=== PATIENT | female | born 1960 | race Caucasian/White ===

== ENCOUNTER → 2017-06-16 | Outpatient (CLI) | payer BC ==
--- NOTE | 2017-06-16 10:55 | CT ---
EXAMINATION TYPE: CT ChestAbdPelvis wo con DATE OF EXAM: 06/16/2017 COMPARISON: Previous dated 02/21/2016 CT chest abdomen pelvis HISTORY: Follow up to chronic lymphocytic leukemia. C91.10. Pt c/o Rt leg pain CT DLP: 639.6 mGycm. Automated Exposure Control for Dose Reduction was Utilized. TECHNIQUE: CT scan of the thorax, abdomen and pelvis is performed without IV contrast. Patient received oral con trast. FINDINGS: Lack of each venous contrast could compromise sensitivity LUNGS: The lungs are similar in appearance, areas of probable scarring noted in the right upper lobe, the same as changes are present. Axial image 23 shows a subcentimeter pulmonary nodule measuring lyric roximately 4 mm not definitively seen on prior, there are additional scattered nodular densities gosia lar to prior exam. There is no pleural effusion or pneumothorax seen. The tracheobronchial tree is p atent. MEDIASTINUM: There is extensive adenopathy present which is developed in the interval involving the a xilla, mediastinum, and hilar regions, largest subcarinal soft tissue mass is present, there may be s ome mass effect on the left atrium. Subpectoral nodes are also present bilaterally. There are coronar y artery calcifications noted. LIVER/GB: No significant interval change is appreciated, low dense focus within the right lobe of the liver is poorly characterize but shows a similar dimension to prior exam. PANCREAS: No significant abnormality is seen. SPLEEN: There is been interval enlargement of the spleen now measuring 14 cm in anterior to posterior dimension. ADRENALS: Left adrenal mass is stable. KIDNEYS: No significant abnormality is seen. BOWEL: No significant abnormality is seen. GENITAL ORGANS: No gross abnormality seen. LYMPH NODES: There is upper abdominal adenopathy which is developed in the interval, retroperitoneal adenopathy is also new and extensive. There is some mesenteric adenopathy not seen on prior exam. Zara ac and inguinal nodes of also increased in size in the interval, largest iliac node on the left shows a transverse dimension of 13 mm. Supraclavicular adenopathy also present, noted on the left measures approximately 16 mm in short axis, shotty nodes are present bilaterally. OSSEOUS STRUCTURES: No significant abnormality is seen. OTHER: Subcentimeter nonobstructive calculi are present within the left kidney as on prior exam. IMPRESSION: Interval development of extensive adenopathy within the chest abdomen and pelvis. Interva l subcentimeter lung nodule.
== END | disposition home or self-care (01) ==
LOC: RADCTMAIN 08:05
PROVIDERS: ATTEND Internal Medicine Hematology & Oncology
DX: R91.1 Solitary pulmonary nodule (principal); R59.0 Localized enlarged lymph nodes; C91.10 Chronic lymphocytic leukemia of B-cell type not having achieved remission; Z91.041 Radiographic dye allergy status
CPT/HCPCS: 71250; 74176

== ENCOUNTER → 2017-07-01 | Outpatient (CLI) | payer BC ==
--- NOTE | 2017-07-02 12:12 | MM ---
Reason for exam: screening (asymptomatic). Last mammogram was performed 1 year and 10 months ago. History: Patient history of other cancer. Excisional biopsy of the right breast. Took estrogen for 2 months. Physical Findings: A clinical breast exam by your physician is recommended on an annual basis and results should be correlated with mammographic findings. MG Screening Mammo w CAD Bilateral CC and MLO view(s) were taken. Prior study comparison: August 23, 2015, right breast MG work up mamm w CAD RT. August 16, 2015, bilateral MG screening mammo w CAD. The breast tissue is heterogeneously dense. This may lower the sensitivity of mammography. There is a 6mm low density mass in the left central upper breast at posterior depth. Right lateral asymmetry at middle depth. Inferior middle depth right architectural distortion. New extensive axillary adenopathy. Diagnostic mammogram work up and correlation with CBC/serum lab workup is recommended. ASSESSMENT: Incomplete: need additional imaging evaluation, BI-RAD 0 RECOMMENDATION: Special view mammogram and ultrasound of both breasts. (pain) [facility] will attempt to contact patient to return for supplemental views and ultrasound.
== END | disposition home or self-care (01) ==
LOC: RADMAMWWP 08:26
PROVIDERS: ATTEND Family Medicine
DX: Z12.31 Encounter for screening mammogram for malignant neoplasm of breast (principal)
CPT/HCPCS: 77067

== ENCOUNTER 2017-07-02 09:06 | Day surgery (SDC) | payer BC ==
[2017-07-02 09:29] VITALS: TEMP 97.6
[2017-07-02 10:19] VITALS: BP 117/64; PULSE 88; RESP 14
--- NOTE | 2017-07-02 12:11 | US ---
EXAMINATION TYPE: US biopsy lymph node DATE OF EXAM: 07/02/2017 HISTORY: Axillary mass. FINDINGS: Maximal barrier technique was utilized. The skin overlying a suitable path to the patient' s right axilla was localized with ultrasound and the overlying skin prepped and draped. Ultrasound w as utilized with sterile technique. Lidocaine was used for local anesthesia. A skin nallely was made w ith a scalpel. An 18-gauge needle was advanced under direct ultrasound guidance and core specimen ob tained of the mass. Specimen submitted in formalin to Pathology. 2 additional passes were performed and submitted to the diagnostic technologist. Following the procedure, hemostasis achieved and the pat ient is discharged in stable condition without complication. IMPRESSION:STATUS POST ULTRASOUND GUIDED CORE BIOPSY OF right axillary MASS, PATHOLOGY IS PENDING. T HIS PROCEDURE IS PERFORMED BY THE UNDERSIGNED.
== END 2017-07-02 10:25 | disposition home or self-care (01) ==
LOC: RADPROMAIN 09:06
PROVIDERS: ATTEND Internal Medicine Hematology & Oncology
DX: C91.10 Chronic lymphocytic leukemia of B-cell type not having achieved remission (principal)
CPT/HCPCS: 38505; 76942; 88305

== ENCOUNTER → 2017-07-11 | Outpatient (CLI) | payer BC ==
--- NOTE | 2017-07-11 13:21 | MM ---
Reason for exam: additional evaluation requested from abnormal screening. Last mammogram was performed less than 1 month ago. History: Patient history of other cancer. Excisional biopsy of the right breast. Physical Findings: Nurse did not find any significant physical abnormalities on exam. MG Work Up Mamm w CAD BILAT Bilateral spot compression CC, spot compression MLO, and LM view(s) were taken. Prior study comparison: July 01, 2017, bilateral MG screening mammo w CAD. August 23, 2015, right breast MG work up mamm w CAD RT. The breast tissue is heterogeneously dense. This may lower the sensitivity of mammography. Persistent nodularity in the left breast. Ultrasound is recommended bilaterally. Enlarged bilateral adenopathy. These results were verbally communicated with the patient and result sheet given to the patient on 07/11/17. ASSESSMENT: Incomplete: need additional imaging evaluation, BI-RAD 0 RECOMMENDATION: Ultrasound of both breasts.
--- NOTE | 2017-07-11 13:48 | USB ---
Reason for exam: additional evaluation requested from abnormal screening. History: Patient history of other cancer. Excisional biopsy of the right breast. US Breast Workup RD Right breast ultrasound includes all four quadrants, the retroareolar region and axilla. Finding demonstrates a 0.3 x 0.4 x 0.2cm oval lesion too small to characterize at 3 o'clock, a 0.8 x 0.5 x 0.6cm oval, hyperechoic lipoma at 6 o'clock, a 1.1 x 0.7 x 0.5cm oval, hyperechoic lesion at 8 o'clock, a 0.4 x 0.6 x 0.4cm oval, mixed cluster at 9 o'clock, a 0.4 x 0.4 x 0.4cm round, cystic, vascular lesion at 9 o'clock, a 0.7 x 0.5 x 0.2cm oval, cystic lesion at 10 o'clock, a 0.4 x 0.4 x 0.3cm oval, cystic lesion at 10 o'clock and duct ectasia at the posterior nipple. Left breast ultrasound includes all four quadrants, the retroareolar region and axilla. Finding demonstrates a 0.4 x 0.7 x 0.3cm oval, hyperechoic lesion at 12 o'clock, a 0.2 x 0.4 x 0.2cm oval lesion too small to characterize at 1 o'clock, a 0.5 x 0.4 x 0.4cm oval, hypoechoic lesion at 2 o'clock, a 1.0 x 0.4 x 0.3cm oval, irregular, hypoechoic lesion at 6 o'clock, a 0.4 x 0.5 x 0.2cm oval, hypoechoic lesion at 8 o'clock and a 0.7 x 0.7 x 0.4cm oval, solid lesion at 3 o'clock. These results were verbally communicated with the patient and result sheet given to the patient on 07/11/17. ASSESSMENT: Suspicious, BI-RAD 4 RECOMMENDATION: Ultrasound core biopsy of the left breast. (3 o'clock) Called with mammographic findings and has scheduled an appointment for the patient for 07/14/[address] Fitzgerald. PRELIMINARY REPORT CALLED AND FAXED TO DR. FITZGERALD ON 07/11/17.
== END | disposition home or self-care (01) ==
LOC: RADMAMWWP 08:24
PROVIDERS: ATTEND Family Medicine
DX: R92.8 Other abnormal and inconclusive findings on diagnostic imaging of breast (principal)
CPT/HCPCS: 77066

== ENCOUNTER → 2017-10-03 | Outpatient (CLI) | payer BC ==
--- NOTE | 2017-10-03 15:00 | US ---
EXAMINATION TYPE: US extremity nonvasc mass RT DATE OF EXAM: 10/03/2017 COMPARISON: CLINICAL HISTORY: R06.02 SOB R60.0 BLE R22.42 Swelling R thigh mass. Palpable lumps on anterior right thigh Area of three anterior palpable lumps on upper thigh scanned. All appear nonvascular and superficial . 1- 1.3 x 0.8 x 0.6 cm 2- 1.8 x 2.1 x 1.3 cm 3- 1.0 x 1.0 x 0.5 cm IMPRESSION: 1. Hyperechoic areas corresponding to the palpable abnormalities may be lipomas. 2. MRI with contrast could be performed which may better evaluate lipoma from liposarcoma.
--- NOTE | 2017-10-03 17:14 | ECHOF ---
Referral Reason:R06.02 SOB R60.0 BLE R22.42 Swelling R thigh mass MEASUREMENTS -------- HEIGHT: 157.5 cm WEIGHT: 70.8 kg BP: 139/77 RVIDd: 2.7 cm (< 3.3) IVSd: 0.9 cm (0.6 - 1.1) LVIDd: 5.7 cm (3.9 - 5.3) LVPWd: 1.1 cm (0.6 - 1.1) IVSs: 1.0 cm LVIDs: 5.1 cm LVPWs: 1.4 cm LA Diam: 3.7 cm (2.7 - 3.8) LAESV Index (A-L): 29.34 ml/m Ao Diam: 2.7 cm (2.0 - 3.7) AV Cusp: 1.8 cm (1.5 - 2.6) MV EXCURSION: 14.967 mm (> 18.000) MV EF SLOPE: 106 mm/s (70 - 150) EPSS: 2.2 cm MV E Get: 0.76 m/s MV DecT: 56 ms MV A Get: 1.33 m/s MV E/A Ratio: 0.57 AV maxP.78 mmHg AV maxP.78 mmHg AV meanP.19 mmHg FINDINGS -------- Sinus rhythm. This was a technically adequate study. The left ventricle is mildly dilated. There is borderline concentric left ventricular hypertrophy. Overall left ventricular systolic function is severely impaired with, an EF between 20 - 25 %. Ba sony inferior LV wall motion is hypokinetic. Basal inferoseptal LV wall motion is dyskinetic. The right ventricle is normal in size. LA is midly dilated 29-33ml/m2. The right atrium is normal in size. The atrial septal defect shunts from left to right. There is mild aortic valve sclerosis. Mild mitral annular calcification present. Mild mitral regurgitation is present. The tricuspid valve appears structurally normal. Trace/mild (physiologic) pulmonic regurgitation. The aortic root size is normal. Normal inferior vena cava with normal inspiratory collapse consistent with estimated right atrial pre ssure of 5 mmHg. There is no pericardial effusion. CONCLUSIONS -------- 1. Sinus rhythm. 2. This was a technically adequate study. 3. The left ventricle is mildly dilated. 4. There is borderline concentric left ventricular hypertrophy. 5. Overall left ventricular systolic function is severely impaired with, an EF between 20 - 25 %. 6. Basal inferior LV wall motion is hypokinetic. 7. Basal inferoseptal LV wall motion is dyskinetic. 8. The right ventricle is normal in size. 9. LA is midly dilated 29-33ml/m2. 10. The right atrium is normal in size. 11. The atrial septal defect shunts from left to right. 12. There is mild aortic valve sclerosis. 13. Mild mitral annular calcification present. 14. Mild mitral regurgitation is present. 15. The tricuspid valve appears structurally normal. 16. Trace/mild (physiologic) pulmonic regurgitation. 17. The aortic root size is normal. 18. Normal inferior vena cava with normal inspiratory collapse consistent with estimated right atrial pressure of 5 mmHg. 19. There is no pericardial effusion. EXECUTIVE DIRECTOR CONTRACT SHOP: Lala Horner RDCS
== END | disposition home or self-care (01) ==
LOC: RADECHMAIN 13:21
PROVIDERS: ATTEND Internal Medicine Hematology & Oncology
DX: I50.9 Heart failure, unspecified (principal); I34.0 Nonrheumatic mitral (valve) insufficiency; I35.8 Other nonrheumatic aortic valve disorders; M79.651 Pain in right thigh; Z91.048 Other nonmedicinal substance allergy status; Z88.1 Allergy status to other antibiotic agents
CPT/HCPCS: 93306

== ENCOUNTER → 2017-11-14 | Outpatient (CLI) | payer BC ==
[2017-11-14 12:33] LABS: HCT 48.2 % (34.0-46.0); HGB 15.6 gm/dL (11.4-16.0); MCH 31.4 pg (25.0-35.0); MCHC 32.4 g/dL (31.0-37.0); MCV 96.9 fL (80.0-100.0); Mean Platelet Volume 11.3; Platelet Count 145 k/uL (150-450); RBC 4.98 m/uL (3.80-5.40)
[2017-11-14 12:42] LABS: WBC 68.7 k/uL (3.8-10.6)
== END | disposition home or self-care (01) ==
LOC: LABPAT 11:50
PROVIDERS: ATTEND Internal Medicine Interventional Cardiology
DX: Z01.812 Encounter for preprocedural laboratory examination (principal)
CPT/HCPCS: 36415; 85027

== ENCOUNTER 2017-11-19 08:05 | Day surgery (SDC) | payer BC ==
[2017-11-14 11:09] VITALS: BMI 28.5
[~2017-11-19 08:05] MED LIST: ALPRAZolam 0.25 MG TAB PO PRN; ASPIRIN 325 MG TAB PO ONE; NITROGLYCERIN SL TABS 0.4 MG TAB SUBLINGUAL PRN; SODIUM CHLORIDE 0.9% 1,000 ML in EMPTY BAG 1 BAG IV ONE
[2017-11-19 08:22] VITALS: TEMP 97.9
[2017-11-19] MEDS ORDERED: LIDOCAINE 1% INJ 10MG/ML (20 ML MDV) ONE ×2 (09:11→09:24)
[2017-11-19] MEDS ORDERED: MIDAZOLAM 2 MG/2 ML VIAL ONE (09:38)
[2017-11-19] MEDS ORDERED: diphenhydrAMINE 50 MG/ML 1 ML VIAL ONE (09:38)
[2017-11-19] MEDS ORDERED: LIDOCAINE 2% INJ 20 MG/ML SQ ONE (09:46)
[2017-11-19] MEDS: MIDAZOLAM 2 MG/2 ML VIAL IV ONE ×2 (09:47→10:07)
[2017-11-19] MEDS ORDERED: diphenhydrAMINE 50 MG/ML 1 ML VIAL IVP ONE (09:47)
[2017-11-19] MEDS ORDERED: FUROSEMIDE 10 MG/ML 4 ML VIAL ONE (10:17)
[2017-11-19] MEDS ORDERED: NITROGLYCERIN SL TABS 0.4 MG TAB SUBLINGUAL ONE ×2 (10:17→10:19)
[2017-11-19] MEDS ORDERED: IOPAMIDOL-370 100ML BTL INJ ONE (10:19)
[2017-11-19] MEDS ORDERED: FUROSEMIDE 10 MG/ML 4 ML VIAL IV ONE (10:19)
[2017-11-19] MEDS ORDERED: IOPAMIDOL-370 50ML BTL INJ ONE (10:20)
[2017-11-19] MEDS ORDERED: RX INFO: IV CONTRAST WAS GIVEN 1 EACH MISC MISCELLANE PRN (10:35)
[2017-11-19] MEDS ORDERED: SODIUM CHLORIDE 0.9% 1,000 ML IV SCH (10:45)
--- NOTE | 2017-11-19 11:19 | CC ---
CARDIAC CATHETERIZATION REPORT DATE OF SERVICE: 11/19/2017 PROCEDURE: Left heart catheterization, coronary angiography and left ventriculography. PERFORMED BY: Dr. Neelam Garcia. CLINICAL INFORMATION: Mrs. Radhames Belle is a 57-year-old lady with a history of smoking, hypertension, hyperlipidemia, family history of CAD who saw me because of a decreased ejection fraction of 25%. Echo in September revealed ejection fraction of 25% with inferior wall hypokinesia and inferoseptal dyskinesia. She also has chronic lymphocytic leukemia and is being [facility]. Because of a abnormal echocardiogram and symptoms of exertional shortness of breath, she was advised coronary angiography after appropriate medical therapy. The risks, benefits, options and rationale were explained to the patient in detail. PROCEDURE NOTE: I initially had planned for a right and left heart catheterization, but there was some difficulty getting right venous access in the femoral vein and therefore I switched over to a left heart cath only. A 6-Palauan introducer was placed in the right femoral artery under strict aseptic precautions and local anesthesia. Using standard Cherelle catheters, I performed coronary angiography and a pigtail catheter was used to check LV pressures and LV gram was performed in 30-degree KRAUSE projection. The sheath was taken out and an Angio-Seal device used to secure hemostasis. She was sent to the room in a stable condition. Results were discussed with the patient and family. CARDIAC CATHETERIZATION FINDINGS: The left ventricular end-diastolic pressure was 24 mmHg and there was no gradient across the aortic valve. LEFT VENTRICULOGRAM: This was performed in 30-degree KRAUSE projection and revealed ejection fraction of about 35% to 40% with inferobasal akinesia and also there were some trabeculae seen in the anterior wall area suggestive of some diverticula from the ventricle. There is minimal mitral regurgitation noted. CORONARY ANGIOGRAPHY FINDINGS: RIGHT CORONARY ARTERY: Nondominant vessel has minor diffuse irregularities. No significant disease. Limited amount of myocardium being supplied by it. LEFT MAIN CORONARY ARTERY: Short patent vessel, free of significant disease that bifurcates into LAD and circumflex. LEFT ANTERIOR DESCENDING CORONARY ARTERY: Good caliber vessel extends along the anterior wall. Proximally, there is a 40% lesion. The caliber then improves it runs all the way to the apex giving off septal and diagonal branches. No significant disease in the entire LAD system but there is a 40% proximal smooth stenosis noted. LEFT POSTERIOR CIRCUMFLEX CORONARY ARTERY: Technically a dominant vessel that gives off a single obtuse marginal then the vessel is totally occluded without any antegrade flow. The obtuse marginal that is opacified, is free of significant disease. There are some [id number] collaterals and the circumflex vessel is totally occluded after the origin of this relatively small distribution obtuse marginal branch. The dominant circumflex is therefore occluded in the midportion. FINAL IMPRESSION: This patient has a left dominant system, total occlusion of the dominant circumflex after a small obtuse marginal with [id number] collaterals. Right coronary artery is small, nondominant, and disease free. Left anterior descending artery has a 40% proximal lesion. Filling pressures are elevated. Ejection fraction is about 35 % to 40% with inferobasal akinesia. RECOMMENDATION: For now I am recommending aggressive medical therapy with risk factor modification. Patient will be discharged later on today and I will see her in the office on the . She has been advised to work with smoking cessation and she is working very hard to achieve this. Moderate conscious sedation time was 41 minutes. Patient was administered Benadryl and Versed and oxygen saturation, hemodynamics and EKG were monitored closely. She was pretreated with steroids and Benadryl and H2 blockers in view of her IODINE allergy and there were no issues during the procedure. MMODL / IJN: [id number] / BRUCE
[2017-11-19 11:54] VITALS: RESP 16
[2017-11-19 12:23] VITALS: BP 127/60; PULSE 68
--- NOTE | 2017-11-19 13:59 | ECHOF ---
Referral Reason:LV function MEASUREMENTS -------- HEIGHT: 157.5 cm WEIGHT: 70.8 kg BP: 122/66 RVIDd: 2.3 cm (< 3.3) IVSd: 1.0 cm (0.6 - 1.1) LVIDd: 6.0 cm (3.9 - 5.3) LVPWd: 1.3 cm (0.6 - 1.1) IVSs: 1.3 cm LVIDs: 5.3 cm LVPWs: 1.5 cm LA Diam: 3.4 cm (2.7 - 3.8) LAESV Index (A-L): 22.14 ml/m Ao Diam: 3.1 cm (2.0 - 3.7) AV Cusp: 1.7 cm (1.5 - 2.6) MV EXCURSION: 17.701 mm (> 18.000) MV EF SLOPE: 47 mm/s (70 - 150) EPSS: 3.0 cm MV E Get: 0.71 m/s MV DecT: 291 ms MV A Get: 1.13 m/s MV E/A Ratio: 0.63 RAP: 5.00 mmHg RVSP: 19.65 mmHg FINDINGS -------- Sinus rhythm. This was a technically difficult study with suboptimal parasternal views. The left ventricle is mildly dilated. There is mild concentric left ventricular hypertrophy. Over all left ventricular systolic function is severely impaired with, an EF between 25 - 30 %. Basal in ferior LV wall motion is akinetic. Basal inferoseptal LV wall motion is akinetic. Mid inferior LV wall motion is hypokinetic. Mid inferoseptal LV wall motion is hypokinetic. Anterseptal Hypo kinesis [place] Hypokinesis. The right ventricle is normal in size. Normal LA size by volume 22+/-6 ml/m2. The right atrium is normal in size. 5 ml of Lumason was utilized for enhancement of images. There is mild aortic valve sclerosis. Mild mitral annular calcification present. There is trace mitral regurgitation. Mild tricuspid regurgitation present. Right ventricular systolic pressure is normal at < 35 mmHg. The pulmonic valve was not well visualized. The aortic root size is normal. Normal inferior vena cava with normal inspiratory collapse consistent with estimated right atrial pre ssure of 5 mmHg. There is no pericardial effusion. CONCLUSIONS -------- 1. Sinus rhythm. 2. This was a technically difficult study with suboptimal parasternal views. 3. The left ventricle is mildly dilated. 4. There is mild concentric left ventricular hypertrophy. 5. Basal inferior LV wall motion is akinetic. 6. Basal inferoseptal LV wall motion is akinetic. 7. Mid inferior LV wall motion is hypokinetic. 8. Mid inferoseptal LV wall motion is hypokinetic. 9. Anterseptal Hypokinesis 10. [place] Hypokinesis. 11. The right ventricle is normal in size. 12. Normal LA size by volume 22+/-6 ml/m2. 13. The right atrium is normal in size. 14. 5 ml of Lumason was utilized for enhancement of images. 15. There is mild aortic valve sclerosis. 16. Mild mitral annular calcification present. 17. There is trace mitral regurgitation. 18. Mild tricuspid regurgitation present. 19. Right ventricular systolic pressure is normal at < 35 mmHg. 20. The pulmonic valve was not well visualized. 21. The aortic root size is normal. 22. Normal inferior vena cava with normal inspiratory collapse consistent with estimated right atrial pressure of 5 mmHg. 23. There is no pericardial effusion. PENSIONHOLDER INFORMATION CLERK: Lala Horner RDCS
== END 2017-11-19 17:45 | disposition home or self-care (01) ==
LOC: CATHCVL 08:05
PROVIDERS: ATTEND Internal Medicine Interventional Cardiology
DX: I25.110 Atherosclerotic heart disease of native coronary artery with unstable angina pectoris (principal); I25.82 Chronic total occlusion of coronary artery; I10 Essential (primary) hypertension; I08.3 Combined rheumatic disorders of mitral, aortic and tricuspid valves; I51.7 Cardiomegaly; F17.210 Nicotine dependence, cigarettes, uncomplicated; Z82.49 Family history of ischemic heart disease and other diseases of the circulatory system; C91.10 Chronic lymphocytic leukemia of B-cell type not having achieved remission; Z79.899 Other long term (current) drug therapy; Z88.1 Allergy status to other antibiotic agents; Z91.048 Other nonmedicinal substance allergy status
CPT/HCPCS: 93306; 93458; C1760; C1894 ×2; C1769 ×2; J2001; J2250; J1200; J1940; Q9950; Q9967 ×2

== ENCOUNTER → 2018-01-05 | Outpatient (CLI) | payer BC ==
--- NOTE | 2018-01-05 14:27 | CT ---
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 Delayed images through the kidneys were obtained. Coronal/s agittal reconstructions performed. CT DLP: 831.2 mGycm Automated exposure control for dose reduction was used. FINDINGS: Chest: Heart normal size without pericardial effusion. Numerous nonenlarged and borderline enlarged mediastinal lymph nodes remain though with dramatic impr ovement as compared to 06/16/2017. The largest lymph node now measures 1.2 cm in the precarinal region and 1.7 cm in the subcarinal region versus 2.5 cm and 4.3 cm, previously. Numerous small axillary lym ph nodes are also noted. Moderate centrilobular emphysema. Focal irregular 9 mm groundglass peripheral right upper lobe is unchanged from 2016. Minimal groundgl ass nodularity left upper lobe, for example, axial image 20 is unchanged. 8 mm peripheral left midlun g nodule is unchanged. No enlarging pulmonary nodules are seen. Mild dependent atelectasis. ABDOMEN: Hepatic hypodensity in the right liver lobe shows some filling on delayed kidney images and measures 2.2 cm, not significantly changed, suggestive of a hemangioma. Subcentimeter cyst along the falciform ligament redemonstrated. No new focal liver lesion or biliary ductal dilatation. Portal venous syste m is patent. Portacaval lymph node borderline in size at 1.5 cm, markedly improved from 3.3 cm, previously. Left-sided retroperitoneal lymph nodes measure up to 9 mm versus 2.0 cm, previously. Chronic left adrenal mass is stable at 4.5 cm. Probable adrenal adenoma. Moderate atherosclerotic calcification throughout the abdominal aorta and iliac arteries. Scattered prominent and borderline enlarged mesenteric lymph nodes have also shown dramatic improveme nt, now measuring up to 7 mm, axial image 96 versus 1.4 cm and larger, previously No dilated small bowel, free fluid, or free air. Normal appendix. Oral contrast has progressed to the hepatic flexure. No pericolonic inflammatory change. Pelvis: Bladder not distended. Pelvic phleboliths. Uterus surgically absent. What appears to be the bilateral ovaries are visualized. No abnormal fluid collection in the pelvis. Dramatic improvement in the prev ious iliac chain lymphadenopathy now with lymph nodes measuring up to only 7 mm versus 1.7 cm, previo usly. Bones: Mild degenerative changes at the hips. Mild degenerative changes lower lumbar spine. No osseous destr uctive process. IMPRESSION: 1. DRAMATIC IMPROVEMENT IN DIFFUSE LYMPHADENOPATHY IN THE CHEST, ABDOMEN, AND PELVIS. SOME RESIDUAL B ORDERLINE OR MILDLY ENLARGED LYMPH NODES REMAIN (SUBCARINAL MEASURING UP TO 2.5 CM VERSUS 4.3 CM, PRE VIOUSLY; PORTACAVAL MEASURING 1.5 CM VERSUS 3.3 CM, PREVIOUSLY; AND LEFT EXTERNAL ILIAC CHAIN MEASURI NG UP TO 7 MM VERSUS 1.7 CM, PREVIOUSLY). 2. SOME VAGUE PULMONARY NODULARITY MEASURING UP TO 9 MM REMAINS GROSSLY STABLE BACK TO 2016. 3. COPD WITH MODERATE EMPHYSEMA.
== END ==
LOC: RADCTMAIN 11:43
PROVIDERS: ATTEND Internal Medicine Hematology & Oncology
DX: C91.10 Chronic lymphocytic leukemia of B-cell type not having achieved remission (principal); J43.9 Emphysema, unspecified; Z91.041 Radiographic dye allergy status
CPT/HCPCS: 82565; 84520; 71260; 74177; 36415; Q9967

== ENCOUNTER 2018-03-27 02:07 | Observation (INO) | payer BC ==
[2018-03-27] MEDS ORDERED: NITROGLYCERIN SL TABS 0.4 MG TAB SUBLINGUAL STA (02:32)
[2018-03-27] MEDS ORDERED: ASPIRIN 81 MG PO STA (02:32)
[2018-03-27] MEDS ORDERED: MORPHINE SULFATE 4 MG/ML SYRINGE IV STA ×2 (02:32→04:38)
[2018-03-27 02:52] LABS: HCT 44.2 % (34.0-46.0); HGB 14.4 gm/dL (11.4-16.0); MCHC 32.5 g/dL (31.0-37.0); MCV 95.3 fL (80.0-100.0); Platelet Count 138 k/uL (150-450); RBC 4.64 m/uL (3.80-5.40); RDW 13.7 % (11.5-15.5); WBC 22.3 k/uL (3.8-10.6)
--- NOTE | 2018-03-27 02:52 | ED ---
Chest Pain HPI - General Chief Complaint: Chest Pain Stated Complaint: Arm pain, Dental pain Time Seen by Provider: 03/27/18 02:19 Source: patient Mode of arrival: wheelchair Limitations: no limitations - History of Present Illness MD Complaint: chest pain Onset/Timin -: hour(s) Onset: during rest Pain Location: substernal Pain Radiation: RUE, jaw/teeth Severity: moderate Quality: aching Consistency: constant Improves With: nothing Worsens With: nothing Anginal Symptoms: dyspnea Treatments Prior to Arrival: none - Related Data Home Medications Medication Instructions Recorded Confirmed HYDROcodone/APAP 7.5-325MG [[place] 1 tab PO Q6HR PRN 01/15/15 03/27/18 7.5-325] Dextroamphetamine/Amphetamine 30 mg PO DAILY PRN 01/16/15 03/27/18 [Adderall] ALPRAZolam [Xanax] 0.5 mg PO TID PRN 01/30/15 03/27/18 Carvedilol [Coreg] 6.25 mg PO BID 11/14/17 03/27/18 Ibrutinib [Imbruvica] 420 mg PO 1900 11/14/17 03/27/18 Losartan [Cozaar] 50 mg PO DAILY 11/14/17 03/27/18 Prochlorperazine [Compazine] 10 mg PO BID PRN 11/14/17 03/27/18 Spironolactone [Aldactone] 25 mg PO DAILY 11/14/17 03/27/18 Acetaminophen Tab [Tylenol Tab] 1,000 mg PO Q6HR 03/27/18 03/27/18 Atorvastatin Calcium [Lipitor] 20 mg PO DAILY 03/27/18 03/27/18 Citalopram Hydrobromide [CeleXA] 10 mg PO DAILY 03/27/18 03/27/18 Furosemide [Lasix] 20 mg PO DAILY 03/27/18 03/27/18 Isosorbide Mononitrate ER [Imdur] 30 mg PO DAILY 03/27/18 03/27/18 Allergies Allergy/AdvReac Type Severity Reaction Status Date / Time iodine Allergy swelling Verified 03/27/18 08:21 and bloating minocycline Allergy Rash/Hives Verified 03/27/18 08:21 tetracycline Allergy Rash/Hives Verified 03/27/18 08:21 Review of Systems ROS Statement: Those systems with pertinent positive or pertinent negative responses have been documented in the HPI. ROS Other: All systems not noted in ROS Statement are negative. Constitutional: Denies: fever, chills, weakness Respiratory: Reports: dyspnea. Denies: cough Cardiovascular: Reports: chest pain. Denies: palpitations, orthopnea, edema, syncope Gastrointestinal: Denies: abdominal pain, nausea, vomiting Genitourinary: Denies: dysuria Musculoskeletal: Denies: back pain Skin: Denies: rash Neurological: Denies: headache, weakness, numbness EKG Findings - EKG Comments: EKG Findings:: Possible old anterior infarct. - EKG Results: EKG: interpreted by ERMD, sinus rhythm (Rate is proximal 70 bpm), normal axis Past Medical History Past Medical History: Cancer, Chest Pain / Angina, GI Bleed, Hypertension, Osteoarthritis (OA) Additional Past Medical History / Comment(s): heart murmer, hx colitis, GI bleed 2014, leukocytosis, Chronic lymphatic leukemia, Small lymphatic leukemia History of Any Multi-Drug Resistant Organisms: None Reported Past Surgical History: Breast Surgery, Hysterectomy, Tonsillectomy Additional Past Surgical History / Comment(s): Bone marrow biopsies, benign cysts removed from breasts, breast biopsy, Past Anesthesia/Blood Transfusion Reactions: Motion Sickness Additional Past Anesthesia/Blood Transfusion Reaction / Comment(s): diff IV starts Past Psychological History: Anxiety, Depression Smoking Status: Current every day smoker Past Alcohol Use History: None Reported Past Drug Use History: Marijuana - Past Family History Mother Family Medical History: Congestive Heart Failure (CHF), Coronary Artery Disease (CAD) Father Family Medical History: Cancer Additional Family Medical History / Comment(s): Lung ca with mets to brain Brother(s) Family Medical History: Coronary Artery Disease (CAD) Daughter(s) Family Medical History: No Reported History General Exam Limitations: no limitations General appearance: alert, in no apparent distress Head exam: Present: atraumatic, normocephalic Eye exam: Present: normal appearance. Absent: scleral icterus, conjunctival injection ENT exam: Present: normal oropharynx, other (Edentulous) Neck exam: Present: normal inspection, full ROM Respiratory exam: Present: normal lung sounds bilaterally. Absent: respiratory distress, wheezes, rales, rhonchi, stridor Cardiovascular Exam: Present: regular rate, normal rhythm, normal heart sounds. Absent: systolic murmur, diastolic murmur, rubs, gallop GI/Abdominal exam: Present: soft. Absent: distended, tenderness, guarding, rebound, mass Extremities exam: Present: normal inspection, normal capillary refill. Absent: pedal edema, calf tenderness Back exam: Present: normal inspection. Absent: CVA tenderness (R), CVA tenderness (L) Neurological exam: Present: alert Skin exam: Present: warm, dry, intact, normal color. Absent: rash Course Vital Signs 03/27/18 03/27/18 03/27/18 02:10 04:03 04:48 Temperature 97.0 F L Pulse Rate 75 71 70 Respiratory 18 16 16 Rate Blood Pressure 140/100 147/83 145/94 O2 Sat by Pulse 99 96 99 Oximetry Disposition Clinical Impression: Chest pain Disposition: ADMITTED IP TO THIS HOSP Condition: Fair Is patient prescribed a controlled substance at d/c from ED?: No
[2018-03-27 03:02] LABS: Albumin 4.1 g/dL (3.5-5.0); Calcium 9.1 mg/dL (8.4-10.2); Total Bilirubin 0.5 mg/dL (0.2-1.3); Total Protein 6.7 g/dL (6.3-8.2)
[2018-03-27 03:03] LABS: Potassium 4.9 mmol/L (3.5-5.1)
[2018-03-27 03:10] LABS: Creatine Kinase 38 U/L (30-135)
[2018-03-27 03:23] LABS: Creatine Kinase MB 1.1 ng/mL (0.0-2.4); Troponin I <0.012 ng/mL (0.000-0.034)
[2018-03-27 03:24] LABS: Eosinophils # (M) 0.22 k/uL (0-0.7); Large Platelets Present; Lymphocytes # (M) 16.95 k/uL (1.0-4.8); Monocytes # (M) 0.89 k/uL (0-1.0); Neutrophils # (M) 4.24 k/uL (1.3-7.7); Neutrophils % (M) 19 %; Nucleated Red Blood Cells 0 /100 WBC (0-0); Total Cells Counted 100
--- NOTE | 2018-03-27 03:27 | XR ---
EXAMINATION TYPE: XR chest 2V DATE OF EXAM: 03/27/2018 COMPARISON: 01/15/2015 HISTORY: Chest pain TECHNIQUE: Frontal and lateral views of the chest are obtained. FINDINGS: Heart and mediastinum are normal. Lungs are clear. Diaphragm is normal. Bony thorax is int act. There are chest leads. IMPRESSION: Normal chest.
[2018-03-27 03:29] LABS: INR 0.9 (<1.2); Prothrombin Time 9.6 sec (9.0-12.0)
[2018-03-27 03:30] LABS: Partial Thromboplastin Time 21.4 sec (22.0-30.0)
[2018-03-27] MEDS ORDERED: NITROGLYCERIN SL TABS 0.4 MG TAB SUBLINGUAL PRN (04:34)
[2018-03-27] MEDS ORDERED: PROCHLORPERAZINE 10 MG TAB PO PRN (04:36)
[2018-03-27] MEDS ORDERED: NITROGLYCERIN OINT 1 INCH/GM PACKET TOPICAL STA (04:40)
[2018-03-27] MEDS: HYDROcodone/APAP 7.5-325MG 1 EACH TAB PO PRN ×3 (07:44→20:19)
[2018-03-27] MEDS: ALPRAZolam 0.5 MG TAB PO PRN ×2 (07:46→14:31)
--- NOTE | 2018-03-27 07:55 | P.HPIM ---
History of Present Illness H&P Date: 03/27/18 Chief Complaint: Chest pressure. This is history of physical 58-year-old white female with past medical history of anxiety ADD ulcer colitis hypertension with osteoarthritis and history of lymphoma. 2 years ago she's had chemotherapy and states intermittent history of chest pain. She states in this past December she ended up having cardiac catheterization which was nominal. However, for the last several days. She's having chest pain with radiation to left arm or sometimes starts in left arm and radiates to her anterior chest no sniffing nausea but some element of diaphoresis stated. The patient is now admitted for appropriate chest pressure. No significant fever or chills no nausea, vomiting or diarrhea is stated. Review of Systems Constitutional: Denies chills, Denies fever Ears, nose, mouth and throat: Denies headache, Denies sore throat Cardiovascular: Reports as per HPI, Denies dyspnea on exertion, Denies edema Respiratory: Denies cough Gastrointestinal: Denies abdominal pain, Denies diarrhea, Denies nausea, Denies vomiting Genitourinary: Denies dysuria, Denies hematuria Musculoskeletal: Denies myalgias Integumentary: Denies pruritus, Denies rash Neurological: Denies numbness, Denies weakness Past Medical History Past Medical History: Cancer, Chest Pain / Angina, GI Bleed, Hypertension, Osteoarthritis (OA) Additional Past Medical History / Comment(s): heart murmer, hx colitis, GI bleed 2014, leukocytosis, Chronic lymphatic leukemia, Small lymphatic leukemia History of Any Multi-Drug Resistant Organisms: None Reported Past Surgical History: Breast Surgery, Heart Catheterization, Hysterectomy, Tonsillectomy Additional Past Surgical History / Comment(s): Bone marrow biopsies, benign cysts removed from breasts, breast biopsy, cardiac cath cath 01/2018 Past Anesthesia/Blood Transfusion Reactions: Motion Sickness Additional Past Anesthesia/Blood Transfusion Reaction / Comment(s): diff IV starts Past Psychological History: Anxiety, Depression Smoking Status: Current every day smoker Past Alcohol Use History: None Reported Past Drug Use History: Marijuana - Past Family History Brother(s) Family Medical History: Coronary Artery Disease (CAD) Daughter(s) Family Medical History: No Reported History Mother Family Medical History: Coronary Artery Disease (CAD), CVA/TIA Additional Family Medical History / Comment(s): cabg, MRSA Father Family Medical History: Cancer Additional Family Medical History / Comment(s): Lung ca with mets to brain Medications and Allergies Home Medications Medication Instructions Recorded Confirmed Type HYDROcodone/APAP 7.5-325MG [[place] 1 tab PO Q6HR PRN 01/15/15 03/27/18 History 7.5-325] Dextroamphetamine/Amphetamine 30 mg PO DAILY PRN 01/16/15 03/27/18 History [Adderall] ALPRAZolam [Xanax] 0.5 mg PO TID PRN 01/30/15 03/27/18 History Carvedilol [Coreg] 6.25 mg PO BID 11/14/17 03/27/18 History Ibrutinib [Imbruvica] 420 mg PO 1900 11/14/17 03/27/18 History Losartan [Cozaar] 50 mg PO DAILY 11/14/17 03/27/18 History Prochlorperazine [Compazine] 10 mg PO BID PRN 11/14/17 03/27/18 History Spironolactone [Aldactone] 25 mg PO DAILY 11/14/17 03/27/18 History Atorvastatin Calcium [Lipitor] 20 mg PO DAILY 03/27/18 03/27/18 History Allergies Allergy/AdvReac Type Severity Reaction Status Date / Time iodine Allergy swelling Verified 03/27/18 05:08 and bloating minocycline Allergy Rash/Hives Verified 03/27/18 05:08 tetracycline Allergy Rash/Hives Verified 03/27/18 05:08 Physical Exam Vitals: Vital Signs Temp Pulse Pulse Resp BP BP Pulse Ox 03/27/18 05:38 18 03/27/18 05:09 97.4 F L 66 18 139/84 100 03/27/18 04:48 70 16 145/94 99 03/27/18 04:03 71 16 147/83 96 03/27/18 02:10 97.0 F L 75 18 140/100 99 Intake and Output 03/26/18 03/27/18 03/27/18 22:59 06:59 14:59 Other: Voiding Method Toilet # Voids 1 Weight 73.482 kg - Constitutional General appearance: no acute distress - EENT Eyes: EOMI - Neck Neck: no lymphadenopathy - Respiratory Respiratory: bilateral: CTA - Cardiovascular Rhythm: regular Abnormal Heart Sounds: no S3 Gallop - Gastrointestinal General gastrointestinal: soft, no tenderness - Neurologic Neurologic: CNII-XII intact - Psychiatric Psychiatric: A&O x's 3, appropriate affect Results CBC & Chem 7: 03/27/18 02:38 03/27/18 02:38 Labs: Abnormal Lab Results - Last 24 Hours (Table) 03/27/18 03/27/18 03/27/18 Range/Units 02:38 02:38 02:38 WBC 22.3 H (3.8-10.6) k/uL Plt Count 138 L (150-450) k/uL Lymphocytes # (Manual) 16.95 H (1.0-4.8) k/uL APTT 21.4 L (22.0-30.0) sec Sodium 136 L (137-145) mmol/L BUN 34 H (7-17) mg/dL Thrombosis Risk Factor Assmnt - Choose All That Apply Any of the Below Risk Factors Present?: Yes Each Factor Represents 1 point: Abnormal pulmonary function (COPD), Age 41-60 years, Hx of IBD, Obesity (BMI >25) Other Risk Factors: No Other congenital or acquired thrombophilia - If yes, enter type in comment: No Thrombosis Risk Factor Assessment Total Risk Factor Score: 4 Thrombosis Risk Factor Assessment Level: Moderate Risk Assessment and Plan (1) Chest pain Current Visit: Yes Status: Acute Code(s): R07.9 - CHEST PAIN, UNSPECIFIED SNOMED Code(s): 09535251 (2) Anxiety Current Visit: Yes Status: Acute Code(s): F41.9 - ANXIETY DISORDER, UNSPECIFIED SNOMED Code(s): 07917239 (3) CLL (chronic lymphocytic leukemia) Current Visit: No Status: Chronic Priority: Medium Code(s): C91.10 - CHRONIC LYMPHOCYTIC LEUK OF B-CELL TYPE NOT ACHIEVE REMIS SNOMED Code(s): 85342092 Plan: Rule out myocardial infarction. Reconcile home medications. Cardiology is now consulted. She is otherwise a full code. Continue to follow Anticipate discharge in next 24 hours. Time with Patient: Greater than 30
--- NOTE | 2018-03-27 07:57 | CONS ---
CONSULTATION Mrs. Belle is a 58-year-old female who follows on a regular basis with Dr. Neelam Garcia who presented with symptoms of right arm and chest and jaw discomfort. The discomfort woke her up from sleep. She has been having the same discomfort for a while on and off. The discomfort is random and not related to physical activity. The patient has a known history of chronic lymphocytic leukemia, has been followed by Dr. Ceja on a regular basis. She has underwent cardiac catheterization by Dr. Neelam Garcia in November of 2017 because of evidence of cardiomyopathy noted on her echocardiogram and on the cardiac catheterization she was found to have small nondominant right coronary artery with mild to moderate disease in the LAD and totally occluded mid left circumflex with collaterals. The left ventricular systolic function was estimated at 35% to 40%. The patient has history of chronic dyspnea on exertion. Unfortunately she continues to smoke. She has no significant dizziness or palpitation. She has intermittent claudication, has been evaluated by Dr. Stubbs and is scheduled to undergo angiography. She has no history of PND, orthopnea, or recent syncope. Her coronary risk factors are remarkable for the history of hypertension, hyperlipidemia, and chronic tobacco use. She is nondiabetic. MEDICATION: Her medications include Aldactone 25 mg daily, losartan 50 mg daily, Coreg 6.25 mg twice a day, Lipitor 20 mg daily, Imbruvica, Compazine, and Adderall. REVIEW OF SYSTEMS: RESPIRATORY SYSTEM: She has history of dyspnea on exertion, history of chronic tobacco use. GI SYSTEM: No recent GI bleed. No peptic ulcer disease. SYSTEM: No dysuria or hematuria. NERVOUS SYSTEM: No history of stroke or seizure. PHYSICAL EXAMINATION: This is a 58-year-old female, alert, oriented, in no apparent distress. Blood pressure running in the 140s to 130s with the heart rate in the 60s 70s. HEAD: Normocephalic. EYES: Sclerae anicteric. NECK: Good carotid upstroke. No bruit. No jugular venous distention. LUNGS: Clear to auscultation. HEART: Regular rate and rhythm, S1, S2. No S3. No rub. ABDOMEN: Soft, nontender. Positive bowel sounds. No organomegaly. EXTREMITIES: Decreased distal pulses, more noted on the right lower extremity. LAB DATA: Lab data revealed BUN and creatinine are 34 and 0.97. Troponin less than 0.012. Potassium 4.9. Hemoglobin of 14.4, white blood cell of 22.3. Chest x-ray revealed no acute infiltrate. EKG revealed a sinus mechanism with borderline interventricular conduction delay with QS pattern in V1 to V3 and a small Q-wave in lead III. Those findings could represent an inferoapical myocardial infarction with nonspecific ST-T wave changes. IMPRESSION: 1. Right arm discomfort with jaw discomfort, has some atypical features for ischemic heart disease probably noncardiac. 2. History of coronary artery disease with ischemic cardiomyopathy with no overt signs of heart failure. 3. History of chronic lymphocytic leukemia. 4. Hypertension. 5. Hyperlipidemia. 6. Chronic tobacco use. RECOMMENDATION: From the cardiac standpoint, I would recommend to continue present therapy, increase her level of activity and obtain serial enzymes. If there is no evidence of enzymatic changes then I would not proceed with any further cardiac workup. From the cardiac standpoint, she should be able to be discharged home today and follow up with Dr. Stubbs and Dr. Garcia. Thank you for this consult. We will follow with you. MMODL / IJN: [id number] /
[2018-03-27 08:51] LABS: Creatine Kinase MB 2.6 ng/mL (0.0-2.4)
[2018-03-27 08:53] LABS: Troponin I 0.31 ng/mL (0.000-0.034)
[2018-03-27] MEDS ORDERED: ATORVASTATIN 40 MG TAB PO SCH (09:00)
[2018-03-27] MEDS ORDERED: ALLOPURINOL 300 MG TAB PO SCH (09:00)
[2018-03-27] MEDS ORDERED: CARVEDILOL 6.25 MG TAB PO SCH (09:00)
[2018-03-27] MEDS ORDERED: ATORVASTATIN 80 MG TAB PO STA (09:04)
[2018-03-27] MEDS ORDERED: ASPIRIN 325 MG TAB PO STA (09:04)
[2018-03-27] MEDS ORDERED: SODIUM CHLORIDE 0.9% 1,000 ML in EMPTY BAG 1 BAG IV ONE (09:04)
[2018-03-27] MEDS ORDERED: fentaNYL (PF) 50 MCG/ML 2 ML AMP ONE (09:15)
[2018-03-27] MEDS ORDERED: VERAPAMIL 2.5 MG/ML 2 ML AMP ONE (09:15)
[2018-03-27] MEDS ORDERED: LIDOCAINE 1% INJ 10MG/ML (20 ML MDV) ONE (09:15)
[2018-03-27] MEDS ORDERED: HEPARIN SODIUM 1,000 UN/ML (10ML VL) ONE (09:15)
[2018-03-27] MEDS ORDERED: methylPREDNISolone SOD SUCCI 125 MG/2 ML VIAL ONE (09:48)
[2018-03-27] MEDS: MIDAZOLAM 2 MG/2 ML VIAL IVP ONE ×2 (09:55→10:03)
[2018-03-27] MEDS ORDERED: methylPREDNISolone SOD SUCCI 125 MG/2 ML VIAL IV ONE (09:55)
[2018-03-27] MEDS ORDERED: fentaNYL (PF) 50 MCG/ML 2 ML AMP IV ONE (09:55)
[2018-03-27] MEDS ORDERED: LIDOCAINE 1% INJ 10MG/ML (20 ML MDV) SQ ONE (09:57)
[2018-03-27] MEDS ORDERED: SODIUM CHLORIDE 0.9% 1,000 ML IV ONE (09:59)
[2018-03-27] MEDS ORDERED: VERAPAMIL SYRINGE (5 MG/10 ML) INTRAARTER ONE (10:03)
[2018-03-27] MEDS ORDERED: HEPARIN SODIUM 1,000 UN/ML (10ML VL) IV ONE (10:12)
[2018-03-27] MEDS ORDERED: IOPAMIDOL-370 125ML BTL INJ ONE (10:13)
[2018-03-27] MEDS ORDERED: IOPAMIDOL-370 50ML BTL INJ ONE (10:14)
[2018-03-27] MEDS ORDERED: RX INFO: IV CONTRAST WAS GIVEN 1 EACH MISC MISCELLANE PRN (10:35)
[2018-03-27] MEDS ORDERED: SODIUM CHLORIDE 0.9% 1,000 ML IV SCH (10:45)
[2018-03-27] MEDS: CLOPIDOGREL 75 MG TAB PO SCH (11:02)
[2018-03-27] MEDS: SPIRONOLACTONE 25 MG TAB PO SCH (11:02)
[2018-03-27] MEDS: CARVEDILOL 6.25 MG TAB PO SCH ×2 (11:02→20:19)
[2018-03-27] MEDS: LOSARTAN 50 MG TAB PO SCH (11:02)
--- NOTE | 2018-03-27 11:18 | CC ---
CARDIAC CATHETERIZATION REPORT Ms. Belle is a 58-year-old female with known history of chronic lymphocytic leukemia, history of coronary artery disease, ischemic cardiomyopathy, chronic tobacco use and peripheral vascular disease who presented with symptoms of arm and chest discomfort. Her initial troponin were unremarkable. Subsequent sample showed mild elevation. In view of that and in view of her history, recommendation made regarding cardiac catheterization, the procedures, risks and complications were discussed with the patient who is in full understanding and agreement. PROCEDURE: Patient was brought to laborer pole crew in the fasting semi-sedated state after receiving fentanyl and Benadryl and achieving moderate conscious sedated state. Using Xylocaine anesthesia and Seldinger technique, a 6-[place] sheath was introduced in the right radial artery. Selective right and left coronary angiography was performed using 5- [place] 3.5 bend right and left Cherelle catheter, multiple views of the coronary artery including hemiaxial views were obtained. Following that, a 5-[place] tight pigtail catheter was introduced in the left ventricle and a 30 degree KRAUSE view and an [place] view of the left ventricle was obtained. Following that, catheter and sheath were removed. Hemostasis was obtained with deployment of a TR band. There was no immediate complication. Patient is returned to her room in stable condition. FINDINGS: FLUOROSCOPY: There was significant calcification involving the left anterior descending artery. LEFT MAIN:: This is a large-sized vessel, bifurcating into left circumflex, left anterior descending artery. Left main coronary artery has no evidence of high-grade stenosis. LEFT ANTERIOR DESCENDING ARTERY: This is a heavily calcified vessel proximally giving rise to 2 small to moderate diagonal branch. Left anterior descending artery proximally has a 30% plaque. The rest of the vessel has no high-grade stenosis. LEFT CIRCUMFLEX: This is a large dominant vessel giving rise to a large obtuse marginal branch after the takeoff of the obtuse marginal branch. The vessel is totally occluded with no significant antegrade flow. The proximal segment of the left circumflex has a plaque of 20% to 30%. RIGHT CORONARY ARTERY: This is a small, nondominant vessel that has a 40% to 50% plaque in the mid segment involving the acute marginal branch. COLLATERALS: There is collateral from the LAD toward the left PDA. LEFT VENTRICULOGRAM: Left ventriculogram is performed in the [place] and KRAUSE view and revealed an infero and lateral wall severe hypokinesis. There was 2+ mitral regurgitation. The ejection fraction was 35%. HEMODYNAMICS: There was no gradient across the aortic valve. The left ventricular end-diastolic pressure was 16-18 mmHg. CONCLUSION: 1. Chronic occluded mid dominant left circumflex. 2. Mild disease in the left anterior descending artery and the nondominant right coronary artery. 3. Dominant left coronary artery system. 4. Severely impaired left ventricular systolic function. RECOMMENDATION: After reviewing the images and comparing with the images that were obtained in November of 2017, there was no significant progression. At this time I will continue medical therapy. It is possible that she had a ruptured plaque. Aggressive risk modifications will be continued. Those findings and recommendation were discussed with the patient and she is in full understanding and agreement. Her left ventricular systolic function will be followed to see if she is a candidate for ICD implantation. Those findings and recommendation were discussed with the patient and her family Duration of the procedure, 23 minutes. BROOKE / KRISTI: [id number] /
[2018-03-27 13:31] LABS: Creatine Kinase MB 3.4 ng/mL (0.0-2.4)
[2018-03-27 13:34] LABS: Troponin I 0.265 ng/mL (0.000-0.034)
--- NOTE | 2018-03-27 15:53 | NM ---
EXAMINATION TYPE: NM pul vent and perfuse DATE OF EXAM: 03/27/2018 COMPARISON: NONE HISTORY: elev d-dimer TECHNIQUE: Utilizing inhalation of 33.8 mCi Tc 99m DTPA aerosol and intravenous injection of 5.26 mC i of Tc 99m MAA, ventilation and perfusion images are acquired post injection in multiple projections . FINDINGS: Normal radiotracer distribution is noted in the lungs. There is no evidence of mismatched defects. IMPRESSION: Low probability for pulmonary embolism.
[2018-03-27] MEDS ORDERED: ZOLPIDEM 5 MG TAB PO PRN (18:55)
[2018-03-27] MEDS ORDERED: Ibrutinib [Imbruvica] 420 MG PO SCH (19:00)
[2018-03-28] MEDS: HYDROcodone/APAP 7.5-325MG 1 EACH TAB PO PRN ×2 (03:22→10:41)
[2018-03-28 06:18] LABS: Anion Gap 5 mmol/L; Blood Urea Nitrogen 22 mg/dL (7-17); Calcium 9.2 mg/dL (8.4-10.2); Carbon Dioxide 24 mmol/L (22-30); Chloride 106 mmol/L (98-107); Cholesterol 140 mg/dL (<200); Glucose 176 mg/dL (74-99); HDL Cholesterol 45 mg/dL (40-60); LDL Cholesterol,Calculated 71 mg/dL (0-99); Potassium 5.1 mmol/L (3.5-5.1); Sodium 135 mmol/L (137-145); Triglycerides 119 mg/dL (<150)
[2018-03-28] MEDS: LOSARTAN 50 MG TAB PO SCH (07:57)
[2018-03-28] MEDS: CLOPIDOGREL 75 MG TAB PO SCH (07:57)
[2018-03-28] MEDS: SPIRONOLACTONE 25 MG TAB PO SCH (07:57)
[2018-03-28] MEDS: CARVEDILOL 6.25 MG TAB PO SCH (07:57)
--- NOTE | 2018-03-28 08:02 | P.PN ---
Subjective Progress Note Date: 03/28/18 Principal diagnosis: Chest pain This is a pleasant 58-year-old female patient who sees Dr. SUDHA Garcia in the office as an outpatient with known history of coronary artery disease, ischemic cardiomyopathy, hypertension, dyslipidemia, was admitted to the hospital with chest discomfort and ruled in for acute non-ST patient myocardial infarction. She underwent a heart catheterization yesterday and that revealed chronic total occlusion of the mid dominant circumflex with mild disease involving the LAD and mild disease involving non-dominant RCA. Maximize medical treatment was advised. I'll follow-up with the patient today, she denies having any chest pain or discomfort. From the cardiac vascular standpoint overview she can be discharged home. Objective - Vital Signs Vital signs: Vital Signs Temp 98.2 F 03/28/18 04:00 Pulse 70 03/28/18 04:00 Resp 15 03/28/18 04:00 BP 93/51 03/28/18 04:00 Pulse Ox 99 03/28/18 07:32 Intake & Output 03/27/18 03/28/18 03/28/18 18:59 06:59 18:59 Intake Total 100 Balance 100 Intake: IV 100 Other: Voiding Method Toilet # Voids 1 1 - Constitutional General appearance: Present: no acute distress - Respiratory Respiratory: bilateral: CTA - Cardiovascular Rhythm: regular Heart sounds: normal: S1, S2 Abnormal Heart Sounds: Present: systolic murmur - Labs CBC & Chem 7: 03/27/18 02:38 03/28/18 05:44 Labs: Abnormal Lab Results - Last 24 Hours (Table) 03/27/18 03/27/18 03/27/18 Range/Units 07:27 12:35 12:35 D-Dimer 0.72 H (<0.60) mg/L FEU Sodium (137-145) mmol/L BUN (7-17) mg/dL Glucose (74-99) mg/dL CK-MB (CK-2) 2.6 H 3.4 H (0.0-2.4) ng/mL Troponin I 0.310 H* 0.265 H* (0.000-0.034) ng/mL 03/28/18 Range/Units 05:44 D-Dimer (<0.60) mg/L FEU Sodium 135 L (137-145) mmol/L BUN 22 H (7-17) mg/dL Glucose 176 H (74-99) mg/dL CK-MB (CK-2) (0.0-2.4) ng/mL Troponin I (0.000-0.034) ng/mL Assessment and Plan Assessment: Assessment #1 coronary artery disease, seems to be stable, based on recent heart catheterization #2 severe ischemic cardiomyopathy #3 significant history of smoking Plan #1 from the cardiac standpoint, the patient can be discharged home #2 follow-up with the patient as an outpatient.
[2018-03-28 08:11] VITALS: PULSE 73; TEMP 97.5
[2018-03-28] MEDS: ALPRAZolam 0.5 MG TAB PO PRN (08:31)
[2018-03-28] MEDS ORDERED: ASPIRIN 325 MG TAB PO SCH (09:00)
[2018-03-28] MEDS ORDERED: ASPIRIN 81 MG PO SCH (09:00)
[2018-03-28] MEDS ORDERED: ATORVASTATIN 40 MG TAB PO SCH (09:00)
[2018-03-28 12:30] VITALS: BP 158/81; RESP 18
--- NOTE | 2018-03-28 22:39 | DS ---
DISCHARGE SUMMARY I am covering for Dr. Madera. DATE OF SERVICE: 03/28/2018. FINAL DIAGNOSES: 1. Chest pain possible unstable angina, status post cardiac catheterization showing chronically occluded mid dominant left circumflex system and mild disease in the LAD. 2. Congestive heart failure with chronic systolic dysfunction, ejection fraction 35% with possible cardiomyopathy. 3. History of anxiety. 4. Continued ongoing nicotine dependence. 5. History of gastrointestinal bleed. 6. Hypertension. 7. History of cardiac murmur. 8. History of chronic lymphocytic leukemia. 9. History of anxiety and depression. 10.History of nicotine dependence. 11.History of THC. 12.FULL CODE. 13.Indeterminate troponin around 0.310. 14.Cardiomyopathy with severe ischemia. DISCHARGE CONDITION: The patient is being discharged in stable condition with guarded prognosis. Discharge was cleared by Cardiology. HISTORY: This 58-year-old woman with a past history of multiple medical problems was admitted with chest pain. Troponin indeterminate at 0.310. Cardiology performed a cardiac catheterization with findings as above. Medical treatment was recommended at this time. The patient is keen on going home at this time. The patient will be discharged in stable with guarded prognosis. Please refer to Cardiology consultation notes for further information. On exam, vitals are stable. Cardiovascular, S1 and S2 normal. Abdomen soft. Nervous system, no focal deficits. The patient will be discharged in stable condition with guarded prognosis. DISCHARGE INSTRUCTIONS: 1. Diet is cardiac. 2. Activity limited. FOLLOWUP: 1. Follow up with Dr. Madera in 2-3 days. 2. Follow up with Cardiology as recommended. MEDICATIONS: 1. Tylenol p.r.n. 2. Xanax 0.5 t.i.d. p.r.n. 3. Coreg 6.25 mg b.i.d. 4. Celexa 10 mg p.o. daily. 5. Adderall 30 mg p.o. daily p.r.n. 6. Lasix 20 mg daily. 7. [place] 7.5 mg every 6 hours p.r.n. 8. Ibrutinib 420 mg daily. 9. Imdur 30 mg p.o. daily. 10.Cozaar 50 mg p.o. daily. 11.Compazine 10 mg b.i.d. p.r.n. 12.Aldactone 25 mg p.o. daily. 13.Aspirin 81 mg p.o. daily. 14.Lipitor 40 mg. 15.Habitrol 14 daily. 16.Nitrostat 0.4 p.r.n. Once again, the patient is being discharged in stable condition with guarded prognosis. MMODL / IJN: [id number] /
== END 2018-03-28 13:43 | disposition home or self-care (01) ==
LOC: EC 02:07 → 1SOBS 04:34
PROVIDERS: ADMIT Family Medicine; ATTEND Family Medicine
DX: R07.2 Precordial pain (principal); K08.89 Other specified disorders of teeth and supporting structures; R68.84 Jaw pain; M79.601 Pain in right arm; M79.602 Pain in left arm; I25.10 Atherosclerotic heart disease of native coronary artery without angina pectoris; R61 Generalized hyperhidrosis; I25.82 Chronic total occlusion of coronary artery; C91.10 Chronic lymphocytic leukemia of B-cell type not having achieved remission; C91.Z0 Other lymphoid leukemia not having achieved remission; E78.5 Hyperlipidemia, unspecified; I11.0 Hypertensive heart disease with heart failure; I50.22 Chronic systolic (congestive) heart failure; I25.5 Ischemic cardiomyopathy; I73.9 Peripheral vascular disease, unspecified; J44.9 Chronic obstructive pulmonary disease, unspecified; M19.90 Unspecified osteoarthritis, unspecified site; F90.9 Attention-deficit hyperactivity disorder, unspecified type; F41.9 Anxiety disorder, unspecified; F32.9 Major depressive disorder, single episode, unspecified; K58.9 Irritable bowel syndrome, unspecified; R01.1 Cardiac murmur, unspecified; F17.200 Nicotine dependence, unspecified, uncomplicated; Z79.899 Other long term (current) drug therapy; Z88.1 Allergy status to other antibiotic agents; Z91.048 Other nonmedicinal substance allergy status; Z92.21 Personal history of antineoplastic chemotherapy; Z87.19 Personal history of other diseases of the digestive system; Z82.49 Family history of ischemic heart disease and other diseases of the circulatory system; Z80.1 Family history of malignant neoplasm of trachea, bronchus and lung; Z80.8 Family history of malignant neoplasm of other organs or systems; Z82.3 Family history of stroke; E66.9 Obesity, unspecified; Z68.29 Body mass index [BMI] 29.0-29.9, adult; R77.8 Other specified abnormalities of plasma proteins
CPT/HCPCS: 96376; 96374; 99285; 36415; 94760; 93005; 93458; 85379; 80061; 80053; 80048; 82550; 82553; 83735; 84484; 85025; 85610; 85730; 71046; 78582; G0378 ×2; C1894; C1769; A9540; A9567; J2250; J2270; J2930; J2001; J3010; J1644; Q9967 ×2

== ENCOUNTER 2018-04-05 19:20 | Emergency (ER) | payer BC ==
[2018-04-05 19:33] VITALS: BP 118/66; PULSE 91; RESP 18; TEMP 98.2
--- NOTE | 2018-04-05 19:47 | ED ---
Skin/Abscess/FB HPI - General Chief complaint: Skin/Abscess/Foreign Body Stated complaint: Abscess Time Seen by Provider: 04/05/18 19:34 Source: patient Mode of arrival: ambulatory Limitations: no limitations - History of Present Illness Initial comments: 58-year-old female presents with a wound to the right upper arm for the last few days. Patient states it was tender and had a blisterlike formation that had a slight amount of blood and pus. Patient worried about MRSA. Patient's never had MRSA but her mother did 13 years ago. Patient was in the hospital last week for cardiac catheterization which came out normal. Patient does have a history of CLL. Patient also has a lump in her right lower gumline slightly tender as well over the last few days. Patient admits to poor dental hygiene. No recorded fevers but has had some sweats over the last few days. Patient does follow with oncologist Dr. Ceja. complaint: lesion (right upper arm) -: days(s) (few) Improves with: none Worsens with: none Context: none Treatments Prior to Arrival: bandages, OTC topical medication - Related Data Home Medications Medication Instructions Recorded Confirmed HYDROcodone/APAP 7.5-325MG [[place] 1 tab PO Q6HR PRN 01/15/15 03/27/18 7.5-325] Dextroamphetamine/Amphetamine 30 mg PO DAILY PRN 01/16/15 03/27/18 [Adderall] ALPRAZolam [Xanax] 0.5 mg PO TID PRN 01/30/15 03/27/18 Carvedilol [Coreg] 6.25 mg PO BID 11/14/17 03/27/18 Ibrutinib [Imbruvica] 420 mg PO 1900 11/14/17 03/27/18 Losartan [Cozaar] 50 mg PO DAILY 11/14/17 03/27/18 Prochlorperazine [Compazine] 10 mg PO BID PRN 11/14/17 03/27/18 Spironolactone [Aldactone] 25 mg PO DAILY 11/14/17 03/27/18 Acetaminophen Tab [Tylenol] 1,000 mg PO Q6HR 03/27/18 03/27/18 Citalopram Hydrobromide [CeleXA] 10 mg PO DAILY 03/27/18 03/27/18 Furosemide [Lasix] 20 mg PO DAILY 03/27/18 03/27/18 Isosorbide Mononitrate ER [Imdur] 30 mg PO DAILY 03/27/18 03/27/18 Previous Rx's Medication Instructions Recorded Aspirin 81 mg PO DAILY #30 chew 03/28/18 Atorvastatin [Lipitor] 40 mg PO DAILY #30 tab 03/28/18 Nicotine 14Mg/24Hr Patch [Habitrol 1 patch TRANSDERM DAILY #30 patch 03/28/18 14Mg/24Hr Patch] Nitroglycerin Sl Tabs [Nitrostat] 0.4 mg SUBLINGUAL Q5M PRN #20 tab 03/28/18 Clindamycin HCl [Cleocin] 300 mg PO Q6HR #28 cap 04/05/18 Allergies Allergy/AdvReac Type Severity Reaction Status Date / Time iodine Allergy swelling Verified 04/05/18 19:33 and bloating minocycline Allergy Rash/Hives Verified 04/05/18 19:33 tetracycline Allergy Rash/Hives Verified 04/05/18 19:33 Review of Systems ROS Statement: Those systems with pertinent positive or pertinent negative responses have been documented in the HPI. ROS Other: All systems not noted in ROS Statement are negative. Constitutional: Reports: other (sweats). Denies: fever ENT: Reports: dental pain Skin: Reports: lesions Past Medical History Past Medical History: Cancer, Chest Pain / Angina, GI Bleed, Hypertension, Osteoarthritis (OA) Additional Past Medical History / Comment(s): heart murmer, hx colitis, GI bleed 2014, leukocytosis, Chronic lymphatic leukemia, Small lymphatic leukemia History of Any Multi-Drug Resistant Organisms: None Reported Past Surgical History: Breast Surgery, Heart Catheterization, Hysterectomy, Tonsillectomy Additional Past Surgical History / Comment(s): Bone marrow biopsies, benign cysts removed from breasts, breast biopsy, Past Anesthesia/Blood Transfusion Reactions: Motion Sickness Additional Past Anesthesia/Blood Transfusion Reaction / Comment(s): diff IV starts Past Psychological History: Anxiety, Depression Smoking Status: Current every day smoker Past Alcohol Use History: None Reported Past Drug Use History: Marijuana - Past Family History Brother(s) Family Medical History: Coronary Artery Disease (CAD) Daughter(s) Family Medical History: No Reported History Mother Family Medical History: Congestive Heart Failure (CHF), Coronary Artery Disease (CAD) Additional Family Medical History / Comment(s): cabg, MRSA Father Family Medical History: Cancer Additional Family Medical History / Comment(s): Lung ca with mets to brain General Exam Limitations: no limitations General appearance: alert, in no apparent distress Eye exam: Present: normal appearance, PERRL, EOMI. Absent: scleral icterus, conjunctival injection, periorbital swelling ENT exam: Present: normal exam, mucous membranes moist Expanded Teeth exam: Present: normal inspection, dental caries, fractured tooth # ( multiple), gingival enlargement (right lower) Throat exam: normal inspection Neck exam: Present: normal inspection. Absent: tenderness, meningismus, lymphadenopathy Respiratory exam: Present: normal lung sounds bilaterally. Absent: respiratory distress, wheezes, rales, rhonchi, stridor Cardiovascular Exam: Present: regular rate, normal rhythm, normal heart sounds. Absent: systolic murmur, diastolic murmur, rubs, gallop, clicks Neurological exam: Present: alert, oriented X3, CN II-XII intact Psychiatric exam: Present: normal affect, normal mood Skin exam: Present: warm, dry, normal color, other (1 cm opened skin with pustular center, nonindurated, + tender, no erythema. slight open blister like apperance). Absent: rash Course Vital Signs 04/05/18 19:27 Temperature 98.2 F Pulse Rate 91 Respiratory 18 Rate Blood Pressure 118/66 O2 Sat by Pulse 95 Oximetry Medical Decision Making - Medical Decision Making culture was taken to r/o mrsa. I will treat with antibiotics to cover both possible infectious component of the right upper arm skin and dental infection. Patient take antibiotics as directed and follow-up if not improving patient may need dental specialist along with state editor. Await culture results. Disposition Clinical Impression: Skin infection, Blister, Dental abscess Disposition: HOME SELF-CARE Condition: Good Instructions (If sedation given, give patient instructions): Dental Abscess (ED ), Abscess (ED) Prescriptions: Clindamycin HCl [Cleocin] 300 mg PO Q6HR #28 cap Is patient prescribed a controlled substance at d/c from ED?: No Referrals: Ji Madera MD [Primary Care Provider] - 1-2 days Time of Disposition: 20:08
[2018-04-05] MEDS ORDERED: KETOROLAC 60 MG/2 ML VIAL IM STA (20:07)
[2018-04-05] MEDS ORDERED: CLINDAMYCIN 150 MG CAP PO STA (20:07)
== END 2018-04-05 20:33 | disposition home or self-care (01) ==
LOC: EC 19:20
DX: S40.821A Blister (nonthermal) of right upper arm, initial encounter (principal); L08.9 Local infection of the skin and subcutaneous tissue, unspecified; K04.7 Periapical abscess without sinus; S02.5XXA Fracture of tooth (traumatic), initial encounter for closed fracture; I10 Essential (primary) hypertension; M19.90 Unspecified osteoarthritis, unspecified site; F41.9 Anxiety disorder, unspecified; F32.9 Major depressive disorder, single episode, unspecified; F17.200 Nicotine dependence, unspecified, uncomplicated; Z84.89 Family history of other specified conditions; Z85.6 Personal history of leukemia; Z95.818 Presence of other cardiac implants and grafts; Z79.899 Other long term (current) drug therapy; Z91.048 Other nonmedicinal substance allergy status; Z88.1 Allergy status to other antibiotic agents; X58.XXXA Exposure to other specified factors, initial encounter
CPT/HCPCS: 87070; 87205; 99283; 96372; J1885; 87077; 87186

== ENCOUNTER 2018-05-25 07:37 | Day surgery (SDC) | payer BC, OTHER ==
[2018-05-20 13:55] VITALS: BMI 30.5
[~2018-05-25 07:37] MED LIST changes: -ALPRAZolam 0.25 MG TAB PO PRN; -ASPIRIN 325 MG TAB PO ONE; +ASPIRIN 325 MG TAB PO STA; -NITROGLYCERIN SL TABS 0.4 MG TAB SUBLINGUAL PRN; -SODIUM CHLORIDE 0.9% 1,000 ML in EMPTY BAG 1 BAG IV ONE
[2018-05-25] MEDS ORDERED: SODIUM CHLORIDE 0.9% 1,000 ML IV ONE (08:02)
[2018-05-25 08:05] VITALS: PULSE 86; TEMP 98.1
[2018-05-25] MEDS ORDERED: ALPRAZolam 0.25 MG TAB PO STA (08:21)
[2018-05-25] MEDS ORDERED: ALPRAZolam 0.25 MG TAB PO ONE (08:22)
[2018-05-25 08:26] LABS: Potassium 3.9 mmol/L (3.5-5.1)
[2018-05-25 08:39] LABS: HCT 41.2 % (34.0-46.0); HGB 13.1 gm/dL (11.4-16.0); MCH 30.6 pg (25.0-35.0); MCHC 31.8 g/dL (31.0-37.0); MCV 96.4 fL (80.0-100.0); Mean Platelet Volume 11.9; Platelet Count 201 k/uL (150-450); RBC 4.27 m/uL (3.80-5.40); RDW 14.3 % (11.5-15.5); WBC 37.6 k/uL (3.8-10.6)
[2018-05-25] MEDS ORDERED: MIDAZOLAM 2 MG/2 ML VIAL IVP ONE (09:14)
[2018-05-25] MEDS ORDERED: LIDOCAINE 1% INJ 10MG/ML (20 ML MDV) SQ ONE ×2 (09:21→09:26)
[2018-05-25] MEDS ORDERED: fentaNYL (PF) 50 MCG/ML 2 ML AMP IV ONE (09:25)
[2018-05-25] MEDS ORDERED: IOPAMIDOL-250 50ML BTL INTRAARTER ONE (09:35)
[2018-05-25] MEDS ORDERED: IOPAMIDOL-250 100ML BTL INTRAARTER ONE (09:35)
[2018-05-25] MEDS ORDERED: SODIUM CHLORIDE 0.9% 1,000 ML IV SCH (09:45)
[2018-05-25 09:46] LABS: Large Platelets Present; Lymphocytes # (M) 21.43 k/uL (1.0-4.8); Monocytes # (M) 0.38 k/uL (0-1.0); Neutrophils # (M) 16.17 k/uL (1.3-7.7); Neutrophils % (M) 43 %; Nucleated Red Blood Cells 0 /100 WBC (0-0); Total Cells Counted 200
--- NOTE | 2018-05-25 10:04 | LTR ---
DATE OF SERVICE: 05/25/2018 RE: Radhames Belle. Dr. Madera; . 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 The patient will be scheduled to undergo balloon angioplasty and stenting of the left common iliac artery to be done in the next few days. Thank you for allowing us to participate in her care and please do not hesitate to call if you have any question or concern. Sincerely, Fox Stubbs MD MMTAYE / KRISTI: [id number] /
--- NOTE | 2018-05-25 10:09 | AN ---
ANGIOGRAPHY REPORT ABDOMINAL AORTOGRAM AND BILATERAL LOWER EXTREMITIES RUNOFF: DATE OF SERVICE: 05/25/2018 PERFORMING PHYSICIAN: Fox Stubbs MD, Dial Refinisher. PROCEDURE PERFORMED: 1. Abdominal aortogram. 2. Bilateral lower extremities runoff. INDICATION: This is a 58-year-old female patient who sees Dr. Nelly Garcia in the office as an outpatient with a past medical history significant for hypertension, dyslipidemia, and cardiomyopathy, was experiencing left leg numbness and symptoms of intermittent claudication. She underwent an arterial duplex study and that revealed occluded left iliac and possible severe disease involving the right SFA. Because of that, an abdominal aortogram and bilateral lower extremities runoff was advised. APPROACH: Right common femoral artery. COMPLICATION: None. LEVEL OF SEDATION: Moderate with sedation length of 17 minutes. PROCEDURE DESCRIPTION: After obtaining an informed consent, the patient was brought to the cardiac medical lab technician. The right common femoral artery was cannulated using micropuncture technique, the micropuncture wire passed easily, then I placed a 4-[place] sheath in the right common femoral artery. After that, I did an abdominal aortogram and bilateral lower extremities runoff using a digital subtraction. The procedure was completed without any complication. SELECTIVE PERIPHERAL ANGIOGRAM: 1. The aorta appeared to be angiographically normal. 2. RENAL ARTERIES: The right and left renal arteries are angiographically normal. 3. COMMON ILIAC ARTERIES: The right common iliac artery appeared to have mild disease only and the left common iliac artery appeared to be completely occluded and chronically occluded on short segment. It does reconstitute by the external iliac artery. 4. EXTERNAL ILIAC ARTERIES: The right external iliac artery appeared to have mild disease only and the left external iliac artery appeared to be diffusely diseased up to about 50%. 5. INTERNAL ILIAC ARTERIES: The right and left internal iliac arteries are patent. 6. FEMORAL ARTERIES: The right and left common femoral arteries are angiographically normal. 7. PROFUNDA: The right and left profunda are patent. 8. SFA: The right and left SFA are patent. 9. POPLITEAL: The right and left popliteal are patent. 10.BELOW THE KNEE: There are 3 vessel runoff below the knee bilaterally. 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 POSTPROCEDURE MANAGEMENT: Will be WOOD MECHANIST of the of the left common iliac artery to be done in antegrade or retrograde fashion. MMODL / IJN: [id number] /
[2018-05-25 14:49] VITALS: RESP 18
[2018-05-25 14:56] VITALS: BP 100/58
--- NOTE | 2018-05-26 08:06 | IR ---
Fluoroscopy HISTORY: Pain in leg 1.4 minutes fluoroscopy time supplied to the referring clinician. 194 intraoperative C-arm images do cument the procedure. See dictated report from cardiology.
== END 2018-05-25 14:56 | disposition home or self-care (01) ==
LOC: CATHCVL 07:37
PROVIDERS: ATTEND Internal Medicine Interventional Cardiology
DX: I70.213 Atherosclerosis of native arteries of extremities with intermittent claudication, bilateral legs (principal); I10 Essential (primary) hypertension; E78.49 Other hyperlipidemia; I25.5 Ischemic cardiomyopathy; C91.90 Lymphoid leukemia, unspecified not having achieved remission; Z82.49 Family history of ischemic heart disease and other diseases of the circulatory system; Z91.048 Other nonmedicinal substance allergy status; F17.200 Nicotine dependence, unspecified, uncomplicated; Z79.899 Other long term (current) drug therapy; Z88.1 Allergy status to other antibiotic agents
CPT/HCPCS: 36200; 75625; 75716; 80048; 85025; C1769 ×3; J2250; J2001; J3010; Q9966 ×2

== ENCOUNTER → 2018-05-29 | Outpatient (CLI) | payer OTHER ==
--- NOTE | 2018-05-29 12:09 | XR ---
EXAMINATION TYPE: XR ribs LT DATE OF EXAM: 05/29/2018 CLINICAL HISTORY: Pain, Fall Four views of the ribs demonstrates mildly displaced fractures of left ribs 4 through 7. No additiona l fractures are seen with certainty. There is no evidence for pneumothorax. Visualized lungs are dawit r. IMPRESSION: Left-sided rib fractures as noted.
== END | disposition home or self-care (01) ==
LOC: RADXRMAIN 11:36
PROVIDERS: ATTEND Family Medicine
DX: S22.42XA Multiple fractures of ribs, left side, initial encounter for closed fracture (principal)

== ENCOUNTER 2018-06-28 12:14 | Inpatient (IN) | payer OTHER ==
[2018-06-28] MEDS ORDERED: KETOROLAC 30 MG/ML 1 ML VIAL IVP STA (12:56)
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
[2018-06-28 13:11] LABS: HCT 44.3 % (34.0-46.0); HGB 14.4 gm/dL (11.4-16.0); MCH 30.2 pg (25.0-35.0); MCHC 32.5 g/dL (31.0-37.0); MCV 92.9 fL (80.0-100.0); Mean Platelet Volume 12.4; Platelet Count 184 k/uL (150-450); RBC 4.77 m/uL (3.80-5.40); RDW 14.1 % (11.5-15.5); WBC 23.4 k/uL (3.8-10.6)
--- NOTE | 2018-06-28 13:15 | XR ---
EXAMINATION TYPE: XR chest 2V DATE OF EXAM: 06/28/2018 COMPARISON: 03/27/2018 HISTORY: Chest pain TECHNIQUE: Frontal and lateral views of the chest are obtained. FINDINGS: There are scattered faint nodular densities in both lungs and more on the left side. Heart size is normal. Thoracic aorta is atheromatous. There are no hilar masses. There is small calcified granulomata at the pulmonary alpa. There is slight blunting of the posterior costophrenic angles. IMPRESSION: Minimal nodular pulmonary infiltrate increased compared to old exam. Small pleural effu sions. This probably relates to inflammatory disease. Follow-up is recommended to show clearing. Pulm onary metastatic disease not entirely excluded.
[2018-06-28 13:16] LABS: ALT 23 U/L (9-52); AST 19 U/L (14-36); Albumin 4.4 g/dL (3.5-5.0); Alkaline Phosphatase 81 U/L (38-126); Amylase 42 U/L (30-110); Anion Gap 8 mmol/L; Blood Urea Nitrogen 29 mg/dL (7-17); Calcium 9.9 mg/dL (8.4-10.2); Carbon Dioxide 23 mmol/L (22-30); Chloride 107 mmol/L (98-107); Glucose 100 mg/dL (74-99); Lipase 48 U/L (23-300); Magnesium 1.7 mg/dL (1.6-2.3); Potassium 4.6 mmol/L (3.5-5.1); Sodium 138 mmol/L (137-145); Total Bilirubin 0.6 mg/dL (0.2-1.3); Total Protein 6.9 g/dL (6.3-8.2)
[2018-06-28 13:39] LABS: INR 0.9 (<1.2); Partial Thromboplastin Time 20.8 sec (22.0-30.0); Prothrombin Time 9.6 sec (9.0-12.0)
[2018-06-28 13:42] LABS: D-Dimer 2.03 mg/L FEU (<0.60)
[2018-06-28 13:47] LABS: Basophils # (M) 0.23 k/uL (0-0.2); Eosinophils # (M) 0.23 k/uL (0-0.7); Lymphocytes # (M) 17.78 k/uL (1.0-4.8); Neutrophils # (M) 4.45 k/uL (1.3-7.7); Neutrophils % (M) 19 %; Nucleated Red Blood Cells 0 /100 WBC (0-0); Total Cells Counted 100
[2018-06-28 13:48] LABS: Large Platelets Present
[2018-06-28] MEDS ORDERED: methylPREDNISolone SOD SUCCI 125 MG/2 ML VIAL IV STA (14:01)
[2018-06-28] MEDS ORDERED: diphenhydrAMINE 50 MG/ML 1 ML VIAL IVP STA (14:01)
[2018-06-28] MEDS ORDERED: FAMOTIDINE 20 MG/2 ML VIAL IV STA (14:01)
--- NOTE | 2018-06-28 15:14 | CT ---
EXAMINATION TYPE: CT chest angio for PE DATE OF EXAM: 06/28/2018 COMPARISON: 01/05/2018 HISTORY: Right side chest pain. elevated d-dimer CT DLP: 280.9 mGycm Automated exposure control for dose reduction was used. CONTRAST: CT Chest for pulmonary embolism performed with with IV Contrast, patient injected with 100 mL of Isov ue 370. There are 3-D post processed images. FINDINGS: There is mild pulmonary emphysema. There are small subpleural infiltrates in the left lower lobe and left upper lobe. There is minimal pleural thickening posteriorly in both lung [place]. There is 4.3 cm rounded soft tissue mass on the left adrenal gland. There is no pleural effusion. Heart size is norm al. There is no pericardial effusion. There are a few anterior mediastinal lymph nodes that measure u p to 1 cm. There are some enlarged left bronchial lymph nodes up to 1.5 cm. There is subcarinal lymph node that measures 2.2 cm. There is 2.2 cm low-density irregular area in the superior right lobe of the liver unchanged. I see no filling defects in the pulmonary arteries. Thoracic aorta shows no evidence of aneurysm or d issection. The bony thorax appears intact. IMPRESSION: No evidence of pulmonary embolism. Bilateral pulmonary subpleural infiltrates not significantly different than last exam. Pleural thicke mateus not significantly different. Left bronchial adenopathy increased compared to old exam. Mediastin al adenopathy improved slightly compared to old exam. Pulmonary findings more likely related to infla mmatory disease. Right pleural effusion is new compared to old exam. Left adrenal mass unchanged.
[2018-06-28] MEDS ORDERED: HEPARIN SODIUM,PORCINE 5,000 UNIT/ML 1 ML VIAL IV ONE (15:29)
[2018-06-28] MEDS ORDERED: HEPARIN SODIUM,PORCINE 5,000 UNIT/ML 1 ML VIAL IV PRN (15:29)
[2018-06-28] MEDS ORDERED: HYDROcodone/APAP 5-325MG 1 EACH TAB PO STA (15:30)
[2018-06-28] MEDS ORDERED: ALPRAZolam 0.5 MG TAB PO STA (15:30)
[2018-06-28] MEDS ORDERED: HEPARIN SOD,PORK IN 0.45% NACL 25,000 UNIT in 0.45% NACL 1 250ML.BAG IV SCH (15:30)
[2018-06-28] MEDS ORDERED: NITROGLYCERIN SL TABS 0.4 MG TAB SUBLINGUAL PRN ×2 (15:46→18:59)
[2018-06-28] MEDS ORDERED: PROCHLORPERAZINE 10 MG TAB PO PRN (18:59)
[2018-06-28] MEDS: MELATONIN 5 MG TABLET PO SCH (20:16)
[2018-06-28] MEDS: CARVEDILOL 6.25 MG TAB PO SCH (20:16)
[2018-06-28] MEDS: HYDROcodone/APAP 7.5-325MG 1 EACH TAB PO PRN (22:38)
[2018-06-29] MEDS: ALPRAZolam 0.25 MG TAB PO PRN ×2 (01:18→16:05)
[2018-06-29 04:24] LABS: HGB 14.1 gm/dL (11.4-16.0); MCH 30.8 pg (25.0-35.0); MCHC 32.7 g/dL (31.0-37.0); MCV 94.1 fL (80.0-100.0); Platelet Count 136 k/uL (150-450); RBC 4.57 m/uL (3.80-5.40); RDW 13.2 % (11.5-15.5); WBC 22.1 k/uL (3.8-10.6)
[2018-06-29] MEDS: HYDROcodone/APAP 7.5-325MG 1 EACH TAB PO PRN (04:47)
[2018-06-29 05:14] LABS: Lymphocytes # (M) 16.13 k/uL (1.0-4.8); Neutrophils # (M) 5.97 k/uL (1.3-7.7); Neutrophils % (M) 27 %
[2018-06-29 05:15] LABS: Nucleated Red Blood Cells 0 /100 WBC (0-0); Total Cells Counted 100
[2018-06-29 06:03] LABS: Cholesterol 162 mg/dL (<200); HDL Cholesterol 51 mg/dL (40-60); LDL Cholesterol,Calculated 82 mg/dL (0-99); Triglycerides 143 mg/dL (<150)
[2018-06-29] MEDS: CARVEDILOL 6.25 MG TAB PO SCH ×2 (06:33→18:18)
[2018-06-29] MEDS ORDERED: guaiFENesin-Coden 100-10MG/5ML 10 ML CUP PO PRN (08:22)
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
[2018-06-29] MEDS ORDERED: ASPIRIN 325 MG TAB PO SCH (09:00)
[2018-06-29] MEDS: AMOXIC-POT CLAV 875-125MG 1 EACH TAB PO SCH ×2 (09:02→19:56)
[2018-06-29] MEDS: FUROSEMIDE 20 MG TAB PO SCH (09:02)
[2018-06-29] MEDS: LOSARTAN 50 MG TAB PO SCH (09:02)
[2018-06-29] MEDS: ISOSORBIDE MONONITRATE ER 30 MG TAB.ER.24H PO SCH (09:02)
[2018-06-29] MEDS: ATORVASTATIN 20 MG TAB PO SCH (09:02)
[2018-06-29] MEDS: SPIRONOLACTONE 25 MG TAB PO SCH (09:02)
[2018-06-29] MEDS: CITALOPRAM HYDROBROMIDE 10 MG TAB PO SCH (09:02)
[2018-06-29] MEDS: ASPIRIN 81 MG PO SCH (09:02)
[2018-06-29] MEDS: MORPHINE SULFATE 4 MG/ML SYRINGE IVP PRN ×4 (09:07→22:39)
--- NOTE | 2018-06-29 09:11 | XR ---
EXAMINATION TYPE: XR ribs RT DATE OF EXAM: 06/29/2018 CLINICAL HISTORY: Pain, Fall Four views of the ribs fail demonstrate evidence for displaced rib fracture or secondary sign of rib fracture. Visualized lungs are clear. No evidence for pneumothorax. IMPRESSION: 1. No displaced rib fractures seen. ICD 10 NO FRACTURE, INITIAL EVALUATION
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
[2018-06-29] MEDS: IMBRUVICA 140 MG PO SCH (19:57)
[2018-06-29] MEDS: MELATONIN 5 MG TABLET PO SCH (23:19)
[2018-06-30] MEDS: MORPHINE SULFATE 4 MG/ML SYRINGE IVP PRN ×3 (02:39→10:33)
[2018-06-30 07:08] LABS: HCT 41.5 % (34.0-46.0); HGB 13.2 gm/dL (11.4-16.0); MCHC 31.9 g/dL (31.0-37.0); MCV 94.2 fL (80.0-100.0); Mean Platelet Volume 11.8; Platelet Count 160 k/uL (150-450); RDW 14.4 % (11.5-15.5); WBC 22.1 k/uL (3.8-10.6)
[2018-06-30 07:13] LABS: Anion Gap 8 mmol/L; Blood Urea Nitrogen 29 mg/dL (7-17); Calcium 9.4 mg/dL (8.4-10.2); Carbon Dioxide 23 mmol/L (22-30); Chloride 106 mmol/L (98-107); Glucose 86 mg/dL (74-99); Potassium 4.5 mmol/L (3.5-5.1); Sodium 137 mmol/L (137-145)
[2018-06-30] MEDS: ISOSORBIDE MONONITRATE ER 30 MG TAB.ER.24H PO SCH (08:43)
[2018-06-30] MEDS: ATORVASTATIN 20 MG TAB PO SCH (08:43)
[2018-06-30] MEDS: FUROSEMIDE 20 MG TAB PO SCH (08:43)
[2018-06-30] MEDS: ASPIRIN 81 MG PO SCH (08:43)
[2018-06-30] MEDS: LOSARTAN 50 MG TAB PO SCH (08:43)
[2018-06-30] MEDS: AMOXIC-POT CLAV 875-125MG 1 EACH TAB PO SCH ×2 (08:43→21:00)
[2018-06-30] MEDS: CARVEDILOL 6.25 MG TAB PO SCH ×2 (08:43→17:48)
[2018-06-30] MEDS: SPIRONOLACTONE 25 MG TAB PO SCH (08:43)
[2018-06-30] MEDS: CITALOPRAM HYDROBROMIDE 10 MG TAB PO SCH (08:43)
[2018-06-30 09:31] LABS: Eosinophils # (M) 0.66 k/uL (0-0.7); Monocytes # (M) 0.88 k/uL (0-1.0); Neutrophils # (M) 6.85 k/uL (1.3-7.7); Neutrophils % (M) 31 %; Nucleated Red Blood Cells 0 /100 WBC (0-0); Total Cells Counted 100
[2018-06-30] MEDS ORDERED: MORPHINE SULFATE 4 MG/ML SYRINGE IVP STA (10:54)
[2018-06-30] MEDS: HYDROcodone/APAP 10-325MG 1 EACH TAB PO PRN ×2 (12:43→19:04)
[2018-06-30 12:46] LABS: Bilirubin, Delta 0.3 mg/dL (0.0-0.2); Bilirubin,Unconjugated 0.2 mg/dL (0.0-1.1); Total Bilirubin 0.5 mg/dL (0.2-1.3); Total Protein 6.3 g/dL (6.3-8.2); Uric Acid 5.7 mg/dL (3.7-7.4)
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
[2018-06-30] MEDS: HYDROmorphone 0.5 MG/0.5 ML SYRINGE IVP PRN ×2 (15:27→20:11)
[2018-06-30] MEDS: IMBRUVICA 140 MG PO SCH (20:12)
[2018-06-30] MEDS ORDERED: SODIUM CHLORIDE 0.9% 1,000 ML IV SCH (22:30)
--- NOTE | 2018-06-30 22:31 | P.CONS ---
History of Present Illness - Reason for Consult Consult date: 06/30/18 CLL Requesting physician: Heron E Steve - Chief Complaint left sided pleuretic pain - History of Present Illness Ms Belle is a [address] Ceja who has a history of CLL since about 2001. She had 2 bone marrow biopsies with her last one in June 2012 showing 20% bone marrow involvement, she was asymptomatic with a indeterminate disc so she was scheduled to be on observation. Patient did not follow-up until August 2014 when she began having B - symptoms including night sweats, wt. loss, fatigue, lymphocytosis as well as lymphadenopathy. Patient was started on Rituxan and Treanda in September of 2014. After her first cycle of treatment she did experience an episode of colitis. She was treated conservatively and her symptoms resolved. She completed a total of 6l cycles of treatment since then without incidence after her initial colitis episode. She has remained on observation since this time, without increased adenopathy on exams or subjective symptoms. She was seen by Dr. Ceja last month and a restaging CT was ordered and scheduled for next week, although she was having worsening pain in chest and difficulty breathing she presented to emergency for further evaluation. A CTA of the chest did not reveal any significant changes in her known adenopathy, negative for PE, although did reveal bilateral infiltrates possible consistant with pneumonia. Her WBC 22.1 today, no significant change from baseline. 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, hx colitis, GI bleed 2014, leukocytosis, Chronic lymphatic leukemia, "Small lymphatic lymphoma" , "ejection franction 25%", PAD, oral chemotherapy Last Myocardial Infarction Date:: unknown History of Any Multi-Drug Resistant Organisms: MRSA Year Discovered:: 04/05/18 MDRO Source:: rt arm Past Surgical History: Breast Surgery, Heart Catheterization, Hysterectomy, Tonsillectomy Additional Past Surgical History / Comment(s): Bone marrow biopsies, benign cysts removed from darrick breasts, darrick breast biopsy Past Anesthesia/Blood Transfusion Reactions: Motion Sickness Additional Past Anesthesia/Blood Transfusion Reaction / Comm: diff IV starts Past Psychological History: Anxiety, Depression Smoking Status: Current every day smoker Past Alcohol Use History: None Reported Additional Past Alcohol Use History / Comment(s): smokes 1/2 PPD, has smoked since age 35 Past Drug Use History: Marijuana - Past Family History Brother(s) Family Medical History: Coronary Artery Disease (CAD) Daughter(s) Family Medical History: No Reported History Mother Additional Family Medical History / Comment(s): CABG Father Family Medical History: Cancer Additional Family Medical History / Comment(s): Lung ca with mets to brain Medications and Allergies Home Medications Medication Instructions Recorded Confirmed Type HYDROcodone/APAP 7.5-325MG [[place] 1 tab PO Q6HR PRN 01/15/15 06/28/18 History 7.5-325] Dextroamphetamine/Amphetamine 30 mg PO BID 01/16/15 06/28/18 History [Adderall] ALPRAZolam [Xanax] 0.5 mg PO TID PRN 01/30/15 06/28/18 History Carvedilol [Coreg] 6.25 mg PO BID 11/14/17 06/28/18 History Losartan [Cozaar] 50 mg PO DAILY 11/14/17 06/28/18 History Prochlorperazine [Compazine] 10 mg PO BID PRN 11/14/17 06/28/18 History Spironolactone [Aldactone] 25 mg PO DAILY 11/14/17 06/28/18 History Citalopram Hydrobromide [CeleXA] 10 mg PO DAILY 03/27/18 06/28/18 History Furosemide [Lasix] 20 mg PO DAILY 03/27/18 06/28/18 History Isosorbide Mononitrate ER [Imdur] 30 mg PO DAILY 03/27/18 06/28/18 History Aspirin 81 mg PO DAILY #30 chew 03/28/18 06/28/18 Rx Nitroglycerin Sl Tabs [Nitrostat] 0.4 mg SUBLINGUAL Q5M PRN #20 tab 03/28/18 06/28/18 Rx Atorvastatin [Lipitor] 20 mg PO DAILY 06/28/18 06/28/18 History Allergies Allergy/AdvReac Type Severity Reaction Status Date / Time iodine Allergy swelling Verified 06/28/18 13:49 and bloating minocycline Allergy Rash/Hives Verified 06/28/18 13:49 tetracycline Allergy Rash/Hives Verified 06/28/18 13:49 Physical Exam Vitals: Vital Signs Temp Pulse Resp BP Pulse Ox 06/30/18 19:39 97.2 F L 69 18 87/54 95 06/30/18 18:11 97.5 F L 70 16 96/57 97 06/30/18 16:00 94 L 06/30/18 14:37 71 16 109/51 94 L 06/30/18 07:50 98.1 F 69 16 113/56 94 L 06/30/18 04:00 98.2 F 70 17 104/59 95 06/29/18 23:30 69 17 06/29/18 23:28 98 F 69 17 104/50 96 Intake and Output 06/30/18 06/30/18 06/30/18 06:59 14:59 22:59 Intake Total 700 480 222 Balance 700 480 222 Intake: Oral 700 480 222 Other: Voiding Method Toilet Toilet # Voids 3 2 2 Weight 75.3 kg Gen: Alert, NAD Head: NCNT Neck: Supple Lungs: Diminished with Gaurding with deep inspiration Heart: Tachy, Reg Abdomen: Soft, ND, NT Ext: No edema or rashes Neuro: No Sensory or mptor deficits noted Results CBC & Chem 7: 06/30/18 06:14 06/30/18 06:14 Labs: Abnormal Lab Results - Last 24 Hours (Table) 06/30/18 06/30/18 06/30/18 Range/Units 06:14 06:14 06:14 WBC 22.1 H (3.8-10.6) k/uL Lymphocytes # (Manual) 13.70 H (1.0-4.8) k/uL BUN 29 H (7-17) mg/dL Delta Bilirubin 0.3 H (0.0-0.2) mg/dL Microbiology - Last 24 Hours (Table) 06/30/18 10:45 Sputum Culture - Preliminary Sputum Assessment and Plan (1) Chest pain Current Visit: Yes Status: Acute Code(s): R07.9 - CHEST PAIN, UNSPECIFIED SNOMED Code(s): 08439565 (2) CLL (chronic lymphocytic leukemia) Current Visit: No Status: Chronic Priority: Medium Code(s): C91.10 - CHRONIC LYMPHOCYTIC LEUK OF B-CELL TYPE NOT ACHIEVE REMIS SNOMED Code(s): 63899485 Plan: Assessment and recs: CLL: - COntinue to follow-up with Dr. Ceja on Observation, continue with scheduled CT scans in July - Review of CTA from this hospitalization failed to reveal any significant progression of disease Chest Pain: PLeuric Pain - Pneumonia: - Per Primary Team - Pain Management Leukocytosis: Chronic - Monitor CBC, appears to be consistent with known CLL, Baseline PLan: Form oncology stand point she is stable to follow-up as outpatient - Acute Pain per primary team - COntinue with scheduled CT scans and Follow-up with Dr. Ceja next month as already scheduled Physcian Attes: I have completed the ful history and physical of this patient and agree with above dictation by Estrellita Ledesma, Dictated as a scribe.
[2018-06-30] MEDS: MELATONIN 5 MG TABLET PO SCH (22:42)
[2018-07-01] MEDS: HYDROmorphone 0.5 MG/0.5 ML SYRINGE IVP PRN ×3 (01:05→11:19)
[2018-07-01] MEDS: HYDROcodone/APAP 10-325MG 1 EACH TAB PO PRN (07:25)
[2018-07-01 07:59] LABS: HCT 38.7 % (34.0-46.0); HGB 12.6 gm/dL (11.4-16.0); MCH 30.8 pg (25.0-35.0); MCHC 32.5 g/dL (31.0-37.0); MCV 94.7 fL (80.0-100.0); Mean Platelet Volume 11.7; Platelet Count 153 k/uL (150-450); RBC 4.08 m/uL (3.80-5.40); RDW 14.1 % (11.5-15.5)
[2018-07-01] MEDS: ASPIRIN 81 MG PO SCH (08:33)
[2018-07-01] MEDS: ATORVASTATIN 20 MG TAB PO SCH (08:33)
[2018-07-01] MEDS: CARVEDILOL 6.25 MG TAB PO SCH (08:33)
[2018-07-01 09:50] LABS: Neutrophils % (M) 26 %; Nucleated Red Blood Cells 0 /100 WBC (0-0); Total Cells Counted 200
[2018-07-01] MEDS: SPIRONOLACTONE 25 MG TAB PO SCH (10:20)
[2018-07-01] MEDS: AMOXIC-POT CLAV 875-125MG 1 EACH TAB PO SCH (10:20)
[2018-07-01] MEDS: FUROSEMIDE 20 MG TAB PO SCH (10:20)
[2018-07-01] MEDS: LOSARTAN 50 MG TAB PO SCH (10:20)
[2018-07-01] MEDS: CITALOPRAM HYDROBROMIDE 10 MG TAB PO SCH (10:20)
[2018-07-01] MEDS: ISOSORBIDE MONONITRATE ER 30 MG TAB.ER.24H PO SCH (10:20)
[2018-07-01] MEDS ORDERED: LIDOCAINE 5% PATCH TOPICAL SCH (10:45)
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
[2018-07-01 13:18] VITALS: BP 102/68; PULSE 66; RESP 16; TEMP 98.9
--- NOTE | 2018-07-01 16:24 | P.PN ---
Subjective Progress Note Date: 07/01/18 Principal diagnosis: Pleuritic chest pain, on treatment for CLL In follow-up today patient states feeling better. She is going to have fem-pop bypass and possibly some coronary artery interventions with cardiology in the near future. Patient feels better than she did on admission, no chest pain while shortness of breath on exertion, no swelling. Patient has continued on her Imbruvica for CLL, she has been on this for quite some time. Patient denies any side effects related to the medication. Objective - Vital Signs Vital signs: Vital Signs Temp 98.9 F 07/01/18 13:18 Pulse 66 07/01/18 13:18 Resp 16 07/01/18 13:18 BP 102/68 07/01/18 13:18 Pulse Ox 92 L 07/01/18 13:18 Intake & Output 06/30/18 07/01/18 07/01/18 18:59 06:59 18:59 Intake Total 702 600 Balance 702 600 Intake: Intake, IV Titration 600 Amount Sodium Chloride 0.9% 1, 600 000 ml @ 75 mls/hr IV . [id number] [facility] Rx#:[id number] Oral 702 Other: Voiding Method Toilet # Voids 2 2 - Constitutional General appearance: Present: average body habitus, cooperative, no acute distress - EENT Eyes: Present: anicteric sclerae, EOMI ENT: Present: hearing grossly normal - Respiratory Details: Respirations even and unlabored - Cardiovascular Details: Hands and feet are warm to the touch, no swelling in the lower extremities - Integumentary Integumentary: Present: normal - Neurologic Neurologic: Present: CNII-XII intact - Musculoskeletal Musculoskeletal: Present: strength equal bilaterally - Psychiatric Psychiatric: Present: A&O x's 3, appropriate affect, intact judgment & insight - Labs CBC & Chem 7: 07/01/18 07:17 06/30/18 06:14 Labs: Abnormal Lab Results - Last 24 Hours (Table) 07/01/18 Range/Units 07:17 WBC 20.0 H (3.8-10.6) k/uL Lymphocytes # (Manual) 13.60 H (1.0-4.8) k/uL Monocytes # (Manual) 1.40 H (0-1.0) k/uL Microbiology - Last 24 Hours (Table) 06/30/18 10:45 Gram Stain - Preliminary Sputum Sputum Culture - Preliminary Assessment and Plan (1) CLL (chronic lymphocytic leukemia) Narrative/Plan: Patient will continue oral ibrutinib for treatment of CLL. Patient has been on this medication for quite some time. She continues to do fairly well, no evidence of disease. Due to long-standing history of lymphocytic leukemia, immunoglobulin levels have been ordered for evaluation Status: Chronic Priority: Medium Code(s): C91.10 - CHRONIC LYMPHOCYTIC LEUK OF B-CELL TYPE NOT ACHIEVE REMIS SNOMED Code(s): 15830308
[2018-07-02 13:00] LABS: Immunoglobulin M 30.1 mg/dL (40.0-280.0)
== END 2018-07-01 13:38 | disposition home or self-care (01) | DRG 313 ==
LOC: EC 12:14 → 3SCARD 15:29 → 4SSUR 06-30 18:01
PROVIDERS: ADMIT Internal Medicine; ATTEND Internal Medicine
DX: R07.89 Other chest pain (principal); J18.9 Pneumonia, unspecified organism; C91.10 Chronic lymphocytic leukemia of B-cell type not having achieved remission; I50.22 Chronic systolic (congestive) heart failure; I25.10 Atherosclerotic heart disease of native coronary artery without angina pectoris; I11.0 Hypertensive heart disease with heart failure; E27.9 Disorder of adrenal gland, unspecified; E78.5 Hyperlipidemia, unspecified; R01.1 Cardiac murmur, unspecified; F17.200 Nicotine dependence, unspecified, uncomplicated; F32.9 Major depressive disorder, single episode, unspecified; F41.9 Anxiety disorder, unspecified; I25.2 Old myocardial infarction; I25.5 Ischemic cardiomyopathy; I73.9 Peripheral vascular disease, unspecified; J44.9 Chronic obstructive pulmonary disease, unspecified; R79.1 Abnormal coagulation profile; M19.90 Unspecified osteoarthritis, unspecified site; R77.9 Abnormality of plasma protein, unspecified; Z79.82 Long term (current) use of aspirin; Z79.899 Other long term (current) drug therapy; Z88.1 Allergy status to other antibiotic agents; Z91.041 Radiographic dye allergy status; Z86.14 Personal history of Methicillin resistant Staphylococcus aureus infection; Z85.72 Personal history of non-Hodgkin lymphomas; Z90.710 Acquired absence of both cervix and uterus; Z82.49 Family history of ischemic heart disease and other diseases of the circulatory system; Z80.1 Family history of malignant neoplasm of trachea, bronchus and lung; Z80.8 Family history of malignant neoplasm of other organs or systems
CPT/HCPCS: 36415; 71046; 71275; 80048; 80053; 80061; 80076; 82150; 82784; 83615; 83690; 83735; 83880; 84484; 84550; 85025; 85379; 85610; 85730; 87070; 87205; 87502; 93005; 94760; 96365; 96375; 96376; 99285

== ENCOUNTER → 2018-07-06 | Outpatient (CLI) | payer OTHER ==
[2018-07-06 16:48] LABS: HCT 40.9 % (34.0-46.0); HGB 13.3 gm/dL (11.4-16.0); MCH 30.8 pg (25.0-35.0); MCHC 32.5 g/dL (31.0-37.0); MCV 94.9 fL (80.0-100.0); RBC 4.31 m/uL (3.80-5.40); RDW 13.7 % (11.5-15.5)
[2018-07-06 16:58] LABS: Anion Gap 13 mmol/L; Blood Urea Nitrogen 18 mg/dL (7-17); Carbon Dioxide 22 mmol/L (22-30); Chloride 101 mmol/L (98-107); Potassium 4.5 mmol/L (3.5-5.1); Sodium 136 mmol/L (137-145)
[2018-07-06 20:26] LABS: Platelet Count 203 k/uL (150-450)
== END ==
LOC: LABPAT 15:35
PROVIDERS: ATTEND Internal Medicine Interventional Cardiology
DX: Z01.812 Encounter for preprocedural laboratory examination (principal); I70.213 Atherosclerosis of native arteries of extremities with intermittent claudication, bilateral legs; I10 Essential (primary) hypertension
CPT/HCPCS: 36415; 80051; 82565; 84520; 85027

== ENCOUNTER → 2018-07-09 | Outpatient (CLI) | payer OTHER ==
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
== END | disposition home or self-care (01) ==
LOC: RADCTMAIN 09:07
PROVIDERS: ATTEND Internal Medicine Hematology & Oncology
DX: Z03.89 Encounter for observation for other suspected diseases and conditions ruled out (principal); C91.10 Chronic lymphocytic leukemia of B-cell type not having achieved remission; J90 Pleural effusion, not elsewhere classified; K57.30 Diverticulosis of large intestine without perforation or abscess without bleeding; E27.8 Other specified disorders of adrenal gland; R16.0 Hepatomegaly, not elsewhere classified; Z88.1 Allergy status to other antibiotic agents; Z91.041 Radiographic dye allergy status
CPT/HCPCS: 71260; 74177; Q9967

== ENCOUNTER 2018-07-10 08:51 | Day surgery (SDC) | payer OTHER ==
[~2018-07-10 08:51] MED LIST changes: +ALPRAZolam 0.25 MG TAB PO PRN; +ASPIRIN 325 MG TAB PO ONE; -ASPIRIN 325 MG TAB PO STA; +SODIUM CHLORIDE 0.9% 1,000 ML in EMPTY BAG 1 BAG IV ONE
[2018-07-10] MEDS ORDERED: ALPRAZolam 0.5 MG TAB PO STA (09:17)
[2018-07-10] MEDS ORDERED: ALPRAZolam 0.5 MG TAB ONE (09:20)
[2018-07-10] MEDS ORDERED: SODIUM CHLORIDE 0.9% 1,000 ML IV ONE (09:34)
[2018-07-10] MEDS: MIDAZOLAM (PF) 2 MG/2 ML VIAL IVP ONE ×2 (10:24→10:29)
[2018-07-10] MEDS: LIDOCAINE 1% INJ 10MG/ML (20 ML MDV) SQ ONE ×2 (10:51→10:57)
[2018-07-10] MEDS: fentaNYL (PF) 50 MCG/ML 2 ML AMP IV ONE ×3 (10:53→11:27)
[2018-07-10] MEDS ORDERED: HEPARIN SODIUM 1,000 UN/ML (10ML VL) IV ONE (10:55)
[2018-07-10] MEDS ORDERED: MIDAZOLAM (PF) 2 MG/2 ML VIAL IVP ONE (10:59)
[2018-07-10] MEDS ORDERED: CLOPIDOGREL 75 MG TAB PO ONE (11:40)
[2018-07-10] MEDS ORDERED: PROTAMINE SULFATE 10 MG/ML 5 ML VIAL IV ONE (11:59)
[2018-07-10] MEDS ORDERED: NITROGLYCERIN SL TABS 0.4 MG TAB SUBLINGUAL PRN (12:00)
[2018-07-10] MEDS ORDERED: PROCHLORPERAZINE 10 MG TAB PO PRN (12:00)
[2018-07-10] MEDS ORDERED: SODIUM CHLORIDE 0.9% 1,000 ML IV SCH (12:15)
[2018-07-10] MEDS ORDERED: IOPAMIDOL-250 100ML BTL INTRAARTER ONE (12:28)
--- NOTE | 2018-07-10 12:45 | IR ---
EXAMINATION TYPE: IR stent intravas non coronary DATE OF EXAM: 07/10/2018 CLINICAL HISTORY: Peripheral vascular disease. Left leg pain. TECHNIQUE: Fluoroscopy. COMPARISON: None. FINDINGS: Fluoroscopic guidance was provided during abdominal angiogram with intravascular intervent ional procedure performed by Dr. Stubbs. A total of 20.7 minutes of fluoroscopic time was utilized dur ing the procedure and 6 cine runs are acquired. Please refer to procedure noted as I was not present or performed procedure. There appears to be angioplasty at level of common iliac arteries bilaterally . IMPRESSION: As Above.
--- NOTE | 2018-07-10 12:57 | LTR ---
DATE OF SERVICE: 07/10/2018 RE: Radhames Belle Dear Dr. Madera; Ms. Radhames Belle underwent successful balloon angioplasty and stenting of the left iliac artery with an excellent angiographic results and without any complication. I want to thank you for allowing us to participate in her care and please do not hesitate to call for any question or concern. Sincerely, Fox Stubbs MD MMSHAZIAL / YAMILAN: [phone] /
[2018-07-10] MEDS: HYDROcodone/APAP 7.5-325MG 1 EACH TAB PO PRN ×2 (13:57→18:04)
--- NOTE | 2018-07-10 15:09 | AN ---
ANGIOGRAPHY REPORT DATE OF SERVICE: 07/10/2018 PERFORMING PHYSICIAN: Fox Stubbs MD, Aircraft Design Engineer. PROCEDURE PERFORMED: 1. Selective bilateral common and external iliac arteries angiogram. 2. Intravascular ultrasound (IVUS) of the left common and left external iliac artery. 3. Successful kissing stent of the right and left common iliac artery using balloon expandable stent with an excellent angiographic results and reduction of stenosis from 100% to 0%. 4. Successful stenting of the left external iliac artery using self-expandable stent, which was 7.0 x 140 mm with an excellent angiographic result as well. INDICATION: This is a pleasant 58-year-old female patient who sees Dr. Garcia in the office as an outpatient who was experiencing left leg intermittent claudication and underwent a peripheral angiogram and that revealed occluded left common iliac artery and severe disease involving the left external iliac artery. She was brought today to undergo intervention on the left iliac. APPROACH: Right and left common femoral arteries. COMPLICATION: None. LEVEL OF SEDATION: Moderate with sedation length of 62 minutes. PROCEDURE DESCRIPTION: After obtaining an informed consent, the patient was brought to the cardiac sleep lab technologist. Both femoral artery were cannulated using micropuncture technique under ultrasound guidance, the micropuncture wire passed easily, then I placed two 23 cm Brite tip 6- Yoruba sheath in both femoral arteries. Subsequently, anticoagulation was initiated using heparin and the patient was given 6000 units of heparin IV. 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 I proven that I was in the true lumen by injecting contrast through the catheter. After that I did intravascular ultrasound (IVUS) of the left common iliac artery and left external iliac artery to assist the diameter of the external and common after I changed my 0.035 wire into 0.014 wire. After that I did balloon angioplasty of the left common iliac artery and left external iliac artery using 6 mm x 40 mm balloon. After that and in a kissing technique, I deployed 2 balloon expandable stent in the left and right common iliac arteries. In the left common iliac artery, I did deploy a 7 x 37 mm and in the right common iliac artery I deployed 7 x 27 mm. Both stents were deployed in a kissing technique. In the left external iliac artery, I deployed 7 x 140 mm Zilver PTX drug- coated stent where the stent was positioned under fluoroscopy guidance and deployed under fluoroscopy guidance. After that, I post-dilated the stent using 6 mm balloon. The final angiogram showed excellent results and the procedure was completed without any complication. POSTPROCEDURE MANAGEMENT: 1. Dual anti-platelet therapy. 2. Risk factors modifications. 3. Follow up with the patient. BROOKE / YAMILAN: [id number] /
[2018-07-10 17:58] VITALS: BMI 30.1
[2018-07-10] MEDS: CARVEDILOL 6.25 MG TAB PO SCH (18:03)
[2018-07-10] MEDS: ALPRAZolam 0.5 MG TAB PO PRN (20:24)
[2018-07-10] MEDS ORDERED: Ibrutinib [Imbruvica] 420 MG PO SCH (21:00)
[2018-07-11] MEDS: HYDROcodone/APAP 7.5-325MG 1 EACH TAB PO PRN ×3 (00:31→11:45)
[2018-07-11] MEDS: CARVEDILOL 6.25 MG TAB PO SCH (06:01)
[2018-07-11] MEDS: ALPRAZolam 0.5 MG TAB PO PRN (06:38)
[2018-07-11 06:42] LABS: HCT 35.5 % (34.0-46.0); HGB 11.6 gm/dL (11.4-16.0); MCHC 32.7 g/dL (31.0-37.0); MCV 94.8 fL (80.0-100.0); Mean Platelet Volume 11.1; Platelet Count 153 k/uL (150-450); RBC 3.75 m/uL (3.80-5.40); RDW 14.1 % (11.5-15.5); WBC 17.5 k/uL (3.8-10.6)
[2018-07-11 06:56] LABS: Anion Gap 7 mmol/L; Blood Urea Nitrogen 22 mg/dL (7-17); Calcium 8.8 mg/dL (8.4-10.2); Carbon Dioxide 23 mmol/L (22-30); Chloride 107 mmol/L (98-107); Glucose 99 mg/dL (74-99); Sodium 137 mmol/L (137-145)
[2018-07-11] MEDS ORDERED: CLOPIDOGREL 75 MG TAB PO SCH (09:00)
[2018-07-11] MEDS ORDERED: LIDOCAINE 5% PATCH TOPICAL SCH (09:00)
[2018-07-11] MEDS ORDERED: NICOTINE 21MG/24HR PATCH TRANSDERM SCH (09:00)
[2018-07-11] MEDS ORDERED: SPIRONOLACTONE 25 MG TAB PO SCH (09:00)
[2018-07-11] MEDS ORDERED: ISOSORBIDE MONONITRATE ER 30 MG TAB.ER.24H PO SCH (09:00)
[2018-07-11] MEDS ORDERED: ATORVASTATIN 20 MG TAB PO SCH (09:00)
[2018-07-11] MEDS ORDERED: CITALOPRAM HYDROBROMIDE 10 MG TAB PO SCH (09:00)
[2018-07-11] MEDS ORDERED: LOSARTAN 50 MG TAB PO SCH (09:00)
[2018-07-11] MEDS ORDERED: FUROSEMIDE 20 MG TAB PO SCH (09:00)
[2018-07-11] MEDS ORDERED: ASPIRIN 81 MG PO SCH (09:00)
[2018-07-11 09:34] LABS: Band Neutrophils % 1 %; Lymphocytes # (M) 9.63 k/uL (1.0-4.8); Monocytes # (M) 1.05 k/uL (0-1.0); Neutrophils % (M) 38 %; Nucleated Red Blood Cells 0 /100 WBC (0-0); Total Cells Counted 100
--- NOTE | 2018-07-11 11:03 | P.DS ---
Providers Date of admission: July 102018 Attending physician: Fox Stubbs Primary care physician: Ji Madera [facility] Course: This is a pleasant 58-year-old female patient who sees Dr. SUDHA Garcia in the office as an outpatient was diagnosed recently was left leg intermittent claudication and underwent a peripheral angiogram which revealed occluded left iliac artery and severe disease involving the left external iliac artery. 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 Both groins are soft and nontender and without any bruises. The patient is going to be discharged home on dual antiplatelet therapy along with a statin and she going to be seen in the office in a week. Plan - Discharge Summary Discharge Rx Participant: Yes New Discharge Prescriptions: New Clopidogrel [Plavix] 75 mg PO DAILY #90 tab Continue ALPRAZolam [Xanax] 0.5 mg PO TID PRN PRN Reason: Anxiety Prochlorperazine [Compazine] 10 mg PO BID PRN PRN Reason: Nausea Carvedilol [Coreg] 6.25 mg PO BID Spironolactone [Aldactone] 25 mg PO DAILY Losartan [Cozaar] 50 mg PO DAILY Isosorbide Mononitrate ER [Imdur] 30 mg PO DAILY Furosemide [Lasix] 20 mg PO DAILY Citalopram Hydrobromide [CeleXA] 10 mg PO DAILY Aspirin 81 mg PO DAILY #30 chew Nitroglycerin Sl Tabs [Nitrostat] 0.4 mg SUBLINGUAL Q5M PRN #20 tab PRN Reason: Chest Pain Atorvastatin [Lipitor] 20 mg PO DAILY Lidocaine 5% Patch [Lidoderm 5% Patch] 1 patch TOPICAL DAILY #7 patch Nicotine 21Mg/24Hr Patch [Habitrol] 1 each TRANSDERM DAILY #30 patch HYDROcodone/APAP 7.5-325MG [[place] 7.5-325] 1 tab PO Q6HR PRN PRN Reason: Pain Ibrutinib [Imbruvica] 420 mg PO HS Discharge Medication List ALPRAZolam [Xanax] 0.5 mg PO TID PRN 01/30/15 [History] Carvedilol [Coreg] 6.25 mg PO BID 11/14/17 [History] Losartan [Cozaar] 50 mg PO DAILY 11/14/17 [History] Prochlorperazine [Compazine] 10 mg PO BID PRN 11/14/17 [History] Spironolactone [Aldactone] 25 mg PO DAILY 11/14/17 [History] Citalopram Hydrobromide [CeleXA] 10 mg PO DAILY 03/27/18 [History] Furosemide [Lasix] 20 mg PO DAILY 03/27/18 [History] Isosorbide Mononitrate ER [Imdur] 30 mg PO DAILY 03/27/18 [History] Aspirin 81 mg PO DAILY #30 chew 03/28/18 [Rx] Nitroglycerin Sl Tabs [Nitrostat] 0.4 mg SUBLINGUAL Q5M PRN #20 tab 03/28/18 [Rx] Atorvastatin [Lipitor] 20 mg PO DAILY 06/28/18 [History] Lidocaine 5% Patch [Lidoderm 5% Patch] 1 patch TOPICAL DAILY #7 patch 07/01/18 [Rx] Nicotine 21Mg/24Hr Patch [Habitrol] 1 each TRANSDERM DAILY #30 patch 07/01/18 [Rx] HYDROcodone/APAP 7.5-325MG [[place] 7.5-325] 1 tab PO Q6HR PRN 07/07/18 [History] Ibrutinib [Imbruvica] 420 mg PO HS 07/07/18 [History] Clopidogrel [Plavix] 75 mg PO DAILY #90 tab 07/11/18 [Rx] Follow up Appointment(s)/Referral(s): Kristen Garcia MD [STAFF PHYSICIAN] - (Ofiices will call with appointment date/time.)
[2018-07-11 11:08] VITALS: PULSE 70; RESP 16
[2018-07-11 11:18] VITALS: BP 103/44; TEMP 97.7
== END 2018-07-11 12:12 | disposition home or self-care (01) ==
LOC: CATHCVL 08:51 → 3SCARD 11:52 → CATHCVL 07-11 12:12
PROVIDERS: ATTEND Internal Medicine Interventional Cardiology
DX: I70.212 Atherosclerosis of native arteries of extremities with intermittent claudication, left leg (principal); C91.90 Lymphoid leukemia, unspecified not having achieved remission; I25.5 Ischemic cardiomyopathy; F17.210 Nicotine dependence, cigarettes, uncomplicated; Z88.1 Allergy status to other antibiotic agents; Z91.048 Other nonmedicinal substance allergy status; I10 Essential (primary) hypertension; Z82.49 Family history of ischemic heart disease and other diseases of the circulatory system
CPT/HCPCS: 37221; 37223; 37252; 37253; 80048; 85025; C1769 ×4; C1894 ×2; C1725; C1753; C1876; C1874; S4990; J2720; J2001; J3010; J1644; Q9966; J2250

== ENCOUNTER 2018-08-20 20:35 | Emergency (ER) | payer OTHER ==
[2018-08-20 20:42] VITALS: TEMP 97.6
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
[2018-08-20 21:08] VITALS: RESP 16
[2018-08-20] MEDS ORDERED: KETOROLAC 30 MG/ML 1 ML VIAL IVP STA (21:13)
[2018-08-20] MEDS ORDERED: SODIUM CHLORIDE 0.9% 1,000 ML IV STA (21:13)
[2018-08-20] MEDS ORDERED: ASPIRIN 81 MG PO STA (21:13)
[2018-08-20 21:41] LABS: ALT 9 U/L (9-52); AST 24 U/L (14-36); African American GFR (CKD) >90 (>60 ml/min/1.73 sqM); Albumin 3.6 g/dL (3.5-5.0); Alkaline Phosphatase 88 U/L (38-126); Amylase <30 U/L (30-110); Anion Gap 8 mmol/L; Blood Urea Nitrogen 19 mg/dL (7-17); Carbon Dioxide 18 mmol/L (22-30); Chloride 113 mmol/L (98-107); Glucose 99 mg/dL (74-99); INR 0.9 (<1.2); Lipase 41 U/L (23-300); Magnesium 1.8 mg/dL (1.6-2.3); Partial Thromboplastin Time 23.8 sec (22.0-30.0); Potassium 4.3 mmol/L (3.5-5.1); Prothrombin Time 9.9 sec (9.0-12.0); Sodium 139 mmol/L (137-145); Total Bilirubin 0.5 mg/dL (0.2-1.3); Total Protein 5.9 g/dL (6.3-8.2)
[2018-08-20 21:49] LABS: Anisocytosis Slight; HCT 41.8 % (34.0-46.0); HGB 13.1 gm/dL (11.4-16.0); Hypochromasia Slight; MCH 28.9 pg (25.0-35.0); MCHC 31.5 g/dL (31.0-37.0); MCV 91.9 fL (80.0-100.0); Mean Platelet Volume 12.9; Platelet Count 178 k/uL (150-450); RBC 4.55 m/uL (3.80-5.40); RDW 16.3 % (11.5-15.5); WBC 19.3 k/uL (3.8-10.6)
[2018-08-20 22:02] LABS: Eosinophils # (M) 0.58 k/uL (0-0.7); Lymphocytes # (M) 10.81 k/uL (1.0-4.8); Monocytes # (M) 1.35 k/uL (0-1.0); Neutrophils # (M) 6.56 k/uL (1.3-7.7); Neutrophils % (M) 34 %; Nucleated Red Blood Cells 0 /100 WBC (0-0); Total Cells Counted 100
--- NOTE | 2018-08-20 22:29 | XR ---
EXAM: XR Chest, 2 Views CLINICAL HISTORY: Chest pain TECHNIQUE: Frontal and lateral views of the chest. COMPARISON: Chest x-ray dated 06/28/2018 FINDINGS: Lungs: Are opacities seen within both lungs along the lateral aspects, which are grossly unchanged. Question pleural-based plaques or nodules. In the absence of prior CT, consider CT scan the chest. Pleural space: Unremarkable. No pneumothorax. Heart: Unremarkable. No cardiomegaly. Mediastinum: Unremarkable. Bones/joints: Unremarkable. IMPRESSION: Are opacities seen within both lungs along the lateral aspects, which are grossly unchanged. Question pleural-based plaques or nodules. In the absence of prior CT, consider CT scan the chest.
[2018-08-20] MEDS ORDERED: MORPHINE SULFATE 4 MG/ML SYRINGE IVP STA (22:42)
[2018-08-20] MEDS ORDERED: diphenhydrAMINE 50 MG/ML 1 ML VIAL IVP STA (23:00)
[2018-08-20] MEDS ORDERED: FAMOTIDINE 20 MG/2 ML VIAL IV STA (23:01)
[2018-08-20] MEDS ORDERED: methylPREDNISolone SOD SUCCI 125 MG/2 ML VIAL IV STA (23:01)
[2018-08-20 23:47] LABS: Appearance,Urine Cloudy (Clear); Bacteria,Urine Rare /hpf; Bilirubin,Urine Negative (Negative); Blood,Urine Trace (Negative); Color,Urine Yellow; Glucose,Urine (UA) Negative (Negative); Ketones,Urine Negative (Negative); Leukocyte Esterase,Urine Moderate (Negative); Mucus,Urine Rare /hpf; Nitrite,Urine Negative (Negative); PH, Urine 6.5 (5.0-8.0); Protein,Urine Trace (Negative); RBC,Urine 3 /hpf (0-5); Specific Gravity,Urine 1.024 (1.001-1.035); Squamous Epithelial Cell,Urine 7 /hpf (0-4); Urobilinogen,Urine <2.0 mg/dL (<2.0); WBC,Urine 36 /hpf (0-5)
--- NOTE | 2018-08-21 00:13 | CT ---
EXAM: CT Chest With Intravenous Contrast CLINICAL HISTORY: Pain TECHNIQUE: Axial computed tomography images of the chest with intravenous contrast. CTDI is 0.085, 0.085, 7.17, 8.1 mGy and DLP is 916.6 mGy-cm. This CT exam was performed using one or more of the following dose reduction techniques: automated exposure control, adjustment of the mA and/or kV according to patient size, and/or use of iterative reconstruction technique. COMPARISON: CT chest dated 07/09/2018 FINDINGS: Lungs: There are stable spiculated nodules seen within the left upper lobe measuring up to 9 mm (201-25) and right upper lobe measuring up to 9 mm (201-20). Centrilobular emphysema. There are other scattered pulmonary nodules, which are nonspecific. Pleural space: Trace left and small right pleural effusion. No pneumothorax. Heart: Coronary artery calcifications. No significant pericardial effusion. Thyroid: Low-density lesion within the left thyroid gland measuring up to 10 mm, which is nonspecific. Bones/joints: There is osseous destruction with a large soft tissue component seen within the lateral right fifth rib. Additionally, there is an enlarging lytic lesion within the T7 vertebral body Remote healed left-sided rib fractures. No dislocation. Soft tissues: Unremarkable. Vasculature: Unremarkable. No thoracic aortic aneurysm. Lymph nodes: Multiple prominent mediastinal and hilar lymph nodes which are nonspecific. Rhonda metastatic disease not excluded. IMPRESSION: 1. There are stable spiculated nodules seen within the left upper lobe measuring up to 9 mm (201-25) and right upper lobe measuring up to 9 mm (201-20). Findings are nonspecific with primary lung malignancy versus metastatic disease is not excluded. 2. There is osseous destruction with a large soft tissue component seen within the lateral right fifth rib. Additionally, there is an enlarging lytic lesion within the T7 vertebral body Findings are concerning for metastatic disease. 3. Trace left and small right pleural effusion. 4. Multiple prominent mediastinal and hilar lymph nodes which are nonspecific. Rhonda metastatic disease not excluded. EXAM: CT Abdomen and Pelvis With Intravenous Contrast CLINICAL HISTORY: Pain TECHNIQUE: Axial computed tomography images of the abdomen and pelvis with intravenous contrast. CTDI is 0.085, 0.085, 7.17, 8.1 mGy and DLP is 916. 6 mGy-cm. This CT exam was performed using one or more of the following dose reduction techniques: automated exposure control, adjustment of the mA and/or kV according to patient size, and/or use of iterative reconstruction technique. COMPARISON: CT abdomen and pelvis dated 07/09/2018 FINDINGS: Lung bases: Unremarkable. No mass. No consolidation. ABDOMEN: Liver: Multiple subcentimeter subtle-appearing peripheral enhancing low-density lesions within the liver concerning for metastatic disease. There is a low density lesion within the right hepatic lobe with peripheral enhancement which may represent hemangioma. This measures up to 2.5 cm. Gallbladder and bile ducts: Unremarkable. Pancreas: Unremarkable. Spleen: Unremarkable. Adrenals: Large left adrenal gland nodule measuring up to 4.2 cm, which is unchanged. Kidneys and ureters: Unremarkable. Stomach and bowel: Noninflamed colonic diverticulosis. PELVIS: Appendix: Appendix is unremarkable. Bladder: Unremarkable. Reproductive: Uterus is surgically absent. ABDOMEN and PELVIS: Intraperitoneal space: Unremarkable. Bones/joints: No acute fracture. No dislocation. Soft tissues: Unremarkable. Vasculature: Vascular calcifications. No abdominal aortic aneurysm. Lymph nodes: Unremarkable. IMPRESSION: Multiple subcentimeter subtle-appearing peripheral enhancing low- density lesions within the liver concerning for metastatic disease.
[2018-08-21 00:42] VITALS: BP 129/53; PULSE 79
[2018-08-21] MEDS ORDERED: CEPHALEXIN 500MG STARTER PACK 4 CAP BTL PO STA (00:50)
== END 2018-08-21 01:09 | disposition home or self-care (01) ==
LOC: EC 20:35
DX: M89.9 Disorder of bone, unspecified (principal); K76.9 Liver disease, unspecified; R07.9 Chest pain, unspecified; R19.7 Diarrhea, unspecified; M54.2 Cervicalgia; I25.119 Atherosclerotic heart disease of native coronary artery with unspecified angina pectoris; I10 Essential (primary) hypertension; I25.2 Old myocardial infarction; M19.90 Unspecified osteoarthritis, unspecified site; Z85.6 Personal history of leukemia; Z85.72 Personal history of non-Hodgkin lymphomas; F32.9 Major depressive disorder, single episode, unspecified; F41.9 Anxiety disorder, unspecified; F17.200 Nicotine dependence, unspecified, uncomplicated; Z86.14 Personal history of Methicillin resistant Staphylococcus aureus infection; Z79.899 Other long term (current) drug therapy; Z88.1 Allergy status to other antibiotic agents; Z88.8 Allergy status to other drugs, medicaments and biological substances; Z95.818 Presence of other cardiac implants and grafts; Z82.49 Family history of ischemic heart disease and other diseases of the circulatory system; Z53.29 Procedure and treatment not carried out because of patient's decision for other reasons
CPT/HCPCS: 99285; 96374; 96375 ×4; 96361; 36415; 93005; 80053; 82150; 83690; 83735; 84484; 85025; 85610; 85730; 81001; 71046; 71260; 74177; J2270; J1200; J2930; J1885; Q9967

== ENCOUNTER 2018-09-07 09:03 | Day surgery (SDC) | payer OTHER ==
[2018-09-07] MEDS ORDERED: ALPRAZolam 0.5 MG TAB PO ONE (09:17)
[2018-09-07 09:31] VITALS: TEMP 97.7
[2018-09-07 09:31] LABS: Mean Platelet Volume 11.4; Platelet Count 157 k/uL (150-450)
[2018-09-07 09:42] LABS: INR 0.9 (<1.2); Prothrombin Time 9.4 sec (9.0-12.0)
--- NOTE | 2018-09-07 10:53 | XR ---
EXAMINATION TYPE: XR chest 1V portable DATE OF EXAM: 09/07/2018 COMPARISON: 08/20/2018 HISTORY: Post lung biopsy TECHNIQUE: Single frontal view of the chest is obtained. FINDINGS: There is a destructive mass involving the right rib cage. No sizable pneumothorax. Heart i s prominent. Question a nodular density in the left upper lobe. Coarsened interstitium. Biapical pleu ral thickening. No pleural effusion. Atherosclerotic change aorta. Borderline cardiomegaly IMPRESSION: 1. Destructive right rib lesion with pleural-based mass. No pneumothorax post biopsy.
[2018-09-07 10:56] VITALS: PULSE 68
[2018-09-07 11:08] VITALS: BP 101/56; RESP 18
--- NOTE | 2018-09-07 14:26 | CT ---
EXAMINATION TYPE: CT biopsy bone superficial CT guided fine-needle aspiration, core biopsy DATE OF EXAM: 09/07/2018 HISTORY: Destructive right rib lesion COMPARISON: CT 08/20/2018 Maximal barrier technique was utilized. The skin overlying a suitable path to the lesion was localiz ed using CT and the overlying skin was prepped and draped. Lidocaine used for local anesthesia. A s kin nallely made with a scalpel. Using CT guidance, access was gained to the lesion with a 19-gauge juan luis de needle. Coaxial placement of a 22-gauge needle was performed twice, aspirated specimens submitted to cytology. Subsequently 20-gauge core biopsy was performed through the needle guide. 3 passes were performed in all. Following the procedure no immediate complications. The patient is discharged i n stable condition. Hemostasis achieved. IMPRESSION: SUCCESSFUL CT GUIDED BIOPSY. PATHOLOGY PENDING. THIS PROCEDURE WAS PERFORMED BY THE UNDERSIGNED. Po stprocedure chest x-ray pending.
== END 2018-09-07 11:13 | disposition home or self-care (01) ==
LOC: RADPROMAIN 09:03
PROVIDERS: ATTEND Internal Medicine Hematology & Oncology
DX: M89.28 Other disorders of bone development and growth, other site (principal); C91.10 Chronic lymphocytic leukemia of B-cell type not having achieved remission
CPT/HCPCS: 20220; 71045; 77012; 85049; 85610; 88173; 88305

== ENCOUNTER 2018-09-18 21:21 | Inpatient (IN) | payer OTHER ==
[2018-09-18] MEDS ORDERED: SODIUM CHLORIDE 0.9% 1,000 ML IV STA (22:47)
[2018-09-18] MEDS ORDERED: MORPHINE SULFATE 4 MG/ML SYRINGE IV STA (22:47)
[2018-09-18 23:24] LABS: Anisocytosis Slight; HCT 36.8 % (34.0-46.0); HGB 11.8 gm/dL (11.4-16.0); Hypochromasia Slight; MCH 29.6 pg (25.0-35.0); MCHC 32.2 g/dL (31.0-37.0); MCV 91.9 fL (80.0-100.0); Mean Platelet Volume 12.3; Platelet Count 169 k/uL (150-450); RDW 16.3 % (11.5-15.5); WBC 19.8 k/uL (3.8-10.6)
[2018-09-18 23:36] LABS: ALT 11 U/L (9-52); AST 12 U/L (14-36); African American GFR (CKD) >90 (>60 ml/min/1.73 sqM); Albumin 3.6 g/dL (3.5-5.0); Alkaline Phosphatase 87 U/L (38-126); Anion Gap 7 mmol/L; Blood Urea Nitrogen 26 mg/dL (7-17); Carbon Dioxide 23 mmol/L (22-30); Chloride 110 mmol/L (98-107); Glucose 79 mg/dL (74-99); Potassium 3.9 mmol/L (3.5-5.1); Sodium 140 mmol/L (137-145); Total Bilirubin 0.3 mg/dL (0.2-1.3)
[2018-09-18 23:49] LABS: Appearance,Urine Clear (Clear); Bacteria,Urine Rare /hpf; Bilirubin,Urine Negative (Negative); Blood,Urine Negative (Negative); Cellular Casts,Urine 1 /lpf (0); Color,Urine Yellow; Glucose,Urine (UA) Negative (Negative); Hyaline Casts,Urine 1 /lpf (0-2); Ketones,Urine Negative (Negative); Leukocyte Esterase,Urine Moderate (Negative); Mucus,Urine Rare /hpf; Nitrite,Urine Negative (Negative); Protein,Urine Negative (Negative); RBC,Urine 1 /hpf (0-5); Specific Gravity,Urine 1.028 (1.001-1.035); Squamous Epithelial Cell,Urine 1 /hpf (0-4); Urobilinogen,Urine <2.0 mg/dL (<2.0)
--- NOTE | 2018-09-18 23:58 | XR ---
History: [email or web address].[email or web address] XR Reason: Pain Exam: XR C SPINE 3 views Comparison: FINDINGS: Cervical spine is seen on the lateral view from the skull base to the top of C7. No definite osseous lesion identified. The disc spaces appear within limits. No prevertebral swelling. No evidence of fracture or malalignment. Left-sided carotid calcific plaque suggested. IMPRESSION: Cervical spine is seen on the lateral view from the skull base to the top of C7. No definite osseous lesion identified.
--- NOTE | 2018-09-19 00:04 | XR ---
History: [email or web address].[email or web address] XR Reason: Pain Exam: XR L SPINE 3 views Comparison: CT abdomen and pelvis 08/20/2018 FINDINGS: No osseous lesion identified. No malalignment. Spondylosis. The disc spaces appear within limits. Aortoiliac calcifications and bilateral iliac stents again noted. IMPRESSION: No osseous lesion identified.
--- NOTE | 2018-09-19 00:25 | XR ---
History: [email or web address].REASON XR Reason: Pain Exam: XR T SPINE 3 views Comparison: CT of the chest 08/20/2018 FINDINGS: No evidence of fracture or malalignment. Lucent lesion seen by CT at T7 is difficult to appreciate radiographically. IMPRESSION: No evidence of fracture or malalignment. Lucent lesion seen by CT at T7 is difficult to appreciate radiographically.
--- NOTE | 2018-09-19 00:31 | XR ---
History: [email or web address].REASON XR Reason: pain Exam: XR CXR 2 VIEWS Comparison: 09/07/2018 FINDINGS: The lungs appear unchanged. No evidence of pneumothorax identified. Suggestion of blunting of the right posterior recess which may represent very small pleural fluid. Right sided fifth rib lesion and soft tissue not significantly changed. The cardiac and mediastinal contours appear within limits. IMPRESSION: The lungs appear unchanged. No evidence of pneumothorax identified. Suggestion of blunting of the right posterior recess which may represent very small pleural fluid. Right sided fifth rib lesion and soft tissue not significantly changed.
[2018-09-19 00:32] LABS: Eosinophils # (M) 0.59 k/uL (0-0.7); Lymphocytes # (M) 15.44 k/uL (1.0-4.8); Neutrophils # (M) 3.56 k/uL (1.3-7.7); Neutrophils % (M) 18 %; Nucleated Red Blood Cells 0 /100 WBC (0-0); Total Cells Counted 100
[2018-09-19] MEDS ORDERED: MORPHINE SULFATE 4 MG/ML SYRINGE IVP STA (01:21)
[2018-09-19] MEDS ORDERED: NALOXONE 0.4 MG/ML 1 ML VIAL IV PRN (01:25)
[2018-09-19] MEDS ORDERED: MORPHINE SULFATE 4 MG/ML SYRINGE IV PRN (01:25)
[2018-09-19] MEDS ORDERED: IBUPROFEN 400 MG TAB PO PRN (01:25)
[2018-09-19] MEDS ORDERED: ACETAMINOPHEN TAB 325 MG TAB PO PRN (01:25)
[2018-09-19] MEDS ORDERED: LORazepam 2 MG/ML INJ IV PRN (01:25)
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
[2018-09-19] MEDS: SODIUM CHLORIDE 0.9% 1,000 ML IV SCH ×3 (01:37→21:38)
[2018-09-19] MEDS: HYDROmorphone 0.5 MG/0.5 ML SYRINGE IVP PRN ×2 (03:57→07:58)
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
[2018-09-19] MEDS ORDERED: HYDROmorphone 1 MG/ML 1 ML SYRINGE IVP PRN (11:49)
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
--- NOTE | 2018-09-19 14:26 | MR ---
EXAMINATION TYPE: MR thoracic spine wo/w con DATE OF EXAM: 09/19/2018 COMPARISON: 09/18/2018 plane films. Nuclear medicine bone scan is pending but unavailable at this time . HISTORY: Metastasis to T7. Check for cord compression CONTRAST: Performed utilizing 6 mL intravenous Gadavist gadolinium contrast. TECHNIQUE: Multiplanar, multiecho imaging on a 3.0 Jeannine magnet is performed through the thoracic spi ne. Spinal cord maintains normal signal through its visualized course. Vertebral body alignment is normal. Vertebral body heights are preserved. Disc heights are preserved. Disc desiccation is present within the mid thoracic spine. Remaining Disc hydration levels are preserved. No spinal canal stenosis is evident. There is a signal abnormality within the T7 vertebral body extending from the inferior endplate to ne natali the superior endplate suspicious for metastatic lesion. This vertebral level is hypointense on T 1-weighted images. Additionally, some hypointensity is present within T3 and posterior inferior T9 le giana. There is heterogeneity throughout the thoracic spine. Hyperintensity is present within the T10 l evel on T1 and T2 sequences. There may be some heterogenous enhancement of the T7 lesion in of the T3 lesion. IMPRESSIONS: 1. Heterogeneity through the thoracic spine suspicious for metastatic lesions most notably T7 but als o likely present T3, T9, and T10. 2. No vertebral body collapse, posterior wall displacement, significant disc bulge or herniation evid ent to suggest spinal canal stenosis. 3. Small pleural effusions are likely present bilaterally.
[2018-09-19] MEDS: DEXAMETHASONE SOD PHOSPHATE 4 MG/ML 1 ML VIAL IV SCH ×2 (14:38→19:35)
[2018-09-19] MEDS: HYDROmorphone 1 MG/ML 1 ML SYRINGE IVP PRN ×4 (14:55→22:27)
[2018-09-19] MEDS ORDERED: NITROGLYCERIN SL TABS 0.4 MG TAB SUBLINGUAL PRN (14:59)
[2018-09-19] MEDS ORDERED: PROCHLORPERAZINE 10 MG TAB PO PRN (14:59)
[2018-09-19] MEDS: HEPARIN SODIUM,PORCINE 5,000 UNIT/ML 1 ML VIAL SQ SCH (17:32)
[2018-09-19] MEDS: CARVEDILOL 6.25 MG TAB PO SCH (17:32)
--- NOTE | 2018-09-19 17:36 | NM ---
EXAMINATION TYPE: NM bone scan whole body DATE OF EXAM: 09/19/2018 COMPARISON: NONE HISTORY: Bone metastasis Delayed whole-body scanning was performed following the injection of 23.7 mCi Tc 99m MDP. Images wer e acquired 3 hours post injection. FINDINGS: There is increased radiotracer accumulation within posterior right rib 9. This could be related to tr auma or metastasis. There are 2 foci of increased radiotracer accumulation within posterior left ninth and eighth ribs co uld be related to trauma or metastasis. This appears somewhat elongated suggesting metastasis more li lina within the differential. Some increase uptake is present diffusely within the T7 region of the thorax. This is a site of poten tial metastasis. There is some increased radiotracer within the mid and distal diaphysis of the right femur suspicious for possible metastasis. There is some vague areas of increased signal within scattered areas of the calvarium suspicious for possible metastatic disease. IMPRESSION: 1. Abnormal uptake within the T7 region of the thoracic spine corresponds to abnormality on MRI last tible with metastatic disease. 2. Additional suspicious areas of metastatic disease within the posterior lateral right and left ribs , calvarium, and right distal femur
[2018-09-19] MEDS: SENNOSIDES-DOCUSATE SODIUM 1 EACH TAB PO SCH (19:35)
[2018-09-19] MEDS: FAMOTIDINE 20 MG TAB PO SCH (19:35)
[2018-09-19] MEDS: IBRUTINIB 420 MG PO SCH (19:36)
[2018-09-20] MEDS: DEXAMETHASONE SOD PHOSPHATE 4 MG/ML 1 ML VIAL IV SCH ×4 (00:41→18:06)
[2018-09-20] MEDS: HEPARIN SODIUM,PORCINE 5,000 UNIT/ML 1 ML VIAL SQ SCH ×3 (00:41→15:49)
[2018-09-20] MEDS: HYDROmorphone 1 MG/ML 1 ML SYRINGE IVP PRN ×10 (00:44→22:07)
[2018-09-20] MEDS: ASPIRIN 81 MG PO SCH (07:48)
[2018-09-20] MEDS: SENNOSIDES-DOCUSATE SODIUM 1 EACH TAB PO SCH ×2 (07:49→19:56)
[2018-09-20] MEDS: CITALOPRAM HYDROBROMIDE 10 MG TAB PO SCH (07:49)
[2018-09-20] MEDS: ISOSORBIDE MONONITRATE ER 30 MG TAB.ER.24H PO SCH (07:49)
[2018-09-20] MEDS: FAMOTIDINE 20 MG TAB PO SCH ×2 (07:49→19:56)
[2018-09-20] MEDS: CARVEDILOL 6.25 MG TAB PO SCH ×2 (07:49→17:40)
[2018-09-20] MEDS: ATORVASTATIN 20 MG TAB PO SCH (07:49)
[2018-09-20] MEDS ORDERED: SPIRONOLACTONE 25 MG TAB PO SCH (09:00)
[2018-09-20] MEDS ORDERED: LOSARTAN 50 MG TAB PO SCH (09:00)
--- NOTE | 2018-09-20 09:18 | US ---
EXAMINATION TYPE: US liver DATE OF EXAM: 09/20/2018 COMPARISON: NONE CLINICAL HISTORY: Liver metastasis. abnormal NM and MRI EXAM MEASUREMENTS: Liver Length: 18.2 cm Gallbladder Wall: 0.2 cm CBD: 0.9 cm, normal less than 0.6 cm. Right Kidney: 10.2 x 4.2 x 4.3 cm Pancreas: limited views appear wnl Liver: cystic lesion seen lateral left lobe = 1.0cm , and right posterior lobe has a 0.9cm hypoechoi c lesion noted when rolled LLD Gallbladder: multiple mobile areas noted within GB with no marked wall thickness Evidence for sonographic Castro's sign: no CBD: dilated with no obvious sign of obstruction Right Kidney: wnl IMPRESSION: 1. Patient's reported hepatic metastasis is not well visualized on the current examination is made of better visualized on the CT examination of 08/20/2018. Correlate for any recent treatment. Monitoring with contrast CT is recommended. 2. Cholelithiasis. 3. Dilated common bile duct. No etiology for obstruction is identified on the ultrasound exam.
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
--- NOTE | 2018-09-20 12:42 | P.PN ---
Subjective Progress Note Date: 09/20/18 The patient reports somewhat better pain control today. She continues to have no evidence of cord compression with lower extremity strength, sensation, as well as bowel and bladder sensation maintained. No fever/chills/nausea/vomiting Objective - Vital Signs Vital signs: Vital Signs Temp 98.3 F 09/20/18 07:35 Pulse 62 09/20/18 08:00 Resp 15 09/20/18 08:00 BP 127/65 09/20/18 07:35 Pulse Ox 91 L 09/20/18 07:35 Intake & Output 09/19/18 09/20/18 09/20/18 18:59 06:59 18:59 Intake Total 1240 1500 Balance 1240 1500 Intake: Intake, IV Titration 700 1000 Amount Sodium Chloride 0.9% 1, 700 1000 000 ml @ 100 mls/hr IV . Q10H [facility]AVEZ Rx#:[id number] Oral 540 500 Other: Voiding Method Toilet Toilet # Voids 2 - Constitutional General appearance: Present: no acute distress - EENT Eyes: Present: EOMI ENT: Present: hearing grossly normal, normal oropharynx - Respiratory Respiratory: bilateral: CTA - Cardiovascular Rhythm: regular Heart sounds: normal: S1, S2 - Gastrointestinal General gastrointestinal: Present: normal bowel sounds, soft - Integumentary Integumentary: Present: normal - Neurologic Neurologic: Present: CNII-XII intact - Musculoskeletal Musculoskeletal Comment(s): Pain on palpation right lateral chest wall, and mid back Musculoskeletal: Present: generalized weakness, strength equal bilaterally - Psychiatric Psychiatric: Present: A&O x's 3, appropriate affect - Labs CBC & Chem 7: 09/18/18 23:03 09/18/18 23:03 Labs: Microbiology - Last 24 Hours (Table) 09/18/18 23:11 Urine Culture - Preliminary Urine,Voided Assessment and Plan (1) Intractable back pain Narrative/Plan: This is better controlled since initiation of steroids. She is continuing on opiate pain medications. MRI of the thoracic spine shows no evidence of cord compression. The patient has been seen by radiation oncology with plan to initiate palliative radiation. Continue IV steroids and monitor for any evidence of developing cord compression. Current Visit: Yes Status: Acute Code(s): M54.9 - DORSALGIA, UNSPECIFIED SNOMED Code(s): 433620900 (2) Metastatic carcinoma Narrative/Plan: The exact type and primary site have not been able to be determined on the sample biopsied previously. The patient was therefore need another biopsy. Ultrasound of the liver was performed to check if there would be an appropriate target and the liver lesions. However the ultrasound was not able to define the lesions in a satisfactory manner. We'll discuss with radiology if the patient can proceed with a liver biopsy based on the CT imaging. Otherwise MRI of the liver, or repeat biopsy from the chest wall mass will be considered. As it is a possibility of for needing a repeat biopsy from the chest wall mass would recommend holding off on starting radiation to that area that is accomplished (if needed) Current Visit: Yes Status: Acute Code(s): C79.9 - SECONDARY MALIGNANT NEOPLASM OF UNSPECIFIED SITE SNOMED Code(s): 535825572 (3) CLL (chronic lymphocytic leukemia) Current Visit: Yes Status: Chronic Priority: Medium Code(s): C91.10 - CHRONIC LYMPHOCYTIC LEUK OF B-CELL TYPE NOT ACHIEVE REMIS SNOMED Code(s): 67106311
[2018-09-20] MEDS: POLYETHYLENE GLYCOL 3350 17 GM POWD.PACK PO PRN (13:38)
[2018-09-20] MEDS: SODIUM CHLORIDE 0.9% 1,000 ML IV SCH (15:17)
--- NOTE | 2018-09-20 16:11 | P.PN ---
Subjective 58-year-old female with unknown primary metastatic lesion to vertebrae and spine came in with the severe pain in the back on to have metastatic lesions in the thoracic spine at the the [phone] patient has metastatic liver lesions as well. Patient states that her pain is not well controlled yet patient remains on Decadron IV fluids will be discontinued and shouldn't will undergo radiation therapy for her spinal lesions-there are multiple other metastatic lesions in the bone scan the posterior right and left ribs right distal femur calvarium Constitutional: Denied any fatigue denied any fever. Cardio vascular: denied any chest pain, palpitations Gastrointestinal denied any nausea vomiting Pulmonary: Denied any shortness of breath cough Neurologic denied any new focal deficits All inpatient medications were reviewed and appropriate changes in these medications as dictated in the interval history and assessment and plan. Objective - Vital Signs Vital signs: Vital Signs Temp 98.3 F 09/20/18 07:35 Pulse 62 09/20/18 08:00 Resp 15 09/20/18 08:00 BP 127/65 09/20/18 07:35 Pulse Ox 91 L 09/20/18 07:35 Intake & Output 09/19/18 09/20/18 09/20/18 18:59 06:59 18:59 Intake Total 1240 1500 880 Balance 1240 1500 880 Intake: Intake, IV Titration 700 1000 700 Amount Sodium Chloride 0.9% 1, 700 1000 700 000 ml @ 100 mls/hr IV . Q10H CHAVEZ Rx#:[id number] Oral 540 500 180 Other: Voiding Method Toilet Toilet # Voids 2 - Exam PHYSICAL EXAMINATION: GENERAL: The patient is alert and oriented x3, not in any acute distress. Well developed, well nourished. HEENT: Pupils are round and equally reacting to light. EOMI. No scleral icterus. No conjunctival pallor. Normocephalic, atraumatic. No pharyngeal erythema. No thyromegaly. CARDIOVASCULAR: S1 and S2 present. No murmurs, rubs, or gallops. PULMONARY: Chest is clear to auscultation, no wheezing or crackles. ABDOMEN: Soft, nontender, nondistended, normoactive bowel sounds. No palpable organomegaly. MUSCULOSKELETAL: No joint swelling or deformity. EXTREMITIES: No cyanosis, clubbing, or pedal edema. NEUROLOGICAL: Patient does have some increased weakness in both legs strength is 4/5 SKIN: No rashes. - Labs CBC & Chem 7: 09/18/18 23:03 09/18/18 23:03 Labs: Microbiology - Last 24 Hours (Table) 09/18/18 23:11 Urine Culture - Preliminary Urine,Voided Gram Neg Bacilli Assessment and Plan Plan: -Severe back pain secondary to possible metastatic to lesion to thoracic spine. Patient's symptoms has been going on for 2 weeks because of which patient will be treated with anti-inflammatories multiple bone metastatic lesions on the bone scan and MRI findings as mentioned above radiation oncology was consulted and he used to present. Medications -History of CLL -Coronary artery disease -COPD without any acute exacerbation -Hypertension -Peripheral vascular disease -Asymptomatic bacteriuria for which patient will not require any antibiotics -Leukocytosis lymphocyte predominance secondary to CLL DVT prophylaxis with subcutaneous heparin GI prophylaxis with Pepcid
[2018-09-20] MEDS: IBRUTINIB 420 MG PO SCH (19:56)
[2018-09-21] MEDS: DEXAMETHASONE SOD PHOSPHATE 4 MG/ML 1 ML VIAL IV SCH ×4 (00:38→19:34)
[2018-09-21] MEDS: HYDROmorphone 1 MG/ML 1 ML SYRINGE IVP PRN ×10 (00:38→23:49)
[2018-09-21] MEDS: HEPARIN SODIUM,PORCINE 5,000 UNIT/ML 1 ML VIAL SQ SCH ×4 (01:08→23:50)
[2018-09-21] MEDS: CARVEDILOL 6.25 MG TAB PO SCH ×2 (07:31→18:42)
[2018-09-21] MEDS: FAMOTIDINE 20 MG TAB PO SCH ×2 (07:31→19:40)
[2018-09-21] MEDS: SENNOSIDES-DOCUSATE SODIUM 1 EACH TAB PO SCH ×2 (07:31→19:40)
[2018-09-21] MEDS: ASPIRIN 81 MG PO SCH (07:31)
[2018-09-21] MEDS: ISOSORBIDE MONONITRATE ER 30 MG TAB.ER.24H PO SCH (07:31)
[2018-09-21] MEDS: ATORVASTATIN 20 MG TAB PO SCH (07:32)
[2018-09-21] MEDS: CITALOPRAM HYDROBROMIDE 10 MG TAB PO SCH (07:32)
[2018-09-21] MEDS: ALPRAZolam 0.5 MG TAB PO PRN ×2 (11:24→18:40)
[2018-09-21] MEDS: ALBUTEROL NEBULIZED 2.5 MG/3 ML INHALATION SCH ×2 (13:06→20:04)
[2018-09-21] MEDS ORDERED: diphenhydrAMINE 50 MG/ML 1 ML VIAL IVP STA (14:11)
--- NOTE | 2018-09-21 16:54 | MR ---
EXAMINATION TYPE: MR brain wo/w con DATE OF EXAM: 09/21/2018 COMPARISON: HISTORY: GANNON,metastatic malignancy TECHNIQUE: Multiplanar, multisequence images of the brain and brainstem is performed without and with IV contras t, utilizing 6 mL intravenous Gadavist . FINDINGS: There is a 1 cm focal area of increased signal in the posterior aspect of the thalamus on the left si de on the diffusion images. This has also increased signal on the T2 and FLAIR images. There are scat tered small foci of increased signal in both cerebral hemispheres at the huffman-white matter junction. Total number is approximately 10 and these measure up to 9 mm in the right posterior frontal lobe. Th ere is some increased signal on the FLAIR images in the right occipital bone with some pathologic enh ancement suspicious for metastatic disease of the skull. There is some pathologic enhancement of the lateral aspect of the left bony orbit as well as soft tissues lateral to the left orbit that measures 14 x 10 mm. There is normal contrast enhancement of the venous sinuses. There is no midline shift. T here is no mass effect. There is a single 5 mm focus of pathologic enhancement of the cortex in the l eft parietal lobe.. Optic chiasm appears normal. Pituitary stalk appears normal. Sella turcica is nor mal. Corpus callosum appears intact. There is 3 mm focus of increased signal on the brain stem on the right side at level of cerebellar peduncle without enhancement and consistent with lacunar infarct. IMPRESSION: Pathologic enhancement of the right occipital bone and the lateral aspect left bony orbit suggestive of metastatic disease. Soft tissue pathologic enhancement lateral to the left orbit also suggestive of metastatic disease. Small 1 cm focus of pathologic enhancement in the calvarium of the right parietal bone suggestive of metastatic disease. Small focus of cortical enhancement could relate to small focus of metastatic disease of the brain in the left parietal lobe. Multiple nonenhancing white matter foci probably due to chronic small vessel ischemia. Mild cerebral atrophy.
--- NOTE | 2018-09-21 17:19 | P.PN ---
Subjective Progress Note Date: 09/21/18 Principal diagnosis: New primary malignancy, CLL/SLL on treatment In follow-up today patient is doing fair, her complaints consist of bone pain, more in the right rib cage, hurts with inspiration her activity, she states it is impacting her quality of life. Patient is status post biopsy, tissues did not adequate for evaluation. Patient is requiring aggressive management for narcotic-induced constipation. Objective - Vital Signs Vital signs: Vital Signs Temp 98.1 F 09/21/18 15:00 Pulse 73 09/21/18 15:00 Resp 16 09/21/18 15:00 BP 116/72 09/21/18 15:00 Pulse Ox 96 09/21/18 15:00 Intake & Output 09/20/18 09/21/18 09/21/18 18:59 06:59 18:59 Intake Total 1060 840 360 Balance 1060 840 360 Intake: Intake, IV Titration 700 Amount Sodium Chloride 0.9% 1, 700 000 ml @ 100 mls/hr IV . Q10H CHAVEZ Rx#:[id number] Oral 360 840 360 Other: Voiding Method Toilet # Voids 2 2 - Constitutional General appearance: Present: average body habitus, cooperative, no acute distress - EENT Eyes: Present: anicteric sclerae, EOMI ENT: Present: hearing grossly normal, normal oropharynx - Respiratory Respiratory: bilateral: CTA, diminished - Cardiovascular Rhythm: regular Heart sounds: normal: S1, S2 - Peripheral edema leg Peripheral Edema: bilateral: None - Gastrointestinal General gastrointestinal: Present: distended, normal bowel sounds, soft - Integumentary Integumentary: Present: normal - Neurologic Neurologic: Present: CNII-XII intact - Musculoskeletal Musculoskeletal: Present: strength equal bilaterally - Psychiatric Psychiatric: Present: A&O x's 3, appropriate affect, intact judgment & insight - Labs CBC & Chem 7: 09/18/18 23:03 09/18/18 23:03 Labs: Microbiology - Last 24 Hours (Table) 09/18/18 23:11 Urine Culture - Final Urine,Voided Escherichia coli Assessment and Plan (1) Chest mass Narrative/Plan: Pt is s/p biopsy of bone, sample not adequate to identify primary. Dr. Romo discussed case with IR, who will review pt images to identify most amenable target for biopsy. Pt knows that another biopsy is planned. Current Visit: Yes Status: Acute Priority: High Code(s): R22.2 - LOCALIZED SWELLING, MASS AND LUMP, TRUNK SNOMED Code(s): 189002438 (2) Lytic bone lesions on xray Narrative/Plan: Suspect likely cause of patient's pain. Patient has been seen by Radiation Oncology with plans to start palliative radiation to painful bone lesion. Dr. Romo did discuss the case with Radiation Oncology today. Pain med adjustment Neds to prevent narcotic induced constipation Current Visit: Yes Status: Acute Priority: High Code(s): M89.9 - DISORDER OF BONE, UNSPECIFIED SNOMED Code(s): 718090150 (3) CLL (chronic lymphocytic leukemia) Narrative/Plan: Pt has tolerate Imbuvica for several years now. She will cont treatment at this time. Current Visit: Yes Status: Chronic Priority: Medium Code(s): C91.10 - CHRONIC LYMPHOCYTIC LEUK OF B-CELL TYPE NOT ACHIEVE REMIS SNOMED Code(s): 44113043 Plan: Review results of MRI of the brain did come in after patient seen this afternoon. The results will be discussed with her Primary oncologist. We will review results with her in the a.m.
[2018-09-21] MEDS: IBRUTINIB 420 MG PO SCH (18:43)
--- NOTE | 2018-09-21 19:10 | P.PN ---
Subjective Progress Note Date: 09/21/18 Principal diagnosis: The patient is here for significant rib pain. New diagnosis of CLL/SLL. Otherwise, no significant fever or chills. Appreciate oncology input. The patient states no significant nausea, vomiting or diarrhea. Appetite is minimal however. Objective - Vital Signs Vital signs: Vital Signs Temp 98.1 F 09/21/18 15:00 Pulse 73 09/21/18 15:00 Resp 16 09/21/18 16:00 BP 116/72 09/21/18 15:00 Pulse Ox 96 09/21/18 15:00 Intake & Output 09/21/18 09/21/18 09/22/18 06:59 18:59 06:59 Intake Total 840 900 Balance 840 900 Intake: Oral 840 900 Other: # Voids 2 2 - Constitutional General appearance: Present: average body habitus - EENT Eyes: Absent: abnormal pupil - Neck Neck: Absent: lymphadenopathy - Respiratory Respiratory: bilateral: diminished - Cardiovascular Rhythm: regular Heart sounds: normal: S1, S2 Abnormal Heart Sounds: Absent: S3 Gallop - Gastrointestinal General gastrointestinal: Present: soft. Absent: tenderness - Psychiatric Psychiatric: Present: A&O x's 3, appropriate affect - Labs CBC & Chem 7: 09/18/18 23:03 09/18/18 23:03 Labs: Microbiology - Last 24 Hours (Table) 09/18/18 23:11 Urine Culture - Final Urine,Voided Escherichia coli Assessment and Plan (1) Lytic bone lesions on xray Current Visit: Yes Status: Acute Priority: High Code(s): M89.9 - DISORDER OF BONE, UNSPECIFIED SNOMED Code(s): 721614948 (2) CLL (chronic lymphocytic leukemia) Current Visit: Yes Status: Chronic Priority: Medium Code(s): C91.10 - CHRONIC LYMPHOCYTIC LEUK OF B-CELL TYPE NOT ACHIEVE REMIS SNOMED Code(s): 99874704 (3) Chest pain Current Visit: No Status: Acute Code(s): R07.9 - CHEST PAIN, UNSPECIFIED SNOMED Code(s): 68479110 Plan: Continue symptomatic pain control. Appreciate oncology input. Palliative radiation therapy is being considered/instituted. Check CBC and CMP in a.m.
[2018-09-22] MEDS: HYDROmorphone 1 MG/ML 1 ML SYRINGE IVP PRN ×9 (02:25→21:28)
[2018-09-22] MEDS: DEXAMETHASONE SOD PHOSPHATE 4 MG/ML 1 ML VIAL IV SCH ×4 (04:56→16:41)
[2018-09-22] MEDS: ALBUTEROL NEBULIZED 2.5 MG/3 ML INHALATION SCH ×3 (07:36→19:59)
[2018-09-22 08:05] LABS: ALT 14 U/L (9-52); AST 10 U/L (14-36); African American GFR (CKD) >90 (>60 ml/min/1.73 sqM); Albumin 3.5 g/dL (3.5-5.0); Alkaline Phosphatase 76 U/L (38-126); Anion Gap 8 mmol/L; Blood Urea Nitrogen 20 mg/dL (7-17); Calcium 9.3 mg/dL (8.4-10.2); Carbon Dioxide 26 mmol/L (22-30); Chloride 103 mmol/L (98-107); Glucose 144 mg/dL (74-99); Potassium 5.1 mmol/L (3.5-5.1); Sodium 137 mmol/L (137-145); Total Bilirubin 0.3 mg/dL (0.2-1.3); Total Protein 5.9 g/dL (6.3-8.2)
[2018-09-22 08:43] LABS: HCT 34.5 % (34.0-46.0); HGB 10.8 gm/dL (11.4-16.0); Hypochromasia Slight; MCH 28.8 pg (25.0-35.0); MCHC 31.2 g/dL (31.0-37.0); MCV 92.5 fL (80.0-100.0); Mean Platelet Volume 13.2; RBC 3.73 m/uL (3.80-5.40); RDW 15.7 % (11.5-15.5); WBC 21.9 k/uL (3.8-10.6)
[2018-09-22] MEDS: HEPARIN SODIUM,PORCINE 5,000 UNIT/ML 1 ML VIAL SQ SCH ×2 (08:52→16:23)
[2018-09-22] MEDS: POLYETHYLENE GLYCOL 3350 17 GM POWD.PACK PO PRN (08:52)
[2018-09-22] MEDS: ISOSORBIDE MONONITRATE ER 30 MG TAB.ER.24H PO SCH (08:53)
[2018-09-22] MEDS: FAMOTIDINE 20 MG TAB PO SCH ×2 (08:53→21:07)
[2018-09-22] MEDS: ASPIRIN 81 MG PO SCH (08:53)
[2018-09-22] MEDS: CARVEDILOL 6.25 MG TAB PO SCH ×2 (08:53→17:58)
[2018-09-22] MEDS: SENNOSIDES-DOCUSATE SODIUM 1 EACH TAB PO SCH ×2 (08:53→21:07)
[2018-09-22] MEDS: ATORVASTATIN 20 MG TAB PO SCH (08:54)
[2018-09-22] MEDS: HYDROcodone/APAP 7.5-325MG 1 EACH TAB PO PRN ×3 (10:25→20:17)
--- NOTE | 2018-09-22 10:35 | P.PN ---
Subjective Progress Note Date: 09/22/18 Principal diagnosis: New primary malignancy, CLL/SLL on treatment In f/u today pt continues to have c/o left lateral chest wall pain, radiates to back, persistent for 3 mo and progressive since biopsy 2 weeks ago. She has had no BM, she is more lethargic today, she is asking for dilaudid every 2 hours. Objective - Vital Signs Vital signs: Vital Signs Temp 98.1 F 09/22/18 07:32 Pulse 72 09/22/18 07:51 Resp 14 09/22/18 07:32 BP 146/79 09/22/18 07:32 Pulse Ox 94 L 09/22/18 07:32 Intake & Output 09/21/18 09/22/18 09/22/18 18:59 06:59 18:59 Intake Total 900 250 180 Balance 900 250 180 Intake: Oral 900 250 180 Other: Voiding Method Toilet # Voids 2 1 - Constitutional General appearance: Present: average body habitus, cooperative, no acute distress - EENT EENT Comment(s): mild palpable deformity of the left orbit Eyes: Present: anicteric sclerae, EOMI ENT: Present: hearing grossly normal, normal oropharynx - Respiratory Respiratory: bilateral: diminished - Cardiovascular Rhythm: regular Heart sounds: normal: S1, S2 Abnormal Heart Sounds: Absent: systolic murmur, diastolic murmur, rub, S3 Gallop, S4 Gallop, click, other - Peripheral edema leg Peripheral Edema: bilateral: None - Gastrointestinal General gastrointestinal: Present: soft - Musculoskeletal Musculoskeletal: Present: strength equal bilaterally - Psychiatric Psychiatric Comment(s): mild confusion, easily re-oriented Psychiatric: Present: A&O x's 3, appropriate affect - Labs CBC & Chem 7: 09/18/18 23:03 09/22/18 06:41 Labs: Abnormal Lab Results - Last 24 Hours (Table) 09/22/18 Range/Units 06:41 BUN 20 H (7-17) mg/dL Glucose 144 H (74-99) mg/dL AST 10 L (14-36) U/L Total Protein 5.9 L (6.3-8.2) g/dL Microbiology - Last 24 Hours (Table) 09/18/18 23:11 Urine Culture - Final Urine,Voided Escherichia coli Assessment and Plan (1) Cancer related pain Narrative/Plan: Pain in right lateral chest, suspect r/t rib met and chest mass. Radiation Oncologist will treat. Will ask Pain Management to evaluate for possible nerve block and recommendations for mgmt of pain-pt is on dexamathasone, zometa is going to be administered for the bone mets. Narcotic dilaudid 1 mg Q2 with 90 min of pain relief, norco every 4 hours was resumed. Current Visit: Yes Status: Acute Priority: High Code(s): G89.3 - NEOPLASM RELATED PAIN (ACUTE) (CHRONIC) SNOMED Code(s): 68196606577975 (2) Chest mass Narrative/Plan: Biopsy planned for today. 1 time dose of dilaudid ordered post procedure as pt was very anxious about pain control Pt understands how important another biopsy is to identifying primary malignancy for treatment plan. Current Visit: Yes Status: Resolved Priority: High Code(s): R22.2 - LOCALIZED SWELLING, MASS AND LUMP, TRUNK SNOMED Code(s): 782505890 (3) Lytic bone lesions on xray Narrative/Plan: Zometa ordered D/W Rad Onc, plan for XRT to painful lesions Current Visit: Yes Status: Acute Priority: High Code(s): M89.9 - DISORDER OF BONE, UNSPECIFIED SNOMED Code(s): 359376622 (4) CLL (chronic lymphocytic leukemia) Narrative/Plan: Pt has tolerate Imbuvica for several years now. She will cont treatment at this time. Current Visit: Yes Status: Chronic Priority: Medium Code(s): C91.10 - CHRONIC LYMPHOCYTIC LEUK OF B-CELL TYPE NOT ACHIEVE REMIS SNOMED Code(s): 27787343 Plan: Reviewed results of MRI of the brain with pt. Explained skull lesions and possibly a small parenchymal lesion. Reviewed case with Radiation Oncologist who will review and discuss treatment options with pt later today.
[2018-09-22] MEDS ORDERED: HYDROmorphone 2 MG/ML 1 ML SYRINGE IVP STA (10:36)
[2018-09-22] MEDS ORDERED: MAGNESIUM HYDROXIDE 2,400 MG/10 ML CUP PO STA (10:36)
[2018-09-22 11:00] LABS: Platelet Count 167 k/uL (150-450)
[2018-09-22] MEDS: ALPRAZolam 0.5 MG TAB PO PRN (11:33)
[2018-09-22] MEDS ORDERED: HYDROmorphone 0.5 MG/0.5 ML SYRINGE IVP STA (12:13)
--- NOTE | 2018-09-22 13:14 | CT ---
EXAMINATION TYPE: CT biopsy bone superficial DATE OF EXAM: 09/22/2018 COMPARISON: 09/07/2018 HISTORY: Bone lesion CT DLP: 872 mGycm The procedure is discussed with the patient, the risks, complications, benefits and alternatives, wer e discussed and any questions were answered. Informed consent was obtained. The patient is placed p steven on the CT table, prepped and draped in the usual sterile fashion. Utilizing a 22-gauge Chiba needle access into the destructive right rib mass was achieved with a sing le pass performed. 2 18-gauge core samples were also obtained. Pathology pending. All elements of m aximal barrier and sterile technique were utilized. The patient remained stable throughout the proce dure with no immediate postprocedural complication. IMPRESSION: 1. Successful CT guided fine needle aspiration and core biopsy of a right rib mass
--- NOTE | 2018-09-22 17:00 | P.PN ---
Subjective Progress Note Date: 09/22/18 Principal diagnosis: bone metastases, pain The patient underwent repeat biopsy of the right sided rib lesion. She notes this area is a bit sore right now. Her pain has been reasonably controlled with Dilaudid Q2H, but she does not some breakthrough before the next dose is due. She has had [place] added on just today. Pain still typically in right chest-wall and T-spine. Objective - Vital Signs Vital signs: Vital Signs Temp 98.0 F 09/22/18 14:52 Pulse 84 09/22/18 15:13 Resp 16 09/22/18 14:52 BP 119/73 09/22/18 14:52 Pulse Ox 97 09/22/18 14:52 Intake & Output 09/21/18 09/22/18 09/22/18 18:59 06:59 18:59 Intake Total 900 250 280 Balance 900 250 280 Intake: Oral 900 250 280 Other: Voiding Method Toilet # Voids 2 1 1 - Constitutional General appearance: Present: no acute distress - EENT Eyes: Present: EOMI, PERRLA ENT: Present: hearing grossly normal - Neck Neck: Absent: lymphadenopathy - Respiratory Respiratory: bilateral: CTA - Cardiovascular Rhythm: regular - Neurologic Neurologic: Present: CNII-XII intact - Psychiatric Psychiatric: Present: A&O x's 3, appropriate affect - Labs CBC & Chem 7: 09/22/18 06:41 09/22/18 06:41 Labs: Abnormal Lab Results - Last 24 Hours (Table) 09/22/18 09/22/18 Range/Units 06:41 06:41 WBC 21.9 H (3.8-10.6) k/uL RBC 3.73 L (3.80-5.40) m/uL Hgb 10.8 L (11.4-16.0) gm/dL RDW 15.7 H (11.5-15.5) % BUN 20 H (7-17) mg/dL Glucose 144 H (74-99) mg/dL AST 10 L (14-36) U/L Total Protein 5.9 L (6.3-8.2) g/dL - Imaging and Cardiology MRI - head: report reviewed, image reviewed Assessment and Plan Plan: 58 year old female with history of metastatic cancer of unknown primary with multiple bone metastases, likely small liver lesions as well as a 5 mm left parietal lobe lesion. 1. Brain metastasis: I discussed with the patient that based on my review she has a single small lesion in the brain, which is too small to be causing symptoms. I discussed that the likely treatment for this would be radiosurgery. I explained that this decision would also be partially driven by her final pathology. 2. Metastatic carcinoma of unknown primary: Biopsy performed today, will await results. Will work on getting the patient set up for CT-simulation. She will need palliation of the right rib lesion and T-spine; in addition to the single fraction SRS to the brain. 3. Pain control: Appreciate input from pain management. Patient has been on [place] for several years now, but this was inadequate for her pain control at home with new bony metastases. She will need to be transitioned to a suitable outpatient regimen, as any benefit from palliative radiation can take 1-2 weeks for maximal response. Time with Patient: Greater than 30
[2018-09-22] MEDS: IBRUTINIB 420 MG PO SCH (19:20)
[2018-09-23] MEDS: HYDROcodone/APAP 7.5-325MG 1 EACH TAB PO PRN
[2018-09-23] MEDS: HYDROmorphone 1 MG/ML 1 ML SYRINGE IVP PRN ×10 (01:30→23:07)
[2018-09-23] MEDS: DEXAMETHASONE SOD PHOSPHATE 4 MG/ML 1 ML VIAL IV SCH ×5 (07:19→23:07)
[2018-09-23] MEDS: HEPARIN SODIUM,PORCINE 5,000 UNIT/ML 1 ML VIAL SQ SCH ×4 (07:55→23:07)
[2018-09-23] MEDS: SENNOSIDES-DOCUSATE SODIUM 1 EACH TAB PO SCH ×2 (07:55→19:41)
[2018-09-23] MEDS: ATORVASTATIN 20 MG TAB PO SCH (07:55)
[2018-09-23] MEDS: FAMOTIDINE 20 MG TAB PO SCH ×2 (07:55→19:41)
[2018-09-23] MEDS: CARVEDILOL 6.25 MG TAB PO SCH ×2 (07:55→17:12)
[2018-09-23] MEDS: CITALOPRAM HYDROBROMIDE 10 MG TAB PO SCH (07:55)
[2018-09-23] MEDS: ASPIRIN 81 MG PO SCH (07:55)
[2018-09-23] MEDS: ISOSORBIDE MONONITRATE ER 30 MG TAB.ER.24H PO SCH (07:55)
[2018-09-23] MEDS: ALBUTEROL NEBULIZED 2.5 MG/3 ML INHALATION SCH ×3 (08:23→19:20)
--- NOTE | 2018-09-23 15:57 | P.PN ---
Subjective Principal diagnosis: The patient is here for significant rib pain. New diagnosis of CLL/SLL. Otherwise, no significant fever or chills. Appreciate oncology input. The patient states no significant nausea, vomiting or diarrhea. Appetite is minimal however. However, the patient has significant metastatic disease most likely to the spine. Radiation therapy has been discussed. Pain control seems to be less than nominal given the length of time Dilaudid works. No constipation stated. The patient seems to be resting comfortably however this morning. Objective - Vital Signs Vital signs: Vital Signs Temp 97.9 F 09/23/18 15:43 Pulse 70 09/23/18 15:43 Resp 17 09/23/18 15:43 BP 123/76 09/23/18 15:43 Pulse Ox 98 09/23/18 06:50 Intake & Output 09/22/18 09/23/18 09/23/18 18:59 06:59 18:59 Intake Total 280 400 Balance 280 400 Intake: Oral 280 400 Other: Voiding Method Toilet Toilet Toilet # Voids 1 1 3 - Constitutional General appearance: Present: average body habitus, cooperative, no acute distress - EENT Eyes: Absent: abnormal pupil - Neck Neck: Absent: lymphadenopathy - Respiratory Respiratory: bilateral: CTA - Cardiovascular Rhythm: regular Heart sounds: normal: S1, S2 Abnormal Heart Sounds: Absent: S3 Gallop - Gastrointestinal General gastrointestinal: Present: soft. Absent: tenderness - Neurologic Neurologic: Present: CNII-XII intact - Psychiatric Psychiatric: Present: A&O x's 3. Absent: appropriate affect - Labs CBC & Chem 7: 09/22/18 06:41 09/22/18 06:41 Assessment and Plan (1) Lytic bone lesions on xray Current Visit: Yes Status: Acute Priority: High Code(s): M89.9 - DISORDER OF BONE, UNSPECIFIED SNOMED Code(s): 479216107 (2) CLL (chronic lymphocytic leukemia) Current Visit: Yes Status: Chronic Priority: Medium Code(s): C91.10 - CHRONIC LYMPHOCYTIC LEUK OF B-CELL TYPE NOT ACHIEVE REMIS SNOMED Code(s): 28584761 (3) Chest pain Current Visit: No Status: Acute Code(s): R07.9 - CHEST PAIN, UNSPECIFIED SNOMED Code(s): 71939101 Plan: Defer pain control to oncology at this time. Radiation therapy?. The patient has been stable. Question need to up titrate her pain medication. See orders otherwise.
--- NOTE | 2018-09-23 16:06 | P.PN ---
Subjective Progress Note Date: 09/23/18 Principal diagnosis: New primary malignancy, CLL/SLL on treatment In f/u today pt is just waking up, her right, lateral chest wall pain is the same, right orbital discomfort, no vision loss, GANNON, dizziness, getting weak , ambulating in the halls PRN. Objective - Vital Signs Vital signs: Vital Signs Temp 97.9 F 09/23/18 15:43 Pulse 70 09/23/18 15:47 Resp 17 09/23/18 15:47 BP 123/76 09/23/18 15:43 Pulse Ox 98 09/23/18 06:50 Intake & Output 09/22/18 09/23/18 09/23/18 18:59 06:59 18:59 Intake Total 280 400 Balance 280 400 Intake: Oral 280 400 Other: Voiding Method Toilet Toilet Toilet # Voids 1 1 3 - Constitutional General appearance: Present: average body habitus, cooperative, no acute distress - EENT Eyes: Present: anicteric sclerae, EOMI ENT: Present: hearing grossly normal, normal oropharynx - Respiratory Respiratory: bilateral: CTA, diminished - Cardiovascular Rhythm: regular Heart sounds: normal: S1, S2 - Peripheral edema leg Peripheral Edema: bilateral: None - Gastrointestinal General gastrointestinal: Present: normal bowel sounds, soft - Neurologic Neurologic: Present: CNII-XII intact - Musculoskeletal Musculoskeletal: Present: strength equal bilaterally - Psychiatric Psychiatric: Present: A&O x's 3, appropriate affect, intact judgment & insight - Labs CBC & Chem 7: 09/22/18 06:41 09/22/18 06:41 Assessment and Plan (1) Cancer related pain Narrative/Plan: Pain in right lateral chest, suspect r/t rib met and chest mass. Radiation Oncology seen with plans to treat. Added fentanyl today. Forgot to consult Pain Management to evaluate for possible nerve block and recommendations for mgmt of pain-pt is on dexamathasone, zometa is going to be administered for the bone mets. Will order today. Current Visit: Yes Status: Acute Priority: High Code(s): G89.3 - NEOPLASM RELATED PAIN (ACUTE) (CHRONIC) SNOMED Code(s): 94476897850649 (2) Chest mass Narrative/Plan: Biopsy results pending. Pt understands how important another biopsy is to identifying primary malignancy for treatment plan. Radiation to site for pain Current Visit: Yes Status: Resolved Priority: High Code(s): R22.2 - LOCALIZED SWELLING, MASS AND LUMP, TRUNK SNOMED Code(s): 714368954 (3) Lytic bone lesions on xray Narrative/Plan: Zometa given Plan is for XRT to painful lesions Current Visit: Yes Status: Acute Priority: High Code(s): M89.9 - DISORDER OF BONE, UNSPECIFIED SNOMED Code(s): 263142678 (4) CLL (chronic lymphocytic leukemia) Narrative/Plan: Pt has tolerate Imbuvica for several years now. She will cont treatment at this time. Current Visit: Yes Status: Chronic Priority: Medium Code(s): C91.10 - CHRONIC LYMPHOCYTIC LEUK OF B-CELL TYPE NOT ACHIEVE REMIS SNOMED Code(s): 48933524 (5) Brain metastasis Narrative/Plan: Reviewed with Rad Onc, plan is for SRT. Thankfully pt is asymptomatic Re-imaging in the future after treatment Current Visit: Yes Status: Acute Priority: High Code(s): C79.31 - S ECONDARY MALIGNANT NEOPLASM OF BRAIN SNOMED Code(s): 79412026
[2018-09-23] MEDS: CEFEPIME 1 GM in SODIUM CHLORIDE 0.9% 50 ML IVPB SCH ×2 (17:12→23:07)
[2018-09-23] MEDS: IBRUTINIB 420 MG PO SCH (19:36)
[2018-09-24] MEDS: HYDROmorphone 1 MG/ML 1 ML SYRINGE IVP PRN ×4 (01:23→08:00)
[2018-09-24] MEDS: DEXAMETHASONE SOD PHOSPHATE 4 MG/ML 1 ML VIAL IV SCH (06:15)
[2018-09-24] MEDS: ALBUTEROL NEBULIZED 2.5 MG/3 ML INHALATION SCH ×3 (07:28→19:40)
[2018-09-24] MEDS: FAMOTIDINE 20 MG TAB PO SCH ×2 (08:01→20:59)
[2018-09-24] MEDS: ISOSORBIDE MONONITRATE ER 30 MG TAB.ER.24H PO SCH (08:01)
[2018-09-24] MEDS: HEPARIN SODIUM,PORCINE 5,000 UNIT/ML 1 ML VIAL SQ SCH ×3 (08:01→23:30)
[2018-09-24] MEDS: ATORVASTATIN 20 MG TAB PO SCH (08:01)
[2018-09-24] MEDS: ASPIRIN 81 MG PO SCH (08:02)
[2018-09-24] MEDS: SENNOSIDES-DOCUSATE SODIUM 1 EACH TAB PO SCH ×2 (08:02→20:59)
[2018-09-24] MEDS: CARVEDILOL 6.25 MG TAB PO SCH ×2 (08:02→17:30)
[2018-09-24] MEDS: CITALOPRAM HYDROBROMIDE 10 MG TAB PO SCH (08:08)
--- NOTE | 2018-09-24 08:23 | P.PN ---
Subjective Principal diagnosis: The patient is here for significant rib pain. New diagnosis of CLL/SLL. Otherwise, no significant fever or chills. Appreciate oncology input. The patient states no significant nausea, vomiting or diarrhea. Appetite is minimal however. However, the patient has significant metastatic disease most likely to the spine. Radiation therapy has been discussed. Pain control seems to be less than nominal given the length of time [employer] works. No constipation stated. The patient seems to be resting comfortably however this morning. The patient is now on fentanyl per oncology and seems much more comfortable. Still some mild headache. Objective - Vital Signs Vital signs: Vital Signs Temp 97.8 F 09/24/18 07:46 Pulse 69 09/24/18 07:46 Resp 17 09/24/18 07:46 BP 127/80 09/24/18 07:46 Pulse Ox 98 09/24/18 07:46 Intake & Output 09/23/18 09/24/18 09/24/18 18:59 06:59 18:59 Intake Total 370 Balance 370 Intake: Intake, IV Titration 50 Amount Cefepime 1 gm In Sodium 50 Chloride 0.9% 50 ml @ 100 mls/hr IVPB Q12HR@0000, 1200 [facility] Rx#:[id number] Oral 320 Other: Voiding Method Toilet Toilet # Voids 3 1 - Constitutional General appearance: Present: average body habitus - EENT Eyes: Absent: abnormal pupil - Neck Neck: Absent: lymphadenopathy - Respiratory Respiratory: bilateral: CTA - Cardiovascular Rhythm: regular Heart sounds: normal: S1, S2 Abnormal Heart Sounds: Absent: S3 Gallop - Gastrointestinal General gastrointestinal: Present: soft. Absent: tenderness - Neurologic Neurologic: Present: CNII-XII intact - Labs CBC & Chem 7: 09/22/18 06:41 09/22/18 06:41 Assessment and Plan (1) Lytic bone lesions on xray Current Visit: Yes Status: Acute Priority: High Code(s): M89.9 - DISORDER OF BONE, UNSPECIFIED SNOMED Code(s): 770719683 (2) CLL (chronic lymphocytic leukemia) Current Visit: Yes Status: Chronic Priority: Medium Code(s): C91.10 - CHRONIC LYMPHOCYTIC LEUK OF B-CELL TYPE NOT ACHIEVE REMIS SNOMED Code(s): 09770701 (3) Chest pain Current Visit: No Status: Acute Code(s): R07.9 - CHEST PAIN, UNSPECIFIED SNOMED Code(s): 08004812 Plan: Defer pain control to oncology at this time. Radiation therapy?. I anticipate that she could possibly be discharged in the a.m. once cleared by oncology. See orders otherwise.
[2018-09-24] MEDS: ALPRAZolam 0.5 MG TAB PO PRN ×2 (10:33→19:43)
[2018-09-24] MEDS ORDERED: MORPHINE CONC SOLN 10mg/0.5mL ORAL SYRG PO SCH (11:00)
[2018-09-24] MEDS: LIDOCAINE 5% PATCH TOPICAL SCH (11:54)
[2018-09-24] MEDS: AMOXIC-POT CLAV 875-125MG 1 EACH TAB PO SCH ×2 (15:21→20:59)
[2018-09-24] MEDS: DEXAMETHASONE 4 MG TAB PO SCH ×3 (15:21→20:59)
[2018-09-24] MEDS: MORPHINE CONC SOLN 10mg/0.5mL ORAL SYRG PO PRN ×2 (15:22→20:59)
--- NOTE | 2018-09-24 16:41 | P.PN ---
Subjective Progress Note Date: 09/24/18 Principal diagnosis: New primary malignancy, CLL/SLL on treatment In follow-up today patient is pending the pathology results of her recent biopsy. IV access has been lost, patient does not want another attempt at this time. All of her medications have been converted to oral. The having significant discomfort in the right chest wall/biopsy area. He should tolerate today that her 'lungs hurt", cough is congested sounding but no expectoration, she denies any fevers or chills, she feels that she is getting weaker, tired all the time, feeling very swollen. Objective - Vital Signs Vital signs: Vital Signs Temp 97.7 F 09/24/18 14:52 Pulse 77 09/24/18 14:52 Resp 15 09/24/18 15:27 BP 143/68 09/24/18 14:52 Pulse Ox 95 09/24/18 14:52 Intake & Output 09/23/18 09/24/18 09/24/18 18:59 06:59 18:59 Intake Total 370 358 Balance 370 358 Intake: Intake, IV Titration 50 Amount Cefepime 1 gm In Sodium 50 Chloride 0.9% 50 ml @ 100 mls/hr IVPB Q12HR@0000, 1200 [facility] Rx#:[id number] Oral 320 358 Other: Voiding Method Toilet Toilet # Voids 3 1 2 - Constitutional Constitutional Comment(s): Generalized "puffy" appearance, trace pitting edema in the lower extremities. General appearance: Present: cooperative, mild distress - EENT Eyes: Present: anicteric sclerae, EOMI ENT: Present: hearing grossly normal - Respiratory Respiratory: bilateral: rales - Cardiovascular Heart sounds: normal: S1, S2 Abnormal Heart Sounds: Absent: systolic murmur, diastolic murmur, rub, S3 Gal lop, S4 Gallop, click, other - Peripheral edema leg Peripheral Edema: bilateral: Trace - Gastrointestinal General gastrointestinal: Present: normal bowel sounds, soft - Neurologic Neurologic: Present: CNII-XII intact - Musculoskeletal Musculoskeletal: Present: generalized weakness, strength equal bilaterally - Psychiatric Psychiatric: Present: A&O x's 3, appropriate affect, intact judgment & insight - Labs CBC & Chem 7: 09/22/18 06:41 09/22/18 06:41 Assessment and Plan (1) Cancer related pain Narrative/Plan: Pain in right lateral chest, suspect r/t rib met/chest mass. D/W Radiation O ncology today, there are plans to treat after DC. Fentanyl added yesterday. Today added Roxanol for breakthrough pain, continued dexamethasone, converted this oral. Lidoderm patch also added. Patient's Xanax was increased to every 6 as needed. Contacted the floor nurse about 5 hours after changes. Patient is reporting a decrease in her pain. We will continue medications as prescribed. Medications for prevention of narcotic induced constipation. Current Visit: Yes Status: Acute Priority: High Code(s): G89.3 - NEOPLASM RELATED PAIN (ACUTE) (CHRONIC) SNOMED Code(s): 64076587625312 (2) Chest mass Narrative/Plan: Status post biopsy. 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 Awaiting final report for primary malignancy. At that time we can discuss with patient treatment options as well as prognosis. She verbalize understanding Current Visit: Yes Status: Resolved Priority: High Code(s): R22.2 - LOCALIZED SWELLING, MASS AND LUMP, TRUNK SNOMED Code(s): 023907451 (3) Lytic bone lesions on xray Current Visit: Yes Status: Acute Priority: High Code(s): M89.9 - DISORDER OF BONE, UNSPECIFIED SNOMED Code(s): 071743621 (4) CLL (chronic lymphocytic leukemia) Narrative/Plan: Patient's stated that her ibrutinib refill request was declined. Did confirm with Attending Oncologist that this medication is on hold. Communicated medication on hold status to patient's nurse, and to have her let patient know. This is also been documented in her discharge summary. Current Visit: Yes Status: Chronic Priority: Medium Code(s): C91.10 - CHRONIC LYMPHOCYTIC LEUK OF B-CELL TYPE NOT ACHIEVE REMIS SNOMED Code(s): 58161825 (5) Brain metastasis Narrative/Plan: Plan is for SRT. Re-imaging in the future after treatment Current Visit: Yes Status: Acute Priority: High Code(s): C79.31 - SE CONDARY MALIGNANT NEOPLASM OF BRAIN SNOMED Code(s): 91643337 Plan: Patient did have her urine culture from a few days ago come back positive. Based on the antibiotic sensitivity, IV cefepime was ordered. Patient did unfortunately lose IV access. Antibiotic changed to oral. Patient also has some symptoms of congestion, likely secondary to decreased movement, poor effort for coughing, deep breathing and incentive spirometry. Patient was educated on bracing to try to decrease some of her pain while performing pulmonary toilet. Also working for improved pain management. Antibiotic prescribed does have coverage for urinary tract as well as upper respiratory infections.
[2018-09-24] MEDS: POLYETHYLENE GLYCOL 3350 17 GM POWD.PACK PO PRN (17:37)
[2018-09-25] MEDS: MORPHINE CONC SOLN 10mg/0.5mL ORAL SYRG PO PRN ×5 (03:32→20:50)
[2018-09-25] MEDS: ALBUTEROL NEBULIZED 2.5 MG/3 ML INHALATION SCH ×3 (07:48→18:45)
[2018-09-25] MEDS: CARVEDILOL 6.25 MG TAB PO SCH ×2 (08:21→18:41)
[2018-09-25] MEDS: ASPIRIN 81 MG PO SCH (08:21)
[2018-09-25] MEDS: SENNOSIDES-DOCUSATE SODIUM 1 EACH TAB PO SCH ×2 (08:21→20:50)
[2018-09-25] MEDS: ISOSORBIDE MONONITRATE ER 30 MG TAB.ER.24H PO SCH (08:21)
[2018-09-25] MEDS: ATORVASTATIN 20 MG TAB PO SCH (08:21)
[2018-09-25] MEDS: HEPARIN SODIUM,PORCINE 5,000 UNIT/ML 1 ML VIAL SQ SCH ×3 (08:21→23:48)
[2018-09-25] MEDS: AMOXIC-POT CLAV 875-125MG 1 EACH TAB PO SCH ×2 (08:21→20:50)
[2018-09-25] MEDS: FAMOTIDINE 20 MG TAB PO SCH ×2 (08:21→20:49)
[2018-09-25] MEDS: CITALOPRAM HYDROBROMIDE 10 MG TAB PO SCH (08:22)
[2018-09-25] MEDS: DEXAMETHASONE 4 MG TAB PO SCH ×4 (08:22→22:33)
--- NOTE | 2018-09-25 08:42 | P.DS ---
Providers Date of admission: 09/19/18 01:14 Attending physician: Ji Madera Consults: 09/19/18 01:25 Consult Physician Stat Consulting Provider: Jeannette Ceja Consult Reason/Comments: Intractable pain, mets, CLL Do you want consulting provider notified?: Yes, Notify in am 09/19/18 11:47 Consult Physician Routine Consulting Provider: Rui Haynes Consult Reason/Comments: Metastatic carcinoma, intractable pain, palliative radiation Do you want consulting provider notified?: Yes Primary care physician: Ji Madera - Discharge Diagnosis(es) (1) Lytic bone lesions on xray Current Visit: Yes Status: Acute Priority: High (2) CLL (chronic lymphocytic leukemia) Current Visit: Yes Status: Chronic Priority: Medium (3) Chest pain Current Visit: No Status: Acute Hospital Course: This is actually on a 58-year-old white female with known history of hypertension and CLL with intractable back pain. Metastatic disease was noted. The patient was started on empiric morphine and transitioned to fentanyl patch. The patient is fairly stable keep on her [place] for breakthrough pain. Intermittent constipation was controlled by appropriate polyethylene glycol. She is not as stable and will anticipate metastatic type treatment. Developed UTI which is not treated with Patient Condition at Discharge: Fair Plan - Discharge Summary Discharge Rx Participant: Yes New Discharge Prescriptions: New Amoxic-Pot Clav 875-125Mg [Augmentin 875-125] 1 each PO Q12HR #14 tab fentaNYL 25MCG/HR PATCH [Duragesic 25MCG/HR] 1 patch TRANSDERM Q72H 30 Days #10 patch Dexamethasone [Hexadrol] 4 mg PO QID #60 tab Lidocaine 5% Patch [Lidoderm 5% Patch] 1 patch TOPICAL Q24H #30 patch Sennosides-Docusate Sodium [Senokot-S] 1 each PO BID #30 tab Continue ALPRAZolam [Xanax] 0.5 mg PO TID PRN PRN Reason: Anxiety Prochlorperazine [Compazine] 10 mg PO BID PRN PRN Reason: Nausea Carvedilol [Coreg] 6.25 mg PO BID Spironolactone [Aldactone] 25 mg PO DAILY Losartan [Cozaar] 50 mg PO DAILY Isosorbide Mononitrate ER [Imdur] 30 mg PO DAILY Furosemide [Lasix] 20 mg PO DAILY Citalopram Hydrobromide [CeleXA] 10 mg PO DAILY Aspirin 81 mg PO DAILY #30 chew Nitroglycerin Sl Tabs [Nitrostat] 0.4 mg SUBLINGUAL Q5M PRN #20 tab PRN Reason: Chest Pain Atorvastatin [Lipitor] 20 mg PO DAILY HYDROcodone/APAP 7.5-325MG [[place] 7.5-325] 1 tab PO Q6HR PRN PRN Reason: Pain Ibrutinib [Imbruvica] 420 mg PO HS Discharge Medication List ALPRAZolam [Xanax] 0.5 mg PO TID PRN 01/30/15 [History] Carvedilol [Coreg] 6.25 mg PO BID 11/14/17 [History] Losartan [Cozaar] 50 mg PO DAILY 11/14/17 [History] Prochlorperazine [Compazine] 10 mg PO BID PRN 11/14/17 [History] Spironolactone [Aldactone] 25 mg PO DAILY 11/14/17 [History] Citalopram Hydrobromide [CeleXA] 10 mg PO DAILY 03/27/18 [History] Furosemide [Lasix] 20 mg PO DAILY 03/27/18 [History] Isosorbide Mononitrate ER [Imdur] 30 mg PO DAILY 03/27/18 [History] Aspirin 81 mg PO DAILY #30 chew 03/28/18 [Rx] Nitroglycerin Sl Tabs [Nitrostat] 0.4 mg SUBLINGUAL Q5M PRN #20 tab 03/28/18 [Rx] Atorvastatin [Lipitor] 20 mg PO DAILY 06/28/18 [History] HYDROcodone/APAP 7.5-325MG [[place] 7.5-325] 1 tab PO Q6HR PRN 07/07/18 [History] Ibrutinib [Imbruvica] 420 mg PO HS 07/07/18 [History] Amoxic-Pot Clav 875-125Mg [Augmentin 875-125] 1 each PO Q12HR #14 tab 09/25/18 [Rx] Dexamethasone [Hexadrol] 4 mg PO QID #60 tab 09/25/18 [Rx] Lidocaine 5% Patch [Lidoderm 5% Patch] 1 patch TOPICAL Q24H #30 patch 09/25/18 [Rx] Sennosides-Docusate Sodium [Senokot-S] 1 each PO BID #30 tab 09/25/18 [Rx] fentaNYL 25MCG/HR PATCH [Duragesic 25MCG/HR] 1 patch TRANSDERM Q72H 30 Days #10 patch 09/25/18 [Rx] Follow up Appointment(s)/Referral(s): Ji Madera MD [Primary Care Provider] - 1-2 days
[2018-09-25] MEDS: LIDOCAINE 5% PATCH TOPICAL SCH (11:56)
--- NOTE | 2018-09-25 12:05 | CDI ---
Documentation Clarification Form Date: 09/25/2018 11:29:03 AM From: Karis Kruger RN CCDS Admit Date: 09/19/2018 1:14:00 AM Patient Name: Radhames Belle Visit Number: [id number] Discharge Date: ATTENTION: The Clinical Documentation Specialists (CDI) and [facility] Coding Staff appreciate your assistance in clarifying documentation. Please respond to the clarification below the line at the bottom and electronically sign. The CDI & [facility] Coding staff will review the response and follow-up if needed. Please note: Queries are made part of the Legal Health Record. If you have any questions, please contact the author of this message via ITS. Dr. Ji Madera The final diagnosis of the pathology report states RIGHT 5TH RIB, CORE BIOPSY: Metastatic adenocarcinoma consistent with primary lung origin Documentation states: per Radiation Oncology / Metastatic carcinoma of unknown primary: Biopsy performed today, will await results Patient history/risk factors: 58 year old female presents to the ED for diffuse back pain and rib pain. Recent biopsy over her right ribs two weeks ago . Clinical Indicators: Treatment: Hematology / Oncology Consult ; Radiation Oncology Consult; Biopsy; Pain Medication changes (Fentanyl Patch) In your professional opinion, do you agree with the pathology report specifying Lung Cancer as Primary site of origin? Yes No Other (please specify) Unable to determine (Last Revision: December 2016) Yes MTDD
--- NOTE | 2018-09-25 14:11 | P.PN ---
Subjective Progress Note Date: 09/25/18 Principal diagnosis: bone metastases, pain Patient feeling better today - ambulating in [place]. Still having some pain in the right rib and between shoulders. Currently 06/17, was 09/16 before pain medication. She was started on fentanyl patch yesterday. Objective - Vital Signs Vital signs: Vital Signs Temp 99.0 F 09/25/18 06:35 Pulse 78 09/25/18 11:49 Resp 16 09/25/18 06:35 BP 110/71 09/25/18 06:35 Pulse Ox 96 09/25/18 06:35 Intake & Output 09/24/18 09/25/18 09/25/18 18:59 06:59 18:59 Intake Total 358 580 125 Balance 358 580 125 Intake: Oral 358 580 125 Other: Voiding Method Toilet # Voids 2 1 - Constitutional General appearance: Present: no acute distress - EENT Eyes: Present: EOMI, PERRLA ENT: Present: hearing grossly normal - Neck Neck: Absent: lymphadenopathy - Respiratory Respiratory: right: CTA, left: wheezing (end exp wheeze) - Cardiovascular Rhythm: regular - Gastrointestinal General gastrointestinal: Absent: tenderness - Neurologic Neurologic: Present: CNII-XII intact. Absent: focal deficits - Musculoskeletal Musculoskeletal: Present: gait normal, strength equal bilaterally - Psychiatric Psychiatric: Present: A&O x's 3, appropriate affect - Labs CBC & Chem 7: 09/22/18 06:41 09/22/18 06:41 Assessment and Plan Plan: 58 year old female with history of CLL/SLL, now diagnosed with metastatic adenocarcinoma consistent with lung primary. She was found to have disease involving the bones, brain and possibly liver. 1. Pain control: Improving, set for d/c today. Due to technical issue she could not be simulated for radiation planning yesterday - have rescheduled her for Friday 10 AM. Plan to palliate rib/back. 2. Brain metastasis: Single lesion amenable to SRS. Currently asymptomatic and sub-cm. Will also initiate planning for this. 3. Stage IV NSCLC: Adenocarcinoma on final pathology; patient will have outpatient follow-up with oncology, will need molecular testing of tumor. Time with Patient: Less than 30
--- NOTE | 2018-09-25 18:28 | XR ---
EXAMINATION TYPE: XR ribs bilateral DATE OF EXAM: 09/25/2018 COMPARISON: Chest x-ray 09/18/2018 HISTORY: Rib pain TECHNIQUE: 8 views FINDINGS: There is pleural thickening and apparent rib destruction involving the lateral right fifth rib. There is a fracture left posterior lateral fourth rib with minimal expansion. There is healing f ractures of the left sixth and seventh ribs. There is no pleural effusion or pneumothorax. IMPRESSION: Bilateral rib fractures. 2 of the fractures have features suggestive of pathologic fractu re. Is there suspicion of myeloma?
--- NOTE | 2018-09-25 18:34 | XR ---
EXAMINATION TYPE: XR thoracic spine complete DATE OF EXAM: 09/25/2018 COMPARISON: 09/18/2018 HISTORY: Back pain TECHNIQUE: 3 views FINDINGS: The thoracic vertebra have normal alignment. Posterior elements are intact. There is no par aspinal mass. There is no compression fracture. IMPRESSION: Negative thoracic spine exam. No fracture. No change.
[2018-09-25] MEDS: ALPRAZolam 0.5 MG TAB PO PRN (22:33)
[2018-09-26] MEDS: MORPHINE CONC SOLN 10mg/0.5mL ORAL SYRG PO PRN ×2 (05:40→10:01)
[2018-09-26] MEDS: ALBUTEROL NEBULIZED 2.5 MG/3 ML INHALATION SCH (07:01)
[2018-09-26 07:41] VITALS: BP 118/77; PULSE 66; RESP 15; TEMP 98.1
[2018-09-26] MEDS: CARVEDILOL 6.25 MG TAB PO SCH (08:08)
[2018-09-26] MEDS: HEPARIN SODIUM,PORCINE 5,000 UNIT/ML 1 ML VIAL SQ SCH (08:08)
[2018-09-26] MEDS: AMOXIC-POT CLAV 875-125MG 1 EACH TAB PO SCH (09:57)
[2018-09-26] MEDS: ISOSORBIDE MONONITRATE ER 30 MG TAB.ER.24H PO SCH (09:58)
[2018-09-26] MEDS: FAMOTIDINE 20 MG TAB PO SCH (09:58)
[2018-09-26] MEDS: CITALOPRAM HYDROBROMIDE 10 MG TAB PO SCH (09:58)
[2018-09-26] MEDS: ATORVASTATIN 20 MG TAB PO SCH (09:58)
[2018-09-26] MEDS: SENNOSIDES-DOCUSATE SODIUM 1 EACH TAB PO SCH (09:58)
[2018-09-26] MEDS: ASPIRIN 81 MG PO SCH (09:58)
[2018-09-26] MEDS: DEXAMETHASONE 4 MG TAB PO SCH (09:58)
[2018-09-26] MEDS: LIDOCAINE 5% PATCH TOPICAL SCH (11:24)
--- NOTE | 2018-09-27 11:33 | P.PN ---
Subjective Progress Note Date: 09/25/18 The patient was supposed to be discharged today, but had an extended fall in the shower withdraw to the ribs and back pain which x-rays were ordered. Patient was seen after returning from x-rays at which time results were pending. Pain at the time of examination was controlled. The patient also needed a prescription for fentanyl patches for discharge. No fever/chills/nausea/vomiting or change in respiratory status Objective - Vital Signs Vital signs: Vital Signs Temp 98.1 F 09/26/18 07:40 Pulse 66 09/26/18 07:50 Resp 15 09/26/18 07:50 BP 118/77 09/26/18 07:40 Pulse Ox 95 09/26/18 07:40 Intake & Output 09/26/18 09/27/18 09/27/18 18:59 06:59 18:59 Intake Total 360 Balance 360 Intake: Oral 360 Other: Voiding Method Toilet - Constitutional General appearance: Present: no acute distress - EENT Eyes: Present: EOMI ENT: Present: normal oropharynx - Respiratory Respiratory: bilateral: CTA - Cardiovascular Rhythm: regular - Gastrointestinal General gastrointestinal: Present: soft - Integumentary Integumentary: Present: normal - Musculoskeletal Musculoskeletal Comment(s): Persistent tenderness right chest wall and mid back. Musculoskeletal: Present: generalized weakness, strength equal bilaterally - Psychiatric Psychiatric: Present: A&O x's 3, appropriate affect - Labs CBC & Chem 7: 09/22/18 06:41 09/22/18 06:41 Assessment and Plan (1) Intractable back pain Narrative/Plan: This is neoplasm related. Pain is reasonably controlled on her current regimen. The patient was to be discharged today on fentanyl patches, which was started during this admission, and [place] which was already taking at home for a new treatment of breakthrough pain. The prescription for fentanyl was entered electronically and printed, but not signed. Therefore I gave a handwritten prescription for fentanyl 25 g every 72 hours, for 10 patches with no refills. The printed electronic prescription was handed to the community outreach advocate with directions to be shredded. Opioid start talking form for fentanyl was reviewed with the patient, and signed by myself. The patient was directly to signed the same. She had no specific questions. The case was also discussed with radiation oncology. The patient will follow up with them early next week to begin palliative radiation Status: Acute Code(s): M54.9 - DORSALGIA, UNSPECIFIED SNOMED Code(s): 300333526 (2) Metastatic carcinoma Narrative/Plan: The patient is repeated biopsy from the right chest wall mass, with pathology positive for adenocarcinoma consistent with lung origin. This is a new primary, and appears to be stage IV with metastatic bone involvement, and liver involvement. The patient will receive palliative radiation and then start systemic therapy. Biomarker testing will be ordered. Status: Acute Code(s): C79.9 - SECONDARY MALIGNANT NEOPLASM OF UNSPECIFIED SITE SNOMED Code(s): 861029318 (3) CLL (chronic lymphocytic leukemia) Narrative/Plan: This appears to be in remission with no evidence of progression. Continue Ibrutinib Status: Chronic Priority: Medium Code(s): C91.10 - CHRONIC LYMPHOCYTIC LEUK OF B-CELL TYPE NOT ACHIEVE REMIS SNOMED Code(s): 77105532
== END 2018-09-26 12:50 | disposition home or self-care (01) | DRG 940 ==
LOC: EC 21:21 → 4SSUR 09-19 01:14
PROVIDERS: ADMIT Family Medicine; ATTEND Family Medicine
PROC: 0PB13ZX Excision of 1 to 2 Ribs, Percutaneous Approach, Diagnostic (ICD-10-PCS; principal; 2018-09-22)
DX: G89.3 Neoplasm related pain (acute) (chronic) (principal); C79.51 Secondary malignant neoplasm of bone; C34.90 Malignant neoplasm of unspecified part of unspecified bronchus or lung; C78.7 Secondary malignant neoplasm of liver and intrahepatic bile duct; C79.31 Secondary malignant neoplasm of brain; C91.11 Chronic lymphocytic leukemia of B-cell type in remission; N39.0 Urinary tract infection, site not specified; F17.200 Nicotine dependence, unspecified, uncomplicated; F32.9 Major depressive disorder, single episode, unspecified; F41.9 Anxiety disorder, unspecified; I10 Essential (primary) hypertension; I25.10 Atherosclerotic heart disease of native coronary artery without angina pectoris; I25.2 Old myocardial infarction; I73.9 Peripheral vascular disease, unspecified; J44.9 Chronic obstructive pulmonary disease, unspecified; K21.9 Gastro-esophageal reflux disease without esophagitis; K52.9 Noninfective gastroenteritis and colitis, unspecified; K59.03 Drug induced constipation; T40.605A Adverse effect of unspecified narcotics, initial encounter; Z79.82 Long term (current) use of aspirin; Z79.899 Other long term (current) drug therapy; Z80.1 Family history of malignant neoplasm of trachea, bronchus and lung; Z82.49 Family history of ischemic heart disease and other diseases of the circulatory system; Z90.710 Acquired absence of both cervix and uterus; W19.XXXA Unspecified fall, initial encounter; Z88.1 Allergy status to other antibiotic agents; Z88.3 Allergy status to other anti-infective agents
CPT/HCPCS: 20220; 36415; 70553; 71046; 71110; 72040; 72070; 72072; 72100; 72157; 76705; 77012; 78306; 80053; 81001; 85025; 85027; 87077; 87086; 87186; 88305; 88341; 88342; 94640; 96361; 96365; 96375; 96376; 99285

== ENCOUNTER 2018-10-19 11:51 | Inpatient (IN) | payer OTHER ==
[2018-10-19] MEDS ORDERED: SODIUM CHLORIDE 0.9% 1,000 ML IV STA (12:30)
[2018-10-19] MEDS ORDERED: ONDANSETRON 4 MG/2 ML VIAL IVP STA (12:30)
[2018-10-19] MEDS ORDERED: FAMOTIDINE 20 MG/2 ML VIAL IV STA (12:31)
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
[2018-10-19 12:59] LABS: Basophils % (A) 0 %; Eosinophils # (A) 0.1 k/uL (0-0.7); Eosinophils % (A) 1 %; HCT 40.1 % (34.0-46.0); Lymphocytes # (A) 4.1 k/uL (1.0-4.8); Lymphocytes % (A) 33 %; MCH 30.7 pg (25.0-35.0); MCHC 32.5 g/dL (31.0-37.0); MCV 94.5 fL (80.0-100.0); Mean Platelet Volume 9.6; Monocytes # (A) 0.3 k/uL (0-1.0); Monocytes % (A) 2 %; Neutrophils # (A) 7.7 k/uL (1.3-7.7); Neutrophils % (A) 61 %; Platelet Count 188 k/uL (150-450); RBC 4.24 m/uL (3.80-5.40); RDW 15.9 % (11.5-15.5); WBC 12.5 k/uL (3.8-10.6)
[2018-10-19 13:07] LABS: Albumin 3.4 g/dL (3.5-5.0); Calcium 9.2 mg/dL (8.4-10.2); Potassium 4.2 mmol/L (3.5-5.1); Total Bilirubin 0.6 mg/dL (0.2-1.3); Total Protein 5.8 g/dL (6.3-8.2)
[2018-10-19 13:08] LABS: INR 0.9 (<1.2); Partial Thromboplastin Time 22.8 sec (22.0-30.0); Prothrombin Time 9.9 sec (9.0-12.0)
--- NOTE | 2018-10-19 13:10 | XR ---
EXAMINATION TYPE: XR chest 2V DATE OF EXAM: 10/19/2018 COMPARISON: 09/18/2018 HISTORY: Shortness of breath TECHNIQUE: Frontal and lateral views of the chest are obtained. FINDINGS: Scattered senescent parenchymal changes noted. Hyperinflation compatible with COPD. No evidence for infiltrate. No evidence for atelectasis. Bronchial wall thickening may reflect chroni c bronchitis and/or asthma. Right-sided pleural-based lesion is unchanged. Heart size is stable. Mediastinal structures are stable and grossly unremarkable. No evidence for hilar prominence. Degenerative changes dorsal spine. IMPRESSION: 1. Bronchial wall thickening may reflect chronic bronchitis and/or asthma. 2. No significant change in right-sided pleural-based lesion.
[2018-10-19] MEDS ORDERED: SODIUM CHLORIDE 0.9% 1,000 ML IV ONE ×2 (13:58→19:11)
[2018-10-19] MEDS ORDERED: SODIUM CHLORIDE 0.9% 500 ML 500 ML IV ONE (14:04)
[2018-10-19] MEDS ORDERED: DEXAMETHASONE SOD PHOSPHATE 10 MG/ML 1 ML VIAL IV STA (14:40)
[2018-10-19 15:02] LABS: Appearance,Urine Clear (Clear); Bacteria,Urine Occasional /hpf; Bilirubin,Urine Negative (Negative); Blood,Urine Negative (Negative); Color,Urine Light Yellow; Glucose,Urine (UA) Negative (Negative); Ketones,Urine Negative (Negative); Leukocyte Esterase,Urine Moderate (Negative); Mucus,Urine Rare /hpf; Nitrite,Urine Negative (Negative); Protein,Urine Negative (Negative); RBC,Urine 3 /hpf (0-5); Specific Gravity,Urine 1.005 (1.001-1.035); Squamous Epithelial Cell,Urine 2 /hpf (0-4); Urobilinogen,Urine <2.0 mg/dL (<2.0); WBC,Urine 29 /hpf (0-5)
[2018-10-19] MEDS ORDERED: SODIUM CHLORIDE 0.9% 500 ML 500 ML IV STA (15:08)
[2018-10-19] MEDS ORDERED: LEVOFLOXACIN 750MG-D5W PMX 750 MG in DEXTROSE/WATER 1 150ML.BAG IVPB STA (15:29)
[2018-10-19] MEDS ORDERED: NALOXONE 0.4 MG/ML 1 ML VIAL IV PRN (15:31)
--- NOTE | 2018-10-19 15:31 | ED ---
Medical Decision Making - Lab Data Result diagrams: 10/19/18 12:22 10/19/18 12:22 Lab Results 10/19/18 10/19/18 10/19/18 Range/Units 12:22 12:22 12:22 WBC 12.5 H (3.8-10.6) k/uL RBC 4.24 (3.80-5.40) m/uL Hgb 13.0 (11.4-16.0) gm/dL Hct 40.1 (34.0-46.0) % MCV 94.5 (80.0-100.0) fL MCH 30.7 (25.0-35.0) pg MCHC 32.5 (31.0-37.0) g/dL RDW 15.9 H (11.5-15.5) % Plt Count 188 (150-450) k/uL Neutrophils % 61 % Lymphocytes % 33 % Monocytes % 2 % Eosinophils % 1 % Basophils % 0 % Neutrophils # 7.7 (1.3-7.7) k/uL Lymphocytes # 4.1 (1.0-4.8) k/uL Monocytes # 0.3 (0-1.0) k/uL Eosinophils # 0.1 (0-0.7) k/uL Basophils # 0.0 (0-0.2) k/uL PT (9.0-12.0) sec INR (<1.2) APTT (22.0-30.0) sec Sodium 134 L (137-145) mmol/L Potassium 4.2 (3.5-5.1) mmol/L Chloride 101 (98-107) mmol/L Carbon Dioxide 19 L (22-30) mmol/L Anion Gap 14 mmol/L BUN 22 H (7-17) mg/dL Creatinine 1.19 H (0.52-1.04) mg/dL Est GFR (CKD-EPI)AfAm 59 (>60 ml/min/1.73 sqM) Est GFR (CKD-EPI)NonAf 51 (>60 ml/min/1.73 sqM) Glucose 248 H (74-99) mg/dL Plasma Lactic Acid Kaushik 1.2 (0.7-2.0) mmol/L Calcium 9.2 (8.4-10.2) mg/dL Total Bilirubin 0.6 (0.2-1.3) mg/dL AST 24 (14-36) U/L ALT 27 (9-52) U/L Alkaline Phosphatase 88 (38-126) U/L Creatine Kinase 22 L (30-135) U/L Total Protein 5.8 L (6.3-8.2) g/dL Albumin 3.4 L (3.5-5.0) g/dL Urine Color Urine Appearance (Clear) Urine pH (5.0-8.0) Ur Specific [place] (1.001-1.035) Urine Protein (Negative) Urine Glucose (UA) (Negative) Urine Ketones (Negative) Urine Blood (Negative) Urine Nitrite (Negative) Urine Bilirubin (Negative) Urine Urobilinogen (<2.0) mg/dL Ur Leukocyte Esterase (Negative) Urine RBC (0-5) /hpf Urine WBC (0-5) /hpf Ur Squamous Epith Cells (0-4) /hpf Urine Bacteria (None) /hpf Urine Mucus (None) /hpf 10/19/18 10/19/18 Range/Units 12:22 14:52 WBC (3.8-10.6) k/uL RBC (3.80-5.40) m/uL Hgb (11.4-16.0) gm/dL Hct (34.0-46.0) % MCV (80.0-100.0) fL MCH (25.0-35.0) pg MCHC (31.0-37.0) g/dL RDW (11.5-15.5) % Plt Count (150-450) k/uL Neutrophils % % Lymphocytes % % Monocytes % % Eosinophils % % Basophils % % Neutrophils # (1.3-7.7) k/uL Lymphocytes # (1.0-4.8) k/uL Monocytes # (0-1.0) k/uL Eosinophils # (0-0.7) k/uL Basophils # (0-0.2) k/uL PT 9.9 (9.0-12.0) sec INR 0.9 (<1.2) APTT 22.8 (22.0-30.0) sec Sodium (137-145) mmol/L Potassium (3.5-5.1) mmol/L Chloride (98-107) mmol/L Carbon Dioxide (22-30) mmol/L Anion Gap mmol/L BUN (7-17) mg/dL Creatinine (0.52-1.04) mg/dL Est GFR (CKD-EPI)AfAm (>60 ml/min/1.73 sqM) Est GFR (CKD-EPI)NonAf (>60 ml/min/1.73 sqM) Glucose (74-99) mg/dL Plasma Lactic Acid Kaushik (0.7-2.0) mmol/L Calcium (8.4-10.2) mg/dL Total Bilirubin (0.2-1.3) mg/dL AST (14-36) U/L ALT (9-52) U/L Alkaline Phosphatase (38-126) U/L Creatine Kinase (30-135) U/L Total Protein (6.3-8.2) g/dL Albumin (3.5-5.0) g/dL Urine Color Light Yellow Urine Appearance Clear (Clear) Urine pH 7.0 (5.0-8.0) Ur Specific [place] 1.005 (1.001-1.035) Urine Protein Negative (Negative) Urine Glucose (UA) Negative (Negative) Urine Ketones Negative (Negative) Urine Blood Negative (Negative) Urine Nitrite Negative (Negative) Urine Bilirubin Negative (Negative) Urine Urobilinogen <2.0 (<2.0) mg/dL Ur Leukocyte Esterase Moderate H (Negative) Urine RBC 3 (0-5) /hpf Urine WBC 29 H (0-5) /hpf Ur Squamous Epith Cells 2 (0-4) /hpf Urine Bacteria Occasional H (None) /hpf Urine Mucus Rare H (None) /hpf Disposition Clinical Impression: Severe sepsis, Dehydration, Urinary tract infection, Metastatic carcinoma Disposition: ADMITTED IP TO THIS HOSP Condition: Critical Is patient prescribed a controlled substance at d/c from ED?: No Referrals: Ji Madera MD [Primary Care Provider] - 1-2 days Procedures - Sepsis Sepsis Focused Exam #1 Time Sepsis Criteria Met: 15:20 Sepsis Focused Exam Date: 10/19/18 Sepsis Focused Exam Time: 15:31 Sepsis Focused Exam Complete: Yes Vital Signs & RN Notes Reviewed: Yes Capillary Refill: < 2 Seconds: Fingers, Toes Peripheral Pulses: Normal: Radial (R), Radial (L) Skin Color: Normal for Patient Respiratory Exam: normal lung sounds Cardiovascular Exam: regular rate, normal rhythm
[2018-10-19] MEDS: SODIUM CHLORIDE 0.9% 1,000 ML IV SCH (16:18)
[2018-10-19] MEDS ORDERED: PROCHLORPERAZINE 10 MG TAB PO PRN (16:32)
[2018-10-19] MEDS ORDERED: HYDROmorphone 1 MG/ML 1 ML SYRINGE IVP STA (17:14)
[2018-10-19 17:59] LABS: Glucose,Whole Blood 178 mg/dL (75-99)
[2018-10-19] MEDS ORDERED: DEXAMETHASONE 4 MG TAB PO SCH (18:00)
[2018-10-19] MEDS: HEPARIN SODIUM,PORCINE 5,000 UNIT/ML 1 ML VIAL SQ SCH (18:09)
[2018-10-19] MEDS: HYDROcodone/APAP 7.5-325MG 1 EACH TAB PO PRN (18:09)
[2018-10-19] MEDS: HYDROmorphone 1 MG/ML 1 ML SYRINGE IVP PRN (19:17)
[2018-10-19] MEDS ORDERED: NOREPINEPHRINE 4 MG in SODIUM CHLORIDE 0.9% 250 ML IV SCH (20:15)
[2018-10-19 20:57] LABS: Glucose,Whole Blood 227 mg/dL (75-99)
[2018-10-19 21:11] VITALS: BMI 29.0
[2018-10-19] MEDS: INSULIN ASPART (NovoLOG) 100 UNIT/ML VIAL SQ SCH (21:25)
[2018-10-19] MEDS: HYDROmorphone 0.5 MG/0.5 ML SYRINGE IVP PRN (21:26)
[2018-10-19] MEDS: DEXAMETHASONE SOD PHOSPHATE 4 MG/ML 1 ML VIAL IV SCH (21:30)
[2018-10-19 22:02] LABS: Creatine Kinase MB 1.7 ng/mL (0.0-2.4)
[2018-10-19 22:13] LABS: Troponin I 0.1 ng/mL (0.000-0.034)
[2018-10-20] MEDS: DEXAMETHASONE SOD PHOSPHATE 4 MG/ML 1 ML VIAL IV SCH ×2 (00:08→06:22)
[2018-10-20] MEDS: HEPARIN SODIUM,PORCINE 5,000 UNIT/ML 1 ML VIAL SQ SCH ×4 (00:08→22:55)
[2018-10-20] MEDS: SODIUM CHLORIDE 0.9% 1,000 ML IV SCH ×3 (00:09→21:23)
[2018-10-20] MEDS: HYDROmorphone 0.5 MG/0.5 ML SYRINGE IVP PRN ×2 (00:27→03:04)
[2018-10-20] MEDS: HYDROcodone/APAP 7.5-325MG 1 EACH TAB PO PRN ×2 (04:19→09:38)
[2018-10-20 05:40] LABS: Basophils % (A) 0 %; Eosinophils % (A) 0 %; HCT 34.7 % (34.0-46.0); HGB 11.1 gm/dL (11.4-16.0); Hypochromasia Slight; Lymphocytes # (A) 3.2 k/uL (1.0-4.8); Lymphocytes % (A) 40 %; MCH 30.9 pg (25.0-35.0); MCHC 32.1 g/dL (31.0-37.0); MCV 96.3 fL (80.0-100.0); Mean Platelet Volume 9.6; Monocytes # (A) 0.1 k/uL (0-1.0); Monocytes % (A) 2 %; Neutrophils # (A) 4.6 k/uL (1.3-7.7); Neutrophils % (A) 56 %; Platelet Count 152 k/uL (150-450); RBC 3.61 m/uL (3.80-5.40); RDW 15.9 % (11.5-15.5); WBC 8.2 k/uL (3.8-10.6)
[2018-10-20 05:59] LABS: ALT 25 U/L (9-52); AST 12 U/L (14-36); African American GFR (CKD) >90 (>60 ml/min/1.73 sqM); Albumin 2.7 g/dL (3.5-5.0); Alkaline Phosphatase 77 U/L (38-126); Anion Gap 5 mmol/L; Blood Urea Nitrogen 15 mg/dL (7-17); Calcium 7.7 mg/dL (8.4-10.2); Carbon Dioxide 21 mmol/L (22-30); Chloride 111 mmol/L (98-107); Glucose 204 mg/dL (74-99); Potassium 3.9 mmol/L (3.5-5.1); Sodium 137 mmol/L (137-145); Total Bilirubin 0.2 mg/dL (0.2-1.3); Total Protein 4.9 g/dL (6.3-8.2)
[2018-10-20 06:28] LABS: Appearance,Urine Clear (Clear); Bilirubin,Urine Negative (Negative); Blood,Urine Negative (Negative); Color,Urine Yellow; Glucose,Urine (UA) 2+ (Negative); Hyaline Casts,Urine 1 /lpf (0-2); Ketones,Urine Negative (Negative); Leukocyte Esterase,Urine Small (Negative); Mucus,Urine Rare /hpf; Nitrite,Urine Negative (Negative); Protein,Urine Trace (Negative); RBC,Urine 1 /hpf (0-5); Specific Gravity,Urine 1.022 (1.001-1.035); Squamous Epithelial Cell,Urine <1 /hpf (0-4); Urobilinogen,Urine <2.0 mg/dL (<2.0)
[2018-10-20 06:29] LABS: Glucose,Whole Blood 192 mg/dL (75-99)
[2018-10-20] MEDS: INSULIN ASPART (NovoLOG) 100 UNIT/ML VIAL SQ SCH ×4 (06:31→21:23)
[2018-10-20] MEDS: HYDROmorphone 1 MG/ML 1 ML SYRINGE IVP PRN ×8 (06:31→22:55)
[2018-10-20] MEDS ORDERED: POTASSIUM CHLORIDE ER 20 MEQ TAB.ER PO SCH (07:00)
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
[2018-10-20] MEDS: PANTOPRAZOLE 40 MG/10 ML VIAL IV SCH (07:59)
[2018-10-20] MEDS: ATORVASTATIN 20 MG TAB PO SCH ×3 (08:06→11:23)
[2018-10-20] MEDS: ASPIRIN 81 MG PO SCH (08:06)
[2018-10-20] MEDS: CITALOPRAM HYDROBROMIDE 10 MG TAB PO SCH (08:07)
[2018-10-20] MEDS: SENNOSIDES-DOCUSATE SODIUM 1 EACH TAB PO SCH ×2 (08:07→21:22)
--- NOTE | 2018-10-20 08:36 | P.PN ---
Subjective Progress Note Date: 10/20/18 This is a 58-year-old female patient came into the ED with generalized weakness. 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 The patient has history of CLL/SLL diagnosed in 2001. The patient has been under the care of Dr. Ceja. The patient didn't require treatment until 2014 when she started on a combination of Rituxan and Treanda, and more recently she was switched to Imbruvica for the past 1 year. Subsequently she came into the hospital on in September 2018 with evidence of a new malignancy which it involved the skeletal system and the liver and the brain. The patient came in with right rib cage and back pain. She un derwent a CAT scan of the chest abdomen and pelvis and she had a stable pulmonary nodule, couple spiculated upper lobe. Continue lesion was subsequently seen in the right fifth sedated with destruction and there was also involvement of the T7 vertebral body. Multiple subcentimeter liver lesions were also noted. On 09/07/2018, the patient underwent a biopsy of the right fifth rib. This was consistent with adenocarcinoma. MRI of the T-spine was done that showed no evidence of any cord compression but there were lesions involving T3, T9 and T10 as well as a large lesion involving the T7. Patient was seen by radiation oncology and the patient was started on radiation therapy to her spine. She is known to have coronary artery disease, hypertension, peripheral vascular disease, and addition to her previous malignancies. She has cardiomyopathy with an ejection fraction of 25-30%. Note that the patient also had a solitary brain metastases and was single lesion amenable to SRS and this was supposed to be radiated at a later stage. As for the intractable back pain, the patient was given fentanyl patches and addition to radiation therapy. During this current admission, the patient came in to the emergency department today with a white cell count 12.5 and generalized weakness. Her platelet count is at 188. Coagulation profile is within normal limits. He has an acute kidney injury with a creatinine is up to 1.1 from a baseline of 0.6. She has also a component of mild anion gap metabolic acidosis with an anion gap of 14 and a bicarb level is down to 19. The UA is negative. Chest x-ray shows bronchial wall thickening and there is a pleural-based lesion in the right chest wall. The patient reported diminished oral intake. She felt very weak and fatigued. She did have nausea and vomited couple of times. The patient had ongoing pain in her back which is reported to be 6 out of 10 in severity in the midthoracic spine area. Note that the patient was quite hypotensive at time of arrival. The blood pressure in one point was as low as 64/42. She was given IV fluids. Her most recent BP is up to 92/58. She was given empiric antibiotic coverage with IV Levaquin. Her pulse ox is 97% on 2 L of oxygen by nasal cannula. The EKG showing a normal sinus rhythm with bilateral nature enlargement and Q waves over the anterior leads suggestive of an old anteroseptal infarct. The lactic acid level is at 1.2. On today's evaluation of a 2018 the patient is looking better than yesterday. The patient did not require any pressors. Overall she received a total of 4 L of IV fluids. She is producing adequate amount of urine output. Her blood pressure normalizes. She is producing around 20 mL an hour and currently she is on normal saline at the rate of 75 mL an hour. His chest x-ray shows no acute abnormalities in the pleural-based lesion on the right and a small nodule also seen on the left. No signs of any fluid overload or pulmonary edema. The yevgeniy ent is on room air oxygen for now. The patient has n ongoing issues with pain. She is taking Dilaudid. Would like to also introduce no quite as the patient's pain is around 9 out of 10 in severity specially in her back. The patient is also having issues with nausea as the patient has metastatic disease involving the liver. No other issues for now. She is awake and alert. On today's evaluation she also told me that the patient has undergone radiation therapy to her brain for a metastatic deposit as mentioned earlier. Cardiac rhythm remains sinus. No fever. Cultures are negative. Objective - Vital Signs Vital signs: Vital Signs Temp 98 F 10/20/18 04:00 Pulse 61 10/20/18 07:00 Resp 9 L 10/20/18 07:00 BP 119/64 10/20/18 07:00 Pulse Ox 92 L 10/20/18 08:06 Intake & Output 10/19/18 10/20/18 10/20/18 18:59 06:59 18:59 Intake Total 126 1900 150 Output Total 75 540 55 Balance 51 1360 95 Weight 68.039 kg 72.7 kg Intake: IV 126 900 150 Sodium Chloride 0.9% 1, 126 900 150 000 ml @ 75 mls/hr IV . [id number] [facility] Rx#:[id number] Intake, IV Titration 1000 Amount Sodium Chloride 0.9% 1, 1000 000 ml @ 999 mls/hr IV . Q1H1M ONE Rx#:[id number] Output: Urine 75 540 55 Other: Voiding Method Indwelling Catheter - Exam Gen. appearance alert, nonacute distress, BMI of 27.4 Head exam was generally normal. There was no scleral icterus or corneal arcus. Mucous membranes were moist. Neck was supple and without jugular venous distension, thyromegaly, or carotid bruits. Carotids were easily palpable bilaterally. There was no adenopathy. Lungs sounds are diminished along with scattered rhonchi and wheeze otherwise clear in the breast under quite diminished in lung bases Cardiac exam revealed the PMI to be normally situated and sized. The rhythm was regular and no extrasystoles were noted during several minutes of auscultation. The first and second heart sounds were normal and physiologic splitting of the second heart sound was noted. There were no murmurs, rubs, clicks, or gallops. Abdominal exam revealed normal bowel sounds. The abdomen was soft, non-tender, and without masses, organomegaly, or appreciable enlargement of the abdominal aorta. Examination of the extremities revealed easily palpable radial, femoral and pedal pulses. There was no cyanosis, clubbing or edema. Examination of the back reveals tenderness in the midthoracic spine area Neurologic exam the patient is awake and alert and the patient has intact cranial nerves. Motor exam shows adequate motor function lower extremities bilaterally. Psychiatric exam shows no active daniel or anxiety Skin exam shows skin discoloration over the midthoracic spine consistent with radiation therapy. - Labs CBC & Chem 7: 10/20/18 04:45 10/20/18 04:45 Labs: Abnormal Lab Results - Last 24 Hours (Table) 10/19/18 10/19/18 10/19/18 Range/Units 12:22 12:22 12:22 WBC 12.5 H (3.8-10.6) k/uL RBC (3.80-5.40) m/uL Hgb (11.4-16.0) gm/dL RDW 15.9 H (11.5-15.5) % Sodium 134 L (137-145) mmol/L Chloride (98-107) mmol/L Carbon Dioxide 19 L (22-30) mmol/L BUN 22 H (7-17) mg/dL Creatinine 1.19 H (0.52-1.04) mg/dL Glucose 248 H (74-99) mg/dL POC Glucose (mg/dL) (75-99) mg/dL Calcium (8.4-10.2) mg/dL AST (14-36) U/L Creatine Kinase 22 L (30-135) U/L Total Creatine Kinase 21 L (30-135) U/L Troponin I 0.100 H* (0.000-0.034) ng/mL Total Protein 5.8 L (6.3-8.2) g/dL Albumin 3.4 L (3.5-5.0) g/dL Urine Protein (Negative) Urine Glucose (UA) (Negative) Ur Leukocyte Esterase (Negative) Urine WBC (0-5) /hpf Urine Bacteria (None) /hpf Urine Mucus (None) /hpf 10/19/18 10/19/18 10/19/18 Range/Units 14:52 17:47 20:53 WBC (3.8-10.6) k/uL RBC (3.80-5.40) m/uL Hgb (11.4-16.0) gm/dL RDW (11.5-15.5) % Sodium (137-145) mmol/L Chloride (98-107) mmol/L Carbon Dioxide (22-30) mmol/L BUN (7-17) mg/dL Creatinine (0.52-1.04) mg/dL Glucose (74-99) mg/dL POC Glucose (mg/dL) 178 H 227 H (75-99) mg/dL Calcium (8.4-10.2) mg/dL AST (14-36) U/L Creatine Kinase (30-135) U/L Total Creatine Kinase (30-135) U/L Troponin I (0.000-0.034) ng/mL Total Protein (6.3-8.2) g/dL Albumin (3.5-5.0) g/dL Urine Protein (Negative) Urine Glucose (UA) (Negative) Ur Leukocyte Esterase Moderate H (Negative) Urine WBC 29 H (0-5) /hpf Urine Bacteria Occasional H (None) /hpf Urine Mucus Rare H (None) /hpf 10/20/18 10/20/18 10/20/18 Range/Units 04:45 04:45 05:40 WBC (3.8-10.6) k/uL RBC 3.61 L (3.80-5.40) m/uL Hgb 11.1 L (11.4-16.0) gm/dL RDW 15.9 H (11.5-15.5) % Sodium (137-145) mmol/L Chloride 111 H (98-107) mmol/L Carbon Dioxide 21 L (22-30) mmol/L BUN (7-17) mg/dL Creatinine (0.52-1.04) mg/dL Glucose 204 H (74-99) mg/dL POC Glucose (mg/dL) (75-99) mg/dL Calcium 7.7 L (8.4-10.2) mg/dL AST 12 L (14-36) U/L Creatine Kinase (30-135) U/L Total Creatine Kinase (30-135) U/L Troponin I (0.000-0.034) ng/mL Total Protein 4.9 L (6.3-8.2) g/dL Albumin 2.7 L (3.5-5.0) g/dL Urine Protein Trace H (Negative) Urine Glucose (UA) 2+ H (Negative) Ur Leukocyte Esterase Small H (Negative) Urine WBC 6 H (0-5) /hpf Urine Bacteria (None) /hpf Urine Mucus Rare H (None) /hpf 10/20/18 Range/Units 06:26 WBC (3.8-10.6) k/uL RBC (3.80-5.40) m/uL Hgb (11.4-16.0) gm/dL RDW (11.5-15.5) % Sodium (137-145) mmol/L Chloride (98-107) mmol/L Carbon Dioxide (22-30) mmol/L BUN (7-17) mg/dL Creatinine (0.52-1.04) mg/dL Glucose (74-99) mg/dL POC Glucose (mg/dL) 192 H (75-99) mg/dL Calcium (8.4-10.2) mg/dL AST (14-36) U/L Creatine Kinase (30-135) U/L Total Creatine Kinase (30-135) U/L Troponin I (0.000-0.034) ng/mL Total Protein (6.3-8.2) g/dL Albumin (3.5-5.0) g/dL Urine Protein (Negative) Urine Glucose (UA) (Negative) Ur Leukocyte Esterase (Negative) Urine WBC (0-5) /hpf Urine Bacteria (None) /hpf Urine Mucus (None) /hpf Assessment and Plan Plan: 1 acute hypotension with generalized weakness, consider intravascular volume depletion/dehydration. Underlying septic or cardiogenic event is possible although felt to be less likely at this point in time. The patient improved significantly with fluid resuscitation. She was given a total of 4 L of IV fluids overnight and the patient's blood pressure is stable for now. Urine output dropped slightly this morning to 20 mL an hour. The patient is still receiving normal saline at the rate of 75 mL and will going to advance her diet as tolerated. She was having some issues with nausea and will going to offer her Zofran. 2 metastatic adenocarcinoma of the lung with metastases to the brain, spine and liver. The patient also has a right chest wall mass. Her current stages stage IV metastatic disease the patient is being treated with radiation therapy to her spine regarding ongoing back pain. The patient also underwent radiation therapy to brain. 3 brain metastases and the patient has a solitary lesion that needs to be radiated and the patient has a pathologic involvement of the right occipital bone and the lateral aspect of the left bony orbit suggestive of metastatic disease and a 1 cm focus in the calvarium of the right parietal bone suggestive of metastatic disease,, hepatitic metastases, spine metastases without evidence of cord compression with lesions involving T3, T9, T10 and the largest lesion at the level of T7 with secondary back pain, all related to the underlying metastatic adenocarcinoma, the patient is post radiation therapy to her brain and radiation therapy to her spine 4 acute kidney injury secondary to above creatinine is up to 1.1, improvement in the kidney function normalizes and the creatinine is down to 0.5 5 hyperlipidemia 6 history of chronic leukocytic leukemia/SLL 7 coronary artery disease with previous myocardial infarction 8 peripheral vascular disease 9 cardiomyopathy with an ejection fraction of 25% with segmental wall motion abnormalities, likely ischemic 10 history of hypertension 11 history of chronic lymphocytic leukemia/SLL treated back in 2014 with a combination of Rituxan/Treanda and subsequently the patient was given Imbruvica 12 previous history of GI bleed/colitis, currently inactive Plan Monitor BP. Continue IV fluids. Continue Dilaudid. Add [place] 7.5 every 4 hours for pain control. Add Zofran or nausea. Continue with Decadron. Hold the antihypertensive medication for now. Will monitor the patient and I found a 6 hours and possibly transfer to oncology at a later stage of her condition remains stable.
--- NOTE | 2018-10-20 09:41 | XR ---
EXAMINATION TYPE: XR chest 1V DATE OF EXAM: 10/20/2018 COMPARISON: 10/19/2018 HISTORY: Shortness of breath TECHNIQUE: Single frontal view of the chest is obtained. FINDINGS: Improved inspiration with decreased pulmonary vascular congestion with a few prominent inf rahilar engorged vessels. No pleural effusion or pneumothorax. There is a nodular spiculated lesion i n the left lateral midlung measuring up to 1.0 cm. Redemonstration of pleural-based soft tissue lesio n with osseous erosion in the lateral right mid lung, appearing similar in size when compared to prio r exam. Stable cardiomegaly. IMPRESSION: Improved inspiration with decreased pulmonary vascular congestion. Similar right pleural-based mass with osseous destruction. Left upper lobe nodule measuring up to 1.0 cm, which may have increased in size when compared to CT o f the chest dated 08/22/2018.
[2018-10-20 12:19] LABS: Glucose,Whole Blood 151 mg/dL (75-99)
[2018-10-20] MEDS: LEVOFLOXACIN 750MG-D5W PMX 750 MG in DEXTROSE/WATER 1 150ML.BAG IVPB SCH (15:04)
[2018-10-20] MEDS: DEXAMETHASONE 4 MG TAB PO SCH ×2 (15:23→21:22)
[2018-10-20 16:20] LABS: Glucose,Whole Blood 157 mg/dL (75-99)
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
[2018-10-20 18:15] LABS: Glucose,Whole Blood 171 mg/dL (75-99)
[2018-10-20] MEDS: ALPRAZolam 0.5 MG TAB PO PRN (21:22)
[2018-10-21 00:31] LABS: Glucose,Whole Blood 144 mg/dL (75-99)
[2018-10-21] MEDS: HYDROcodone/APAP 7.5-325MG 1 EACH TAB PO PRN ×5 (00:48→21:57)
[2018-10-21] MEDS: HYDROmorphone 1 MG/ML 1 ML SYRINGE IVP PRN ×8 (03:28→23:52)
[2018-10-21 07:20] LABS: Glucose,Whole Blood 166 mg/dL (75-99)
[2018-10-21] MEDS: ONDANSETRON 4 MG TAB PO PRN (07:24)
[2018-10-21] MEDS: SODIUM CHLORIDE 0.9% 1,000 ML IV SCH ×3 (07:27→22:13)
--- NOTE | 2018-10-21 08:49 | P.PN ---
Subjective Principal diagnosis: Weakness This is a continue progress on a 58-year-old white female with known history of UTI weakness and hypotension element. The patient was admitted for appropriate sepsis workup and is now transferred to oncology. She still feels significant weakness with poor appetite. No diarrhea stated. Objective - Vital Signs Vital signs: Vital Signs Temp 97.6 F 10/21/18 04:30 Pulse 71 10/21/18 04:30 Resp 18 10/21/18 04:30 BP 133/72 10/21/18 04:30 Pulse Ox 96 10/21/18 04:30 Intake & Output 10/20/18 10/21/18 10/21/18 18:59 06:59 18:59 Intake Total 1050 1045 Output Total 297 Balance 753 1045 Intake: IV 900 925 Sodium Chloride 0.9% 1, 900 925 000 ml @ 75 mls/hr IV . [id number] [facility] Rx#:[id number] Intake, IV Titration 150 Amount Levofloxacin 750Mg-D5w 150 Pmx 750 mg In Dextrose/ Water 1 150ml.bag @ 100 mls/hr IVPB Q24H [facility] Rx#: [id number] Oral 120 Output: Urine 297 Other: Voiding Method Indwelling Catheter Indwelling Catheter - Constitutional General appearance: Present: average body habitus - EENT Eyes: Absent: abnormal pupil - Neck Neck: Absent: lymphadenopathy - Respiratory Respiratory: bilateral: CTA - Cardiovascular Rhythm: regular Heart sounds: normal: S1, S2 Abnormal Heart Sounds: Absent: S3 Gallop - Gastrointestinal General gastrointestinal: Present: soft - Neurologic Neurologic: Present: CNII-XII intact - Labs CBC & Chem 7: 10/20/18 04:45 10/20/18 04:45 Labs: Abnormal Lab Results - Last 24 Hours (Table) 10/20/18 10/20/18 10/20/18 Range/Units 12:16 16:16 17:28 POC Glucose (mg/dL) 151 H 157 H 171 H (75-99) mg/dL 10/21/18 10/21/18 Range/Units 00:29 :19 POC Glucose (mg/dL) 144 H 166 H (75-99) mg/dL Microbiology - Last 24 Hours (Table) 10/19/18 12:30 Blood Culture - Preliminary Blood No Growth after 24 hours Assessment and Plan (1) Dehydration Current Visit: Yes Status: Acute Priority: Medium Code(s): E86.0 - DEHYDRATION SNOMED Code(s): 34231016 (2) Metastatic carcinoma Current Visit: Yes Status: Acute Code(s): C79.9 - SECONDARY MALIGNANT NEOPLASM OF UNSPECIFIED SITE SNOMED Code(s): 328810280 (3) Severe sepsis Current Visit: Yes Status: Acute Code(s): A41.9 - SEPSIS, UNSPECIFIED ORGANISM; R65.20 - SEVERE SEPSIS WITHOUT SEPTIC SHOCK SNOMED Code(s): 83793037 (4) Cancer related pain Current Visit: No Status: Acute Priority: High Code(s): G89.3 - NEOPLASM RELATED PAIN (ACUTE) (CHRONIC) SNOMED Code(s): 05587669657542 Plan: Continue current regimen of hydration. Anticipate discharge in next 24-48 hours. Appreciate multiple consultants input.
[2018-10-21] MEDS: PANTOPRAZOLE 40 MG/10 ML VIAL IV SCH (09:34)
[2018-10-21] MEDS: ATORVASTATIN 20 MG TAB PO SCH (09:35)
[2018-10-21] MEDS: CITALOPRAM HYDROBROMIDE 10 MG TAB PO SCH (09:35)
[2018-10-21] MEDS: INSULIN ASPART (NovoLOG) 100 UNIT/ML VIAL SQ SCH ×4 (09:35→20:56)
[2018-10-21] MEDS: ASPIRIN 81 MG PO SCH (09:35)
[2018-10-21] MEDS: SENNOSIDES-DOCUSATE SODIUM 1 EACH TAB PO SCH ×2 (09:35→20:57)
[2018-10-21] MEDS: HEPARIN SODIUM,PORCINE 5,000 UNIT/ML 1 ML VIAL SQ SCH ×3 (09:35→23:51)
[2018-10-21] MEDS: DEXAMETHASONE 4 MG TAB PO SCH ×3 (09:35→21:57)
[2018-10-21 09:49] LABS: Anisocytosis Slight; HCT 34.2 % (34.0-46.0); HGB 10.8 gm/dL (11.4-16.0); Hypochromasia Slight; MCH 30.8 pg (25.0-35.0); MCHC 31.5 g/dL (31.0-37.0); MCV 97.9 fL (80.0-100.0); Macrocytosis Slight; Mean Platelet Volume 9.5; Platelet Count 189 k/uL (150-450); RBC 3.49 m/uL (3.80-5.40); RDW 16.7 % (11.5-15.5); WBC 10.1 k/uL (3.8-10.6)
[2018-10-21 10:03] LABS: ALT 23 U/L (9-52); AST 11 U/L (14-36); African American GFR (CKD) >90 (>60 ml/min/1.73 sqM); Albumin 2.8 g/dL (3.5-5.0); Alkaline Phosphatase 73 U/L (38-126); Anion Gap 5 mmol/L; Blood Urea Nitrogen 17 mg/dL (7-17); Calcium 8.4 mg/dL (8.4-10.2); Carbon Dioxide 21 mmol/L (22-30); Chloride 112 mmol/L (98-107); Glucose 149 mg/dL (74-99); Potassium 4.3 mmol/L (3.5-5.1); Sodium 138 mmol/L (137-145); Total Bilirubin 0.2 mg/dL (0.2-1.3)
[2018-10-21 11:31] LABS: Glucose,Whole Blood 168 mg/dL (75-99)
--- NOTE | 2018-10-21 14:43 | P.PN ---
Subjective Progress Note Date: 10/21/18 Principal diagnosis: weakness, lethargy, dehydration In f/u today pt is more alert and oriented, she is tolerating oral intake, pain is controlled on current analgesics, she has numerous concerns about getting to and from appts and anxious to start chemo. No fever, nausea, diarrhea, occasional non-productive cough. Objective - Vital Signs Vital signs: Vital Signs Temp 97.5 F L 10/21/18 11:55 Pulse 70 10/21/18 11:55 Resp 16 10/21/18 11:55 BP 138/80 10/21/18 11:55 Pulse Ox 96 10/21/18 11:55 Intake & Output 10/20/18 10/21/18 10/21/18 18:59 06:59 18:59 Intake Total 1050 1045 Output Total 297 Balance 753 1045 Intake: IV 900 925 Sodium Chloride 0.9% 1, 900 925 000 ml @ 75 mls/hr IV . [id number] [facility] Rx#:[id number] Intake, IV Titration 150 Amount Levofloxacin 750Mg-D5w 150 Pmx 750 mg In Dextrose/ Water 1 150ml.bag @ 100 mls/hr IVPB Q24H [facility] Rx#: [id number] Oral 120 Output: Urine 297 Other: Voiding Method Indwelling Catheter Indwelling Catheter Indwelling Catheter - Constitutional Constitutional Comment(s): mosqueda facies from steroids General appearance: Present: cooperative, no acute distress - EENT Eyes: Present: anicteric sclerae, EOMI ENT: Present: hearing grossly normal - Respiratory Respiratory: bilateral: diminished - Cardiovascular Rhythm: regular Heart sounds: normal: S1, S2 Abnormal Heart Sounds: Absent: systolic murmur, diastolic murmur, rub, S3 Gallop, S4 Gallop, click, other - Peripheral edema leg Peripheral Edema: bilateral: None - Gastrointestinal General gastrointestinal: Present: normal bowel sounds, soft - Integumentary Integumentary: Present: pale - Neurologic Neurologic: Present: CNII-XII intact - Musculoskeletal Musculoskeletal: Present: generalized weakness - Psychiatric Psychiatric: Present: A&O x's 3, appropriate affect, intact judgment & insight - Labs CBC & Chem 7: 10/21/18 09:09 10/21/18 09:09 Labs: Abnormal Lab Results - Last 24 Hours (Table) 0810/20/18 10/21/18 Range/Units 16:16 17:28 00:29 RBC (3.80-5.40) m/uL Hgb (11.4-16.0) gm/dL RDW (11.5-15.5) % Chloride (98-107) mmol/L Carbon Dioxide (22-30) mmol/L Creatinine (0.52-1.04) mg/dL Glucose (74-99) mg/dL POC Glucose (mg/dL) 157 H 171 H 144 H (75-99) mg/dL AST (14-36) U/L Total Protein (6.3-8.2) g/dL Albumin (3.5-5.0) g/dL 10/21/18 10/21/18 10/21/18 Range/Units 07:19 09:09 09:09 RBC 3.49 L (3.80-5.40) m/uL Hgb 10.8 L (11.4-16.0) gm/dL RDW 16.7 H (11.5-15.5) % Chloride 112 H (98-107) mmol/L Carbon Dioxide 21 L (22-30) mmol/L Creatinine 0.50 L (0.52-1.04) mg/dL Glucose 149 H (74-99) mg/dL POC Glucose (mg/dL) 166 H (75-99) mg/dL AST 11 L (14-36) U/L Total Protein 5.0 L (6.3-8.2) g/dL Albumin 2.8 L (3.5-5.0) g/dL 10/21/18 Range/Units 11:30 RBC (3.80-5.40) m/uL Hgb (11.4-16.0) gm/dL RDW (11.5-15.5) % Chloride (98-107) mmol/L Carbon Dioxide (22-30) mmol/L Creatinine (0.52-1.04) mg/dL Glucose (74-99) mg/dL POC Glucose (mg/dL) 168 H (75-99) mg/dL AST (14-36) U/L Total Protein (6.3-8.2) g/dL Albumin (3.5-5.0) g/dL Microbiology - Last 24 Hours (Table) 10/19/18 12:30 Blood Culture - Preliminary Blood No Growth after 24 hours Assessment and Plan (1) UTI (urinary tract infection) Narrative/Plan: Patient is on antibiotics for the same. Requested vail be removed, encouraged fluid intake and getting to the bathroom Current Visit: Yes Status: Acute Priority: High Code(s): N39.0 - URINARY TRACT INFECTION, SITE NOT SPECIFIED SNOMED Code(s): 87593921 (2) Dehydration Current Visit: Yes Status: Resolved Priority: Medium Code(s): E86.0 - DEHYDRATION SNOMED Code(s): 86597297 (3) Non-small cell lung cancer (NSCLC) Narrative/Plan: Patient just completed radiation therapy to brain. She will complete steroid taper. She was going to start radiation to painful right femur lesion. Pt concerned about getting back and forth to the treatment 5 days a week as her just got back to work. She would like to proceed with chemo and then do radiation later. I have sent orders for the same to be given outpatient. She will be given appt date and time. Current Visit: Yes Status: Acute Priority: High Code(s): C34.90 - MALIGNANT NEOPLASM OF UNSP PART OF UNSP BRONCHUS OR LUNG SNOMED Code(s): 622333462 (4) Brain metastasis Narrative/Plan: S/P SRT. Continue tapering oral steroid dose of 4 mg by mouth 3 times a day and PPI. Current Visit: No Status: Acute Priority: High Code(s): C79.31 - SECONDARY MALIGNANT NEOPLASM OF BRAIN SNOMED Code(s): 85780041 (5) CLL (chronic lymphocytic leukemia) Narrative/Plan: No evidence to suggest exacerbation of disease at this time. No treatment at this time Current Visit: No Status: Chronic Priority: Low Code(s): C91.10 - CHRONIC LYMPHOCYTIC LEUK OF B-CELL TYPE NOT ACHIEVE REMIS SNOMED Code(s): 99295342 Plan: Rx for wheeled seated walker through Front Office Coordinator
--- NOTE | 2018-10-21 14:56 | P.PN ---
Subjective Progress Note Date: 10/21/18 Principal diagnosis: Acute hypotension and generalized weakness secondary to dehydration. This is a 58-year-old female patient came into the ED with generalized weakness. 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 The patient has history of CLL/SLL diagnosed in 2001. The patient has been under the care of Dr. Ceja. The patient didn't require treatment until 2014 when she started on a combination of Rituxan and Treanda, and more recently she was switched to Imbruvica for the past 1 year. Subsequently she came into the hospital on in September 2018 with evidence of a new malignancy which it involved the skeletal system and the liver and the brain. The patient came in with right rib cage and back pain. She underwent a CAT scan of the chest abdomen and pelvis and she had a stable pulmonary nodule, couple spiculated upper lobe. Continue lesion was subsequently seen in the right fifth sedated with destruction and there was also involvement of the T7 vertebral body. Multiple subcentimeter liver lesions were also noted. On 09/07/2018, the patient underwent a biopsy of the right fifth rib. This was consistent with adenocarcinoma. MRI of the T-spine was done that showed no evidence of any cord compression but there were lesions involving T3, T9 and T10 as well as a large lesion involving the T7. Patient was seen by radiation oncology and the patient was started on radiation therapy to her spine. She is known to have coronary artery disease, hypertension, peripheral vascular disease, and addition to her previous malignancies. She has cardiomyopathy with an ejection fraction of 25-30%. Note that the patient also had a solitary brain metastases and was single lesion amenable to SRS and this was supposed to be radiated at a later stage. As for the intractable back pain, the patient was given fentanyl patches and addition to radiation therapy. During this current admission, the patient came in to the emergency department today with a white cell count 12.5 and generalized weakness. Her platelet count is at 188. Coagulation profile is within normal limits. He has an acute kidney injury with a creatinine is up to 1.1 from a baseline of 0.6. She has also a component of mild anion gap metabolic acidosis with an anion gap of 14 and a bicarb level is down to 19. The UA is negative. Chest x-ray shows bronchial wall thickening and there is a pleural-based lesion in the right chest wall. The patient reported diminished oral intake. She felt very weak and fatigued. She did have nausea and vomited couple of times. The patient had ongoing pain in her back which is reported to be 6 out of 10 in severity in the midthoracic spine area. Note that the patient was quite hypotensive at time of arrival. The blood pressure in one point was as low as 64/42. She was given IV fluids. Her most recent BP is up to 92/58. She was given empiric antibiotic coverage with IV Levaquin. Her pulse ox is 97% on 2 L of oxygen by nasal cannula. The EKG showing a normal sinus rhythm with bilateral nature enlargement and Q waves over the anterior leads suggestive of an old anteroseptal infarct. The lactic acid level is at 1.2. On today's evaluation of 2018 the patient is looking better than yesterday. The patient did not require any pressors. Overall she received a total of 4 L of IV fluids. She is producing adequate amount of urine output. Her blood pres sure normalizes. She is producing around 20 mL an hour and currently she is on normal saline at the rate of 75 mL an hour. His chest x-ray shows no acute abnormalities in the pleural-based lesion on the right and a small nodule also seen on the left. No signs of any fluid overload or pulmonary edema. The patient is on room air oxygen for now. The patient has n ongoing issues with pain. She is taking Dilaudid. Would like to also introduce no quite as the patient's pain is around 9 out of 10 in severity specially in her back. The patient is also having issues with nausea as the patient has metastatic disease involving the liver. No other issues for now. She is awake and alert. On to day's evaluation she also told me that the patient has undergone radiation therapy to her brain for a metastatic deposit as mentioned earlier. Cardiac rhythm remains sinus. No fever. Cultures are negative. The patient is seen and evaluated again today 10/21/2018 in follow-up on the oncology unit. She is currently awake and alert in no acute distress. No worsening shortness of breath, cough or congestion. Blood culture reveals no growth. White count 10.1. Hemoglobin 10.8. Creatinine 0.50. She is receiving Dilaudid alternating with [place] for pain control. Heparin for DVT prophylaxis. 0.9 normal saline at 75 ML's per hour. Antibiotics in the form of Levaquin. Objective - Vital Signs Vital signs: Vital Signs Temp 97.5 F L 10/21/18 11:55 Pulse 70 10/21/18 11:55 Resp 16 10/21/18 11:55 BP 138/80 10/21/18 11:55 Pulse Ox 96 10/21/18 11:55 Intake & Output 10/20/18 10/21/18 10/21/18 18:59 06:59 18:59 Intake Total 1050 1045 Output Total 297 Balance 753 1045 Intake: IV 900 925 Sodium Chloride 0.9% 1, 900 925 000 ml @ 75 mls/hr IV . [id number] [facility] [place] Rx#:[id number] Intake, IV Titration 150 Amount Levofloxacin 750Mg-D5w 150 Pmx 750 mg In Dextrose/ Water 1 150ml.bag @ 100 mls/hr IVPB Q24H [facility] Rx#: [id number] Oral 120 Output: Urine 297 Other: Voiding Method Indwelling Catheter Indwelling Catheter Indwelling Catheter - Exam Gen. appearance Pleasant 58-year-old female patient, alert, no acute distress, BMI of 27.4 Head exam was generally normal. There was no scleral icterus or corneal arcus. Mucous membranes were moist. Neck was supple and without jugular venous distension, thyromegaly, or carotid bruits. Carotids were easily palpable bilaterally. There was no adenopathy. Lungs sounds are diminished along with scattered rhonchi and wheeze otherwise clear in the breast under quite diminished in lung bases Cardiac exam revealed the PMI to be normally situated and sized. The rhythm was regular and no extrasystoles were noted during several minutes of auscultation. The first and second heart sounds were normal and physiologic splitting of the second heart sound was noted. There were no murmurs, rubs, clicks, or gallops. Abdominal exam revealed normal bowel sounds. The abdomen was soft, non-tender, and without masses, organomegaly, or appreciable enlargement of the abdominal aorta. Examination of the extremities revealed easily palpable radial, femoral and pedal pulses. There was no cyanosis, clubbing or edema. Examination of the back reveals tenderness in the midthoracic spine area Neurologic exam the patient is awake and alert and the patient has intact cranial nerves. Motor exam shows adequate motor function lower extremities bilaterally. Psychiatric exam shows no active daniel or anxiety Skin exam shows skin discoloration over the midthoracic spine consistent with radiation therapy. - Labs CBC & Chem 7: 10/21/18 09:09 10/21/18 09:09 Labs: Abnormal Lab Results - Last 24 Hours (Table) 10/20/18 10/20/18 10/21/18 Range/Units 16:16 17:28 00:29 RBC (3.80-5.40) m/uL Hgb (11.4-16.0) gm/dL RDW (11.5-15.5) % Chloride (98-107) mmol/L Carbon Dioxide (22-30) mmol/L Creatinine (0.52-1.04) mg/dL Glucose (74-99) mg/dL POC Glucose (mg/dL) 157 H 171 H 144 H (75-99) mg/dL AST (14-36) U/L Total Protein (6.3-8.2) g/dL Albumin (3.5-5.0) g/dL 10/21/18 10/21/18 10/21/18 Range/Units 07:19 09:09 09:09 RBC 3.49 L (3.80-5.40) m/uL Hgb 10.8 L (11.4-16.0) gm/dL RDW 16.7 H (11.5-15.5) % Chloride 112 H (98-107) mmol/L Carbon Dioxide 21 L (22-30) mmol/L Creatinine 0.50 L (0.52-1.04) mg/dL Glucose 149 H (74-99) mg/dL POC Glucose (mg/dL) 166 H (75-99) mg/dL AST 11 L (14-36) U/L Total Protein 5.0 L (6.3-8.2) g/dL Albumin 2.8 L (3.5-5.0) g/dL 10/21/18 Range/Units 11:30 RBC (3.80-5.40) m/uL Hgb (11.4-16.0) gm/dL RDW (11.5-15.5) % Chloride (98-107) mmol/L Carbon Dioxide (22-30) mmol/L Creatinine (0.52-1.04) mg/dL Glucose (74-99) mg/dL POC Glucose (mg/dL) 168 H (75-99) mg/dL AST (14-36) U/L Total Protein (6.3-8.2) g/dL Albumin (3.5-5.0) g/dL Microbiology - Last 24 Hours (Table) 10/19/18 12:30 Blood Culture - Preliminary Blood No Growth after 24 hours Assessment and Plan Assessment: Impression: 1 acute hypotension with generalized weakness, consider intravascular volume depletion/dehydration. Underlying septic or cardiogenic event is possible although felt to be less likely at this point in time. The patient improved significantly with fluid resuscitation. She was given a total of 4 L of IV fluids overnight and the patient's blood pressure is stable for now. Urine output dropped slightly this morning to 20 mL an hour. The patient is still receiving normal saline at the rate of 75 mL and will going to advance her diet as tolerated. She was having some issues with nausea and will going to offer her Zofran. 2 metastatic adenocarcinoma of the lung with metastases to the brain, spine and liver. The patient also has a right chest wall mass. Her current stages stage IV metastatic disease the patient is being treated with radiation therapy to her spine regarding ongoing back pain. The patient also underwent radiation therapy to brain. 3 brain metastases and the patient has a solitary lesion that needs to be rad iated and the patient has a pathologic involvement of the right occipital bone and the lateral aspect of the left bony orbit suggestive of metastatic disease and a 1 cm focus in the calvarium of the right parietal bone suggestive of metastatic disease,, hepatitic metastases, spine metastases without evidence of cord compression with lesions involving T3, T9, T10 and the largest lesion at the level of T7 with secondary back pain, all related to the underlying metastatic adenocarcinoma, the patient is post radiation therapy to her brain and radiation therapy to her spine 4 acute kidney injury secondary to above creatinine is up to 1.1, improvement in the kidney function normalizes and the creatinine is down to 0.5 5 hyperlipidemia 6 history of chronic leukocytic leukemia/SLL 7 coronary artery disease with previous myocardial infarction 8 peripheral vascular disease 9 cardiomyopathy with an ejection fraction of 25% with segmental wall motion abnormalities, likely ischemic 10 history of hypertension 11 history of chronic lymphocytic leukemia/SLL treated back in 2014 with a com bination of Rituxan/Treanda and subsequently the patient was given Imbruvica 12 previous history of GI bleed/colitis, currently inactive Plan: The patient was seen and evaluated by Dr. Pierre. Her pain is fairly well controlled. She is currently stable from the pulmonary and critical care sta ndpoint. We will see the patient on an as-needed basis. I, the cosigning physician, performed a history & physical examination of the patient. Lungs sounds are clear, diminished. Maintaining good O2 saturations in the 90s on room air. I discussed the assessment and plan of care with my nurse practitioner, Dayan Guerra. I attest to the above note as dictated by her.
[2018-10-21] MEDS: LEVOFLOXACIN 750MG-D5W PMX 750 MG in DEXTROSE/WATER 1 150ML.BAG IVPB SCH (15:35)
[2018-10-21 17:24] LABS: Glucose,Whole Blood 159 mg/dL (75-99)
[2018-10-21 20:49] LABS: Glucose,Whole Blood 145 mg/dL (75-99)
[2018-10-22] MEDS: HYDROmorphone 1 MG/ML 1 ML SYRINGE IVP PRN ×2 (03:53→07:14)
[2018-10-22] MEDS: HYDROcodone/APAP 7.5-325MG 1 EACH TAB PO PRN ×5 (03:53→23:17)
[2018-10-22 07:02] LABS: Glucose,Whole Blood 131 mg/dL (75-99)
--- NOTE | 2018-10-22 08:04 | P.PN ---
Subjective Principal diagnosis: Weakness This is a continue progress on a 58-year-old white female with known history of UTI weakness and hypotension element. The patient was admitted for appropriate sepsis workup and is now transferred to oncology. She still feels significant weakness with poor appetite. No diarrhea stated. She would like to restart her fentanyl patches for pain otherwise. Objective - Vital Signs Vital signs: Vital Signs Temp 97.6 F 10/22/18 03:51 Pulse 59 L 10/22/18 03:51 Resp 18 10/22/18 03:51 BP 155/86 10/22/18 03:51 Pulse Ox 95 10/22/18 03:51 Intake & Output 10/21/18 10/22/18 10/22/18 18:59 06:59 18:59 Intake Total 600 600 Output Total 60 Balance 540 600 Intake: IV 600 600 Sodium Chloride 0.9% 1, 600 600 000 ml @ 75 mls/hr IV . [id number] [facility] Rx#:[id number] Output: Urine 60 Other: Voiding Method Indwelling Catheter Toilet # Voids 3 - Constitutional General appearance: Present: average body habitus - EENT Eyes: Absent: abnormal pupil - Neck Neck: Absent: lymphadenopathy - Respiratory Respiratory: bilateral: CTA - Cardiovascular Rhythm: regular Heart sounds: normal: S1, S2 Abnormal Heart Sounds: Absent: S3 Gallop - Gastrointestinal General gastrointestinal: Present: soft. Absent: tenderness - Neurologic Neurologic: Present: CNII-XII intact - Labs CBC & Chem 7: 10/21/18 09:09 10/21/18 09:09 Labs: Abnormal Lab Results - Last 24 Hours (Table) 10/21/18 10/21/18 10/21/18 Range/Units 09:09 09:09 11:30 RBC 3.49 L (3.80-5.40) m/uL Hgb 10.8 L (11.4-16.0) gm/dL RDW 16.7 H (11.5-15.5) % Chloride 112 H (98-107) mmol/L Carbon Dioxide 21 L (22-30) mmol/L Creatinine 0.50 L (0.52-1.04) mg/dL Glucose 149 H (74-99) mg/dL POC Glucose (mg/dL) 168 H (75-99) mg/dL AST 11 L (14-36) U/L Total Protein 5.0 L (6.3-8.2) g/dL Albumin 2.8 L (3.5-5.0) g/dL 10/21/18 10/21/18 10/22/18 Range/Units 17:23 20:47 07:01 RBC (3.80-5.40) m/uL Hgb (11.4-16.0) gm/dL RDW (11.5-15.5) % Chloride (98-107) mmol/L Carbon Dioxide (22-30) mmol/L Creatinine (0.52-1.04) mg/dL Glucose (74-99) mg/dL POC Glucose (mg/dL) 159 H 145 H 131 H (75-99) mg/dL AST (14-36) U/L Total Protein (6.3-8.2) g/dL Albumin (3.5-5.0) g/dL Microbiology - Last 24 Hours (Table) 10/19/18 12:30 Blood Culture - Preliminary Blood No Growth after 48 hours Assessment and Plan (1) Dehydration Current Visit: Yes Status: Resolved Priority: Medium Code(s): E86.0 - DEHYDRATION SNOMED Code(s): 21150587 (2) Metastatic carcinoma Current Visit: Yes Status: Acute Code(s): C79.9 - SECONDARY MALIGNANT NEOPLASM OF UNSPECIFIED SITE SNOMED Code(s): 533234854 (3) Severe sepsis Current Visit: Yes Status: Acute Code(s): A41.9 - SEPSIS, UNSPECIFIED ORGANISM; R65.20 - SEVERE SEPSIS WITHOUT SEPTIC SHOCK SNOMED Code(s): 71591288 (4) Cancer related pain Current Visit: No Status: Acute Priority: High Code(s): G89.3 - NEOPLASM RELATED PAIN (ACUTE) (CHRONIC) SNOMED Code(s): 26122178642441 Plan: Go ahead and KVO IV. Check CBC and CMP in a.m. Restart fentanyl 25 g patches. Anticipate discharge in a.m.
[2018-10-22 08:17] LABS: Anisocytosis Slight; HCT 35.8 % (34.0-46.0); HGB 11.5 gm/dL (11.4-16.0); Hypochromasia Slight; MCH 30.8 pg (25.0-35.0); MCV 96.3 fL (80.0-100.0); Mean Platelet Volume 10.6; Platelet Count 218 k/uL (150-450); RBC 3.72 m/uL (3.80-5.40); RDW 16.4 % (11.5-15.5); WBC 12.3 k/uL (3.8-10.6)
[2018-10-22] MEDS: PANTOPRAZOLE 40 MG/10 ML VIAL IV SCH (09:01)
[2018-10-22] MEDS: DEXAMETHASONE 4 MG TAB PO SCH ×3 (09:02→21:17)
[2018-10-22] MEDS: CITALOPRAM HYDROBROMIDE 10 MG TAB PO SCH (09:02)
[2018-10-22] MEDS: SENNOSIDES-DOCUSATE SODIUM 1 EACH TAB PO SCH ×2 (09:03→21:17)
[2018-10-22] MEDS: ASPIRIN 81 MG PO SCH (09:03)
[2018-10-22] MEDS: INSULIN ASPART (NovoLOG) 100 UNIT/ML VIAL SQ SCH ×4 (09:03→21:17)
[2018-10-22] MEDS: HEPARIN SODIUM,PORCINE 5,000 UNIT/ML 1 ML VIAL SQ SCH ×3 (09:03→23:17)
--- NOTE | 2018-10-22 11:04 | P.PN ---
Subjective Progress Note Date: 10/22/18 Principal diagnosis: weakness, lethargy, dehydration In follow-up today patient is experiencing sweats, without fever. She is generally complaining of being uncomfortable, she has left upper quadrant fullness and discomfort, she has a congested cough, denies hemoptysis or purul ent sputum production, abdomen feels bloated, denies suprapubic discomfort, hematuria, dysuria, her last bowel movement was 3 days ago, her legs are swollen, she has been started on a fentanyl patch for pain control. Objective - Vital Signs Vital signs: Vital Signs Temp 97.6 F 10/22/18 03:51 Pulse 59 L 10/22/18 03:51 Resp 18 10/22/18 03:51 BP 155/86 10/22/18 03:51 Pulse Ox 95 10/22/18 03:51 Intake & Output 10/21/18 10/22/18 10/22/18 18:59 06:59 18:59 Intake Total 600 600 Output Total 60 Balance 540 600 Intake: IV 600 600 Sodium Chloride 0.9% 1, 600 600 000 ml @ 75 mls/hr IV . [id number] [facility] Rx#:[id number] Output: Urine 60 Other: Voiding Method Indwelling Catheter Toilet # Voids 3 - Constitutional Constitutional Comment(s): Little facies from steroids. Generalized diaphoresis, temperature checked normal at 97.8F. patient in general is uncomfortable as noted by constant moving about in the bed General appearance: Present: average body habitus, disheveled, mild distress - EENT Eyes: Present: anicteric sclerae, poor dentition ENT: Present: hearing grossly normal - Respiratory Respiratory: bilateral: CTA - Cardiovascular Rhythm: regular Heart sounds: normal: S1, S2 Abnormal Heart Sounds: Present: systolic murmur. Absent: diastolic murmur, rub, S3 Gallop, S4 Gallop, click, other - Peripheral edema leg Peripheral Edema: bilateral: Trace - Gastrointestinal General gastrointestinal: Present: normal bowel sounds, soft, splenomegaly, tenderness Localized gastrointestinal: tender: RUQ (fullness) - Neurologic Neurologic: Present: CNII-XII intact - Musculoskeletal Musculoskeletal: Present: generalized weakness, strength equal bilaterally - Psychiatric Psychiatric: Present: A&O x's 3, appropriate affect, intact judgment & insight - Labs CBC & Chem 7: 10/22/18 06:51 10/21/18 09:09 Labs: Abnormal Lab Results - Last 24 Hours (Table) 10/21/18 10/21/18 10/21/18 Range/Units 11:30 17:23 20:47 WBC (3.8-10.6) k/uL RBC (3.80-5.40) m/uL RDW (11.5-15.5) % POC Glucose (mg/dL) 168 H 159 H 145 H (75-99) mg/dL 10/22/18 10/22/18 Range/Units 06:51 07:01 WBC 12.3 H (3.8-10.6) k/uL RBC 3.72 L (3.80-5.40) m/uL RDW 16.4 H (11.5-15.5) % POC Glucose (mg/dL) 131 H (75-99) mg/dL Microbiology - Last 24 Hours (Table) 10/19/18 12:30 Blood Culture - Preliminary Blood No Growth after 48 hours Assessment and Plan (1) UTI (urinary tract infection) Narrative/Plan: Patient is on antibiotics for the same. Robison be removed, encouraged fluids, pt now has wheeled seated walker to use to get to the bathroom Current Visit: Yes Status: Acute Priority: High Code(s): N39.0 - URINARY TRACT INFECTION, SITE NOT SPECIFIED SNOMED Code(s): 64071027 (2) Dehydration Current Visit: Yes Status: Resolved Priority: Medium Code(s): E86.0 - DEHYDRATION SNOMED Code(s): 11244628 (3) Non-small cell lung cancer (NSCLC) Narrative/Plan: Patient just completed radiation therapy to brain. She will complete steroid taper. She was going to start radiation to painful right femur lesion. Pt concerned about getting back and forth to the treatment 5 days a week as her just got back to work. She would like to proceed with chemo and then do radiation later. Orders for chemotherapy to be given outpatient have been completed. Patient has a treatment date of 10/29 at 11:30 AM. This was communicated to the patient as well as placed in the discharge summary. Current Visit: Yes Status: Acute Priority: High Code(s): C34.90 - MALIGNANT NEOPLASM OF UNSP PART OF UNSP BRONCHUS OR LUNG SNOMED Code(s): 138605696 (4) Brain metastasis Current Visit: No Status: Acute Priority: High Code(s): C79.31 - SECONDARY MALIGNANT NEOPLASM OF BRAIN SNOMED Code(s): 08919096 (5) CLL (chronic lymphocytic leukemia) Narrative/Plan: Patient is on no treatment at this time. Patient exhibiting sweats without fever, she also has right upper quadrant complaints of fullness, tenderness, and objectively increased splenomegaly. Ultrasound has been ordered to measure the spleen. Current Visit: No Status: Chronic Priority: Low Code(s): C91.10 - CHRONIC LYMPHOCYTIC LEUK OF B-CELL TYPE NOT ACHIEVE REMIS SNOMED Code(s): 17762549
[2018-10-22 11:24] LABS: Glucose,Whole Blood 141 mg/dL (75-99)
[2018-10-22] MEDS: ALPRAZolam 0.5 MG TAB PO PRN ×2 (11:34→19:17)
[2018-10-22 13:47] LABS: Glucose,Whole Blood 108 mg/dL (75-99)
--- NOTE | 2018-10-22 14:16 | XR ---
EXAMINATION TYPE: XR chest 2V DATE OF EXAM: 10/22/2018 COMPARISON: 10/20/2018 HISTORY: Shortness of breath TECHNIQUE: Frontal and lateral views of the chest are obtained. FINDINGS: Prominence of the bilateral alpa with diffuse interstitial prominence and focal opacity in the medial right lower lobe. Tiny bilateral pleural effusions. Stable pleural-based density along th e right mid lung. Adjacent osseous destruction of the rib. No pneumothorax. IMPRESSION: Interval worsening of diffuse interstitial prominence which may related to CHF/fluid overload. Medial right lower lobe opacity may be related to pneumonia or edema.
[2018-10-22] MEDS: SODIUM CHLORIDE 0.9% 1,000 ML IV SCH (14:33)
--- NOTE | 2018-10-22 14:46 | US ---
EXAMINATION TYPE: US abdomen complete DATE OF EXAM: 10/22/2018 COMPARISON: US & CT CLINICAL HISTORY: LUQ pain/fullness. LUQ pain, history of lung CA EXAM MEASUREMENTS: Liver Length: 17.8 cm Gallbladder Wall: 0.2 cm CBD: 1.1 cm Spleen: 11.1 cm Right Kidney: 10.3 x 4.5 x 4.7 cm Left Kidney: 10.5 x 6.4 x 4.6 cm Pancreas: 3mm panc duct visualized. tail obscured by overlying bowel gas Liver: Multiple hypoechoic lesions scattered throughout liver, largest in left lobe= 1.0 x 0.9 x 1.0 cm/ largest in right lobe= 1.1 x 0.9 x 1.3 cm Gallbladder: Multiple possible polyps, pt too weak to roll LLD position Evidence for sonographic Castro's sign: No CBD: Dilated Spleen: wnl Right Kidney: wnl Left Kidney: wnl Upper IVC: wnl Abd Aorta: Gassed out Right pleural effusion The liver is diffusely heterogenous with known hepatic metastasis. The intrahepatic portion of the IV C and proximal abdominal aorta are within normal limits. There is no evidence of cholelithiasis. Co mmon bile duct is dilated. Suboptimal visualization of the pancreas however the main pancreatic duct isn't dilated measuring 3 mm. The spleen is unremarkable. Kidneys are symmetric and free of hydrone phrosis. No renal lesions are seen. IMPRESSION: 1. Redemonstration of multiple hepatic metastatic lesions. 2. Dilated common bile duct and main pancreatic duct concerning for distal obstruction either from a periampullary mass or calculus. Correlate with serum laboratory values to determine the need for MRCP . 3. Multiple small probable gallbladder polyps, subcentimeter. 4. Incidentally noted partially visualized right pleural effusion. 5. Overlying bowel gas obscures the abdominal aorta.
[2018-10-22 15:44] LABS: Creatine Kinase MB 2.2 ng/mL (0.0-2.4); Troponin I 0.027 ng/mL (0.000-0.034)
[2018-10-22 17:13] LABS: Glucose,Whole Blood 113 mg/dL (75-99)
[2018-10-22] MEDS: LEVOFLOXACIN 750MG-D5W PMX 750 MG in DEXTROSE/WATER 1 150ML.BAG IVPB SCH (17:26)
[2018-10-22 18:24] LABS: Glucose,Whole Blood 133 mg/dL (75-99)
[2018-10-22] MEDS ORDERED: FUROSEMIDE 10 MG/ML 2 ML VIAL IV STA (19:00)
[2018-10-22 21:01] LABS: Glucose,Whole Blood 188 mg/dL (75-99)
[2018-10-23] MEDS: HYDROcodone/APAP 7.5-325MG 1 EACH TAB PO PRN ×5 (03:58→20:55)
[2018-10-23 06:57] LABS: Glucose,Whole Blood 111 mg/dL (75-99)
[2018-10-23] MEDS ORDERED: FUROSEMIDE 10 MG/ML 2 ML VIAL IV STA (08:06)
--- NOTE | 2018-10-23 08:09 | P.PN ---
Subjective Principal diagnosis: Weakness This is a continue progress on a 58-year-old white female with known history of UTI weakness and hypotension element. The patient was admitted for appropriate sepsis workup and is now transferred to oncology. She still feels significant weakness with poor appetite. No diarrhea stated. She would like to restart her fentanyl patches for pain otherwise.Significant weakness is still stated Objective - Vital Signs Vital signs: Vital Signs Temp 97.5 F L 10/23/18 05:00 Pulse 92 10/23/18 05:00 Resp 18 10/23/18 05:00 BP 127/84 10/23/18 05:00 Pulse Ox 100 10/23/18 05:00 Intake & Output 10/22/18 10/23/18 10/23/18 18:59 06:59 18:59 Intake Total 600 Balance 600 Intake: IV 600 Sodium Chloride 0.9% 1, 600 000 ml @ 75 mls/hr IV . [id number] [facility] Rx#:[id number] Other: Voiding Method Toilet Toilet # Voids 4 - Constitutional General appearance: Present: average body habitus - EENT Eyes: Absent: abnormal pupil - Neck Neck: Absent: lymphadenopathy - Respiratory Respiratory: bilateral: CTA - Cardiovascular Rhythm: regular Heart sounds: normal: S1, S2 Abnormal Heart Sounds: Absent: S3 Gallop - Gastrointestinal General gastrointestinal: Present: soft. Absent: tenderness - Musculoskeletal Musculoskeletal: Present: generalized weakness - Psychiatric Psychiatric: Present: A&O x's 3 - Labs CBC & Chem 7: 10/22/18 06:51 10/21/18 09:09 Labs: Abnormal Lab Results - Last 24 Hours (Table) 10/22/18 10/22/18 10/22/18 Range/Units 06:51 11:10 13:35 WBC 12.3 H (3.8-10.6) k/uL RBC 3.72 L (3.80-5.40) m/uL RDW 16.4 H (11.5-15.5) % POC Glucose (mg/dL) 141 H 108 H (75-99) mg/dL 10/22/18 10/22/18 10/22/18 Range/Units 17:01 18:22 20:59 WBC (3.8-10.6) k/uL RBC (3.80-5.40) m/uL RDW (11.5-15.5) % POC Glucose (mg/dL) 113 H 133 H 188 H (75-99) mg/dL 10/23/18 Range/Units 06:56 WBC (3.8-10.6) k/uL RBC (3.80-5.40) m/uL RDW (11.5-15.5) % POC Glucose (mg/dL) 111 H (75-99) mg/dL Microbiology - Last 24 Hours (Table) 10/19/18 12:30 Blood Culture - Preliminary Blood No Growth after 72 hours Assessment and Plan (1) Dehydration Current Visit: Yes Status: Inactive Priority: Medium Code(s): E86.0 - DEHYDRATION SNOMED Code(s): 12149311 (2) Metastatic carcinoma Current Visit: Yes Status: Acute Code(s): C79.9 - SECONDARY MALIGNANT NEOPLASM OF UNSPECIFIED SITE SNOMED Code(s): 430947480 (3) Severe sepsis Current Visit: Yes Status: Acute Code(s): A41.9 - SEPSIS, UNSPECIFIED ORGANISM; R65.20 - SEVERE SEPSIS WITHOUT SEPTIC SHOCK SNOMED Code(s): 50045174 (4) Cancer related pain Current Visit: No Status: Acute Priority: High Code(s): G89.3 - NEOPLASM RELATED PAIN (ACUTE) (CHRONIC) SNOMED Code(s): 60657660500610 Plan: The patient required IV Lasix yesterday. We will repeat dose today. Restart home Lasix dose in a.m. Check CMP in a.m. Anticipate discharge in the a.m. Time with Patient: Greater than 30
[2018-10-23] MEDS: INSULIN ASPART (NovoLOG) 100 UNIT/ML VIAL SQ SCH ×4 (08:28→20:37)
[2018-10-23] MEDS: HEPARIN SODIUM,PORCINE 5,000 UNIT/ML 1 ML VIAL SQ SCH ×3 (08:33→23:21)
[2018-10-23] MEDS: DEXAMETHASONE 4 MG TAB PO SCH ×3 (08:37→20:37)
[2018-10-23] MEDS: ONDANSETRON 4 MG TAB PO PRN (08:37)
[2018-10-23] MEDS: PANTOPRAZOLE 40 MG/10 ML VIAL IV SCH (08:37)
[2018-10-23] MEDS: SENNOSIDES-DOCUSATE SODIUM 1 EACH TAB PO SCH ×2 (08:37→20:37)
[2018-10-23] MEDS: ASPIRIN 81 MG PO SCH (08:37)
[2018-10-23] MEDS: ATORVASTATIN 20 MG TAB PO SCH (08:37)
[2018-10-23] MEDS: ALPRAZolam 0.5 MG TAB PO PRN ×3 (08:37→20:54)
[2018-10-23] MEDS: CITALOPRAM HYDROBROMIDE 10 MG TAB PO SCH (08:37)
[2018-10-23 10:52] LABS: Anisocytosis Slight; HCT 34.2 % (34.0-46.0); HGB 10.5 gm/dL (11.4-16.0); MCH 28.1 pg (25.0-35.0); MCHC 30.8 g/dL (31.0-37.0); Mean Platelet Volume 10.3; Platelet Count 196 k/uL (150-450); RBC 3.75 m/uL (3.80-5.40); RDW 16.2 % (11.5-15.5); WBC 15.9 k/uL (3.8-10.6)
[2018-10-23 11:25] LABS: Glucose,Whole Blood 106 mg/dL (75-99)
[2018-10-23 12:44] LABS: ALT 30 U/L (9-52); AST 20 U/L (14-36); African American GFR (CKD) >90 (>60 ml/min/1.73 sqM); Albumin 3.4 g/dL (3.5-5.0); Alkaline Phosphatase 83 U/L (38-126); Anion Gap 8 mmol/L; Blood Urea Nitrogen 14 mg/dL (7-17); Carbon Dioxide 30 mmol/L (22-30); Chloride 99 mmol/L (98-107); Glucose 112 mg/dL (74-99); Potassium 3.5 mmol/L (3.5-5.1); Sodium 137 mmol/L (137-145); Total Bilirubin 0.6 mg/dL (0.2-1.3)
[2018-10-23] MEDS: LEVOFLOXACIN 750MG-D5W PMX 750 MG in DEXTROSE/WATER 1 150ML.BAG IVPB SCH (16:46)
[2018-10-23 17:18] LABS: Glucose,Whole Blood 128 mg/dL (75-99)
[2018-10-23 20:20] LABS: Glucose,Whole Blood 208 mg/dL (75-99)
[2018-10-24] MEDS: HYDROcodone/APAP 7.5-325MG 1 EACH TAB PO PRN ×4 (01:55→17:05)
[2018-10-24] MEDS: PANTOPRAZOLE 40 MG/10 ML VIAL IV SCH (07:33)
[2018-10-24] MEDS: ATORVASTATIN 20 MG TAB PO SCH (07:33)
[2018-10-24] MEDS: CITALOPRAM HYDROBROMIDE 10 MG TAB PO SCH (07:33)
[2018-10-24] MEDS: SENNOSIDES-DOCUSATE SODIUM 1 EACH TAB PO SCH (07:33)
[2018-10-24] MEDS: DEXAMETHASONE 4 MG TAB PO SCH ×2 (07:33→15:41)
[2018-10-24] MEDS: HEPARIN SODIUM,PORCINE 5,000 UNIT/ML 1 ML VIAL SQ SCH ×2 (07:34→15:36)
[2018-10-24] MEDS: ASPIRIN 81 MG PO SCH (07:35)
[2018-10-24] MEDS: INSULIN ASPART (NovoLOG) 100 UNIT/ML VIAL SQ SCH ×3 (07:38→17:40)
[2018-10-24 07:39] LABS: Glucose,Whole Blood 122 mg/dL (75-99)
--- NOTE | 2018-10-24 08:05 | XR ---
EXAMINATION TYPE: XR chest 2V DATE OF EXAM: 10/24/2018 HISTORY: dyspnea. REFERENCE: Previous study dated 10/22/2018. FINDINGS: There is a right-sided pleural-based mass in the right midlung. This is essentially unchang ed from previous. The left lung is clear. Pleural spaces are clear. Heart size upper limits of normal . IMPRESSION: STABLE RIGHT-SIDED PLEURAL-BASED MASS LIKELY RELATED TO THE PATIENT'S KNOWN LUNG CANCER.
[2018-10-24 08:32] VITALS: RESP 18
[2018-10-24] MEDS: ALPRAZolam 0.5 MG TAB PO PRN (09:13)
[2018-10-24 09:24] LABS: ALT 26 U/L (9-52); AST 14 U/L (14-36); African American GFR (CKD) >90 (>60 ml/min/1.73 sqM); Albumin 3.1 g/dL (3.5-5.0); Alkaline Phosphatase 77 U/L (38-126); Anion Gap 7 mmol/L; Blood Urea Nitrogen 15 mg/dL (7-17); Calcium 8.9 mg/dL (8.4-10.2); Carbon Dioxide 30 mmol/L (22-30); Chloride 98 mmol/L (98-107); Glucose 109 mg/dL (74-99); Potassium 3.9 mmol/L (3.5-5.1); Sodium 135 mmol/L (137-145); Total Bilirubin 0.6 mg/dL (0.2-1.3); Total Protein 5.2 g/dL (6.3-8.2)
[2018-10-24 11:34] LABS: Glucose,Whole Blood 193 mg/dL (75-99)
[2018-10-24 11:58] VITALS: BP 105/71; PULSE 83; TEMP 98
[2018-10-24] MEDS ORDERED: LEVOFLOXACIN 750 MG TAB PO SCH (16:00)
[2018-10-24 17:17] LABS: Glucose,Whole Blood 164 mg/dL (75-99)
--- NOTE | 2018-10-24 17:21 | P.DS ---
Providers Date of admission: 10/19/18 15:31 Expected date of discharge: 10/24/18 Attending physician: Ji Madera Consults: 10/19/18 15:31 Consult Physician Stat Consulting Provider: Navarro Pierre Consult Reason/Comments: critical care Do you want consulting provider notified?: Already Contacted Consult Physician Stat Consulting Provider: Bijan Romo Consult Reason/Comments: Oncological care Do you want consulting provider notified?: Already Contacted Primary care physician: Ji Madera Hospital Course: Ms. Belle is a 58-year-old female with the past medical history of metastatic adenocarcinoma of the lung admitted for weakness that has been going on for the past few days. Patient was also having poor intake by mouth along with some nausea. Patient was having significant hypotension at the time of admission, she was given IV fluids after which his symptoms resolved. Patient has been started on IV levofloxacin for a mild UTI. During the hospital course she was evaluated by oncology and pulmonary services. In the hospital patient was given IV fluids, levofloxacin and she showed significant improvement in her blood pressure and weakness. Patient's acute k idney injury has also resolved. Oncology services followed the patient and they will be starting radiation therapy and putting in the orders for chemotherapy with the treatment date of 10/29. Today the patient is lying comfortably in the bed appears to be no acute distress. Patient reports some weakness resolved and that she is back to her baseline. Denies having any fevers chills or rigors. No abdominal pain nausea vomiting or diarrhea. No hematuria or dysuria. She is completely asymptomatic. Reviewed the notes from Dr. Madera, which says that the patient is stable to be discharged home today. Patient completed her antibiotic course of levofloxacin for 5 days for her UTI. Blood cultures from negative. On physical exam HEENT: Mild pallor, no icterus Cardiovascular: S1 and S2 heard Respiratory: Bilateral breath sounds are positive. Musculoskeletal: Generalized weakness Psychiatric: Oriented 3. DISCHARGE DIAGNOSIS Acute hypotension with generalized weakness, consider intravascular volume depletion/dehydration. Metastatic adenocarcinoma of the lung with metastases to the brain, spine and liver. Acute kidney injury secondary to above creatinine is up to 1.1, improvement in the kidney function normalizes and the creatinine is down to 0.5 Hyperlipidemia History of chronic leukocytic leukemia/SLL Coronary artery disease with previous myocardial infarction Peripheral vascular disease Cardiomyopathy with an ejection fraction of 25% History of hypertension History of chronic lymphocytic leukemia/SLL treated back in 2014 PLAN: Patient completed 5 day course of levofloxacin for UTI. Have hypotension and generalized weakness resolved with IV fluids. Her creatinine is back to her baseline. Patient is being discharged home in fair condition. Overall prognos is is poor. She is advised to follow up with her PCP and oncology as scheduled. More than 35 minutes spent towards the discharge of the patient. Patient Condition at Discharge: Fair Plan - Discharge Summary New Discharge Prescriptions: Continue ALPRAZolam [Xanax] 0.5 mg PO TID PRN PRN Reason: Anxiety Prochlorperazine [Compazine] 10 mg PO BID PRN PRN Reason: Nausea Carvedilol [Coreg] 6.25 mg PO BID Spironolactone [Aldactone] 25 mg PO DAILY Losartan [Cozaar] 50 mg PO DAILY Isosorbide Mononitrate ER [Imdur] 30 mg PO DAILY Furosemide [Lasix] 20 mg PO DAILY Citalopram Hydrobromide [CeleXA] 10 mg PO DAILY Aspirin 81 mg PO DAILY #30 chew Nitroglycerin Sl Tabs [Nitrostat] 0.4 mg SUBLINGUAL Q5M PRN #20 tab PRN Reason: Chest Pain Atorvastatin [Lipitor] 20 mg PO DAILY HYDROcodone/APAP 7.5-325MG [[place] 7.5-325] 1 tab PO Q6HR PRN PRN Reason: Pain Dexamethasone [Hexadrol] 4 mg PO QID #60 tab Sennosides-Docusate Sodium [Senokot-S] 1 tab PO BID Discharge Medication List ALPRAZolam [Xanax] 0.5 mg PO TID PRN 01/30/15 [History] Carvedilol [Coreg] 6.25 mg PO BID 11/14/17 [History] Losartan [Cozaar] 50 mg PO DAILY 11/14/17 [History] Prochlorperazine [Compazine] 10 mg PO BID PRN 11/14/17 [History] Spironolactone [Aldactone] 25 mg PO DAILY 11/14/17 [History] Citalopram Hydrobromide [CeleXA] 10 mg PO DAILY 03/27/18 [History] Furosemide [Lasix] 20 mg PO DAILY 03/27/18 [History] Isosorbide Mononitrate ER [Imdur] 30 mg PO DAILY 03/27/18 [History] Aspirin 81 mg PO DAILY #30 chew 03/28/18 [Rx] Nitroglycerin Sl Tabs [Nitrostat] 0.4 mg SUBLINGUAL Q5M PRN #20 tab 03/28/18 [Rx] Atorvastatin [Lipitor] 20 mg PO DAILY 06/28/18 [History] HYDROcodone/APAP 7.5-325MG [[place] 7.5-325] 1 tab PO Q6HR PRN 07/07/18 [History] Dexamethasone [Hexadrol] 4 mg PO QID #60 tab 09/25/18 [Rx] Sennosides-Docusate Sodium [Senokot-S] 1 tab PO BID 10/19/18 [History] Follow up Appointment(s)/Referral(s): Ji Madera MD [Primary Care Provider] - 1-2 days Jeannette Ceja MD [STAFF PHYSICIAN] - 10/29/18 11:30 am (THIS APPT IS FOR 1st CHEMO) Activity/Diet/Wound Care/Special Instructions: DEXAMETHASONE TAPER INSTRUCTIONS: 4MG THREE TIMES A DAY FOR 5 DAYS, 4MG TWICE A DAY FOR 5 DAYS, 4MG ONCE A DAY FOR 5 DAYS, 2MG (1/2 TAB) DAILY FOR 5 DAYS THEN STOP ([facility], entered 10/23/18)
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
== END 2018-10-24 18:12 | disposition home or self-care (01) | DRG 872 ==
LOC: EC 11:51 → 2SICU 15:31 → 3NMEDONC 10-20 21:04
PROVIDERS: ADMIT Family Medicine; ATTEND Family Medicine
DX: A41.9 Sepsis, unspecified organism (principal); C34.90 Malignant neoplasm of unspecified part of unspecified bronchus or lung; C78.7 Secondary malignant neoplasm of liver and intrahepatic bile duct; C79.31 Secondary malignant neoplasm of brain; C79.51 Secondary malignant neoplasm of bone; C91.10 Chronic lymphocytic leukemia of B-cell type not having achieved remission; E87.2 Acidosis; N17.9 Acute kidney failure, unspecified; N39.0 Urinary tract infection, site not specified; E78.5 Hyperlipidemia, unspecified; E86.0 Dehydration; F17.210 Nicotine dependence, cigarettes, uncomplicated; F32.9 Major depressive disorder, single episode, unspecified; F41.9 Anxiety disorder, unspecified; G89.3 Neoplasm related pain (acute) (chronic); I10 Essential (primary) hypertension; I25.10 Atherosclerotic heart disease of native coronary artery without angina pectoris; I25.2 Old myocardial infarction; I25.5 Ischemic cardiomyopathy; I73.9 Peripheral vascular disease, unspecified; J44.9 Chronic obstructive pulmonary disease, unspecified; K21.9 Gastro-esophageal reflux disease without esophagitis; K52.9 Noninfective gastroenteritis and colitis, unspecified; R65.20 Severe sepsis without septic shock; Z79.82 Long term (current) use of aspirin; Z79.899 Other long term (current) drug therapy; Z80.1 Family history of malignant neoplasm of trachea, bronchus and lung; Z82.49 Family history of ischemic heart disease and other diseases of the circulatory system; Z87.440 Personal history of urinary (tract) infections; Z90.710 Acquired absence of both cervix and uterus; Z92.3 Personal history of irradiation; Z79.891 Long term (current) use of opiate analgesic; Z88.1 Allergy status to other antibiotic agents; Z88.8 Allergy status to other drugs, medicaments and biological substances; Z87.19 Personal history of other diseases of the digestive system; Z86.14 Personal history of Methicillin resistant Staphylococcus aureus infection; Z87.01 Personal history of pneumonia (recurrent)
CPT/HCPCS: 36415; 71045; 71046; 76700; 80053; 81001; 82550; 82553; 83605; 84484; 85025; 85027; 85610; 85730; 87040; 93005; 96361; 96365; 96374; 96375; 99291

== ENCOUNTER 2018-11-04 19:36 | Inpatient (IN) | payer OTHER ==
[2018-11-04] MEDS ORDERED: SODIUM CHLORIDE 0.9% 1,000 ML IV STA (19:58)
[2018-11-04] MEDS ORDERED: IPRATROPIUM-ALBUTEROL 3 ML NEB INHALATION STA (20:00)
[2018-11-04] MEDS ORDERED: methylPREDNISolone SOD SUCCI 125 MG/2 ML VIAL IV STA (20:00)
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
[2018-11-04] MEDS ORDERED: ONDANSETRON 4 MG TAB PO STA (20:19)
[2018-11-04] MEDS ORDERED: ONDANSETRON 4 MG/2 ML VIAL IVP STA (20:33)
[2018-11-04] MEDS ORDERED: MORPHINE SULFATE 4 MG/ML SYRINGE IVP STA ×2 (20:33→22:26)
[2018-11-04] MEDS ORDERED: NITROGLYCERIN SL TABS 0.4 MG TAB SUBLINGUAL STA (20:39)
[2018-11-04 21:01] LABS: ALT 35 U/L (9-52); AST 30 U/L (14-36); African American GFR (CKD) >90 (>60 ml/min/1.73 sqM); Albumin 4.3 g/dL (3.5-5.0); Alkaline Phosphatase 101 U/L (38-126); Amylase 79 U/L (30-110); Anion Gap 14 mmol/L; Blood Urea Nitrogen 29 mg/dL (7-17); Calcium 8.7 mg/dL (8.4-10.2); Carbon Dioxide 17 mmol/L (22-30); Chloride 101 mmol/L (98-107); Glucose 201 mg/dL (74-99); Magnesium 2.2 mg/dL (1.6-2.3); Potassium 5.2 mmol/L (3.5-5.1); Sodium 132 mmol/L (137-145); Total Bilirubin 1.5 mg/dL (0.2-1.3); Total Protein 6.9 g/dL (6.3-8.2)
[2018-11-04] MEDS ORDERED: NITROGLYCERIN-D5W PMX 50 MG in DEXTROSE/WATER 1 250ML.BAG IV ONE (21:10)
[2018-11-04] MEDS ORDERED: FAMOTIDINE 20 MG/2 ML VIAL IV STA (21:11)
[2018-11-04] MEDS ORDERED: diphenhydrAMINE 50 MG/ML 1 ML VIAL IVP STA (21:12)
[2018-11-04 21:13] LABS: INR 0.9 (<1.2); Prothrombin Time 9.9 sec (9.0-12.0)
[2018-11-04 21:15] LABS: Partial Thromboplastin Time 20.8 sec (22.0-30.0)
[2018-11-04 21:20] LABS: Anisocytosis Slight; HCT 46.7 % (34.0-46.0); MCH 31.3 pg (25.0-35.0); MCHC 33.8 g/dL (31.0-37.0); MCV 92.4 fL (80.0-100.0); Mean Platelet Volume 10.6; Platelet Count 142 k/uL (150-450); RBC 5.05 m/uL (3.80-5.40); RDW 17.6 % (11.5-15.5); WBC 10.5 k/uL (3.8-10.6)
[2018-11-04] MEDS ORDERED: HEPARIN SODIUM,PORCINE 5,000 UNIT/ML 1 ML VIAL IV ONE (21:20)
[2018-11-04 21:22] LABS: HGB 15.8 gm/dL (11.4-16.0)
[2018-11-04] MEDS ORDERED: HEPARIN SOD,PORK IN 0.45% NACL 25,000 UNIT in 0.45% NACL 1 250ML.BAG IV SCH (21:30)
[2018-11-04 21:45] LABS: Lymphocytes # (M) 9.77 k/uL (1.0-4.8); Neutrophils % (M) 7 %; Nucleated Red Blood Cells 0 /100 WBC (0-0); Total Cells Counted 100
[2018-11-04 21:46] LABS: Large Platelets Present; Poikilocytosis (M) Present
--- NOTE | 2018-11-04 22:16 | CT ---
EXAM: CT Head Without Intravenous Contrast CLINICAL HISTORY: ITS.REASON CT Reason: confusion TECHNIQUE: Axial computed tomography images of the head/brain without intravenous contrast. CTDI is 49.1 mGy and DLP is 1095 mGy-cm. This CT exam was performed using one or more of the following dose reduction techniques: automated exposure control, adjustment of the mA and/or kV according to patient size, and/or use of iterative reconstruction technique. COMPARISON: MRI brain 09/21/2018. FINDINGS: Brain: Chronic microvascular ischemic changes with chronic lacunar infarction of the left thalamus. No hemorrhage. Ventricles: Unremarkable. No ventriculomegaly. Bones/joints: Interval increase in size of left lateral orbital mass measuring 1.8 x 1.7 x 1.6 cm with associated osseous destruction. However, no significant intracranial extension is seen. There is mild extension into the extraconal fat of the left orbit. Scattered lucencies are seen in the calvarium which are favored to represent additional foci of metastatic disease. No acute fracture. Soft tissues: Unremarkable. Sinuses: Unremarkable as visualized. No acute sinusitis. Mastoid air cells: Unremarkable as visualized. No mastoid effusion. IMPRESSION: 1. No intracranial hemorrhage or other acute intracranial abnormality. 2. Interval increase in size of left orbital metastatic lesion as well as scattered lucencies in the calvarium which are also concerning for metastatic disease. 3. Chronic microvascular ischemic changes with chronic lacunar infarction of the left thalamus.
[2018-11-04] MEDS: SODIUM CHLORIDE 0.9% 1,000 ML IV SCH (22:18)
[2018-11-04] MEDS ORDERED: FUROSEMIDE 10 MG/ML 4 ML VIAL IV STA (22:25)
--- NOTE | 2018-11-04 22:28 | CT ---
EXAM: CT Angiography Chest With Intravenous Contrast CLINICAL HISTORY: ITS.REASON CT Reason: Pain TECHNIQUE: Axial computed tomographic angiography images of the chest with intravenous contrast using pulmonary embolism protocol. CTDI is 7.6 mGy and DLP is 267.6 mGy-cm. This CT exam was performed using one or more of the following dose reduction techniques: automated exposure control, adjustment of the mA and/or kV according to patient size, and/or use of iterative reconstruction technique. MIP reconstructed images were created and reviewed. COMPARISON: CT chest abdomen and pelvis 08/20/2018. FINDINGS: Pulmonary arteries: Unremarkable. No pulmonary embolism. Aorta: No acute findings. No thoracic aortic aneurysm. Lungs: Numerous nodular opacities are again seen in the lungs including spiculated lesion in the left upper lobe (series [id number] image [id number]). This measures up to 1.3 cm, increased in size from prior examination. Pleural space: Unremarkable. No significant effusion. No pneumothorax. Heart: Coronary artery atherosclerotic calcifications. No significant pericardial effusion. No evidence of RV dysfunction. Thyroid: Left thyroid nodule measuring up to 1.7 cm with internal calcification, unchanged from prior examination. Bones/joints: Right lateral fifth rib lesion with large soft tissue mass measuring up to 3 x 2.5 cm. This appears similar to prior examination. T7 vertebral body lesion with surrounding sclerosis concerning for osseous metastasis. Sclerotic lesion in the sternum. Old left anterolateral rib fractures. No dislocation. Soft tissues: Unremarkable. Lymph nodes: Left hilar lymphadenopathy with narrowing of the pulmonary arteries. Adrenals: Left adrenal mass measuring up to 4.4 cm appears unchanged. IMPRESSION: 1. No large pulmonary embolism or aortic dissection. 2. Interval increase in size of spiculated left upper lobe nodule measuring up to 13 mm as well as numerous scattered nodules in the lungs concerning for primary or metastatic lung malignancy. 3. T7 and right lateral fifth rib lesions as well as sclerotic lesion in the sternum concerning for osseous metastatic disease. 4. Left adrenal mass concerning for metastatic disease. 5. Left hilar lymphadenopathy concerning for juan metastasis. 6. Coronary artery atherosclerotic calcifications.
[2018-11-05] MEDS ORDERED: IPRATROPIUM-ALBUTEROL 3 ML NEB INHALATION PRN (00:01)
[2018-11-05] MEDS ORDERED: NALOXONE 0.4 MG/ML 1 ML VIAL IV PRN (00:01)
[2018-11-05] MEDS ORDERED: FUROSEMIDE 10 MG/ML 4 ML VIAL IV SCH (00:15)
[2018-11-05 00:22] LABS: Appearance,Urine Clear (Clear); Bilirubin,Urine Negative (Negative); Blood,Urine Negative (Negative); Color,Urine Colorless; Glucose,Urine (UA) Negative (Negative); Ketones,Urine Negative (Negative); Leukocyte Esterase,Urine Negative (Negative); Nitrite,Urine Negative (Negative); Protein,Urine Negative (Negative); Specific Gravity,Urine 1.008 (1.001-1.035); Urobilinogen,Urine <2.0 mg/dL (<2.0)
[2018-11-05] MEDS ORDERED: LORazepam 2 MG/ML INJ IV STA (01:02)
[2018-11-05 01:36] LABS: Glucose,Whole Blood 250 mg/dL (75-99)
[2018-11-05] MEDS: ONDANSETRON 4 MG/2 ML VIAL IVP PRN ×2 (02:20→17:45)
[2018-11-05] MEDS: MORPHINE SULFATE 4 MG/ML SYRINGE IVP PRN ×5 (02:20→23:51)
[2018-11-05 04:00] LABS: African American GFR (CKD) >90 (>60 ml/min/1.73 sqM); Anion Gap 11 mmol/L; Blood Urea Nitrogen 25 mg/dL (7-17); Carbon Dioxide 18 mmol/L (22-30); Chloride 102 mmol/L (98-107); Cholesterol 148 mg/dL (<200); Glucose 249 mg/dL (74-99); HDL Cholesterol 40 mg/dL (40-60); LDL Cholesterol,Calculated 67 mg/dL (0-99); Potassium 4.2 mmol/L (3.5-5.1); Sodium 131 mmol/L (137-145); Triglycerides 206 mg/dL (<150)
[2018-11-05 04:20] LABS: HCT 38.9 % (34.0-46.0); MCH 30.6 pg (25.0-35.0); MCHC 32.7 g/dL (31.0-37.0); MCV 93.7 fL (80.0-100.0); Mean Platelet Volume 9.6; Platelet Count 98 k/uL (150-450); RBC 4.15 m/uL (3.80-5.40); WBC 6.9 k/uL (3.8-10.6)
[2018-11-05 04:25] LABS: HGB 12.7 gm/dL (11.4-16.0)
[2018-11-05 05:13] LABS: Lymphocytes # (M) 5.73 k/uL (1.0-4.8); Monocytes # (M) 0.07 k/uL (0-1.0); Neutrophils % (M) 16 %; Nucleated Red Blood Cells 0 /100 WBC (0-0); Total Cells Counted 100
[2018-11-05] MEDS: PANTOPRAZOLE 40 MG TABLET PO SCH (06:35)
--- NOTE | 2018-11-05 07:24 | XR ---
EXAMINATION TYPE: XR chest 1V portable DATE OF EXAM: 11/05/2018 CLINICAL HISTORY: Difficulty breathing progress study. History of lung and bone cancer. TECHNIQUE: Single AP portable upright view of the chest is obtained. COMPARISON: Chest x-ray from October 24, 2018. CTA chest from yesterday. FINDINGS: There is chronic parenchymal change without new suspicious focal airspace opacity, pleural effusion, or pneumothorax seen currently. Cardiac silhouette size is stable and upper limits of norm al to atherosclerotic thoracic aorta. Expansile right lateral mid rib lesion is redemonstrated. Spicu lated left upper lung nodule seen better on recent CT versus x-ray. IMPRESSION: Overall stable findings, no suspicious new acute pulmonary process.
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
[2018-11-05] MEDS: CITALOPRAM HYDROBROMIDE 10 MG TAB PO SCH (09:40)
[2018-11-05] MEDS: HYDROcodone/APAP 7.5-325MG 1 EACH TAB PO PRN ×2 (09:40→17:44)
[2018-11-05] MEDS: ISOSORBIDE MONONITRATE ER 60 MG TAB.ER.24H PO SCH (09:40)
[2018-11-05] MEDS: ATORVASTATIN 20 MG TAB PO SCH (09:41)
[2018-11-05] MEDS: DEXAMETHASONE 4 MG TAB PO SCH ×4 (09:41→21:56)
[2018-11-05] MEDS: FUROSEMIDE 10 MG/ML 4 ML VIAL IV SCH ×2 (09:42→20:29)
[2018-11-05] MEDS: SPIRONOLACTONE 25 MG TAB PO SCH (09:42)
[2018-11-05] MEDS: ASPIRIN 81 MG PO SCH (09:42)
[2018-11-05] MEDS: LOSARTAN 25 MG TAB PO SCH (09:44)
[2018-11-05] MEDS: SODIUM CHLORIDE 0.9% 1,000 ML IV SCH ×2 (09:46→18:45)
[2018-11-05] MEDS: CARVEDILOL 6.25 MG TAB PO SCH ×2 (09:46→18:44)
--- NOTE | 2018-11-05 11:00 | ECHOF ---
Referral Reason:[facility] MEASUREMENTS -------- HEIGHT: 157.5 cm WEIGHT: 64.0 kg BP: 112/75 IVSd: 1.1 cm (0.6 - 1.1) LVIDd: 4.5 cm (3.9 - 5.3) LVPWd: 1.3 cm (0.6 - 1.1) IVSs: 1.1 cm LVIDs: 3.9 cm LVPWs: 1.2 cm LAESV Index (A-L): 26.34 ml/m Ao Diam: 2.5 cm (2.0 - 3.7) AV Cusp: 1.6 cm (1.5 - 2.6) LA Diam: 2.8 cm (2.7 - 3.8) MV EXCURSION: 13.189 mm (> 18.000) MV EF SLOPE: 53 mm/s (70 - 150) EPSS: 1.5 cm MV E Get: 0.64 m/s MV DecT: 266 ms MV A Get: 1.33 m/s MV E/A Ratio: 0.48 AV maxP.63 mmHg AV meanP.02 mmHg AR PHT: 215 ms RAP: 5.00 mmHg RVSP: 16.07 mmHg FINDINGS -------- Sinus rhythm. This was a technically difficult study with suboptimal views. The left ventricular size is normal. Left ventricular wall thickness is normal. There is severe g lobal hypokinesis of LV . Overall left ventricular systolic function is severely impaired with, an EF between 20 - 25 %. septum is dyskinetic. The right ventricle is normal in size. Normal LA size by volume 22+/-6 ml/m2. The right atrial size is normal. Lumason used Interatrial and interventricular septum intact. Aortic valve is trileaflet and is mildly thickened. The mitral valve is normal. The mitral valve leaflets are mildly thickened. Mild mitral annular c alcification present. Mild mitral regurgitation is present. The tricuspid valve appears structurally normal. Mild tricuspid regurgitation present. Right vent ricular systolic pressure is normal at < 35 mmHg. There is no pulmonic regurgitation present. The aortic root size is normal. IVC Not well visulized. There is no pericardial effusion. CONCLUSIONS -------- 1. Sinus rhythm. 2. This was a technically difficult study with suboptimal views. 3. The left ventricular size is normal. 4. Left ventricular wall thickness is normal. 5. There is severe global hypokinesis of LV . septum is dyskinetic. 6. Overall left ventricular systolic function is severely impaired with, an EF between 20 - 25 %. 7. The right ventricle is normal in size. 8. Normal LA size by volume 22+/-6 ml/m2. 9. The right atrial size is normal. 10. Lumason used 11. Interatrial and interventricular septum intact. 12. Aortic valve is trileaflet and is mildly thickened. 13. The mitral valve is normal. 14. The mitral valve leaflets are mildly thickened. 15. Mild mitral annular calcification present. 16. Mild mitral regurgitation is present. 17. The tricuspid valve appears structurally normal. 18. Mild tricuspid regurgitation present. 19. Right ventricular systolic pressure is normal at < 35 mmHg. 20. There is no pulmonic regurgitation present. 21. The aortic root size is normal. 22. IVC Not well visulized. 23. There is no pericardial effusion. HYDROBLASTER: Christel Askew RDCS
--- NOTE | 2018-11-05 12:02 | CONS ---
CONSULTATION PULMONARY/CRITICAL CARE CONSULTATION: DATE OF CONSULTATION: 11/05/2018 This is a 58-year-old female with metastatic lung cancer. She apparently has adenocarcinoma with metastasis to the brain and bone. She presented to the emergency room via EMS with severe chest pain. She also had some difficulty breathing. She has had a previous history of CAD and MIs in the past. Her flight surveyor is Dr. Stubbs. She receives nitroglycerin prior to arrival. She apparently was recently in the hospital and was treated for sepsis secondary to a urinary tract infection with Levaquin. She also is undergoing some radiation treatment with Dr. Haynes for her lung cancer and chemotherapy for with Dr. Ceja for her lung cancer. Anyway, the patient was admitted to the unit. She apparently has significant elevation of troponins and also some ischemic changes on EKG. Cardiology was notified. They were not interested at this point doing anything interventionally and recommended medical management which is likely very appropriate given her history. She is currently on a couple liters. Most the time she does not have it on. Her saturations are excellent. She is on saline at 100 mL an hour, nitroglycerin at 7.5 mcg/minute. She was admitted to the hospital on 11/04 and came to the ICU on 11/05. In addition, she apparently has a history of underlying COPD from chronic tobacco dependence, chronic lymphocytic leukemia, GI bleed, CAD with previous PCIs without stenting, some peripheral artery disease with stenting. Her primary is Dr. Madera. I asked about a soaping machine back tender and apparently she has not seen one. Anyway, she is not having any chest pain currently. We did talk about life support and the life issues. She is going to give it some thought. . HOME MEDICATIONS: Include Xanax, Coreg, Cozaar, Compazine, Aldactone, Celexa, Lasix, Imdur, Lipitor, [place] and Senokot. She also apparently has aspirin and Decadron for her brain mets. ALLERGIES: Include IODINE, MINOCYCLINE, and TETRACYCLINE. MEDICAL HISTORY: CAD, lung cancer, metastatic to the brain and bone, angina pectoris, COPD, GERD, GI bleed, hypertension, SC, DJD and peripheral artery disease. In addition, she has a history of CLL. Her lung cancer is metastatic adenocarcinoma. In addition, she apparently has evidence of cardiomyopathy with ejection fraction of 25% to 30%. SURGICAL HISTORY: Includes breast surgery, heart catheterization, hysterectomy, vascular procedures with lower extremity stent, tonsillectomy, bone marrow biopsies, rib biopsy and some other minor procedures. SOCIAL HISTORY: Positive for previous tobacco use. Does not smoke currently. She does use marijuana. Denies any alcohol use. FAMILY HISTORY: Positive for brother with CAD. Daughter with no health issues. Mother with heart failure and CAD, status post CABG and a father with history of lung cancer with METS to the brain. REVIEW OF SYSTEMS: CONSTITUTIONAL: Negative. NEUROLOGIC: Negative. HEENT: Negative. CARDIOVASCULAR: Chest pain, improved. PULMONARY: Shortness of breath, resolved. GI: Negative. : Negative. RHEUMATOLOGIC: Negative. IMMUNOLOGIC: Negative. ENDOCRINOLOGIC: Negative. DERMATOLOGIC: Negative. Current vital signs include a temperature of 97,8, heart rate 90, respiratory rate 20, blood pressure 112/75 mean 87, saturations are 96% off of oxygen. Appears in no acute distress. HEENT: Examination is grossly unremarkable. Mucous membranes are moist. NECK: Supple. Full range of motion. No adenopathy or thyromegaly. Neck veins are flat. CARDIOVASCULAR: Examination reveals regular rhythm and rate. Heart rate about 85 beats per minute. S1, S2 normal. No murmur noted. LUNGS: Reveal mostly clear breath sounds. No wheezes or rhonchi. Breath sounds are diminished throughout. Slight prolongation on forced maneuver. ABDOMEN: Soft. Bowel sounds are heard. EXTREMITIES: Intact. No cyanosis, clubbing, or edema. SKIN: Without rash. NEUROLOGIC: Examination is nonfocal. LABS: Reviewed. White count 6.9, hemoglobin 12.7, hematocrit 38.9, platelet count 98,000. Sodium 131, potassium 4.2, chloride 102, CO2 is 18, anion gap is 11, BUN and creatinine were 25 and 0.62. Total bilirubin is 1.5. Her N-terminal proBNP was 22,400. Troponins were 0.214 and 0.188. Urine was negative. EKG is reviewed. Chest x-ray shows some mild interstitial changes, likely consistent with some interstitial edema. A brain CT shows no intracranial hemorrhage or acute intracranial abnormality. There is interval increase in the size of the left orbital metastatic lesion as well as scattered lucencies in the calvarium which are also concerning for metastatic disease. Also, there is some chronic microvascular ischemic changes with chronic lacunar infarction of the left thalamus. Chest CTA shows no large pulmonary embolism or aortic dissection. There is interval increase in size of spiculated left upper lung nodule measuring up to 13 mm as well as numerous scattered nodules in the lungs concerning for primary metastatic lung cancer. There is also a T7 and right lateral fifth rib lesion concerning for metastatic disease. There is also a left adrenal mass concerning for metastatic disease. Left hilar adenopathy consistent with metastasis and coronary artery calcifications. Medications are reviewed. ASSESSMENT: 1. Acute myocardial ischemia secondary to underlying coronary artery disease. 2. Recent admission to the hospital with sepsis and urinary tract infection. 3. Metastatic lung cancer with brain metastasis, multiple pulmonary metastasis and multiple bony metastasis as well as adrenal metastasis. 4. Ongoing chemotherapy and radiation therapy with Dr. Ceja and Dr. Haynes respectively. 5. Chronic obstructive pulmonary disease secondary to chronic tobacco use. 6. History of chronic lymphocytic leukemia. 7. Coronary artery disease. 8. Peripheral artery disease, status post stent placement. 9. History of gastrointestinal bleed. PLAN: Currently the patient is on saline IV and nitroglycerin. Cardiology has been notified. She is receiving some Lasix IV push. In addition, she is getting some breathing treatments. She is also getting morphine for pain control as well as her IV nitroglycerin. Other medications include Zofran. Will continue to follow. Her overall prognosis is poor. I have talked to her about code status. With her widely metastatic lung cancer, some consideration should be given to either palliative care and/or hospice should her condition declined. For the time being, she will be treated medically. Will continue to follow. Additional recommendations will be made. MMODL / IJN: [id number] /
--- NOTE | 2018-11-05 12:11 | CONS ---
CONSULTATION Mrs. Belle is a 58-year-old female who presented to the emergency room with symptoms of progressive anxiety, dyspnea and back and chest discomfort. The patient has a known history of coronary artery disease. She is followed by Dr. Neelam Reyes. Jose has a known occluded mid left circumflex with mild disease in the RCA and the LAD with severely impaired left ventricular systolic function. She also has a history of severe peripheral vascular disease status post revascularization of her left lower extremity by Dr. Stubbs. She has a history of CLL diagnosed in 2001, but recently was diagnosed with metastatic lung cancer with bone and brain metastasis. She has been followed by Dr. Ceja as well as received radiation therapy. She is limited in her physical activity with dyspnea on exertion. She has occasional dizziness and palpitation. No peripheral edema. No clear PND, orthopnea, or syncope. She had similar back discomfort in the past. On presentation to the emergency room, she had mild elevation of her troponin. Her coronary risk factors are remarkable for the history of smoking, history of hypertension and hyperlipidemia. She is nondiabetic. MEDICATIONS: Her medications include aspirin once a day, Lipitor 20 mg daily, Coreg 6.25 mg twice a day, Celexa 10 mg daily, dexamethasone, Lasix 20 mg daily, isosorbide mononitrate 30 mg daily, Cozaar 50 mg daily, Compazine, and Aldactone 25 mg daily. REVIEW OF SYSTEMS: RESPIRATORY SYSTEM: She has history of lung cancer with metastasis. History of dyspnea on exertion. History of chronic tobacco use. GI SYSTEM: She has prior history of colitis, but recently has noted tarry stool. SYSTEM: No dysuria or hematuria. NERVOUS SYSTEM: She denies any stroke or seizure. She has a history of brain metastasis. PHYSICAL EXAMINATION: She is a 58-year-old female, alert, oriented, in no apparent distress. Blood pressure 112/70 with the heart rate in the 90s. HEAD: Normocephalic. EYES: Sclerae anicteric. NECK: Good carotid upstroke. No bruit. No jugular venous distention. LUNGS: With decreased air exchange, no wheezes. HEART: Regular rate and rhythm. S1, S2. No S3. No S4. No rub. ABDOMEN: Soft, nontender. Positive bowel sounds. No organomegaly. EXTREMITIES: No edema. Decreased distal pulses. LAB DATA: Lab data revealed a NT proBNP of 22,400. Troponin of 0.214 and 0.188. BUN and creatinine of 25 and 0.62. Potassium 4.2, sodium 131. Hemoglobin was 15.8 on admission, 12.7 on subsequent report early this morning. EKG revealed a sinus mechanism, rate of 101, rare PVCs, evidence of biatrial enlargement with QS in the anterior leads and T-wave inversion laterally that was noted in the past. Chest x-ray shows no new infiltrate. She has spiculated left upper lung nodular and right lateral rib lesion. She had a chest CT that revealed the increase in the size of her left upper lobe nodule and lesion in the T6 and right lateral 5th rib. There is a left adrenal mass suggestive of metastatic disease as well as left hilar lymphadenopathy. She had a brain CT revealed an increase in the size of the left orbital metastatic lesion. IMPRESSION: 1. Symptoms of back and chest discomfort with minimal elevation of troponin of unclear etiology. Patient has a known history of coronary artery disease, but by repeat cardiac catheterization in March of this year, there was no progression of disease. These symptoms could be related to a non ST-segment elevation myocardial infarction. 2. History of metastatic lung cancer with progression of disease according to the testing done. 3. History of chronic lymphocytic leukemia. 4. History of peripheral vascular disease. 5. History of severe cardiomyopathy. 6. Elevated NT proBNP with no overt signs of congestive heart failure on examination. RECOMMENDATION: From the cardiac standpoint, I will continue her routine medical therapy. Patient is not a candidate for any aggressive cardiac workup looking at her overall status. The prognosis is quite poor. We will await the input of Dr. Monk as well as the oncology service. Thank you for this consult. We will follow with you. MMODL / IJN: [id number] /
[2018-11-05] MEDS: ALPRAZolam 0.5 MG TAB PO PRN ×2 (12:25→20:29)
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
[2018-11-06] MEDS: ONDANSETRON 4 MG/2 ML VIAL IVP PRN ×4 (03:34→21:11)
[2018-11-06] MEDS: MORPHINE SULFATE 4 MG/ML SYRINGE IVP PRN ×5 (03:34→21:09)
[2018-11-06] MEDS: SODIUM CHLORIDE 0.9% 1,000 ML IV SCH ×2 (05:31→14:42)
[2018-11-06 05:54] LABS: HCT 34.7 % (34.0-46.0); HGB 11.6 gm/dL (11.4-16.0); MCH 31.1 pg (25.0-35.0); MCHC 33.4 g/dL (31.0-37.0); MCV 93.3 fL (80.0-100.0); Mean Platelet Volume 9.5; RBC 3.72 m/uL (3.80-5.40); RDW 15.8 % (11.5-15.5); WBC 6.6 k/uL (3.8-10.6)
[2018-11-06 06:03] LABS: African American GFR (CKD) >90 (>60 ml/min/1.73 sqM); Anion Gap 7 mmol/L; Blood Urea Nitrogen 17 mg/dL (7-17); Carbon Dioxide 24 mmol/L (22-30); Chloride 100 mmol/L (98-107); Glucose 220 mg/dL (74-99); Potassium 3.6 mmol/L (3.5-5.1); Sodium 131 mmol/L (137-145)
[2018-11-06 06:17] LABS: Calcium 6.2 mg/dL (8.4-10.2)
[2018-11-06 06:45] LABS: Platelet Count 83 k/uL (150-450)
[2018-11-06 06:47] LABS: Neutrophils % (M) 3 %
[2018-11-06 06:48] LABS: Lymphocytes # (M) 6.27 k/uL (1.0-4.8); Monocytes # (M) 0.13 k/uL (0-1.0); Nucleated Red Blood Cells 0 /100 WBC (0-0); Total Cells Counted 100
[2018-11-06 06:52] LABS: Large Platelets Present
[2018-11-06] MEDS: CARVEDILOL 6.25 MG TAB PO SCH ×2 (07:00→17:48)
[2018-11-06] MEDS: PANTOPRAZOLE 40 MG TABLET PO SCH (07:00)
[2018-11-06] MEDS ORDERED: POTASSIUM CHLORIDE ER 20 MEQ TAB.ER PO SCH (07:00)
[2018-11-06] MEDS: LOSARTAN 25 MG TAB PO SCH (08:04)
[2018-11-06] MEDS: SPIRONOLACTONE 25 MG TAB PO SCH (08:04)
[2018-11-06] MEDS: DEXAMETHASONE 4 MG TAB PO SCH ×4 (08:04→22:35)
[2018-11-06] MEDS: ATORVASTATIN 20 MG TAB PO SCH (08:04)
[2018-11-06] MEDS: ALPRAZolam 0.5 MG TAB PO PRN ×3 (08:04→22:36)
[2018-11-06] MEDS: ASPIRIN 81 MG PO SCH (08:04)
[2018-11-06] MEDS: ISOSORBIDE MONONITRATE ER 60 MG TAB.ER.24H PO SCH (08:04)
[2018-11-06] MEDS: CITALOPRAM HYDROBROMIDE 10 MG TAB PO SCH (08:04)
[2018-11-06] MEDS: FUROSEMIDE 10 MG/ML 4 ML VIAL IV SCH (08:05)
--- NOTE | 2018-11-06 08:23 | PN ---
PROGRESS NOTE Mrs. Belle is a 58-year-old female with a known history of coronary artery disease, history of metastatic lung cancer, history of severely impaired left ventricular systolic function as well as severe peripheral vascular disease, who presented with back discomfort. She still had mild discomfort, but otherwise feeling better. Her breathing has been stable. She denies any dizziness or palpitation. She denies any nausea. No cough or fever. She has underwent an echocardiogram that revealed ejection fraction 20% to 25% with mild mitral and tricuspid regurgitation. No evidence of pulmonary hypertension. She continues to be at this time on aspirin 81 mg daily, Coreg 6.25 mg twice a day, Lipitor 20 mg daily, Lasix 40 mg IV q.12 hours, isosorbide mononitrate 60 mg daily, spironolactone 25 mg daily and losartan 25 mg daily. PHYSICAL EXAMINATION: Blood pressure running in the high 90s low 100s with the heart rate in the 80s. LUNGS: With decreased air exchange, no wheezes. HEART: Regular rate and rhythm. S1, S2. No S3. No rub. ABDOMEN: Soft, nontender. Positive bowel sounds. No organomegaly. EXTREMITIES: No edema. IMPRESSION: 1. Metastatic lung cancer. 2. Symptoms of back discomfort. No clear evidence to suggest acute coronary syndrome. 3. Mild troponin elevation, not indicative of an acute coronary syndrome. 4. History of coronary artery disease. 5. Peripheral vascular disease. 6. History of chronic lymphocytic leukemia. RECOMMENDATION: I will switch her to oral diuretic, increase her level of activity. From the cardiac standpoint, she is stable to be transferred to the telemetry floor and increase her level of activity as tolerated. MMODL / IJN: [id number] /
[2018-11-06] MEDS ORDERED: LORazepam 2 MG/ML INJ IV SCH (08:30)
[2018-11-06] MEDS ORDERED: HYDROmorphone 1 MG/ML 1 ML SYRINGE IVP SCH (08:30)
--- NOTE | 2018-11-06 08:49 | P.PN ---
Subjective Progress Note Date: 11/06/18 Principal diagnosis: metastatic lung cancer with brain metastasis, back discomfort, mildly elevated troponins On 11/06/2018 patient seen in follow-up in intensive care unit, she is awake and alert, in no acute distress, she did have an episode of chest pain this morning, resolved spontaneously, denies any shortness of breath, denies any dizziness, denies any palpitations, no nausea, no cough, breathing is stable, she is afebrile, echocardiogram showed ejection fraction of 20-25% with mild mitral and tricuspid regurgitation, no evidence of pulmonary hypertension, she is on room air, her pulse ox is 93-94%, she is afebrile, hemodynamically stable, no acute events overnight. Cardiology is following, and managing her medically. Patient has been cleared to go out of the intensive care unit today to stepdown floor. Hospice has been consulted, patient has advanced static lung cancer, is considering her options, including palliative care/hospice Objective - Vital Signs Vital signs: Vital Signs Temp 97.9 F 11/06/18 04:00 Pulse 82 11/06/18 06:00 Resp 12 11/06/18 06:00 BP 96/65 11/06/18 06:00 Pulse Ox 93 L 11/06/18 06:00 Intake & Output 11/05/18 11/06/18 11/06/18 18:59 06:59 18:59 Intake Total 1780 1340 500 Output Total 1300 2150 Balance 480 -810 500 Weight 64 kg 65 kg Intake: IV 1300 900 Sodium Chloride 0.9% 1, 1300 900 000 ml @ 100 mls/hr IV . Q10H [facility] Rx#:[id number] Intake, IV Titration 200 100 Amount Sodium Chloride 0.9% 1, 200 100 000 ml @ 100 mls/hr IV . Q10H [facility] Rx#:[id number] Oral 480 240 400 Output: Urine 1300 2150 Other: Voiding Method Bedside Commode Bedside Commode - Exam GENERAL EXAM: Alert, pleasant, 58-year-old white female on room air with pulse ox of 93-94% comfortable in no apparent distress. HEAD: Normocephalic/atraumatic. EYES: Normal reaction of pupils, equal size. Conjunctiva pink, sclera white. NOSE: Clear with pink turbinates. THROAT: No erythema or exudates. NECK: No masses, no JVD, no thyroid enlargement, no adenopathy. CHEST: No chest wall deformity. Symmetrical expansion. LUNGS: Equal air entry with no crackles, wheeze, rhonchi or dullness. CVS: Regular rate and rhythm, normal S1 and S2, no gallops, no murmurs, no rubs ABDOMEN: Soft, nontender. No hepatosplenomegaly, normal bowel sounds, no guarding or rigidity. EXTREMITIES: No clubbing, no edema, no cyanosis, 2+ pulses and upper and lower extremities. MUSCULOSKELETAL: Muscle strength and tone normal. SPINE: No scoliosis or deformity SKIN: No rashes CENTRAL NERVOUS SYSTEM: Alert and oriented -3. No focal deficits, tone is n ormal in all 4 extremities. PSYCHIATRIC: Alert and oriented -3. Appropriate affect. Intact judgment and insight. - Labs CBC & Chem 7: 11/06/18 05:32 11/06/18 05:32 Labs: Abnormal Lab Results - Last 24 Hours (Table) 11/05/18 11/06/18 11/06/18 Range/Units 09:09 05:32 05:32 RBC 3.72 L (3.80-5.40) m/uL RDW 15.8 H (11.5-15.5) % Plt Count 83 L (150-450) k/uL Neutrophils # (Manual) 0.20 L* (1.3-7.7) k/uL Lymphocytes # (Manual) 6.27 H (1.0-4.8) k/uL Sodium 131 L (137-145) mmol/L Creatinine 0.44 L (0.52-1.04) mg/dL Glucose 220 H (74-99) mg/dL Calcium 6.2 L* (8.4-10.2) mg/dL Troponin I 0.149 H* (0.000-0.034) ng/mL Microbiology - Last 24 Hours (Table) 11/04/18 21:33 Blood Culture - Preliminary Blood No Growth after 24 hours Assessment and Plan Plan: #1. Metastatic lung cancer with metastasis to the brain #2. Symptoms of back discomfort, mildly elevated troponins, cardiology is following, her symptoms are not thought related to acute coronary syndrome #3. Coronary artery disease #4. Peripheral vascular disease #6. History of chronic lymphocytic leukemia #7. Chronic obstructive pulmonary disease secondary to chronic tobacco use, currently stable #8. History of gastrointestinal bleeding Plan: Breathing is stable, vital signs are stable, cardiology is following, and has cleared the patient to be transferred to stepdown floor today, patient is on room air, her breathing is stable, continue with nebulized bronchodilators, continue morphine for pain control. Patient is meeting with the hospice this morning, she is considering her options including palliative care/hospice care. The oncology service is following. Currently no chest pain. Cardiology is managing the patient medically. We'll continue to follow, stable for transfer to stepdown floor today I performed a history & physical examination of the patient and discussed their management with my nurse practitioner, Liz Helm. I reviewed the nurse practitioner's note and agree with the documented findings and plan of care. Lung sounds are positive for diminished breath sounds at the bases. The findings and the impression was discussed with the patient. I attest to the documentation by the nurse practitioner. Time with Patient: Less than 30
--- NOTE | 2018-11-06 08:57 | XR ---
EXAMINATION TYPE: XR chest 1V portable DATE OF EXAM: 11/06/2018 COMPARISON: 11/05/2018 INDICATION: Short of breath TECHNIQUE: Single frontal view of the chest is obtained. FINDINGS: The heart size is normal. The pulmonary vasculature is normal. The lungs are clear. IMPRESSION: 1. No acute pulmonary process.
[2018-11-06] MEDS: FUROSEMIDE 40 MG TAB PO SCH (09:50)
[2018-11-06] MEDS: HYDROcodone/APAP 7.5-325MG 1 EACH TAB PO PRN ×3 (09:53→21:12)
[2018-11-06] MEDS: FOLIC ACID 1 MG TAB PO SCH (13:03)
[2018-11-06] MEDS ORDERED: CALCIUM GLUCONATE 2 GM in SODIUM CHLORIDE 0.9% 100 ML IVPB ONE (13:30)
--- NOTE | 2018-11-06 13:51 | P.PN ---
Subjective Progress Note Date: 11/06/18 Principal diagnosis: Metastatic Cancer patient appears better clinically today, Calcium is low (Ionized 3.3) and ANC is = 0.20. Oxygen saturation on room air adequate. Afebrile Objective - Vital Signs Vital signs: Vital Signs Temp 98.7 F 11/06/18 07:00 Pulse 83 11/06/18 10:00 Resp 20 11/06/18 10:00 BP 102/67 11/06/18 10:00 Pulse Ox 95 11/06/18 10:00 Intake & Output 11/05/18 11/06/18 11/06/18 18:59 06:59 18:59 Intake Total 1780 1340 800 Output Total 1300 2150 900 Balance 480 -810 -100 Weight 64 kg 65 kg Intake: IV 1300 900 300 Sodium Chloride 0.9% 1, 1300 900 300 000 ml @ 100 mls/hr IV . Q10H [facility] Rx#:[id number] Intake, IV Titration 200 100 Amount Sodium Chloride 0.9% 1, 200 100 000 ml @ 100 mls/hr IV . Q10H [facility] Rx#:[id number] Oral 480 240 400 Output: Urine 1300 2150 900 Other: Voiding Method Bedside Commode Bedside Commode - Exam Gen: Alert and Oriented, NAD Head: NCNT Neck Supple Heart Irreg Lungs No increased effort CTA B Abdomen: S/ND/NT Ext: No Rash, No Edema, Equal Strength Psych: Calm and Cooperative Neuro: No Focal Deficits Noted. - Labs CBC & Chem 7: 11/06/18 05:32 11/06/18 05:32 Labs: Abnormal Lab Results - Last 24 Hours (Table) 11/06/18 11/06/18 11/06/18 Range/Units 05:32 05:32 09:30 RBC 3.72 L (3.80-5.40) m/uL RDW 15.8 H (11.5-15.5) % Plt Count 83 L (150-450) k/uL Neutrophils # (Manual) 0.20 L* (1.3-7.7) k/uL Lymphocytes # (Manual) 6.27 H (1.0-4.8) k/uL Sodium 131 L (137-145) mmol/L Creatinine 0.44 L (0.52-1.04) mg/dL Glucose 220 H (74-99) mg/dL Calcium 6.2 L* (8.4-10.2) mg/dL Ionized Calcium Amna 3.3 L* (4.5-5.3) mg/dL Microbiology - Last 24 Hours (Table) 11/04/18 21:33 Blood Culture - Preliminary Blood No Growth after 24 hours Assessment and Plan Plan: Assessment and Recommendations: Metastatic Adenocarcinoma Lung: - Mets to Liver, Bones, isolated lesion to Brain (status Post SRS) - Status Post one cycle of Carboplatin, Almta and Keytruda - Status POst ZOmeta for bone Lesions - Dr. Haynes is following for palliative radiation to bone - Last treatment 10.29.18 - Continue Folic Acid with treatment Almta Neutropenia: Secondary to Chemotherapy - ANC 0.20 - Start Granix - WBC appear increased at baseline from hx: CLL, although neutropenia per ANC - Neutropenic precautions thrombocytopenia: - Within safe range, secondary to chemotherapy Hypocalcemia: - infection versus Biphosphonate treatment - 2Grams Calciu, Gluconate ordered and recheck CMP, ionized calcium in am along with Mag Chest Pain, CHF: -Cardiology Following and unable to undergo any invasive procedure due to extent of cancer CLL - Original diagnosis and treatment 2014 - Continued monitoring - Treated previously with Rituxan and Treanda - Last year with Imbruiva prior to NSCLCA diagnosis PLan: - DISPO Per Primary Team - Follow-up with Dr. Ceja prior to next treatment after discharge - Monitor for infection and bleeding.
[2018-11-06] MEDS ORDERED: SALT AND SODA MOUTHWASH 1,000 ML PO PRN (14:28)
[2018-11-06] MEDS: FILGRASTIM-SNDZ 480 MCG/0.8 ML SYRINGE SQ SCH (14:43)
[2018-11-06] MEDS: PROCHLORPERAZINE 10 MG TAB PO PRN (18:24)
[2018-11-07] MEDS: SODIUM CHLORIDE 0.9% 1,000 ML IV SCH (02:16)
[2018-11-07] MEDS: MORPHINE SULFATE 4 MG/ML SYRINGE IVP PRN ×5 (02:16→20:16)
[2018-11-07] MEDS: HYDROcodone/APAP 7.5-325MG 1 EACH TAB PO PRN ×3 (04:45→18:54)
[2018-11-07 05:04] LABS: Anisocytosis Slight; Basophils % (A) 0 %; Eosinophils % (A) 0 %; HGB 11.6 gm/dL (11.4-16.0); Lymphocytes # (A) 4.8 k/uL (1.0-4.8); Lymphocytes % (A) 56 %; MCHC 33.2 g/dL (31.0-37.0); MCV 93.2 fL (80.0-100.0); Mean Platelet Volume 10.2; Monocytes # (A) 0.1 k/uL (0-1.0); Monocytes % (A) 1 %; Neutrophils # (A) 3.4 k/uL (1.3-7.7); Neutrophils % (A) 39 %; RBC 3.75 m/uL (3.80-5.40); RDW 16.6 % (11.5-15.5); WBC 8.7 k/uL (3.8-10.6)
[2018-11-07 05:08] LABS: Platelet Count 71 k/uL (150-450)
[2018-11-07 05:15] LABS: African American GFR (CKD) >90 (>60 ml/min/1.73 sqM); Anion Gap 8 mmol/L; Blood Urea Nitrogen 20 mg/dL (7-17); Calcium 6.7 mg/dL (8.4-10.2); Carbon Dioxide 22 mmol/L (22-30); Chloride 102 mmol/L (98-107); Glucose 275 mg/dL (74-99); Potassium 3.9 mmol/L (3.5-5.1); Sodium 132 mmol/L (137-145)
[2018-11-07] MEDS: PANTOPRAZOLE 40 MG TABLET PO SCH (07:04)
[2018-11-07] MEDS: CARVEDILOL 6.25 MG TAB PO SCH ×2 (07:04→17:30)
[2018-11-07] MEDS: INSULIN ASPART (NovoLOG) 100 UNIT/ML VIAL SQ SCH ×4 (07:04→20:17)
[2018-11-07 07:06] LABS: Glucose,Whole Blood 322 mg/dL (75-99)
--- NOTE | 2018-11-07 07:15 | P.PN ---
Subjective Progress Note Date: 11/07/18 Principal diagnosis: Metastatic lung cancer with brain metastasis The patient is seen today 11/07/2018 in follow-up in the intensive care unit. She is currently awake and alert in no acute distress. She is maintaining good O2 saturations in the 90s on room air. She's afebrile. Hemodynamically stable. Blood culture reveals no growth to date. White count 8.7. Hemoglobin 11.6. Creatinine 0.48. Calcium 6.7. She has a 0.9 normal saline at 100 ML's per hour. Objective - Vital Signs Vital signs: Vital Signs Temp 98.4 F 11/07/18 04:00 Pulse 81 11/07/18 04:00 Resp 14 11/07/18 04:00 BP 105/63 11/07/18 04:00 Pulse Ox 97 11/07/18 04:00 Intake & Output 11/06/18 11/07/18 11/07/18 18:59 06:59 18:59 Intake Total 1440 500 Output Total 1700 300 Balance -260 200 Intake: IV 700 500 Sodium Chloride 0.9% 1, 700 500 000 ml @ 100 mls/hr IV . Q10H [facility] Rx#:[id number] Intake, IV Titration 220 Amount Calcium Gluconate 2 gm In 120 Sodium Chloride 0.9% 100 ml @ 100 mls/hr IVPB ONCE ONE Rx#:[id number] Sodium Chloride 0.9% 1, 100 000 ml @ 100 mls/hr IV . Q10H [facility] Rx#:[id number] Oral 520 Output: Urine 1700 300 Other: Voiding Method Bedside Commode Bedside Commode # Voids 1 - Exam GENERAL EXAM: Alert, pleasant, 58-year-old female patient, comfortable no acute distress. On room air. HEAD: Normocephalic/atraumatic. EYES: Normal reaction of pupils, equal size. Conjunctiva pink, sclera white. NOSE: Clear with pink turbinates. THROAT: No erythema or exudates. NECK: No masses, no JVD, no thyroid enlargement, no adenopathy. CHEST: No chest wall deformity. Symmetrical expansion. LUNGS: Equal air entry with no crackles, wheeze, rhonchi or dullness. CVS: Regular rate and rhythm, normal S1 and S2, no gallops, no murmurs, no rubs ABDOMEN: Soft, nontender. No hepatosplenomegaly, normal bowel sounds, no g uarding or rigidity. EXTREMITIES: No clubbing, no edema, no cyanosis, 2+ pulses and upper and lower extremities. MUSCULOSKELETAL: Muscle strength and tone normal. SPINE: No scoliosis or deformity SKIN: No rashes CENTRAL NERVOUS SYSTEM: No focal deficits, tone is normal in all 4 extremities. PSYCHIATRIC: Alert and oriented -3. Appropriate affect. Intact judgment and insight. - Labs CBC & Chem 7: 11/07/18 04:48 11/07/18 04:48 Labs: Abnormal Lab Results - Last 24 Hours (Table) 11/06/18 11/07/18 11/07/18 Range/Units 09:30 04:48 04:48 RBC 3.75 L (3.80-5.40) m/uL RDW 16.6 H (11.5-15.5) % Plt Count 71 L (150-450) k/uL Sodium 132 L (137-145) mmol/L BUN 20 H (7-17) mg/dL Creatinine 0.48 L (0.52-1.04) mg/dL Glucose 275 H (74-99) mg/dL POC Glucose (mg/dL) (75-99) mg/dL Calcium 6.7 L (8.4-10.2) mg/dL Ionized Calcium Amna 3.3 L* (4.5-5.3) mg/dL 11/07/18 Range/Units 06:53 RBC (3.80-5.40) m/uL RDW (11.5-15.5) % Plt Count (150-450) k/uL Sodium (137-145) mmol/L BUN (7-17) mg/dL Creatinine (0.52-1.04) mg/dL Glucose (74-99) mg/dL POC Glucose (mg/dL) 322 H (75-99) mg/dL Calcium (8.4-10.2) mg/dL Ionized Calcium Amna (4.5-5.3) mg/dL Microbiology - Last 24 Hours (Table) 11/04/18 21:33 Blood Culture - Preliminary Blood No Growth after 48 hours Assessment and Plan Assessment: Impression: #1. Metastatic lung cancer with metastasis to the brain #2. Symptoms of back discomfort, mildly elevated troponins, cardiology is following, her symptoms are not thought related to acute coronary syndrome #3. Coronary artery disease #4. Peripheral vascular disease #6. History of chronic lymphocytic leukemia #7. Chronic obstructive pulmonary disease secondary to chronic tobacco use, currently stable #8. History of gastrointestinal bleeding Plan: The patient was seen and evaluated by Dr. Monk. He did have a lengthy discussion regarding her prognosis. She is now a DO NOT INTUBATE DO NOT RESUSCITATE CODE STATUS. She is being considered for hospice. She could be transferred out of the intensive care unit once a bed opens on the regular medical floor. We will continue to follow and make further recommendations based on her clinical status. I, the cosigning physician, performed a history & physical examination of the patient. Lungs sounds are clear. Maintaining good O2 saturations in the 90s on room air. I discussed the assessment and plan of care with my nurse practit lise, Dayan Guerra. I attest to the above note as dictated by her.
[2018-11-07] MEDS: ISOSORBIDE MONONITRATE ER 60 MG TAB.ER.24H PO SCH (08:30)
[2018-11-07] MEDS: ATORVASTATIN 20 MG TAB PO SCH (08:30)
[2018-11-07] MEDS: SPIRONOLACTONE 25 MG TAB PO SCH (08:30)
[2018-11-07] MEDS: DEXAMETHASONE 4 MG TAB PO SCH ×3 (08:30→17:30)
[2018-11-07] MEDS: ASPIRIN 81 MG PO SCH (08:30)
[2018-11-07] MEDS: FUROSEMIDE 40 MG TAB PO SCH (08:30)
[2018-11-07] MEDS: FOLIC ACID 1 MG TAB PO SCH (08:30)
[2018-11-07] MEDS: LOSARTAN 25 MG TAB PO SCH (08:30)
[2018-11-07] MEDS: CITALOPRAM HYDROBROMIDE 10 MG TAB PO SCH (08:30)
[2018-11-07] MEDS: ALPRAZolam 0.5 MG TAB PO PRN ×3 (08:34→21:36)
[2018-11-07] MEDS: FILGRASTIM-SNDZ 480 MCG/0.8 ML SYRINGE SQ SCH (08:34)
[2018-11-07 12:01] LABS: Glucose,Whole Blood 272 mg/dL (75-99)
--- NOTE | 2018-11-07 16:11 | P.PN ---
Subjective This is a pleasant 58 years old female with past medical history of CLL, metastatic adenocarcinoma of the lung, with metastasis to the liver, bones and the brain status post chemo radiotherapy. Thrombocytopenia. Congestive heart failure. This time presents because of generalized weakness. Patient states she got radiation therapy for her brain and bone, after that she got chemotherapy which made her very sick with exacerbation of it. Acute congestive heart failure, patient still in me she thought she was going to at that time. However this time she was admitted to the ICU and today's transferred to the general medical floor after patient decided no more chemoradiotherapy and she is opting for hospice care. Currently she is lying comfortable in bed with no pain after she slipped and her morphine shots. She complains from constipation but she is in bowel regiment. Objective - Vital Signs Vital signs: Vital Signs Temp 98.2 F 11/07/18 14:59 Pulse 65 11/07/18 14:59 Resp 18 11/07/18 14:59 BP 133/59 11/07/18 14:59 Pulse Ox 99 11/07/18 14:59 Intake & Output 11/06/18 11/07/18 11/07/18 18:59 06:59 18:59 Intake Total 1440 500 250 Output Total 1700 300 Balance -260 200 250 Weight 65.6 kg Intake: IV 700 500 Sodium Chloride 0.9% 1, 700 500 000 ml @ 100 mls/hr IV . Q10H [facility] Rx#:[id number] Intake, IV Titration 220 Amount Calcium Gluconate 2 gm In 120 Sodium Chloride 0.9% 100 ml @ 100 mls/hr IVPB ONCE ONE Rx#:[id number] Sodium Chloride 0.9% 1, 100 000 ml @ 100 mls/hr IV . Q10H [facility] Rx#:[id number] Oral 520 250 Output: Urine 1700 300 Other: Voiding Method Bedside Commode Bedside Commode Bedside Commode # Voids 1 2 - Exam GENERAL: The patient is alert and oriented x3, not in any acute distress. Well developed, well nourished. HEENT: Pupils are round and equally reacting to light. EOMI. No scleral icterus. No conjunctival pallor. Normocephalic, atraumatic. No pharyngeal erythema. No thyromegaly. CARDIOVASCULAR: S1 and S2 present. No murmurs, rubs, or gallops. PULMONARY: Chest is clear to auscultation, no wheezing or crackles. ABDOMEN: Soft, nontender, nondistended, normoactive bowel sounds. No palpable organomegaly. MUSCULOSKELETAL: No joint swelling or deformity. EXTREMITIES: No cyanosis, clubbing, or pedal edema. NEUROLOGICAL: Gross neurological examination did not reveal any focal deficits. SKIN: No rashes. - Labs CBC & Chem 7: 11/07/18 04:48 11/07/18 04:48 Labs: Abnormal Lab Results - Last 24 Hours (Table) 11/07/18 11/07/18 11/07/18 Range/Units 04:48 04:48 06:53 RBC 3.75 L (3.80-5.40) m/uL RDW 16.6 H (11.5-15.5) % Plt Count 71 L (150-450) k/uL Sodium 132 L (137-145) mmol/L BUN 20 H (7-17) mg/dL Creatinine 0.48 L (0.52-1.04) mg/dL Glucose 275 H (74-99) mg/dL POC Glucose (mg/dL) 322 H (75-99) mg/dL Calcium 6.7 L (8.4-10.2) mg/dL 11/07/18 Range/Units 11:57 RBC (3.80-5.40) m/uL RDW (11.5-15.5) % Plt Count (150-450) k/uL Sodium (137-145) mmol/L BUN (7-17) mg/dL Creatinine (0.52-1.04) mg/dL Glucose (74-99) mg/dL POC Glucose (mg/dL) 272 H (75-99) mg/dL Calcium (8.4-10.2) mg/dL Microbiology - Last 24 Hours (Table) 11/04/18 21:33 Blood Culture - Preliminary Blood No Growth after 48 hours Assessment and Plan Assessment: Metastatic adenocarcinoma of the lung, metastatic to the liver, bones and the brain Atropine anemia with thrombocytopenia Congestive heart failure CLL History of coronary artery disease COPD History of triply Hypertension Plan: This is a pleasant 58 years old female who presents with metastatic cancer. Patient is been followed by several consultants including pulmonary/critical care and hematology/oncology team and cardiology team. however patient decided to continue with hospice care for now.Labs and medication were reviewed.. Continue same treatment. Continue with symptomatic treatment. Resume home medication. Monitor lytes and vitals. DVT and GI prophylaxis. Further recommendations of the clinical course of the patient DVT prophylaxis: No anticoagulation review of metastasis to the brain, relative contraindication. GI Prophylaxis: Pepcid CODE STATUS: DO NOT RESUSCITATE, comfort with patient Prognosis is guarded
[2018-11-07 17:08] LABS: Glucose,Whole Blood 109 mg/dL (75-99)
[2018-11-07 20:50] LABS: Glucose,Whole Blood 228 mg/dL (75-99)
[2018-11-07 21:28] LABS: Glucose,Whole Blood 216 mg/dL (75-99)
[2018-11-08] MEDS: HYDROcodone/APAP 7.5-325MG 1 EACH TAB PO PRN ×2 (00:14→08:03)
[2018-11-08] MEDS: MORPHINE SULFATE 4 MG/ML SYRINGE IVP PRN ×6 (01:02→20:45)
[2018-11-08] MEDS: CARVEDILOL 6.25 MG TAB PO SCH ×2 (06:07→17:22)
[2018-11-08] MEDS: ONDANSETRON 4 MG/2 ML VIAL IVP PRN (06:07)
[2018-11-08] MEDS: PANTOPRAZOLE 40 MG TABLET PO SCH (06:07)
[2018-11-08] MEDS: INSULIN ASPART (NovoLOG) 100 UNIT/ML VIAL SQ SCH ×2 (06:26→12:09)
[2018-11-08 06:52] LABS: Glucose,Whole Blood 213 mg/dL (75-99)
[2018-11-08] MEDS: FOLIC ACID 1 MG TAB PO SCH (08:01)
[2018-11-08] MEDS: FUROSEMIDE 40 MG TAB PO SCH (08:01)
[2018-11-08] MEDS: SPIRONOLACTONE 25 MG TAB PO SCH (08:01)
[2018-11-08] MEDS: CITALOPRAM HYDROBROMIDE 10 MG TAB PO SCH (08:01)
[2018-11-08] MEDS: ASPIRIN 81 MG PO SCH (08:01)
[2018-11-08] MEDS: ISOSORBIDE MONONITRATE ER 60 MG TAB.ER.24H PO SCH (08:01)
[2018-11-08] MEDS: ATORVASTATIN 20 MG TAB PO SCH (08:02)
[2018-11-08] MEDS: DEXAMETHASONE 4 MG TAB PO SCH ×4 (08:02→20:46)
[2018-11-08] MEDS: ALPRAZolam 0.5 MG TAB PO PRN ×2 (08:03→18:11)
[2018-11-08] MEDS: LOSARTAN 25 MG TAB PO SCH (08:04)
--- NOTE | 2018-11-08 09:46 | P.PN ---
Subjective Progress Note Date: 11/08/18 Principal diagnosis: metastatic lung cancer with brain metastasis, back discomfort, mildly elevated troponins On 11/06/2018 patient seen in follow-up in intensive care unit, she is awake and alert, in no acute distress, she did have an episode of chest pain this morning, resolved spontaneously, denies any shortness of breath, denies any dizziness, denies any palpitations, no nausea, no cough, breathing is stable, she is afebrile, echocardiogram showed ejection fraction of 20-25% with mild mitral and tricuspid regurgitation, no evidence of pulmonary hypertension, she is on room air, her pulse ox is 93-94%, she is afebrile, hemodynamically stable, no acute events overnight. Cardiology is following, and managing her medically. Patient has been cleared to go out of the intensive care unit today to stepdown floor. Hospice has been consulted, patient has advanced static lung cancer, is considering her options, including palliative care/hospice. On 11/08/2018 patient seen in follow-up on selective care unit, she states she has intermittent chest pain, no acute distress, remainder pulse ox is 97%, hemodynamically stable, no fever or chills, she states she feels slightly more congested today. Lung sounds reveal some scattered wheezing. Cardiology is following, and patient is being treated medically, patient is on oral Decadron, nebulized bronchodilators on as-needed basis, and we will add Symbicort inhaler. Patient has met with hospice 3 times, and she has decided on no more treatment for her lung cancer and she has decided to go home under the hospice care likely on Friday Objective - Vital Signs Vital signs: Vital Signs Temp 98.3 F 11/08/18 08:17 Pulse 62 11/08/18 08:17 Resp 18 11/08/18 08:17 BP 98/52 11/08/18 08:17 Pulse Ox 97 11/08/18 08:17 Intake & Output 11/07/18 11/08/18 11/08/18 18:59 06:59 18:59 Intake Total 250 402 Balance 250 402 Weight 65.3 kg Intake: Oral 250 402 Other: Voiding Method Bedside Commode Bedside Commode Bedside Commode # Voids 1 1 - Exam GENERAL EXAM: Alert, pleasant, 58-year-old white female on room air with pulse ox of 93-94% comfortable in no apparent distress. HEAD: Normocephalic/atraumatic. EYES: Normal reaction of pupils, equal size. Conjunctiva pink, sclera white. NOSE: Clear with pink turbinates. THROAT: No erythema or exudates. NECK: No masses, no JVD, no thyroid enlargement, no adenopathy. CHEST: No chest wall deformity. Symmetrical expansion. LUNGS: Equal air entry with a few scattered wheezes, no rhonchi CVS: Regular rate and rhythm, normal S1 and S2, no gallops, no murmurs, no rubs ABDOMEN: Soft, nontender. No hepatosplenomegaly, normal bowel sounds, no guarding or rigidity. EXTREMITIES: No clubbing, no edema, no cyanosis, 2+ pulses and upper and lower extremities. MUSCULOSKELETAL: Muscle strength and tone normal. SPINE: No scoliosis or deformity SKIN: No rashes CENTRAL NERVOUS SYSTEM: Alert and oriented -3. No focal deficits, tone is normal in all 4 extremities. PSYCHIATRIC: Alert and oriented -3. Appropriate affect. Intact judgment and insight. - Labs CBC & Chem 7: 11/07/18 04:48 11/07/18 04:48 Labs: Abnormal Lab Results - Last 24 Hours (Table) 11/07/18 11/07/18 11/07/18 Range/Units 11:57 17:07 20:14 POC Glucose (mg/dL) 272 H 109 H 228 H (75-99) mg/dL 11/07/18 11/08/18 Range/Units 21:26 06:23 POC Glucose (mg/dL) 216 H 213 H (75-99) mg/dL Microbiology - Last 24 Hours (Table) 11/04/18 21:33 Blood Culture - Preliminary Blood No Growth after 72 hours Assessment and Plan Plan: #1. Metastatic lung cancer with metastasis to the brain #2. Symptoms of back discomfort, mildly elevated troponins, cardiology is fo llowing, her symptoms are not thought related to acute coronary syndrome #3. Coronary artery disease #4. Peripheral vascular disease #6. History of chronic lymphocytic leukemia #7. Chronic obstructive pulmonary disease secondary to chronic tobacco use, currently stable #8. History of gastrointestinal bleeding Plan: Slightly more wheezy on today's exam, will put the patient on scheduled bronchodilators, we will add Symbicort, patient is avoiding on Decadron. Patient has decided on no more treatment for her history of metastatic lung cancer. She has met with hospice, and anticipates to go home on Friday under the hospice care. I performed a history & physical examination of the patient and discussed their management with my nurse practitioner, Liz Helm. I reviewed the nurse practitioner's note and agree with the documented findings and plan of care. Lung sounds are positive for diminished breath sounds at the bases. The findings and the impression was discussed with the patient. I attest to the documentation by the nurse practitioner. Time with Patient: Less than 30
[2018-11-08] MEDS: FILGRASTIM-SNDZ 480 MCG/0.8 ML SYRINGE SQ SCH (11:26)
[2018-11-08 11:39] LABS: Glucose,Whole Blood 236 mg/dL (75-99)
[2018-11-08] MEDS ORDERED: MAG HYDROX/AL HYDROX/SIMETH 30 ML, HYOSCYAMINE ELIXIR 10 ML, CIMETIDINE HCL 300 MG PO PRN ×3 (13:42)
--- NOTE | 2018-11-08 13:46 | P.PN ---
Subjective This is a pleasant 58 years old female with past medical history of CLL, metastatic adenocarcinoma of the lung, with metastasis to the liver, bones and the brain status post chemo radiotherapy. Thrombocytopenia. Congestive heart failure. This time presents because of generalized weakness. Patient states she got radiation therapy for her brain and bone, after that she got chemotherapy which made her very sick with exacerbation of it. Acute congestive heart failure, patient still in me she thought she was going to at that time. However this time she was admitted to the ICU and today's transferred to the general medical floor after patient decided no more chemoradiotherapy and she is opting for hospice care. Currently she is lying comfortable in bed with no pain after she slipped and her morphine shots. She complains from constipation but she is in bowel regiment. 11/08/2018 Patient is awake and alert. She has no chest pain and his breathing is quiet, pulmonary team and follow the case closely and they added Symbicort. Patient decided no more treatment and to go home with hospice, mostly on Friday. She said that her pain is not controlled and he will she wants her morphine dose to be increased from every 4 hours to every 3 hours when necessary. Also oral morphine as needed is a provided. Symptomatic treatment of stomach upset is ordered. Discussed with the staff Objective - Vital Signs Vital signs: Vital Signs Temp 98.4 F 11/08/18 12:00 Pulse 61 11/08/18 12:00 Resp 18 11/08/18 12:00 BP 105/60 11/08/18 12:00 Pulse Ox 100 11/08/18 12:00 Intake & Output 11/07/18 11/08/18 11/08/18 18:59 06:59 18:59 Intake Total 250 402 Balance 250 402 Weight 65.3 kg Intake: Oral 250 402 Other: Voiding Method Bedside Commode Bedside Commode Bedside Commode # Voids 1 1 - Exam GENERAL: The patient is alert and oriented x3, not in any acute distress. Well developed, well nourished. HEENT: Pupils are round and equally reacting to light. EOMI. No scleral icterus. No conjunctival pallor. Normocephalic, atraumatic. No pharyngeal erythema. No thyromegaly. CARDIOVASCULAR: S1 and S2 present. No murmurs, rubs, or gallops. PULMONARY: Chest is clear to auscultation, no wheezing or crackles. ABDOMEN: Soft, nontender, nondistended, normoactive bowel sounds. No palpable organomegaly. MUSCULOSKELETAL: No joint swelling or deformity. EXTREMITIES: No cyanosis, clubbing, or pedal edema. NEUROLOGICAL: Gross neurological examination did not reveal any focal deficits. SKIN: No rashes. - Labs CBC & Chem 7: 11/07/18 04:48 11/07/18 04:48 Labs: Abnormal Lab Results - Last 24 Hours (Table) 11/07/18 11/07/18 11/07/18 Range/Units 17:07 20:14 21:26 POC Glucose (mg/dL) 109 H 228 H 216 H (75-99) mg/dL 11/08/18 11/08/18 Range/Units 06:23 11:38 POC Glucose (mg/dL) 213 H 236 H (75-99) mg/dL Microbiology - Last 24 Hours (Table) 11/04/18 21:33 Blood Culture - Preliminary Blood No Growth after 72 hours Assessment and Plan Assessment: Metastatic adenocarcinoma of the lung, metastatic to the liver, bones and the brain Atropine anemia with thrombocytopenia Congestive heart failure CLL History of coronary artery disease COPD History of triply Hypertension Plan: This is a pleasant 58 years old female who presents with metastatic cancer. Patient is been followed by several consultants including pulmonary/critical care and hematology/oncology team and cardiology team. however patient decided to continue with hospice care for now.Labs and medication were reviewed.. Continue same treatment. Continue with symptomatic treatment. Resume home medication. Monitor lytes and vitals. DVT and GI prophylaxis. Further recommendations of the clinical course of the patient DVT prophylaxis: No anticoagulation review of metastasis to the brain, relative contraindication. GI Prophylaxis: Pepcid CODE STATUS: DO NOT RESUSCITATE, comfort with patient Prognosis is guarded
[2018-11-08] MEDS: IPRATROPIUM-ALBUTEROL 3 ML NEB INHALATION SCH ×2 (16:03→20:26)
[2018-11-08 17:07] LABS: Glucose,Whole Blood 466 mg/dL (75-99)
[2018-11-08] MEDS ORDERED: INSULIN ASPART (NovoLOG) 100 UNIT/ML VIAL SQ SCH (17:30)
[2018-11-08] MEDS ORDERED: INSULIN REGULAR BOLUS (FROM DRIP BAG) IV ONE (17:30)
[2018-11-08] MEDS: INSULIN REGULAR 100 UNIT in SODIUM CHLORIDE 0.9% 100 ML IV SCH ×3 (17:49→20:45)
[2018-11-08 18:50] LABS: Glucose,Whole Blood 188 mg/dL (75-99)
[2018-11-08] MEDS: SYMBICORT 160-4.5 MCG INHALER INHALATION SCH (20:26)
[2018-11-08 20:44] LABS: Glucose,Whole Blood 95 mg/dL (75-99)
[2018-11-08 21:50] LABS: Glucose,Whole Blood 92 mg/dL (75-99)
[2018-11-08 23:04] LABS: Glucose,Whole Blood 135 mg/dL (75-99)
[2018-11-09] MEDS: MORPHINE SULFATE IR 15 MG TABLET PO PRN ×6 (00:33→21:08)
[2018-11-09 01:18] LABS: Glucose,Whole Blood 164 mg/dL (75-99)
[2018-11-09 03:00] LABS: Glucose,Whole Blood 133 mg/dL (75-99)
[2018-11-09] MEDS: INSULIN REGULAR 100 UNIT in SODIUM CHLORIDE 0.9% 100 ML IV SCH (04:45)
[2018-11-09 04:57] LABS: Glucose,Whole Blood 114 mg/dL (75-99)
[2018-11-09] MEDS: ONDANSETRON 4 MG/2 ML VIAL IVP PRN (04:57)
[2018-11-09 06:30] LABS: Glucose,Whole Blood 194 mg/dL (75-99)
[2018-11-09] MEDS: ALPRAZolam 0.5 MG TAB PO PRN ×2 (06:32→17:39)
[2018-11-09] MEDS: CARVEDILOL 6.25 MG TAB PO SCH ×2 (06:32→17:37)
[2018-11-09] MEDS: PANTOPRAZOLE 40 MG TABLET PO SCH (06:32)
[2018-11-09 07:07] LABS: Glucose,Whole Blood 151 mg/dL (75-99)
[2018-11-09] MEDS ORDERED: INSULIN ASPART (NovoLOG) 100 UNIT/ML VIAL SQ SCH (07:30)
[2018-11-09] MEDS: SYMBICORT 160-4.5 MCG INHALER INHALATION SCH ×2 (07:31→20:09)
[2018-11-09] MEDS: IPRATROPIUM-ALBUTEROL 3 ML NEB INHALATION SCH ×3 (07:32→20:09)
[2018-11-09 08:33] LABS: Glucose,Whole Blood 128 mg/dL (75-99)
[2018-11-09] MEDS: ISOSORBIDE MONONITRATE ER 60 MG TAB.ER.24H PO SCH (08:48)
[2018-11-09] MEDS: FOLIC ACID 1 MG TAB PO SCH (08:48)
[2018-11-09] MEDS: ASPIRIN 81 MG PO SCH (08:48)
[2018-11-09] MEDS: FUROSEMIDE 40 MG TAB PO SCH (08:48)
[2018-11-09] MEDS: SPIRONOLACTONE 25 MG TAB PO SCH (08:49)
[2018-11-09] MEDS: CITALOPRAM HYDROBROMIDE 10 MG TAB PO SCH (08:49)
[2018-11-09] MEDS: DEXAMETHASONE 4 MG TAB PO SCH ×4 (08:49→21:08)
[2018-11-09] MEDS: ATORVASTATIN 20 MG TAB PO SCH (08:49)
[2018-11-09 09:14] LABS: Glucose,Whole Blood 122 mg/dL (75-99)
--- NOTE | 2018-11-09 09:15 | P.PN ---
Subjective Progress Note Date: 11/09/18 Principal diagnosis: metastatic lung cancer with brain metastasis, back discomfort, mildly elevated troponins On 11/06/2018 patient seen in follow-up in intensive care unit, she is awake and alert, in no acute distress, she did have an episode of chest pain this morning, resolved spontaneously, denies any shortness of breath, denies any dizziness, denies any palpitations, no nausea, no cough, breathing is stable, she is afebrile, echocardiogram showed ejection fraction of 20-25% with mild mitral and tricuspid regurgitation, no evidence of pulmonary hypertension, she is on room air, her pulse ox is 93-94%, she is afebrile, hemodynamically stable, no acute events overnight. Cardiology is following, and managing her medically. Patient has been cleared to go out of the intensive care unit today to stepdown floor. Hospice has been consulted, patient has advanced static lung cancer, is considering her options, including palliative care/hospice. On 11/08/2018 patient seen in follow-up on selective care unit, she states she has intermittent chest pain, no acute distress, remainder pulse ox is 97%, hemodynamically stable, no fever or chills, she states she feels slightly more congested today. Lung sounds reveal some scattered wheezing. Cardiology is following, and patient is being treated medically, patient is on oral Decadron, nebulized bronchodilators on as-needed basis, and we will add Symbicort inhaler. Patient has met with hospice 3 times, and she has decided on no more treatment for her lung cancer and she has decided to go home under the hospice care likely on Friday On 11/09/2018 patient seen in follow-up on selective care unit, she is resting in bed, in no acute distress, she is still complaining of intermittent chest pain, chest tightness, and heartburn, indigestion. Patient has been started on the oral Maalox, she is on oral Protonix. Does not seem to be in any acute distress, room air pulse ox is 98%, hemodynamically stable. Lung sounds reveal some end expiratory wheezes, no significant rhonchi. Yesterday we added Symbicort, patient is on nebulized bronchodilators, and she is already on Decadron for the brain metastasis. No acute events overnight, patient has decided to go home with hospice after discharge. No new labs today, no new chest x-rays. Patient's morphine dose has been increased for pain control. Objective - Vital Signs Vital signs: Vital Signs Temp 98.2 F 11/09/18 08:53 Pulse 92 11/09/18 08:53 Resp 18 11/09/18 08:53 BP 106/51 11/09/18 08:53 Pulse Ox 98 11/09/18 08:53 Intake & Output 11/08/18 11/09/18 11/09/18 18:59 06:59 18:59 Intake Total 720 238.000 3.025 Balance 720 238.000 3.025 Weight 65.2 kg Intake: Intake, IV Titration 138.000 3.025 Amount Insulin Regular 100 unit 36.5 In Sodium Chloride 0.9% 100 ml @ Titrate IV .Q0M [facility] Rx#:[id number] Insulin Regular 100 unit 101.500 3.025 In Sodium Chloride 0.9% 100 ml @ Titrate IV .Q0M [facility] Rx#:[id number] Oral 720 100 Other: Voiding Method Bedside Commode Bedside Commode Bedside Commode # Voids 4 2 - Exam GENERAL EXAM: Alert, pleasant, 58-year-old white female on room air with pulse ox of 93-94% comfortable in no apparent distress. HEAD: Normocephalic/atraumatic. EYES: Normal reaction of pupils, equal size. Conjunctiva pink, sclera white. NOSE: Clear with pink turbinates. THROAT: No erythema or exudates. NECK: No masses, no JVD, no thyroid enlargement, no adenopathy. CHEST: No chest wall deformity. Symmetrical expansion. LUNGS: Equal air entry with a few scattered wheezes, no rhonchi CVS: Regular rate and rhythm, normal S1 and S2, no gallops, no murmurs, no rubs ABDOMEN: Soft, nontender. No hepatosplenomegaly, normal bowel sounds, no guarding or rigidity. EXTREMITIES: No clubbing, no edema, no cyanosis, 2+ pulses and upper and lower extremities. MUSCULOSKELETAL: Muscle strength and tone normal. SPINE: No scoliosis or deformity SKIN: No rashes CENTRAL NERVOUS SYSTEM: Alert and oriented -3. No focal deficits, tone is normal in all 4 extremities. PSYCHIATRIC: Alert and oriented -3. Appropriate affect. Intact judgment and insight. - Labs CBC & Chem 7: 11/07/18 04:48 11/07/18 04:48 Labs: Abnormal Lab Results - Last 24 Hours (Table) 11/08/18 11/08/18 11/08/18 Range/Units 11:38 17:06 18:49 POC Glucose (mg/dL) 236 H 466 H 188 H (75-99) mg/dL 11/08/18 11/09/18 11/09/18 Range/Units 23:03 01:06 02:57 POC Glucose (mg/dL) 135 H 164 H 133 H (75-99) mg/dL 11/09/18 11/09/18 11/09/18 Range/Units 04:54 06:23 07:04 POC Glucose (mg/dL) 114 H 194 H 151 H (75-99) mg/dL 11/09/18 Range/Units 08:20 POC Glucose (mg/dL) 128 H (75-99) mg/dL Microbiology - Last 24 Hours (Table) 11/04/18 21:33 Blood Culture - Preliminary Blood No Growth after 96 hours Assessment and Plan Plan: #1. Metastatic lung cancer with metastasis to the brain #2. Symptoms of back discomfort, mildly elevated troponins, cardiology is following, her symptoms are not thought related to acute coronary syndrome #3. Coronary artery disease #4. Peripheral vascular disease #6. History of chronic lymphocytic leukemia #7. Chronic obstructive pulmonary disease secondary to chronic tobacco use, cur rently stable #8. History of gastrointestinal bleeding Plan: We'll continue current medical treatment, continue nebulized bronchodilators, Symbicort, and Decadron, patient is on morphine for symptomatic pain control. Otherwise no acute events overnight, clinically stable, encouraged patient to sit up in the chair, she is on Protonix and Maalox for heartburn, indigestion. Arrangements are in progress for discharge home with hospice possibly on Friday. From our perspective patient can be discharged home with hospice once those arrangements are completed. I performed a history & physical examination of the patient and discussed their management with my nurse practitioner, Liz Helm. I reviewed the nurse practitioner's note and agree with the documented findings and plan of care. Lung sounds are positive for diminished breath sounds at the bases. The findings and the impression was discussed with the patient. I attest to the documentation by the nurse practitioner. Time with Patient: Less than 30
[2018-11-09 10:14] LABS: Glucose,Whole Blood 116 mg/dL (75-99)
[2018-11-09] MEDS ORDERED: MORPHINE SULFATE 4 MG/ML SYRINGE IVP PRN (11:01)
--- NOTE | 2018-11-09 11:05 | P.PN ---
Subjective This is a pleasant 58 years old female with past medical history of CLL, metastatic adenocarcinoma of the lung, with metastasis to the liver, bones and the brain status post chemo radiotherapy. Thrombocytopenia. Congestive heart failure. This time presents because of generalized weakness. Patient states she got radiation therapy for her brain and bone, after that she got chemotherapy which made her very sick with exacerbation of it. Acute congestive heart failure, patient still in me she thought she was going to at that time. However this time she was admitted to the ICU and today's transferred to the general medical floor after patient decided no more chemoradiotherapy and she is opting for hospice care. Currently she is lying comfortable in bed with no pain after she slipped and her morphine shots. She complains from constipation but she is in bowel regiment. 11/08/2018 Patient is awake and alert. She has no chest pain and his breathing is quiet, pulmonary team and follow the case closely and they added Symbicort. Patient decided no more treatment and to go home with hospice, mostly on Friday. She said that her pain is not controlled and he will she wants her morphine dose to be increased from every 4 hours to every 3 hours when necessary. Also oral morphine as needed is a provided. Symptomatic treatment of stomach upset is ordered. Discussed with the staff 11/09/2018 Patient is awake and alert. She still complaining of from heartburn but she did not take her when necessary medication. her sugar was high yesterday night at 466, she was started on insulin drip which is a started this morning and since then her sugar is controlled. We will add Amaryl 0.5 mg daily. She is using more all her morphine, window or the frequency of IV morphine. Patient is still interested in going home with hospice tomorrow. Objective - Vital Signs Vital signs: Vital Signs Temp 98.2 F 11/09/18 08:53 Pulse 92 11/09/18 08:53 Resp 18 11/09/18 08:53 BP 106/51 11/09/18 08:53 Pulse Ox 98 11/09/18 08:53 Intake & Output 11/08/18 11/09/18 11/09/18 18:59 06:59 18:59 Intake Total 720 238.000 183.025 Output Total 400 Balance 720 238.000 -216.975 Weight 65.2 kg Intake: Intake, IV Titration 138.000 3.025 Amount Insulin Regular 100 unit 36.5 In Sodium Chloride 0.9% 100 ml @ Titrate IV .Q0M [facility] Rx#:[id number] Insulin Regular 100 unit 101.500 3.025 In Sodium Chloride 0.9% 100 ml @ Titrate IV .Q0M [facility] Rx#:[id number] Oral 720 100 180 Output: Urine 400 Other: Voiding Method Bedside Commode Bedside Commode Bedside Commode # Voids 4 2 - Exam GENERAL: The patient is alert and oriented x3, not in any acute distress. Well developed, well nourished. HEENT: Pupils are round and equally reacting to light. EOMI. No scleral icterus. No conjunctival pallor. Normocephalic, atraumatic. No pharyngeal erythema. No thyromegaly. CARDIOVASCULAR: S1 and S2 present. No murmurs, rubs, or gallops. PULMONARY: Chest is clear to auscultation, no wheezing or crackles. ABDOMEN: Soft, nontender, nondistended, normoactive bowel sounds. No palpable organomegaly. MUSCULOSKELETAL: No joint swelling or deformity. EXTREMITIES: No cyanosis, clubbing, or pedal edema. NEUROLOGICAL: Gross neurological examination did not reveal any focal deficits. SKIN: No rashes. - Labs CBC & Chem 7: 11/07/18 04:48 11/07/18 04:48 Labs: Abnormal Lab Results - Last 24 Hours (Table) 11/08/18 11/08/18 11/08/18 Range/Units 11:38 17:06 18:49 POC Glucose (mg/dL) 236 H 466 H 188 H (75-99) mg/dL 11/08/18 11/09/18 11/09/18 Range/Units 23:03 01:06 02:57 POC Glucose (mg/dL) 135 H 164 H 133 H (75-99) mg/dL 11/09/18 11/09/18 11/09/18 Range/Units 04:54 06:23 07:04 POC Glucose (mg/dL) 114 H 194 H 151 H (75-99) mg/dL 11/09/18 11/09/18 11/09/18 Range/Units 08:20 09:11 10:11 POC Glucose (mg/dL) 128 H 122 H 116 H (75-99) mg/dL Microbiology - Last 24 Hours (Table) 11/04/18 21:33 Blood Culture - Preliminary Blood No Growth after 96 hours Assessment and Plan Assessment: Metastatic adenocarcinoma of the lung, metastatic to the liver, bones and the brain Atropine anemia with thrombocytopenia Congestive heart failure CLL History of coronary artery disease COPD History of triply Hypertension Plan: This is a pleasant 58 years old female who presents with metastatic cancer. Patient is been followed by several consultants including pulmonary/critical care and hematology/oncology team and cardiology team. however patient decided to continue with hospice care for now.Labs and medication were reviewed.. Continue same treatment. Continue with symptomatic treatment. Resume home medication. Monitor lytes and vitals. DVT and GI prophylaxis. Further danae mmendations of the clinical course of the patient DVT prophylaxis: No anticoagulation review of metastasis to the brain, relative contraindication. GI Prophylaxis: Pepcid CODE STATUS: DO NOT RESUSCITATE, comfort with patient Prognosis is guarded
[2018-11-09 11:15] LABS: Glucose,Whole Blood 136 mg/dL (75-99)
[2018-11-09] MEDS: LOSARTAN 25 MG TAB PO SCH (11:15)
[2018-11-09] MEDS: FILGRASTIM-SNDZ 480 MCG/0.8 ML SYRINGE SQ SCH (11:22)
[2018-11-09] MEDS: GLIMEPIRIDE 0.5 MG TAB PO SCH (12:18)
[2018-11-09] MEDS: MAG HYDROX/AL HYDROX/SIMETH 30 ML, HYOSCYAMINE ELIXIR 10 ML, CIMETIDINE HCL 300 MG PO PRN ×9 (12:19→21:09)
[2018-11-09 17:07] LABS: Glucose,Whole Blood 215 mg/dL (75-99)
[2018-11-09 20:49] LABS: Glucose,Whole Blood 300 mg/dL (75-99)
[2018-11-10] MEDS: MORPHINE SULFATE IR 15 MG TABLET PO PRN ×5 (02:04→21:55)
[2018-11-10] MEDS: CARVEDILOL 6.25 MG TAB PO SCH ×2 (05:37→17:12)
[2018-11-10] MEDS: MAG HYDROX/AL HYDROX/SIMETH 30 ML, HYOSCYAMINE ELIXIR 10 ML, CIMETIDINE HCL 300 MG PO PRN ×3 (05:38)
[2018-11-10] MEDS: PANTOPRAZOLE 40 MG TABLET PO SCH (05:38)
[2018-11-10] MEDS: ONDANSETRON 4 MG/2 ML VIAL IVP PRN ×2 (05:44→17:22)
[2018-11-10 05:52] LABS: Glucose,Whole Blood 269 mg/dL (75-99)
[2018-11-10] MEDS: GLIMEPIRIDE 0.5 MG TAB PO SCH (06:31)
--- NOTE | 2018-11-10 07:12 | P.PN ---
Subjective Progress Note Date: 11/10/18 Principal diagnosis: This a continue process on a 58-year-old white female with metastatic non-small cell lung cancer with history of unstable angina. The patient states constipat ion. I do suspect this is related to her pain medication and overall debility. No sniffing nausea, vomiting or diarrhea. No overt fever or chills stated. No significant nausea, vomiting or diarrhea. Objective - Vital Signs Vital signs: Vital Signs Temp 98 F 11/10/18 05:41 Pulse 91 11/10/18 05:41 Resp 18 11/10/18 05:41 BP 95/61 11/10/18 05:41 Pulse Ox 96 11/10/18 05:41 Intake & Output 11/09/18 11/10/18 11/10/18 18:59 06:59 18:59 Intake Total 627.025 Output Total 1100 Balance -472.975 Intake: Intake, IV Titration 3.025 Amount Insulin Regular 100 unit 3.025 In Sodium Chloride 0.9% 100 ml @ Titrate IV .Q0M [facility] Rx#:[id number] Oral 624 Output: Urine 1100 Other: Voiding Method Bedside Commode Bedside Commode # Voids 1 - Constitutional General appearance: Present: average body habitus, cooperative - EENT Eyes: Absent: abnormal pupil - Neck Neck: Absent: lymphadenopathy - Respiratory Respiratory: bilateral: CTA - Cardiovascular Rhythm: regular Heart sounds: normal: S1, S2 Abnormal Heart Sounds: Absent: S3 Gallop - Gastrointestinal General gastrointestinal: Present: distended, soft. Absent: tenderness - Neurologic Neurologic: Present: CNII-XII intact - Labs CBC & Chem 7: 11/07/18 04:48 11/07/18 04:48 Labs: Abnormal Lab Results - Last 24 Hours (Table) 11/09/18 11/09/18 11/09/18 Range/Units 08:20 09:11 10:11 POC Glucose (mg/dL) 128 H 122 H 116 H (75-99) mg/dL 11/09/18 11/09/18 11/09/18 Range/Units 11:11 17:01 20:48 POC Glucose (mg/dL) 136 H 215 H 300 H (75-99) mg/dL 11/10/18 Range/Units 05:50 POC Glucose (mg/dL) 269 H (75-99) mg/dL Microbiology - Last 24 Hours (Table) 11/04/18 21:33 Blood Culture - Preliminary Blood No Growth after 120 hours Assessment and Plan (1) Brain metastasis Current Visit: Yes Status: Acute Priority: High Code(s): C79.31 - SECONDARY MALIGNANT NEOPLASM OF BRAIN SNOMED Code(s): 48759863 (2) Chest pain Current Visit: Yes Status: Acute Code(s): R07.9 - CHEST PAIN, UNSPECIFIED SNOMED Code(s): 49081305 (3) Elevated troponin Current Visit: Yes Status: Acute Code(s): R74.8 - ABNORMAL LEVELS OF OTHER SERUM ENZYMES SNOMED Code(s): 833781362 (4) Metastatic carcinoma Current Visit: Yes Status: Acute Code(s): C79.9 - SECONDARY MALIGNANT NEOPLASM OF UNSPECIFIED SITE SNOMED Code(s): 073070856 (5) Cancer related pain Current Visit: No Status: Acute Priority: High Code(s): G89.3 - NEOPLASM RELATED PAIN (ACUTE) (CHRONIC) SNOMED Code(s): 81994816802476 (6) Lytic bone lesions on xray Current Visit: No Status: Acute Priority: High Code(s): M89.9 - DISORDER OF BONE, UNSPECIFIED SNOMED Code(s): 615942031 (7) Non-small cell lung cancer (NSCLC) Current Visit: No Status: Acute Priority: High Code(s): C34.90 - MALIGNANT NEOPLASM OF UNSP PART OF UNSP BRONCHUS OR LUNG SNOMED Code(s): 508010533 (8) Weakness Current Visit: No Status: Acute Code(s): R53.1 - WEAKNESS SNOMED Code(s): 30506470 Plan: We'll go and give some milk of magnesia for constipation. Check CBC and CMP in a.m. Prognosis is guarded given her multiple comorbidities and overriding metastatic disease. We'll continue to follow. Hopefully we can discharge in next 24-48 hours. Time with Patient: Greater than 30
[2018-11-10] MEDS: IPRATROPIUM-ALBUTEROL 3 ML NEB INHALATION SCH ×3 (08:04→18:40)
[2018-11-10] MEDS: SYMBICORT 160-4.5 MCG INHALER INHALATION SCH ×3 (08:05→18:46)
[2018-11-10] MEDS: ISOSORBIDE MONONITRATE ER 60 MG TAB.ER.24H PO SCH (09:43)
[2018-11-10] MEDS: FILGRASTIM-SNDZ 480 MCG/0.8 ML SYRINGE SQ SCH (09:43)
[2018-11-10] MEDS: ATORVASTATIN 20 MG TAB PO SCH (09:43)
[2018-11-10] MEDS: LOSARTAN 25 MG TAB PO SCH ×2 (09:43→09:50)
[2018-11-10] MEDS: ASPIRIN 81 MG PO SCH (09:43)
[2018-11-10] MEDS: CITALOPRAM HYDROBROMIDE 10 MG TAB PO SCH (09:43)
[2018-11-10] MEDS: FOLIC ACID 1 MG TAB PO SCH (09:43)
[2018-11-10] MEDS: MAGNESIUM HYDROXIDE 2,400 MG/10 ML CUP PO PRN (09:43)
[2018-11-10] MEDS: SPIRONOLACTONE 25 MG TAB PO SCH (09:43)
[2018-11-10] MEDS: DEXAMETHASONE 4 MG TAB PO SCH ×4 (09:44→23:40)
[2018-11-10] MEDS: FUROSEMIDE 40 MG TAB PO SCH (09:44)
[2018-11-10] MEDS: DOCUSATE 100 MG CAP PO SCH (09:44)
[2018-11-10] MEDS: ALPRAZolam 0.5 MG TAB PO PRN ×3 (09:49→23:46)
[2018-11-10 12:09] LABS: Glucose,Whole Blood 325 mg/dL (75-99)
[2018-11-10] MEDS: PROCHLORPERAZINE 10 MG TAB PO PRN (12:19)
[2018-11-10] MEDS ORDERED: BISACODYL 5 MG TABLET.DR PO STA (13:44)
[2018-11-10] MEDS ORDERED: NA PHOS,M-B/NA PHOS,DI-BA 133 ML ENEMA RECTAL STA (13:44)
--- NOTE | 2018-11-10 16:32 | CDI ---
Documentation Clarification Form Date: 11/10/2018 4:25:13 PM From: Peggy Wolff RN, CCDS Admit Date: 11/05/2018 12:05:00 AM Patient Name: Radhames Belle Visit Number: [id number] ATTENTION: The Clinical Documentation Specialists (CDI) and [facility] Coding Staff appreciate your assistance in clarifying documentation. Please respond to the clarification below the line at the bottom and electronically sign. The CDI & [facility] Coding staff will review the response and follow-up if needed. Please note: Queries are made part of the Legal Health Record. If you have any questions, please contact the author of this message via ITS. Dr. Ji Madera CHF is documented in the H&P< Consults, and Progress Notes and requires further specificity. History/Risk Factors: Cad, Lung ca w mets, CP, CLL, NH, PVD, HTN, COPD Clinical Indicators: Attending Progress notes: "Acute CHF" VS/Pulse OX: 100% on partial rebreather on admission BNP:22,400 Echocardiogram Results: EF 25-30% 11/05 Chest X Ray: Overall stable findings, no suspicious new acute pulmonary process. Treatment: Coreg 6.25 mg PO BID Multiple Doses of Lasix 40 mg IVP followed by 40 mg O QD 1l IVF bolus In your professional opinion, can you please clarify the acuity and type of CHF if known? Systolic Heart Failure: Acute Acute on Chronic Systolic & Diastolic Heart Failure: Acute Acute on Chronic Heart Failure Unable to Determine Other, please specify (Last Revision: June 2017) MTDD
--- NOTE | 2018-11-10 16:44 | P.PN ---
Subjective Progress Note Date: 11/10/18 Principal diagnosis: Metastatic Cancer patient appears better clinically today, Calcium is low (Ionized 3.3) and ANC is = 0.20. Oxygen saturation on room air adequate. Afebrile Objective - Vital Signs Vital signs: Vital Signs Temp 97.9 F 11/10/18 15:53 Pulse 94 11/10/18 15:53 Resp 18 11/10/18 15:53 BP 100/68 11/10/18 15:53 Pulse Ox 98 11/10/18 09:45 Intake & Output 11/09/18 11/10/18 11/10/18 18:59 06:59 18:59 Intake Total 627.025 360 Output Total 1100 Balance -472.975 360 Intake: Intake, IV Titration 3.025 Amount Insulin Regular 100 unit 3.025 In Sodium Chloride 0.9% 100 ml @ Titrate IV .Q0M [facility] Rx#:[id number] Oral 624 360 Output: Urine 1100 Other: Voiding Method Bedside Commode Bedside Commode Bedside Commode # Voids 1 1 # Bowel Movements 1 - Exam Gen: Alert and Oriented, NAD Head: NCNT Neck Supple Heart Irreg Lungs No increased effort CTA B Abdomen: S/ND/NT Ext: No Rash, No Edema, Equal Strength Psych: Calm and Cooperative Neuro: No Focal Deficits Noted. - Labs CBC & Chem 7: 11/11/18 05:37 11/11/18 05:37 Labs: Abnormal Lab Results - Last 24 Hours (Table) 11/09/18 11/09/18 11/10/18 Range/Units 17:01 20:48 05:50 POC Glucose (mg/dL) 215 H 300 H 269 H (75-99) mg/dL 11/10/18 Range/Units 11:41 POC Glucose (mg/dL) 325 H (75-99) mg/dL Microbiology - Last 24 Hours (Table) 11/04/18 21:33 Blood Culture - Preliminary Blood No Growth after 120 hours Assessment and Plan Plan: Assessment and Recommendations: Metastatic Adenocarcinoma Lung: - Mets to Liver, Bones, isolated lesion to Brain (status Post SRS) - Status Post one cycle of Carboplatin, Almta and Keytruda - Status POst ZOmeta for bone Lesions - Dr. Haynes is following for palliative radiation to bone - Last treatment 10.29.18 - Continue Folic Acid with treatment Almta Neutropenia: Secondary to Chemotherapy - ANC 0.20 - Start Granix - WBC appear increased at baseline from hx: CLL, although neutropenia per ANC - Neutropenic precautions thrombocytopenia: - Within safe range, secondary to chemotherapy Hypocalcemia: - infection versus Biphosphonate treatment - 2Grams Calcium, Gluconate ordered and recheck CMP, ionized calcium in am along with Mag Chest Pain, CHF: -Cardiology Following and unable to undergo any invasive procedure due to e xtent of cancer CLL - Original diagnosis and treatment 2014 - Continued monitoring - Treated previously with Rituxan and Mercedes - Last year with Imbruiva prior to NSCLCA diagnosis PLan: plan is discharge to home hospice per discharge summary
[2018-11-10 16:53] LABS: Glucose,Whole Blood 398 mg/dL (75-99)
[2018-11-10] MEDS: HYDROcodone/APAP 7.5-325MG 1 EACH TAB PO PRN (16:53)
[2018-11-10] MEDS: INSULIN ASPART (NovoLOG) 100 UNIT/ML VIAL SQ SCH ×2 (17:12→21:53)
[2018-11-10 20:57] LABS: Glucose,Whole Blood 325 mg/dL (75-99)
[2018-11-10 21:59] LABS: Glucose,Whole Blood 255 mg/dL (75-99)
[2018-11-11] MEDS: MORPHINE SULFATE IR 15 MG TABLET PO PRN ×4 (04:50→20:40)
[2018-11-11] MEDS: ONDANSETRON 4 MG/2 ML VIAL IVP PRN (04:52)
[2018-11-11] MEDS: HYDROcodone/APAP 7.5-325MG 1 EACH TAB PO PRN ×3 (05:51→23:04)
[2018-11-11 06:29] LABS: Glucose,Whole Blood 211 mg/dL (75-99)
[2018-11-11] MEDS: INSULIN ASPART (NovoLOG) 100 UNIT/ML VIAL SQ SCH ×4 (06:46→20:39)
[2018-11-11] MEDS: CARVEDILOL 6.25 MG TAB PO SCH ×2 (06:46→14:54)
[2018-11-11] MEDS: PANTOPRAZOLE 40 MG TABLET PO SCH (06:46)
[2018-11-11] MEDS: GLIMEPIRIDE 0.5 MG TAB PO SCH (06:46)
[2018-11-11 07:17] LABS: Basophils # (A) 0.2 k/uL (0-0.2); Basophils % (A) 1 %; Eosinophils % (A) 0 %; HCT 34.4 % (34.0-46.0); HGB 11.8 gm/dL (11.4-16.0); Lymphocytes # (A) 3.9 k/uL (1.0-4.8); Lymphocytes % (A) 20 %; MCH 30.9 pg (25.0-35.0); MCHC 34.4 g/dL (31.0-37.0); Monocytes # (A) 0.4 k/uL (0-1.0); Monocytes % (A) 2 %; Neutrophils # (A) 14.7 k/uL (1.3-7.7); Neutrophils % (A) 75 %; RBC 3.82 m/uL (3.80-5.40); RDW 15.6 % (11.5-15.5); WBC 19.6 k/uL (3.8-10.6)
[2018-11-11 07:32] LABS: ALT 33 U/L (9-52); AST 19 U/L (14-36); African American GFR (CKD) >90 (>60 ml/min/1.73 sqM); Albumin 2.8 g/dL (3.5-5.0); Alkaline Phosphatase 125 U/L (38-126); Anion Gap 6 mmol/L; Blood Urea Nitrogen 24 mg/dL (7-17); Carbon Dioxide 35 mmol/L (22-30); Chloride 91 mmol/L (98-107); Glucose 165 mg/dL (74-99); Potassium 3.9 mmol/L (3.5-5.1); Sodium 132 mmol/L (137-145); Total Bilirubin 0.4 mg/dL (0.2-1.3); Total Protein 4.7 g/dL (6.3-8.2)
[2018-11-11 07:48] LABS: Calcium 5.6 mg/dL (8.4-10.2)
--- NOTE | 2018-11-11 08:45 | P.DS ---
Providers Date of admission: 11/05/18 00:05 Attending physician: Ji Madera Consults: 11/05/18 00:01 Consult Physician Stat Consulting Provider: Kristen Garcia Consult Reason/Comments: NSTEMI, CHF, Chest pain Do you want consulting provider notified?: Yes, Notify in am 11/05/18 00:05 Consult Physician Stat Consulting Provider: Pawel Monk Consult Reason/Comments: acute chest pain Do you want consulting provider notified?: Already Contacted 11/05/18 07:36 Consult Physician Routine Consulting Provider: Bijan Romo Consult Reason/Comments: ca Do you want consulting provider notified?: Yes Primary care physician: Ji Madera - Discharge Diagnosis(es) (1) Brain metastasis Current Visit: Yes Status: Acute Priority: High (2) Chest pain Current Visit: Yes Status: Acute (3) Elevated troponin Current Visit: Yes Status: Acute (4) Metastatic carcinoma Current Visit: Yes Status: Acute (5) Cancer related pain Current Visit: No Status: Acute Priority: High (6) Lytic bone lesions on xray Current Visit: No Status: Acute Priority: High (7) Non-small cell lung cancer (NSCLC) Current Visit: No Status: Acute Priority: High (8) Weakness Current Visit: No Status: Acute Hospital Course: This is a discharge summary 58-year-old white female essentially admitted for unstable angina and elevated troponin. Given her overall prognosis however, cardiology and oncology have decided to coordinate with conservative care. Given her overall prognosis, the patient has decided to be discharged with appropriate hospice care. The patient's prognosis is poor given her stage of tumor load and she'll be discharged in guarded condition. Patient Condition at Discharge: Stable Plan - Discharge Summary Discharge Rx Participant: Yes New Discharge Prescriptions: New fentaNYL 25MCG/HR PATCH [Duragesic 25MCG/HR] 2 patch TRANSDERM Q72H #20 patch Furosemide [Lasix] 40 mg PO DAILY #30 tab Continue ALPRAZolam [Xanax] 0.5 mg PO TID PRN PRN Reason: Anxiety Prochlorperazine [Compazine] 10 mg PO BID PRN PRN Reason: Nausea Carvedilol [Coreg] 6.25 mg PO BID Spironolactone [Aldactone] 25 mg PO DAILY Losartan [Cozaar] 50 mg PO DAILY Isosorbide Mononitrate ER [Imdur] 30 mg PO DAILY Citalopram Hydrobromide [CeleXA] 10 mg PO DAILY Aspirin 81 mg PO DAILY #30 chew Nitroglycerin Sl Tabs [Nitrostat] 0.4 mg SUBLINGUAL Q5M PRN #20 tab PRN Reason: Chest Pain Atorvastatin [Lipitor] 20 mg PO DAILY HYDROcodone/APAP 7.5-325MG [[place] 7.5-325] 1 tab PO Q6HR PRN PRN Reason: Pain Dexamethasone [Hexadrol] 4 mg PO QID #60 tab Sennosides-Docusate Sodium [Senokot-S] 1 tab PO BID Discontinued Furosemide [Lasix] 20 mg PO DAILY Discharge Medication List ALPRAZolam [Xanax] 0.5 mg PO TID PRN 01/30/15 [History] Carvedilol [Coreg] 6.25 mg PO BID 11/14/17 [History] Losartan [Cozaar] 50 mg PO DAILY 11/14/17 [History] Prochlorperazine [Compazine] 10 mg PO BID PRN 11/14/17 [History] Spironolactone [Aldactone] 25 mg PO DAILY 11/14/17 [History] Citalopram Hydrobromide [CeleXA] 10 mg PO DAILY 03/27/18 [History] Isosorbide Mononitrate ER [Imdur] 30 mg PO DAILY 03/27/18 [History] Aspirin 81 mg PO DAILY #30 chew 03/28/18 [Rx] Nitroglycerin Sl Tabs [Nitrostat] 0.4 mg SUBLINGUAL Q5M PRN #20 tab 03/28/18 [Rx] Atorvastatin [Lipitor] 20 mg PO DAILY 06/28/18 [History] HYDROcodone/APAP 7.5-325MG [[place] 7.5-325] 1 tab PO Q6HR PRN 07/07/18 [History] Dexamethasone [Hexadrol] 4 mg PO QID #60 tab 09/25/18 [Rx] Sennosides-Docusate Sodium [Senokot-S] 1 tab PO BID 10/19/18 [History] Furosemide [Lasix] 40 mg PO DAILY #30 tab 11/11/18 [Rx] fentaNYL 25MCG/HR PATCH [Duragesic 25MCG/HR] 2 patch TRANSDERM Q72H #20 patch 11/11/18 [Rx] Follow up Appointment(s)/Referral(s): Ji Madera MD [Primary Care Provider] - 1-2 days
[2018-11-11] MEDS: SYMBICORT 160-4.5 MCG INHALER INHALATION SCH ×2 (08:57→19:17)
[2018-11-11] MEDS: IPRATROPIUM-ALBUTEROL 3 ML NEB INHALATION SCH ×3 (08:57→19:18)
[2018-11-11] MEDS: FILGRASTIM-SNDZ 480 MCG/0.8 ML SYRINGE SQ SCH (08:59)
[2018-11-11] MEDS: MAGNESIUM HYDROXIDE 2,400 MG/10 ML CUP PO PRN (08:59)
[2018-11-11] MEDS: SPIRONOLACTONE 25 MG TAB PO SCH (09:00)
[2018-11-11] MEDS: DEXAMETHASONE 4 MG TAB PO SCH ×4 (09:00→23:04)
[2018-11-11] MEDS: ATORVASTATIN 20 MG TAB PO SCH (09:00)
[2018-11-11] MEDS: FUROSEMIDE 40 MG TAB PO SCH (09:00)
[2018-11-11] MEDS: CITALOPRAM HYDROBROMIDE 10 MG TAB PO SCH (09:00)
[2018-11-11] MEDS: ALPRAZolam 0.5 MG TAB PO PRN ×2 (09:00→20:41)
[2018-11-11] MEDS: LOSARTAN 25 MG TAB PO SCH (09:00)
[2018-11-11] MEDS: FOLIC ACID 1 MG TAB PO SCH (09:00)
[2018-11-11] MEDS: DOCUSATE 100 MG CAP PO SCH (09:00)
[2018-11-11] MEDS: ISOSORBIDE MONONITRATE ER 60 MG TAB.ER.24H PO SCH (09:00)
[2018-11-11] MEDS: ASPIRIN 81 MG PO SCH (09:00)
[2018-11-11 09:11] LABS: Platelet Count 62 k/uL (150-450)
[2018-11-11 09:13] LABS: Large Platelets Present
[2018-11-11 11:50] LABS: Glucose,Whole Blood 322 mg/dL (75-99)
[2018-11-11] MEDS: PROCHLORPERAZINE 10 MG TAB PO PRN (11:56)
--- NOTE | 2018-11-11 14:54 | XR ---
EXAMINATION TYPE: XR elbow complete RT DATE OF EXAM: 11/11/2018 COMPARISON: None HISTORY: Fall hit elbow pain posterior TECHNIQUE: 3 view right elbow FINDINGS: Radius aligns normally with the humerus. No acute fractures or dislocations are evident. Th e anterior fat pad is normal. The posterior fat pad appears normal. Follow up exams can be performed 7-10 days from acute trauma for continued pain. IMPRESSION: 1. Normal 3 view right elbow
[2018-11-11 16:44] LABS: Glucose,Whole Blood 418 mg/dL (75-99)
[2018-11-11 20:33] LABS: Glucose,Whole Blood 148 mg/dL (75-99)
[2018-11-11 23:17] VITALS: RESP 18
[2018-11-12] MEDS: MORPHINE SULFATE IR 15 MG TABLET PO PRN ×4 (00:34→12:59)
[2018-11-12] MEDS: HYDROcodone/APAP 7.5-325MG 1 EACH TAB PO PRN ×2 (05:26→11:42)
[2018-11-12 05:30] VITALS: BP 93/62; PULSE 80; TEMP 98
[2018-11-12 07:03] LABS: Glucose,Whole Blood 286 mg/dL (75-99)
[2018-11-12] MEDS: SYMBICORT 160-4.5 MCG INHALER INHALATION SCH (07:37)
[2018-11-12] MEDS: IPRATROPIUM-ALBUTEROL 3 ML NEB INHALATION SCH ×2 (07:37→10:47)
[2018-11-12] MEDS: DOCUSATE 100 MG CAP PO SCH (07:52)
[2018-11-12] MEDS: FOLIC ACID 1 MG TAB PO SCH (07:52)
[2018-11-12] MEDS: FUROSEMIDE 40 MG TAB PO SCH (07:52)
[2018-11-12] MEDS: CITALOPRAM HYDROBROMIDE 10 MG TAB PO SCH (07:52)
[2018-11-12] MEDS: CARVEDILOL 6.25 MG TAB PO SCH (07:52)
[2018-11-12] MEDS: SPIRONOLACTONE 25 MG TAB PO SCH (07:52)
[2018-11-12] MEDS: PANTOPRAZOLE 40 MG TABLET PO SCH (07:52)
[2018-11-12] MEDS: ATORVASTATIN 20 MG TAB PO SCH (07:52)
[2018-11-12] MEDS: INSULIN ASPART (NovoLOG) 100 UNIT/ML VIAL SQ SCH ×2 (07:53→12:59)
[2018-11-12] MEDS: ASPIRIN 81 MG PO SCH (07:53)
[2018-11-12] MEDS: ONDANSETRON 4 MG/2 ML VIAL IVP PRN (07:53)
[2018-11-12] MEDS: GLIMEPIRIDE 0.5 MG TAB PO SCH (07:53)
[2018-11-12] MEDS: DEXAMETHASONE 4 MG TAB PO SCH ×2 (07:54→12:59)
[2018-11-12] MEDS ORDERED: ISOSORBIDE MONONITRATE ER 30 MG TAB.ER.24H PO SCH (09:00)
[2018-11-12 11:02] VITALS: BMI 26.2
[2018-11-12 11:33] LABS: Glucose,Whole Blood 156 mg/dL (75-99)
[2018-11-12] MEDS: ALPRAZolam 0.5 MG TAB PO PRN (11:42)
--- NOTE | 2018-11-12 12:43 | P.PN ---
Subjective Progress Note Date: 11/12/18 Principal diagnosis: Metastatic Cancer Patient plan discharge today Objective - Vital Signs Vital signs: Vital Signs Temp 98.0 F 11/12/18 04:50 Pulse 80 11/12/18 04:50 Resp 18 11/12/18 04:50 BP 93/62 11/12/18 04:50 Pulse Ox 96 11/12/18 04:50 Intake & Output 11/11/18 11/12/18 11/12/18 18:59 06:59 18:59 Intake Total 684 Balance 684 Weight 65.2 kg Intake: Oral 684 Other: Voiding Method Toilet # Voids 2 1 - Exam Gen: Alert and Oriented, NAD Head: NCNT Neck Supple Heart Irreg Lungs No increased effort CTA B Abdomen: S/ND/NT Ext: No Rash, No Edema, Equal Strength Psych: Calm and Cooperative Neuro: No Focal Deficits Noted. - Labs CBC & Chem 7: 11/11/18 05:37 11/11/18 05:37 Labs: Abnormal Lab Results - Last 24 Hours (Table) 11/11/18 11/11/18 11/12/18 Range/Units 16:42 20:31 07:01 POC Glucose (mg/dL) 418 H 148 H 286 H (75-99) mg/dL 11/12/18 Range/Units 11:30 POC Glucose (mg/dL) 156 H (75-99) mg/dL Assessment and Plan Plan: Assessment and Recommendations: Metastatic Adenocarcinoma Lung: - Mets to Liver, Bones, isolated lesion to Brain (status Post SRS) - Status Post one cycle of Carboplatin, Almta and Keytruda - Status POst ZOmeta for bone Lesions - Dr. Haynes is following for palliative radiation to bone - Last treatment 10.29.18 - Continue Folic Acid with treatment Almta Neutropenia: Secondary to Chemotherapy - ANC 0.20 - Start Granix - WBC appear increased at baseline from hx: CLL, although neutropenia per ANC - Neutropenic precautions thrombocytopenia: - Within safe range, secondary to chemotherapy Hypocalcemia: - infection versus Biphosphonate treatment - 2Grams Calcium, Gluconate ordered and recheck CMP, ionized calcium in am along with Mag Chest Pain, CHF: -Cardiology Following and unable to undergo any invasive procedure due to extent of cancer CLL - Original diagnosis and treatment 2014 - Continued monitoring - Treated previously with Rituxan and Treanda - Last year with Imbruiva prior to NSCLCA diagnosis PLan: plan is discharge to ECF per Case managment, will re-evaluate patients overall performance status and if treatment options after discharge from facility
[2018-11-12] MEDS: FILGRASTIM-SNDZ 480 MCG/0.8 ML SYRINGE SQ SCH (13:02)
== END 2018-11-12 15:12 | DRG 948 ==
LOC: EC 19:36 → 2SICU 11-05 00:05 → 3SCARD 11-07 14:46 → 4MS4W 11-11 21:16
PROVIDERS: ADMIT Family Medicine; ATTEND Family Medicine
DX: G89.3 Neoplasm related pain (acute) (chronic) (principal); I25.110 Atherosclerotic heart disease of native coronary artery with unstable angina pectoris; C34.90 Malignant neoplasm of unspecified part of unspecified bronchus or lung; C78.00 Secondary malignant neoplasm of unspecified lung; C78.7 Secondary malignant neoplasm of liver and intrahepatic bile duct; C79.31 Secondary malignant neoplasm of brain; C79.51 Secondary malignant neoplasm of bone; C79.70 Secondary malignant neoplasm of unspecified adrenal gland; C91.10 Chronic lymphocytic leukemia of B-cell type not having achieved remission; I42.9 Cardiomyopathy, unspecified; D70.1 Agranulocytosis secondary to cancer chemotherapy; D69.59 Other secondary thrombocytopenia; I11.0 Hypertensive heart disease with heart failure; E83.51 Hypocalcemia; I08.1 Rheumatic disorders of both mitral and tricuspid valves; F01.50 Vascular dementia, unspecified severity, without behavioral disturbance, psychotic disturbance, mood disturbance, and anxiety; E78.5 Hyperlipidemia, unspecified; F32.9 Major depressive disorder, single episode, unspecified; K59.03 Drug induced constipation; T40.605A Adverse effect of unspecified narcotics, initial encounter; F41.9 Anxiety disorder, unspecified; I25.2 Old myocardial infarction; I73.9 Peripheral vascular disease, unspecified; J44.9 Chronic obstructive pulmonary disease, unspecified; K21.9 Gastro-esophageal reflux disease without esophagitis; M19.90 Unspecified osteoarthritis, unspecified site; K30 Functional dyspepsia; M54.9 Dorsalgia, unspecified; T45.1X5A Adverse effect of antineoplastic and immunosuppressive drugs, initial encounter; I49.3 Ventricular premature depolarization; R77.9 Abnormality of plasma protein, unspecified; Z51.5 Encounter for palliative care; Z66 Do not resuscitate; Z86.14 Personal history of Methicillin resistant Staphylococcus aureus infection; Z79.82 Long term (current) use of aspirin; Z79.899 Other long term (current) drug therapy; Z90.710 Acquired absence of both cervix and uterus; Z87.891 Personal history of nicotine dependence; Z91.041 Radiographic dye allergy status; Z88.1 Allergy status to other antibiotic agents; Z80.1 Family history of malignant neoplasm of trachea, bronchus and lung; Z82.49 Family history of ischemic heart disease and other diseases of the circulatory system; Z80.8 Family history of malignant neoplasm of other organs or systems
CPT/HCPCS: 36415; 70450; 71045; 71275; 80048; 80053; 80061; 81003; 82150; 82330; 83690; 83735; 83880; 84484; 85025; 85610; 85730; 87040; 93005; 93306; 94640; 94760; 96361; 96365; 96366; 96375; 96376; 99291

== ENCOUNTER 2018-11-16 16:26 | Inpatient (IN) | payer OTHER ==
[2018-11-16] MEDS ORDERED: SODIUM CHLORIDE 0.9% 1,000 ML IV ONE ×2 (16:45→20:15)
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
[2018-11-16 17:17] LABS: Glucose,Whole Blood 395 mg/dL (75-99)
[2018-11-16 17:37] LABS: Ionized Calcium 2.7 mg/dL (4.5-5.3)
[2018-11-16 17:43] LABS: Anisocytosis Slight; Basophils # (A) 0.6 k/uL (0-0.2); Basophils % (A) 3 %; Eosinophils # (A) 0.1 k/uL (0-0.7); Eosinophils % (A) 0 %; HGB 13.3 gm/dL (11.4-16.0); Hyperchromasia Slight; Lymphocytes # (A) 4.8 k/uL (1.0-4.8); Lymphocytes % (A) 25 %; MCH 30.3 pg (25.0-35.0); MCV 89.1 fL (80.0-100.0); Mean Platelet Volume 10.7; Monocytes # (A) 0.5 k/uL (0-1.0); Monocytes % (A) 3 %; Neutrophils # (A) 13.7 k/uL (1.3-7.7); Neutrophils % (A) 71 %; Platelet Count 118 k/uL (150-450); RBC 4.38 m/uL (3.80-5.40); RDW 18.5 % (11.5-15.5); WBC 19.4 k/uL (3.8-10.6)
[2018-11-16 17:45] LABS: ALT 47 U/L (9-52); AST 23 U/L (14-36); African American GFR (CKD) >90 (>60 ml/min/1.73 sqM); Albumin 3.6 g/dL (3.5-5.0); Alkaline Phosphatase 146 U/L (38-126); Anion Gap 13 mmol/L; Blood Urea Nitrogen 24 mg/dL (7-17); Carbon Dioxide 38 mmol/L (22-30); Chloride 79 mmol/L (98-107); Creatine Kinase 41 U/L (30-135); Glucose 367 mg/dL (74-99); Magnesium 2.2 mg/dL (1.6-2.3); Phosphorus 2.9 mg/dL (2.5-4.5); Sodium 130 mmol/L (137-145); Total Bilirubin 0.9 mg/dL (0.2-1.3); Total Protein 5.8 g/dL (6.3-8.2)
--- NOTE | 2018-11-16 18:03 | XR ---
EXAMINATION TYPE: XR chest 2V DATE OF EXAM: 11/16/2018 COMPARISON: Chest x-ray November 06, 2018. CTA chest November 04, 2018 HISTORY: Altered mental status and weakness. TECHNIQUE: Frontal and lateral views of the chest are obtained. FINDINGS: There is background chronic emphysematous change. Redemonstration of destructive lateral r ight mid rib lesion with soft tissue nodularity. Spiculated left upper lobe nodule seen better on CT. No new focal airspace opacity, pleural effusion, or pneumothorax. The cardiac silhouette size is sta ble and upper limits of normal. The osseous structures are demineralized. IMPRESSION: Chronic changes without new suspicious acute pulmonary process.
--- NOTE | 2018-11-16 18:06 | CT ---
EXAMINATION TYPE: CT brain wo con DATE OF EXAM: 11/16/2018 HISTORY: Weakness CT DLP: 1173.4 mGycm. Automated Exposure Control for Dose Reduction was Utilized. TECHNIQUE: CT scan of the head is performed without contrast. COMPARISON: CT brain November 04, 2018. FINDINGS: There is no acute intracranial hemorrhage or midline shift identified. There is diffuse v entricular and sulcal prominence consistent with diffuse age-related cerebral atrophy. There is low- attenuation in the periventricular white matter consistent with chronic small vessel ischemic change. This destructive 1.8 cm left supraorbital mass axial image 19 redemonstrated and is thought stable. Vascular calcification distal internal carotid arteries is redemonstrated bilaterally. IMPRESSION: No acute intracranial hemorrhage or midline shift. There is mild diffuse age-related ce rebral atrophy and chronic small vessel ischemic change along with metastatic left superolateral orbi dayne lesion are all redemonstrated. No significant change from prior.
[2018-11-16] MEDS ORDERED: CALCIUM GLUCONATE 2 GM in SODIUM CHLORIDE 0.9% 100 ML IVPB ONE (18:53)
[2018-11-16] MEDS ORDERED: POTASSIUM BICARBONATE/CIT AC 20 MEQ TABLET.EFF PO STA (18:56)
[2018-11-16] MEDS ORDERED: CALCIUM CARB-MAG CARB-FOLIC 1 EACH TAB PO STA (18:56)
[2018-11-16] MEDS ORDERED: ONDANSETRON ODT 4 MG TAB PO STA (19:20)
[2018-11-16] MEDS ORDERED: LORazepam 2 MG/ML INJ IV PRN (20:16)
[2018-11-17 06:26] LABS: Glucose,Whole Blood 253 mg/dL (75-99)
[2018-11-17] MEDS: CALCIUM CARB-MAG CARB-FOLIC 1 EACH TAB PO SCH ×2 (06:41→17:33)
[2018-11-17 06:47] LABS: Amorphous Sediment,Urine Rare /hpf; Appearance,Urine Cloudy (Clear); Bacteria,Urine Many /hpf; Bilirubin,Urine Negative (Negative); Blood,Urine Negative (Negative); Color,Urine Yellow; Glucose,Urine (UA) 4+ (Negative); Ketones,Urine Negative (Negative); Leukocyte Esterase,Urine Negative (Negative); Mucus,Urine Rare /hpf; Nitrite,Urine Negative (Negative); Protein,Urine 1+ (Negative); Specific Gravity,Urine 1.017 (1.001-1.035); Squamous Epithelial Cell,Urine 1 /hpf (0-4); Urobilinogen,Urine <2.0 mg/dL (<2.0)
[2018-11-17 07:11] LABS: Amphetamine Screen,Urine Not Detected (NotDetected); Barbiturate Screen,Urine Not Detected (NotDetected); Benzodiazepines Screen,Urine Detected (NotDetected); Cocaine Screen,Urine Not Detected (NotDetected); Methadone Screen, Urine Not Detected (NotDetected); Opiate Screen,Urine Detected (NotDetected); Oxycodone Screen, Urine Not Detected (NotDetected); Phencyclidine Screen,Urine Not Detected (NotDetected); Tricyclic Antidepressant,Urine Not Detected (NotDetected); Urn Cannabinoid Scrn Detected (NotDetected)
[2018-11-17] MEDS ORDERED: INSULIN ASPART (NovoLOG) 100 UNIT/ML VIAL SQ SCH (07:30)
[2018-11-17] MEDS ORDERED: Potassium Replacement Protocol 1 EACH MISC MISCELLANE PRN (07:38)
[2018-11-17] MEDS ORDERED: NA PHOS,M-B/NA PHOS,DI-BA 133 ML ENEMA RECTAL PRN (07:38)
[2018-11-17] MEDS ORDERED: BISACODYL 10 MG SUPP RECTAL PRN (07:38)
[2018-11-17] MEDS ORDERED: NITROGLYCERIN SL TABS 0.4 MG TAB SUBLINGUAL PRN (07:38)
[2018-11-17] MEDS ORDERED: MAGNESIUM HYDROXIDE 2,400 MG/10 ML CUP PO PRN (07:38)
[2018-11-17 07:40] LABS: Glucose,Whole Blood 236 mg/dL (75-99)
[2018-11-17] MEDS: HYDROmorphone 1 MG/ML 1 ML SYRINGE IVP PRN (08:01)
[2018-11-17] MEDS: CITALOPRAM HYDROBROMIDE 10 MG TAB PO SCH (08:01)
[2018-11-17] MEDS: SENNOSIDES-DOCUSATE SODIUM 1 EACH TAB PO SCH ×2 (08:01→17:15)
[2018-11-17 09:05] LABS: Anisocytosis Slight; Basophils # (A) 0.3 k/uL (0-0.2); Basophils % (A) 2 %; Eosinophils # (A) 0.1 k/uL (0-0.7); Eosinophils % (A) 0 %; HCT 35.1 % (34.0-46.0); HGB 12.1 gm/dL (11.4-16.0); Lymphocytes # (A) 3.8 k/uL (1.0-4.8); Lymphocytes % (A) 21 %; MCH 30.8 pg (25.0-35.0); MCHC 34.6 g/dL (31.0-37.0); MCV 89.2 fL (80.0-100.0); Mean Platelet Volume 10.2; Monocytes # (A) 0.4 k/uL (0-1.0); Monocytes % (A) 2 %; Neutrophils % (A) 72 %; Platelet Count 106 k/uL (150-450); RBC 3.93 m/uL (3.80-5.40); RDW 17.9 % (11.5-15.5); WBC 17.9 k/uL (3.8-10.6)
[2018-11-17] MEDS: PROCHLORPERAZINE 10 MG TAB PO PRN (09:44)
[2018-11-17] MEDS: DEXAMETHASONE 4 MG TAB PO SCH ×4 (10:20→22:07)
[2018-11-17] MEDS: MORPHINE SULFATE IR 15 MG TABLET PO PRN ×4 (10:24→22:55)
[2018-11-17 12:09] LABS: Glucose,Whole Blood 294 mg/dL (75-99)
[2018-11-17] MEDS: ALPRAZolam 0.5 MG TAB PO PRN (12:14)
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
[2018-11-17] MEDS ORDERED: INSULIN ASPART (NovoLOG) 100 UNIT/ML VIAL SQ ONE ×2 (16:51→21:37)
[2018-11-17 16:56] LABS: Glucose,Whole Blood 455 mg/dL (75-99)
[2018-11-17] MEDS: CARVEDILOL 6.25 MG TAB PO SCH (17:15)
[2018-11-17] MEDS: ATORVASTATIN 20 MG TAB PO SCH (17:15)
[2018-11-17] MEDS: ASPIRIN 81 MG PO SCH (17:15)
[2018-11-17 20:50] LABS: Glucose,Whole Blood 343 mg/dL (75-99)
[2018-11-17] MEDS: INSULIN ASPART (NovoLOG) 100 UNIT/ML VIAL SQ SCH (22:07)
[2018-11-18] MEDS: MORPHINE SULFATE IR 15 MG TABLET PO PRN ×3 (05:27→19:40)
[2018-11-18] MEDS: FUROSEMIDE 40 MG TAB PO SCH (05:27)
[2018-11-18] MEDS: CARVEDILOL 6.25 MG TAB PO SCH ×2 (05:27→17:43)
[2018-11-18 06:15] LABS: Ionized Calcium 3.9 mg/dL (4.5-5.3)
[2018-11-18 06:20] LABS: Glucose,Whole Blood 130 mg/dL (75-99)
[2018-11-18 06:25] LABS: ALT 42 U/L (9-52); AST 20 U/L (14-36); African American GFR (CKD) >90 (>60 ml/min/1.73 sqM); Albumin 2.9 g/dL (3.5-5.0); Alkaline Phosphatase 103 U/L (38-126); Anion Gap 5 mmol/L; Blood Urea Nitrogen 21 mg/dL (7-17); Calcium 7.4 mg/dL (8.4-10.2); Carbon Dioxide 35 mmol/L (22-30); Chloride 94 mmol/L (98-107); Glucose 118 mg/dL (74-99); Potassium 3.6 mmol/L (3.5-5.1); Sodium 134 mmol/L (137-145); Total Bilirubin 0.4 mg/dL (0.2-1.3); Total Protein 4.8 g/dL (6.3-8.2)
[2018-11-18] MEDS: INSULIN ASPART (NovoLOG) 100 UNIT/ML VIAL SQ SCH ×4 (06:30→21:30)
[2018-11-18] MEDS: CALCIUM CARB-MAG CARB-FOLIC 1 EACH TAB PO SCH ×2 (06:54→17:47)
[2018-11-18] MEDS: DEXAMETHASONE 4 MG TAB PO SCH (08:02)
[2018-11-18] MEDS: CITALOPRAM HYDROBROMIDE 10 MG TAB PO SCH (08:03)
[2018-11-18] MEDS: SENNOSIDES-DOCUSATE SODIUM 1 EACH TAB PO SCH ×2 (08:03→17:43)
[2018-11-18] MEDS: HYDROmorphone 1 MG/ML 1 ML SYRINGE IVP PRN ×2 (08:07→17:48)
--- NOTE | 2018-11-18 10:55 | CONS ---
CONSULTATION This patient's past history, medical records reviewed. This patient came to the emergency room from [facility] with evidence of change in the mental status and confusion and decreased responsiveness and she had some vague mild abdominal pain as well as chest pain. This patient has a known history of coronary artery disease with cardiomyopathy and severely impaired left ventricular systolic function and history of prior cardiac catheterization. The last cardiac catheterization did not show any significant coronary artery disease. This patient has history of metastatic cancer and was put in the hospice during the previous admission. MEDICATIONS: The patient's current medications include Coreg 6.25 mg b.i.d., Celexa 10 mg daily, Lipitor 20 mg daily, Lasix 40 mg daily, morphine sulfate q.4 hours p.r.n., fentanyl patch. PHYSICAL EXAMINATION: Physical examination at present reveals a 58-year-old female who is lying comfortably in the bed without any acute distress. Patient's blood pressure is 122/56 mmHg, oxygen saturation is 94%. Head/ENT examination is negative. Neck is supple. There is no increase in jugular venous pressure. Both the carotid pulses are felt. There is no bruit. Chest is symmetrical. HEART: The PMI is not felt. First and second heart sounds are normal. There is no evidence of any murmur. Lungs are clinically clear to auscultation and percussion. Abdomen is soft. EXTREMITIES: Peripheral pulsations are 1+. Patient's initial sodium was 130, potassium was 3.0, sodium is now 134. The patient's troponin is 0.115. EKG shows a normal sinus rhythm with evidence of old inferior wall myocardial infarction and diffuse ST-T changes which is not changed as compared to before. FINAL IMPRESSION: This patient is primarily admitted with change in the mental status and had vague atypical abdominal pain and chest pain. The patient has only 1 troponin available which is 0.115. Patient's previous records she always has mildly elevated troponin. We will obtain another 2 troponin levels. However, overall, history is not suggestive of acute coronary syndrome. The patient has a history of metastatic cancer with diffuse metastasis present to the bones. The patient does not require any cardiac intervention at present. Symptomatic medical therapy is recommended. MMODL / IJN: [id number] /
[2018-11-18] MEDS: ALPRAZolam 0.5 MG TAB PO PRN (11:59)
--- NOTE | 2018-11-18 12:50 | CDI ---
Documentation Clarification Form Date: 11/18/2018 12:32:46 PM From: Peggy Wolff RN, CCDS Admit Date: 11/16/2018 8:16:00 PM Patient Name: Radhames Belle Visit Number: [id number] ATTENTION: The Clinical Documentation Specialists (CDI) and [facility] Coding Staff appreciate your assistance in clarifying documentation. Please respond to the clarification below the line at the bottom and electronically sign. The CDI & [facility] Coding staff will review the response and follow-up if needed. Please note: Queries are made part of the Legal Health Record. If you have any questions, please contact the author of this message via ITS. Dr. Ji Madera Altered Mental Status was documented in the H&P and consults and requires further specificity. History/Risk Factors: Smoker, Anxiety, Depression, COPD, GERD, HTN, DE, CLL, PVD, HTN Clinical Indicators: 11/18 Cardiology Consult: "This patient is primarily admitted with change in the mental status and had vague atypical abdominal pain and chest pain." 11/17 Oncology consult: "Treated brain metastases with stereotactic radiation and steroids. Recent CT of the head negative for new or progressive malignancy." 11/17 H&P: "AMS, Hypocalcaemia, Hyponatremia, small cell lung CA with Mets." Labs: WBC 19.4/17.9, Plt 118/106, BUN 24/21, Creatinine .43/.38. CA+ 6/7.4 CXR: chronic changes CT of Brain: "IMPRESSION: " No acute intracranial hemorrhage or midline shift. There is mild diffuse age-related cerebral atrophy and chronic small vessel ischemic change along with metastatic left superolateral orbital lesion are all redemonstrated. No significant change from prior." Treatment: PO Xanax TID, Celexa 10 mg PO QD, Fentanyl Patch Q 72 hrs, IVP Dilaudid Q 6 hrs PRN, MSIR 15 mg PO Q 4 hrs PRN Magnebind PO AC BID, Ca+Gl- IVPB 1l IVF Bolus In your professional opinion, please clarify the etiology of the Altered Mental Status, if known. Encephalopathy (Specify type- Metabolic, Toxic, and Underlying Medical Illness) Delirium (specify cause): Other condition (please specify) Unable to determine (Last Revision: June 2017) Addressed in recent progress note. MTDD
--- NOTE | 2018-11-18 17:10 | P.PN ---
Subjective Progress Note Date: 11/18/18 Principal diagnosis: AMS, weakness. Metastatic NSCLC In follow-up today patient is more alert and oriented and she was yesterday, she still occasionally asks appropriate questions but she is able to correct herself. Her is at the bedside. Patient has not had a fever, nausea, appetite is poor, no chest pain, constipation, diarrhea or bleeding. Pain is currently managed. She does have some mild to moderate anxiety regarding diagnosis, treatment and prognosis. Objective - Vital Signs Vital signs: Vital Signs Temp 98.9 F 11/18/18 08:14 Pulse 86 11/18/18 08:14 Resp 18 11/18/18 08:14 BP 122/56 11/18/18 08:14 Pulse Ox 94 L 11/18/18 08:14 Intake & Output 11/17/18 11/18/18 11/18/18 18:59 06:59 18:59 Intake Total 640 150 240 Output Total 300 Balance 640 150 -60 Weight 65.5 kg Intake: Oral 640 150 240 Output: Urine 300 Other: Voiding Method Bedpan Bedpan Diaper Diaper # Voids 2 1 - Constitutional General appearance: Present: average body habitus, cooperative - EENT Eyes: Present: anicteric sclerae, EOMI ENT: Present: hearing grossly normal - Respiratory Details: respirations even and unlabored - Cardiovascular Details: skin warm and dry - Musculoskeletal Musculoskeletal: Present: generalized weakness - Psychiatric Psychiatric: Present: A&O x's 3, appropriate affect, intact judgment & insight - Labs CBC & Chem 7: 11/17/18 08:18 11/18/18 05:53 Labs: Abnormal Lab Results - Last 24 Hours (Table) 11/17/18 11/17/18 11/18/18 Range/Units 16:46 20:49 05:53 Sodium 134 L (137-145) mmol/L Chloride 94 L (98-107) mmol/L Carbon Dioxide 35 H (22-30) mmol/L BUN 21 H (7-17) mg/dL Creatinine 0.38 L (0.52-1.04) mg/dL Glucose 118 H (74-99) mg/dL POC Glucose (mg/dL) 455 H 343 H (75-99) mg/dL Calcium 7.4 L (8.4-10.2) mg/dL Ionized Calcium Amna 3.9 L (4.5-5.3) mg/dL Total Protein 4.8 L (6.3-8.2) g/dL Albumin 2.9 L (3.5-5.0) g/dL 11/18/18 Range/Units 06:19 Sodium (137-145) mmol/L Chloride (98-107) mmol/L Carbon Dioxide (22-30) mmol/L BUN (7-17) mg/dL Creatinine (0.52-1.04) mg/dL Glucose (74-99) mg/dL POC Glucose (mg/dL) 130 H (75-99) mg/dL Calcium (8.4-10.2) mg/dL Ionized Calcium Amna (4.5-5.3) mg/dL Total Protein (6.3-8.2) g/dL Albumin (3.5-5.0) g/dL Assessment and Plan (1) Altered mental status Current Visit: Yes Status: Acute Priority: High Code(s): R41.82 - ALTERED MENTAL STATUS, UNSPECIFIED SNOMED Code(s): 980436154 (2) Brain metastasis Current Visit: No Status: Chronic Priority: Medium Code(s): C79.31 - SECONDARY MALIGNANT NEOPLASM OF BRAIN SNOMED Code(s): 72159462 (3) Non-small cell lung cancer (NSCLC) Current Visit: Yes Status: Acute Priority: High Code(s): C34.90 - MALIGNANT NEOPLASM OF UNSP PART OF UNSP BRONCHUS OR LUNG SNOMED Code(s): 989843113 (4) Weakness Current Visit: Yes Status: Chronic Priority: High Code(s): R53.1 - WEAKNESS SNOMED Code(s): 05716639 Plan: Case was discussed with patient's primary oncologist Dr. Ceja. Discussed with patient and her concerns for very poor tolerance to treatment, poor per formance status and patient's inability to recuperate with any meaningful quality of life. We discussed patient goals, quality of life and how to achieve those goals. After approximately 40 minute discussion patient does want to opt for hospice. She would prefer care in a hospice appropriate facility so as to reduce any burden on her or family, this would also allow them to spend time with her versus meeting her needs. She was assured that the intent of hospice was quality of life versus quantity and that her symptoms would be addressed accordingly. All questions were answered to the best of my ability. Case was discussed with case management director who will begin process. Orders have been placed for the same.
[2018-11-18 17:14] LABS: Glucose,Whole Blood >600 mg/dL (75-99)
[2018-11-18] MEDS: ATORVASTATIN 20 MG TAB PO SCH (17:43)
[2018-11-18] MEDS: ASPIRIN 81 MG PO SCH (17:43)
--- NOTE | 2018-11-18 18:57 | P.PN ---
Subjective Progress Note Date: 11/18/18 This is a continue naproxen on a 58-year-old white female with metastatic non- small cell lung cancer at stage IV. Unfortunately, she has had significant troponin elevation which has resulted in cardiology considering treatment, but opting for conservative management given her overall tumor load and multiple comorbidities. We have discussed probable hospice treatment. They will discuss this with oncology later today. The patient otherwise has encephalopathy related to metastatic disease and electrolyte imbalance Objective - Vital Signs Vital signs: Vital Signs Temp 98.4 F 11/18/18 14:52 Pulse 91 11/18/18 14:52 Resp 16 11/18/18 14:52 BP 96/53 11/18/18 14:52 Pulse Ox 95 11/18/18 14:52 Intake & Output 11/17/18 11/18/18 11/18/18 18:59 06:59 18:59 Intake Total 640 150 720 Output Total 1300 Balance 640 150 -580 Weight 65.5 kg Intake: Oral 640 150 720 Output: Urine 1300 Other: Voiding Method Bedpan Bedpan Diaper Diaper # Voids 2 1 - Constitutional General appearance: Present: average body habitus, cooperative - EENT Eyes: Absent: abnormal pupil - Neck Neck: Absent: lymphadenopathy - Respiratory Respiratory: bilateral: diminished - Cardiovascular Rhythm: regular Heart sounds: normal: S1, S2 Abnormal Heart Sounds: Absent: S3 Gallop - Gastrointestinal General gastrointestinal: Present: soft. Absent: tenderness - Musculoskeletal Musculoskeletal: Present: generalized weakness - Labs CBC & Chem 7: 11/17/18 08:18 11/18/18 16:59 Labs: Abnormal Lab Results - Last 24 Hours (Table) 11/17/18 11/18/18 11/18/18 Range/Units 20:49 05:53 06:19 Sodium 134 L (137-145) mmol/L Chloride 94 L (98-107) mmol/L Carbon Dioxide 35 H (22-30) mmol/L BUN 21 H (7-17) mg/dL Creatinine 0.38 L (0.52-1.04) mg/dL Glucose 118 H (74-99) mg/dL POC Glucose (mg/dL) 343 H 130 H (75-99) mg/dL Calcium 7.4 L (8.4-10.2) mg/dL Ionized Calcium Amna 3.9 L (4.5-5.3) mg/dL Troponin I (0.000-0.034) ng/mL Total Protein 4.8 L (6.3-8.2) g/dL Albumin 2.9 L (3.5-5.0) g/dL 11/18/18 11/18/18 11/18/18 Range/Units 10:40 16:48 16:50 Sodium (137-145) mmol/L Chloride (98-107) mmol/L Carbon Dioxide (22-30) mmol/L BUN (7-17) mg/dL Creatinine (0.52-1.04) mg/dL Glucose (74-99) mg/dL POC Glucose (mg/dL) >600 H (75-99) mg/dL Calcium (8.4-10.2) mg/dL Ionized Calcium Amna (4.5-5.3) mg/dL Troponin I 0.083 H* 0.072 H* (0.000-0.034) ng/mL Total Protein (6.3-8.2) g/dL Albumin (3.5-5.0) g/dL 11/18/18 Range/Units 16:59 Sodium (137-145) mmol/L Chloride (98-107) mmol/L Carbon Dioxide (22-30) mmol/L BUN (7-17) mg/dL Creatinine (0.52-1.04) mg/dL Glucose 410 H (74-99) mg/dL POC Glucose (mg/dL) (75-99) mg/dL Calcium (8.4-10.2) mg/dL Ionized Calcium Amna (4.5-5.3) mg/dL Troponin I (0.000-0.034) ng/mL Total Protein (6.3-8.2) g/dL Albumin (3.5-5.0) g/dL Assessment and Plan (1) Altered mental status Current Visit: Yes Status: Acute Priority: High Code(s): R41.82 - ALTERED MENTAL STATUS, UNSPECIFIED SNOMED Code(s): 529005132 (2) Hypocalcemia Current Visit: Yes Status: Acute Code(s): E83.51 - HYPOCALCEMIA SNOMED Code(s): 9211656 (3) Hyponatremia Current Visit: Yes Status: Acute Code(s): E87.1 - HYPO-OSMOLALITY AND HYPONATREMIA SNOMED Code(s): 72250141 (4) Weakness Current Visit: Yes Status: Chronic Priority: High Code(s): R53.1 - WEAKNESS SNOMED Code(s): 02055648 (5) Lytic bone lesions on xray Current Visit: No Status: Acute Priority: High Code(s): M89.9 - DISORDER OF BONE, UNSPECIFIED SNOMED Code(s): 802821084 (6) Metastatic carcinoma Current Visit: No Status: Acute Code(s): C79.9 - SECONDARY MALIGNANT NEOPLASM OF UNSPECIFIED SITE SNOMED Code(s): 224420102 (7) Non-small cell lung cancer (NSCLC) Current Visit: Yes Status: Acute Priority: High Code(s): C34.90 - MA LIGNANT NEOPLASM OF UNSP PART OF UNSP BRONCHUS OR LUNG SNOMED Code(s): 25 6701236 Plan: Long discussion with the patient regarding probable . She will discuss this with oncology later today. We are watching electrolyte imbalance closely. Most likely DC dexamethasone today. This is given her elevated blood sugar. Prognosis is poor Time with Patient: Greater than 30
[2018-11-18 20:57] LABS: Glucose,Whole Blood 474 mg/dL (75-99)
[2018-11-18] MEDS ORDERED: INSULIN ASPART (NovoLOG) 100 UNIT/ML VIAL SQ ONE (22:50)
[2018-11-19] MEDS: MORPHINE SULFATE IR 15 MG TABLET PO PRN ×4 (04:05→18:24)
[2018-11-19 06:17] LABS: Glucose,Whole Blood 96 mg/dL (75-99)
[2018-11-19] MEDS: CALCIUM CARB-MAG CARB-FOLIC 1 EACH TAB PO SCH ×2 (06:20→18:25)
[2018-11-19] MEDS: CARVEDILOL 6.25 MG TAB PO SCH ×2 (06:20→18:24)
[2018-11-19] MEDS: FUROSEMIDE 40 MG TAB PO SCH (06:20)
[2018-11-19] MEDS: HYDROmorphone 1 MG/ML 1 ML SYRINGE IVP PRN ×3 (06:20→16:00)
[2018-11-19] MEDS: INSULIN ASPART (NovoLOG) 100 UNIT/ML VIAL SQ SCH ×3 (07:23→18:25)
--- NOTE | 2018-11-19 07:48 | P.DS ---
Providers Date of admission: 11/16/18 20:16 Attending physician: Ji Madera Consults: 11/16/18 20:15 Consult Physician Routine Consulting Provider: Matti Durant Consult Reason/Comments: known Do you want consulting provider notified?: Yes 11/17/18 07:51 Consult Physician Routine Consulting Provider: Nacho Haney Consult Reason/Comments: chest pain Do you want consulting provider notified?: Yes Primary care physician: Ji Madera - Discharge Diagnosis(es) (1) Altered mental status Current Visit: Yes Status: Acute Priority: High (2) Hypocalcemia Current Visit: Yes Status: Acute (3) Hyponatremia Current Visit: Yes Status: Acute (4) Weakness Current Visit: Yes Status: Chronic Priority: High (5) Lytic bone lesions on xray Current Visit: No Status: Acute Priority: High (6) Metastatic carcinoma Current Visit: No Status: Acute (7) Non-small cell lung cancer (NSCLC) Current Visit: Yes Status: Acute Priority: High Hospital Course: The patient was readmitted from rehab secondary to shortness of breath or chest pain. The patient has underlying history of acute on chronic systolic heart failure and metastatic non-small cell adenocarcinoma area the patient was stabilized and placed on dexamethasone. The patient has opted for hospice and we will discharge once this is instituted. Prognosis is poor secondary to her multiple comorbidities. Patient Condition at Discharge: Serious Plan - Discharge Summary New Discharge Prescriptions: Continue RX: Prochlorperazine [Compazine] 10 mg PO BID PRN PRN Reason: Nausea RX: Carvedilol [Coreg] 6.25 mg PO BID@0600,1700 RX: Citalopram Hydrobromide [CeleXA] 10 mg PO DAILY@0800 RX: Nitroglycerin Sl Tabs [Nitrostat] 0.4 mg SUBLINGUAL Q5M PRN #20 tab PRN Reason: Chest Pain RX: Atorvastatin [Lipitor] 20 mg PO DAILY@1700 RX: Dexamethasone [Hexadrol] 4 mg PO QID #60 tab RX: Sennosides-Docusate Sodium [Senokot-S] 1 tab PO BID@0800,1700 RX: ALPRAZolam [Xanax] 0.5 mg PO TID PRN #9 tab PRN Reason: Anxiety RX: Morphine Sulfate Ir [MSIR] 15 mg PO Q4H PRN PRN Reason: Breakthrough Pain RX: Magnesium Hydroxide [Milk of Magnesia Concentrate] 7,200 mg PO DAILY PRN PRN Reason: Constipation RX: Na Phos,M-B/Na Phos,Di-Ba [Fleet Adult] 133 ml RECTAL DAILY PRN PRN Reason: Constipation RX: fentaNYL 50MCG/HR PATCH [Duragesic 50MCG/HR] 50 mcg TRANSDERM Q72H RX: Bisacodyl 10 mg RECTAL DAILY PRN PRN Reason: Constipation RX: Furosemide [Lasix] 40 mg PO DAILY@0600 RX: Aspirin 81 mg PO DAILY@1700 Discharge Medication List RX: Carvedilol [Coreg] 6.25 mg PO BID@0600,1700 11/14/17 [History] RX: Prochlorperazine [Compazine] 10 mg PO BID PRN 11/14/17 [History] RX: Citalopram Hydrobromide [CeleXA] 10 mg PO DAILY@0800 03/27/18 [History] RX: Nitroglycerin Sl Tabs [Nitrostat] 0.4 mg SUBLINGUAL Q5M PRN #20 tab 03/28/18 [Rx] RX: Atorvastatin [Lipitor] 20 mg PO DAILY@1700 06/28/18 [History] RX: Dexamethasone [Hexadrol] 4 mg PO QID #60 tab 09/25/18 [Rx] RX: Sennosides-Docusate Sodium [Senokot-S] 1 tab PO BID@0800,1700 10/19/18 [History] RX: ALPRAZolam [Xanax] 0.5 mg PO TID PRN #9 tab 11/12/18 [Rx] RX: Aspirin 81 mg PO DAILY@1700 11/16/18 [History] RX: Bisacodyl 10 mg RECTAL DAILY PRN 11/16/18 [History] RX: Furosemide [Lasix] 40 mg PO DAILY@0600 11/16/18 [History] RX: Magnesium Hydroxide [Milk of Magnesia Concentrate] 7,200 mg PO DAILY PRN 11/16/18 [History] RX: Morphine Sulfate Ir [MSIR] 15 mg PO Q4H PRN 11/16/18 [History] RX: Na Phos,M-B/Na Phos,Di-Ba [Fleet Adult] 133 ml RECTAL DAILY PRN 11/16/18 [History] RX: fentaNYL 50MCG/HR PATCH [Duragesic 50MCG/HR] 50 mcg TRANSDERM Q72H 11/16/18 [History] Follow up Appointment(s)/Referral(s): Ji Madera MD [Primary Care Provider] - 1 Week Discharge Disposition: HOME WITH HOSPICE
[2018-11-19] MEDS: SENNOSIDES-DOCUSATE SODIUM 1 EACH TAB PO SCH ×2 (08:18→18:25)
[2018-11-19] MEDS: PROCHLORPERAZINE 10 MG TAB PO PRN (08:18)
[2018-11-19] MEDS: CITALOPRAM HYDROBROMIDE 10 MG TAB PO SCH (08:18)
[2018-11-19 12:03] LABS: Glucose,Whole Blood 220 mg/dL (75-99)
[2018-11-19 12:21] VITALS: PULSE 96; RESP 16; TEMP 98.5
[2018-11-19 17:09] LABS: Glucose,Whole Blood 156 mg/dL (75-99)
[2018-11-19] MEDS: ATORVASTATIN 20 MG TAB PO SCH (18:25)
[2018-11-19] MEDS: ASPIRIN 81 MG PO SCH (18:25)
[2018-11-19 20:04] VITALS: BP 104/59
== END 2018-11-19 20:57 | disposition still patient (30) | DRG 54 ==
LOC: EC 16:26 → 3SCARD 20:16 → 4MS4W 11-19 20:44
PROVIDERS: ADMIT Family Medicine; ATTEND Family Medicine
PROC: 06HT33Z Insertion of Infusion Device into Right Foot Vein, Percutaneous Approach (ICD-10-PCS; principal; 2018-11-19 08:00)
DX: C79.31 Secondary malignant neoplasm of brain (principal); G93.41 Metabolic encephalopathy; C34.90 Malignant neoplasm of unspecified part of unspecified bronchus or lung; C79.51 Secondary malignant neoplasm of bone; C78.7 Secondary malignant neoplasm of liver and intrahepatic bile duct; E87.1 Hypo-osmolality and hyponatremia; I42.9 Cardiomyopathy, unspecified; I50.22 Chronic systolic (congestive) heart failure; E83.51 Hypocalcemia; E87.6 Hypokalemia; F32.9 Major depressive disorder, single episode, unspecified; F41.9 Anxiety disorder, unspecified; G89.3 Neoplasm related pain (acute) (chronic); I11.0 Hypertensive heart disease with heart failure; I25.2 Old myocardial infarction; Z87.891 Personal history of nicotine dependence; I25.10 Atherosclerotic heart disease of native coronary artery without angina pectoris; I73.9 Peripheral vascular disease, unspecified; J44.9 Chronic obstructive pulmonary disease, unspecified; K21.9 Gastro-esophageal reflux disease without esophagitis; Z87.440 Personal history of urinary (tract) infections; Z51.5 Encounter for palliative care; Z66 Do not resuscitate; Z79.82 Long term (current) use of aspirin; Z79.899 Other long term (current) drug therapy; Z79.891 Long term (current) use of opiate analgesic; Z80.1 Family history of malignant neoplasm of trachea, bronchus and lung; Z82.49 Family history of ischemic heart disease and other diseases of the circulatory system; Z85.6 Personal history of leukemia; Z90.710 Acquired absence of both cervix and uterus; Z86.14 Personal history of Methicillin resistant Staphylococcus aureus infection; Z95.828 Presence of other vascular implants and grafts; Z87.19 Personal history of other diseases of the digestive system; Z88.1 Allergy status to other antibiotic agents; Z88.8 Allergy status to other drugs, medicaments and biological substances; M54.9 Dorsalgia, unspecified; R74.8 Abnormal levels of other serum enzymes; G13.1 Other systemic atrophy primarily affecting central nervous system in neoplastic disease
CPT/HCPCS: 36410; 36415; 70450; 71046; 76937; 80053; 80306; 81001; 82140; 82330; 82550; 82947; 83605; 83735; 84100; 84484; 85025; 93005; 96360; 96361; 96365; 96366; 99291

== ENCOUNTER 2018-11-19 16:03 | Inpatient (IN) | payer MEDICAID ==
[2018-11-19] MEDS ORDERED: BISACODYL 10 MG SUPP RECTAL PRN (22:40)
[2018-11-19] MEDS ORDERED: MORPHINE SULFATE IR 15 MG TABLET PO PRN (22:40)
[2018-11-19] MEDS ORDERED: LORazepam 1 MG TAB PO PRN (22:41)
[2018-11-19] MEDS ORDERED: ACETAMINOPHEN TAB 325 MG TAB PO PRN (22:41)
[2018-11-19] MEDS ORDERED: ONDANSETRON 4 MG TAB PO PRN (22:47)
[2018-11-19] MEDS: MORPHINE SULFATE ER 30 MG TABLET PO SCH (23:47)
[2018-11-20 01:32] VITALS: BMI 26.2
[2018-11-20] MEDS ORDERED: CARVEDILOL 6.25 MG TAB PO SCH (06:00)
[2018-11-20] MEDS: MORPHINE SULFATE ER 30 MG TABLET PO SCH (07:54)
[2018-11-20] MEDS: DEXAMETHASONE 4 MG TAB PO SCH ×2 (07:54→14:22)
[2018-11-20] MEDS ORDERED: CITALOPRAM HYDROBROMIDE 10 MG TAB PO SCH (08:00)
[2018-11-20 14:23] VITALS: BP 87/57; PULSE 69; RESP 14; TEMP 97.5
== END 2018-11-20 16:22 | DRG 951 ==
LOC: 4MS4W 20:58
PROVIDERS: ADMIT Family Medicine; ATTEND Family Medicine
DX: Z51.5 Encounter for palliative care (principal); I50.23 Acute on chronic systolic (congestive) heart failure; C34.90 Malignant neoplasm of unspecified part of unspecified bronchus or lung; C78.7 Secondary malignant neoplasm of liver and intrahepatic bile duct; C79.31 Secondary malignant neoplasm of brain; C79.51 Secondary malignant neoplasm of bone; Z66 Do not resuscitate; Z87.891 Personal history of nicotine dependence; E83.51 Hypocalcemia; Z87.19 Personal history of other diseases of the digestive system; I73.9 Peripheral vascular disease, unspecified; M19.90 Unspecified osteoarthritis, unspecified site; G89.3 Neoplasm related pain (acute) (chronic); I25.10 Atherosclerotic heart disease of native coronary artery without angina pectoris; I11.0 Hypertensive heart disease with heart failure; J44.9 Chronic obstructive pulmonary disease, unspecified; I25.2 Old myocardial infarction; Z79.891 Long term (current) use of opiate analgesic; Z88.1 Allergy status to other antibiotic agents; Z88.8 Allergy status to other drugs, medicaments and biological substances